=== PATIENT | female | born 1995 | race Caucasian/White ===

== ENCOUNTER 2018-08-27 10:43 | Outpatient (REF) | payer BC, SELFPAY ==
--- NOTE | 2018-08-27 09:00 | PAPFT_PTH ---
PATIENT: Liza Wilkinson LOC: [facility] U#:[id number] AGE/SX: 23/F ROOM: RE08/27/[address]: LANA Barlow : 1995 BED: DIS: 08/27/2018 SPEC #: [id number] RECD: 08/27/18 12:50 STATUS: LUANNE REQ #: [id number] ALISHA: 08/27/18 09:[address]: Liza uY DEPT: [facility] Cytology RECD BY: Mariel Michelle ENTERED: 08/27/18 12:51 SP TYPE: PAPFT MALINI DR: Lynn López APRN Tissues: 1 - CX/ENDOCX FOR PAP SMEARS Procedures: PAP THIN PREP/UVM Screening Comments: [id number]
== END 2018-08-27 11:03 ==
LOC: LBN 10:43
PROVIDERS: PCP Nurse Practitioner Family; Visit Provider Nurse Practitioner Family
DX: Z12.4 Encounter for screening for malignant neoplasm of cervix (principal)
CPT/HCPCS: 88142

== ENCOUNTER 2019-03-22 15:00 | Outpatient (CLI) | payer BC, SELFPAY ==
[2019-03-22 15:46] LABS: Abs Immature Grans 0.03 k/cumm (0.0-0.09); Absolute Basophil Count 0.03 k/cumm (0.0-0.2); Absolute Eosinophil Count 0.05 k/cumm (0.0-0.7); Absolute Lymphocyte Count 3.03 k/cumm (1.2-3.4); Absolute Monocyte Count 0.87 k/cumm (0.11-0.7); Absolute Neutrophil Count 5.76 k/cumm (1.2-6.7); Basophils % 0.3; Eosinophils % 0.5; HGB 14.1 g/dL (12.0-15.5); Immature Grans % 0.3; Mean Corp. HGB Concentration 34.4 g/dL (32.0-36.0); Mean Corpuscular Hemoglobin 29.9 pg (27.0-33.0); Mean Corpuscular Volume 86.9 fL (80-95); Mean Platelet Volume 10.7 fL (8.0-11.0); Monocytes % 8.9; Platelet Count 267 x1000/uL (130-400); RBC 4.72 m/cumm (4.00-5.20); White Blood Cell Count 9.77 k/cumm (4.4-10.8)
[2019-03-22 16:59] LABS: ALT 25 U/L (12-78); AST 16 U/L (15-37); Albumin 3.6 g/dL (3.4-5.0); Alkaline Phosphatase 66 U/L (46-116); Anion Gap 9.7 mmol/L (3-11); BUN 11 mg/dL (7-18); Bilirubin, Total 0.2 mg/dL (0.2-1.0); CO2 26.3 mmol/L (21.0-32.0); CREATININE 0.74 mg/dL (0.55-1.02); Calcium 8.8 mg/dL (8.5-10.1); Chloride 102 mmol/L (98-107); Glucose 90 mg/dL (70-100); Potassium 3.7 mmol/L (3.5-5.1); Sodium 138 mmol/L (136-145); Total Protein 6.7 g/dL (6.4-8.2)
[2019-03-22 20:51] LABS: Ionized Calcium 1.18 mmol/L (1.12-1.32)
== END 2019-03-22 15:20 ==
PROVIDERS: PCP Nurse Practitioner Family; Visit Provider Obstetrics & Gynecology
DX: O16.1 Unspecified maternal hypertension, first trimester (principal)
CPT/HCPCS: 36415; 80053; 82330; 84443; 85025

== ENCOUNTER 2019-04-12 16:49 | Outpatient (REF) | payer BC, SELFPAY ==
[2019-04-12 18:33] LABS: *AMPHETAMINES SCREEN URINE Negative (Negative); *BARBITURATES SCREEN URINE Negative (Negative); *BENZODIAZEPINES SCREEN URINE Negative (Negative); Cannabinoids THC Negative (Negative); Cocaine Screen,Urine Negative (Negative); METHADONE URINE SCREEN Negative (Negative); OPIATES URINE SCREEN Negative (Negative)
[2019-04-12 18:55] LABS: Tricyclic Antidepressants Negative (Negative)
[2019-04-17 11:44] LABS: Buprenorphine Negative; Norbuprenorphine Negative
== END 2019-04-12 17:09 ==
LOC: LBN 16:49
PROVIDERS: PCP Nurse Practitioner Family; Visit Provider Advanced Practice Midwife
DX: Z34.91 Encounter for supervision of normal pregnancy, unspecified, first trimester (principal)
CPT/HCPCS: 80307; 87086

== ENCOUNTER 2019-05-25 07:08 | Outpatient (CLI) | payer BC, SELFPAY ==
[2019-05-25 08:43] LABS: TSH (W/Ref FT4) 1.41 uIU/mL (0.36-3.74)
[2019-05-26 10:35] LABS: Hepatitis C Ab w Rflx HCV PCR Negative (NEGAT)
[2019-05-26 11:12] LABS: Hepatitis B Surface Ag Negative (NEGAT); Rubella IgG Ab (UVM) Positive
[2019-05-26 11:22] LABS: HIV-1/2 Ag & Ab Screen Negative (NEGAT)
[2019-05-26 11:36] LABS: Varicella IgG Antibody Positive
== END 2019-05-25 07:28 ==
PROVIDERS: Visit Provider Obstetrics & Gynecology Gynecology
DX: Z34.91 Encounter for supervision of normal pregnancy, unspecified, first trimester (principal); Z11.4 Encounter for screening for human immunodeficiency virus [HIV]; Z11.59 Encounter for screening for other viral diseases; Z01.84 Encounter for antibody response examination
CPT/HCPCS: 36415; 86787; 86803; 86850; 86900; 86901; 87340; 87389; 84443; 86762

== ENCOUNTER 2019-06-16 00:31 | Outpatient (CLI) | payer BC, SELFPAY ==
--- NOTE | 2019-06-16 07:00 | DI.US_ITS ---
SYMPTOMS/DIAGNOSIS: , SURVEY, Z34.90 OB ULTRASOUND: The fetus was in variable position during the exam. The placenta is posterior. The biometric measurements correspond to 18 weeks 2 days. The amount of amniotic fluid appears normal. No abnormalities are identified. IMPRESSION: survey is within normal limits. Predicted Gestational Age: Indication/History: 18+0 Wks Range: 17+0 to 19+0 Prior US done on: Determined by: First US LMP History EDC by prior US: 11/17/19 For multiple gestations: Baby PLACENTA: Grade: 0 Location: Anterior Posterior X PRESENTATION: RT LT LOW LYING PREVIA Cephalic Trans (Head RT LT ) Varied X Breech BIOMETRY: Anatomy Identified: BPD: 40 mm 18+2 wks 4 chamber Heart X Heart Rate 144 BPM HC: 155 mm 18+3 wks LVOT X Post Fossa X AC: 126 mm 18+1 wks RVOT X Ventricles X FL: 27 mm 18+1 wks Stomach X Nose X Bladder X Lips X Cisterna Magna: 4.1 mm CI: 79 Kidneys X Palate X Cerebellum: 1.82 mm 3 vessel cord X Spine X EFW: grms % Cord Insertion X NS= not seen Composite Age (US) 18+2 wks Many abnormalities cannot be diagnosed. A normal exam does not exclude congenital abnormality. EDC by US 11/15/2019 Amniotic Fluid Index: Normal COMMENTS: 0lbs, 8 oz RUQ: LUQ: RLQ: LLQ: Total: cm Biophysical Profile: Score 0/2 NEO (>2cm) Respirations (>30 sec) Body flexion/extension Extremity flexion/extension TOTAL SCORE
== END 2019-06-16 00:51 ==
PROVIDERS: Visit Provider Obstetrics & Gynecology
DX: Z34.92 Encounter for supervision of normal pregnancy, unspecified, second trimester (principal)
CPT/HCPCS: 76805

== ENCOUNTER 2019-07-27 20:56 | Outpatient (REF) | payer BC, SELFPAY ==
[2019-07-27 23:30] LABS: PROTEIN 8.1 mg/dL
[2019-07-27 23:31] LABS: COMMENT (LAB VIEW ONLY) 85.55 mg/dL; Prot/Crea Ur Ratio 0.09
== END 2019-07-27 21:16 ==
LOC: LBN 20:56
PROVIDERS: Visit Provider Obstetrics & Gynecology Gynecology
DX: R03.0 Elevated blood-pressure reading, without diagnosis of hypertension (principal); Z34.92 Encounter for supervision of normal pregnancy, unspecified, second trimester
CPT/HCPCS: 82565; 84156

== ENCOUNTER 2019-08-14 23:08 | Observation (INO) | payer BC, SELFPAY ==
[2019-08-14 22:41] LABS: HCT 39.2 % (36.0-46.0); HGB 13.7 g/dL (12.0-15.5); Mean Corp. HGB Concentration 34.9 g/dL (32.0-36.0); Mean Corpuscular Hemoglobin 30.4 pg (27.0-33.0); Mean Corpuscular Volume 86.9 fL (80-95); Mean Platelet Volume 10.7 fL (8.0-11.0); Platelet Count 245 x1000/uL (130-400); RBC 4.51 m/cumm (4.00-5.20); RBC Distribution Width 12.3 % (11.7-14.6); White Blood Cell Count 9.84 k/cumm (4.4-10.8)
[2019-08-14 22:54] LABS: ALT 23 U/L (14-59); AST 21 U/L (15-37); Albumin 3.1 g/dL (3.4-5.0); Alkaline Phosphatase 60 U/L (46-116); Anion Gap 6.9 mmol/L (3-11); BUN 5 mg/dL (7-18); Bilirubin, Total 0.2 mg/dL (0.2-1.0); CO2 27.1 mmol/L (21.0-32.0); CREATININE 0.65 mg/dL (0.55-1.02); Calcium 8.7 mg/dL (8.5-10.1); Chloride 105 mmol/L (98-107); Glucose 96 mg/dL (70-100); Potassium 3.8 mmol/L (3.5-5.1); Sodium 139 mmol/L (136-145)
--- NOTE | 2019-08-15 01:08 | PGE_ITS ---
Date of Service Date of service: 08/15/19 Time of Service: 01:08 Assessment and Plan Assessment and plan (1) Hypertension affecting in third trimester: Status: Acute Assessment and plan: Laboratory studies today are within normal limits including protein creatinine ratio. Blood pressure now 139/96 which is typical for her. Will discharge home. Follow up in the clinic early in the week for blood pressure check. Subjective Subjective Interval history since last seen: 24 year old at 26 weeks gestation presents this evening for evaluation of elevated blood pressures at home reports as 150s/100s. She reports a severe headache and simply not feeling well. Her is complicated by CHTN for which she takes labetalol 100mg once daily. She does not have a baseline 24 hour urine and has declined to turn one in. Objective Objective Clinical Data: Abnormal lab results 08/14/19 Range/Units 22:35 BUN 5 L (7-18) mg/dL Albumin 3.1 L (3.4-5.0) g/dL Laboratory Results WBC 9.84 k/cumm (4.4-10.8) 08/14/19 22:35 RBC 4.51 m/cumm (4.00-5.20) 08/14/19 22:35 Hgb 13.7 g/dL (12.0-15.5) 08/14/19 22:35 Hct 39.2 % (36.0-46.0) 08/14/19 22:35 MCV 86.9 fL (80-95) 08/14/19 22:35 MCH 30.4 pg (27.0-33.0) 08/14/19 22:35 MCHC 34.9 g/dL (32.0-36.0) 08/14/19 22:35 RDW 12.3 % (11.7-14.6) 08/14/19 22:35 Plt Count 245 x1000/uL (130-400) 08/14/19 22:35 MPV 10.7 fL (8.0-11.0) 08/14/19 22:35 Sodium 139 mmol/L (136-145) 08/14/19 22:35 Potassium 3.8 mmol/L (3.5-5.1) 08/14/19 22:35 Chloride 105 mmol/L (98-107) 08/14/19 22:35 Carbon Dioxide 27.1 mmol/L (21.0-32.0) 08/14/19 22:35 Anion Gap 6.9 mmol/L (3-11) 08/14/19 22:35 BUN 5 mg/dL (7-18) L 08/14/19 22:35 Creatinine 0.65 mg/dL (0.55-1.02) 08/14/19 22:35 Estimated GFR/1.73 m2 >= 60.00 (mL/min/1.73m2) 08/14/19 22:35 Glucose 96 mg/dL (70-100) 08/14/19 22:35 Calcium 8.7 mg/dL (8.5-10.1) 08/14/19 22:35 Total Bilirubin 0.2 mg/dL (0.2-1.0) 08/14/19 22:35 AST 21 U/L (15-37) 08/14/19 22:35 ALT 23 U/L (14-59) 08/14/19 22:35 Alkaline Phosphatase 60 U/L (46-116) 08/14/19 22:35 Total Protein 7.0 g/dL (6.4-8.2) 08/14/19 22:35 Albumin 3.1 g/dL (3.4-5.0) L 08/14/19 22:35 Ur Random Creatinine 8.61 mg/dL 08/14/19 22:27 U Random Total Protein < 6.0 mg/dL 08/14/19 22:27 U [place] Prot/Creat Ratio 08/14/19 22:27
[2019-08-15 01:15] LABS: PROTEIN < 6.0 mg/dL
[2019-08-16 16:09] LABS: COMMENT (LAB VIEW ONLY) < 13.00 mg/dL
== END 2019-08-15 01:59 | disposition home or self-care (01) ==
LOC: OBS 08-16 10:18
PROVIDERS: Admitting Provider Obstetrics & Gynecology; Visit Provider Obstetrics & Gynecology
DX: O10.912 Unspecified pre-existing hypertension complicating pregnancy, second trimester (principal); Z3A.26 26 weeks gestation of pregnancy
CPT/HCPCS: 80053; 85027; 99233; 59025; 82565; 84156; G0378

== ENCOUNTER 2019-08-24 00:39 | Outpatient (CLI) | payer BC, SELFPAY ==
--- NOTE | 2019-08-24 06:55 | DI.US_ITS ---
EXAM: US OB NEO WEIGHT CLINICAL HISTORY: serial u/s for growth,R03.0,Z34.90 TECHNIQUE: Ultrasound performed using standard protocol. COMPARISON: US OB 2-3 trimester from 06/16/2019 FINDINGS: There is a single living intrauterine gestation. Estimated sonographic age is 28 weeks. The fetus is in the cephalic presentation. heart rate is 152 beats per minute. anatomic evaluation was not performed at this time. Amniotic fluid index is 16.9 cm. Visually the amniotic fluid appears within normal limits. The placenta is posterior without evidence of previa. Estimated weight is 1138 grams. This is the 37th percentile. IMPRESSION: Single living intrauterine gestation. Estimated sonographic age is 28 weeks.
== END 2019-08-24 00:59 ==
PROVIDERS: Visit Provider Obstetrics & Gynecology Gynecology
DX: Z34.93 Encounter for supervision of normal pregnancy, unspecified, third trimester (principal)
CPT/HCPCS: 76816

== ENCOUNTER 2019-08-24 07:38 | Outpatient (CLI) | payer BC, SELFPAY ==
[2019-08-24 12:56] LABS: Glucose,1 Hr (Glucola) 140 mg/dL (80-140)
[2019-08-24 13:22] LABS: HCT 39.5 % (36.0-46.0); HGB 13.4 g/dL (12.0-15.5); Mean Corp. HGB Concentration 33.9 g/dL (32.0-36.0); Mean Corpuscular Hemoglobin 29.9 pg (27.0-33.0); Mean Corpuscular Volume 88.2 fL (80-95); Platelet Count 257 x1000/uL (130-400); RBC 4.48 m/cumm (4.00-5.20); RBC Distribution Width 12.4 % (11.7-14.6); White Blood Cell Count 10.42 k/cumm (4.4-10.8)
[2019-08-24 14:18] LABS: ALT 19 U/L (14-59); AST 16 U/L (15-37); Alkaline Phosphatase 60 U/L (46-116); BUN 5 mg/dL (7-18); Bilirubin, Total 0.2 mg/dL (0.2-1.0); CREATININE 0.59 mg/dL (0.55-1.02); Calcium 8.5 mg/dL (8.5-10.1); Chloride 105 mmol/L (98-107); Glucose 133 mg/dL (70-100); Potassium 3.8 mmol/L (3.5-5.1); Sodium 138 mmol/L (136-145); Total Protein 6.3 g/dL (6.4-8.2)
== END 2019-08-24 07:58 ==
PROVIDERS: Visit Provider Obstetrics & Gynecology Gynecology
DX: O10.913 Unspecified pre-existing hypertension complicating pregnancy, third trimester (principal); Z3A.28 28 weeks gestation of pregnancy
CPT/HCPCS: 36415; 80053; 82950; 85027

== ENCOUNTER 2019-09-20 00:09 | Outpatient (CLI) | payer BC, SELFPAY ==
--- NOTE | 2019-09-20 07:03 | DI.US_ITS ---
EXAM: US OB NEO WEIGHT CLINICAL HISTORY: F/u growth in pt with chronic hypertension,016.3 TECHNIQUE: Ultrasound performed using standard protocol. COMPARISON: US OB NEO WEIGHT from 08/24/2019 FINDINGS: The fetus is in cephalic position. Placenta is grade 1 and posterior. The biometric measurements co rrespond to 32 weeks, consistent with previous dating. Estimated weight is 1818 grams, near th e 38th percentile. The amniotic fluid index appears normal at 16.9. IMPRESSION: size and weight are within the normal range.
== END 2019-09-20 00:29 ==
PROVIDERS: Visit Provider Obstetrics & Gynecology Gynecology
DX: O16.3 Unspecified maternal hypertension, third trimester (principal); Z36.89 Encounter for other specified antenatal screening
CPT/HCPCS: 76816

== ENCOUNTER 2019-09-22 07:20 | Outpatient (CLI) | payer BC, SELFPAY ==
[2019-09-22 07:40] LABS: HCT 39.7 % (36.0-46.0); HGB 13.4 g/dL (12.0-15.5); Mean Corp. HGB Concentration 33.8 g/dL (32.0-36.0); Mean Corpuscular Hemoglobin 29.4 pg (27.0-33.0); Mean Corpuscular Volume 87.1 fL (80-95); Mean Platelet Volume 11.4 fL (8.0-11.0); Platelet Count 217 x1000/uL (130-400); RBC 4.56 m/cumm (4.00-5.20); RBC Distribution Width 12.2 % (11.7-14.6); White Blood Cell Count 8.63 k/cumm (4.4-10.8)
[2019-09-22 08:41] LABS: ALT 19 U/L (14-59); AST 20 U/L (15-37); Albumin 2.8 g/dL (3.4-5.0); Alkaline Phosphatase 63 U/L (46-116); BUN 3 mg/dL (7-18); Bilirubin, Total 0.3 mg/dL (0.2-1.0); CREATININE 0.69 mg/dL (0.55-1.02); Calcium 9.1 mg/dL (8.5-10.1); Chloride 106 mmol/L (98-107); Glucose 90 mg/dL (74-106); Potassium 4.1 mmol/L (3.5-5.1); Sodium 140 mmol/L (136-145); Uric Acid 4.1 mg/dL (2.6-6.0)
== END 2019-09-22 07:40 ==
PROVIDERS: Visit Provider Obstetrics & Gynecology Gynecology
DX: O14.93 Unspecified pre-eclampsia, third trimester (principal)
CPT/HCPCS: 36415; 80053; 85027; 84550

== ENCOUNTER 2019-09-28 15:27 | Outpatient (CLI) | payer BC, SELFPAY | END 2019-09-28 15:47 | PROVIDERS: Visit Provider Obstetrics & Gynecology Gynecology | DX: O10.013 Pre-existing essential hypertension complicating pregnancy, third trimester (principal); Z3A.32 32 weeks gestation of pregnancy | CPT/HCPCS: 59025 ==

== ENCOUNTER 2019-09-29 13:46 | Observation (INO) | payer BC, SELFPAY ==
[2019-09-29 14:15] LABS: HCT 45.6 % (36.0-46.0); HGB 15.5 g/dL (12.0-15.5); Mean Corpuscular Hemoglobin 29.2 pg (27.0-33.0); Mean Platelet Volume 11.6 fL (8.0-11.0); Platelet Count 240 x1000/uL (130-400); RBC Distribution Width 12.4 % (11.7-14.6); White Blood Cell Count 13.15 k/cumm (4.4-10.8)
[2019-09-29] MEDS: hydrALAZINE 20 MG/ML VIAL 10 MG IVP (14:22)
[2019-09-29] MEDS: MAGNESIUM SULFATE 20 GM/500 ML BAG IV (14:23)
[2019-09-29] MEDS: Lactated Ringers 1,000 ML 30 ML IV (14:23)
[2019-09-29 14:32] LABS: ALT 30 U/L (14-59); AST 26 U/L (15-37); Albumin 3.1 g/dL (3.4-5.0); Alkaline Phosphatase 86 U/L (46-116); Anion Gap 10.2 mmol/L (3-11); BUN 6 mg/dL (7-18); Bilirubin, Total 0.3 mg/dL (0.2-1.0); CO2 21.8 mmol/L (21.0-32.0); CREATININE 0.54 mg/dL (0.55-1.02); Calcium 9.3 mg/dL (8.5-10.1); Chloride 105 mmol/L (98-107); Glucose 110 mg/dL (74-106); Potassium 3.8 mmol/L (3.5-5.1); Sodium 137 mmol/L (136-145); Total Protein 7.7 g/dL (6.4-8.2); Uric Acid 3.9 mg/dL (2.6-6.0)
[2019-09-29 14:33] LABS: COMMENT (LAB VIEW ONLY) < 13.00 mg/dL; PROTEIN 18.7 mg/dL
[2019-09-29] MEDS: Betamet Acet/Betamet Na Ph Inj. 30 MG/5 ML 12 MG IM (14:49)
[2019-09-29] MEDS: Acetaminophen 325 MG TAB 650 MG PO (15:35)
--- NOTE | 2019-09-29 17:22 | HPE_ITS ---
Date of service: 09/29/19 Time of Service: 17:23 Assessment and Plan Assessment and plan (1) Severe preeclampsia: Status: Acute Assessment and plan: My recommendation is to proceed with transfer to [facility] service at [facility]. While her laboratory studies are normal and she has no proteinuria, she did have severe range blood pressures that required IV antihypertensive medication. She was started on a Magnesium sulfate infusion with a 4 gm bolus then 2gm/ hour thereafter. She was provided BMZ 12mg x 1 and blood pressure was treated with 10 mg of IV hydralazine with good results. Dr. Venegas at [facility] was contacted and accepted the patient in transfer. History of Present Illness History of Present Illness Chief Complaint: Elevated Blood pressures Narrative: 24 year old @ 33.0 weeks presented to the office today with flushing, headache and a racing heart rate. Her has been complicated by chronic hypertension and she had been on labetalol 100mg once daily for the majority of the . Her baseline blood pressures ran with a systolic typically in the 140s. Over the last week she has had increasing blood pressures but did have normal laboratory studies. Today her initial blood pressure on evaluation in the clinic her initial blood pressure was 178/122. The patient was admitted to labor and delivery and repeat blood pressure was noted to be 166 /103. She was started on a magnesium sulfate infusion and provided 10 mg of IV hydralazine with good result. She did complain of a severe headache that did not improve after tylenol. She denies any abdominal pain. movement has been good. Review of Systems All systems reviewed & are unremarkable except as noted in HPI and below PFSH Medical History (Updated 09/29/19 @ 17:42 by Jared Schwarz MD) Hypertension affecting in first trimester (Acute) 03/2019 Labetalol 100mg daily is max dose pt is taking. se. 03/31/19 - 24hr urine catecholamines ordered 06/29/19 24hr urine protein ordered. 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 Do you feel safe in your relationship?: Yes Female Reproductive History Menstrual Age of Menarche: 12 control method: none History History 1 Para 0 Hx # Term Pregnancies 0 Multiple births 0 Hx # Pregnancies 0 Ectopic pregnancies 0 AB induced 0 Hx Number of Living Children 0 AB spontaneous 0 Meds Home Medications and Allergies Home Medications Medication Instructions Recorded Confirmed Type prenat.vits,stacey,yzr-epwc-tybdn 1 tab PO DAILY 04/12/19 09/29/19 History nifedipine 30 mg tablet,extended 30 mg PO DAILY #10 tab 09/28/19 09/29/19 Rx release Allergies Allergy/AdvReac Type Severity Reaction Status Date / Time polymyxin B sulfate Allergy Unknown Verified 09/29/19 13:25 [From Polytrim] trimethoprim [From Polytrim] Allergy Unknown Verified 09/29/19 13:25 prednisone Allergy Skin Rash Verified 09/29/19 13:25 pseudoephedrine HCl AdvReac tachycardia Verified 09/29/19 13:25 [From Sudafed] Exam Resp Effort & Inspection: normal respiratory effort Auscultation: clear to auscultation bilaterally Cardio Rate: regular rate and tachycardic (Rate of 120 on initial exam. ) Rhythm: regular rhythm Extrem Other: 3+ DTRs. No clonus. Results Labs Result diagrams: 09/29/19 14:03 09/29/19 14:03 Labs: Laboratory Results - last 24 hr 09/29/19 09/29/19 09/29/19 13:50 14:03 14:03 WBC 13.15 H RBC 5.30 H Hgb 15.5 Hct 45.6 MCV 86.0 MCH 29.2 MCHC 34.0 RDW 12.4 Plt Count 240 MPV 11.6 H Sodium 137 Potassium 3.8 Chloride 105 Carbon Dioxide 21.8 Anion Gap 10.2 BUN 6 L Creatinine 0.54 L Estimated GFR/1.73 m2 >= 60.00 Glucose 110 H Uric Acid 3.9 Calcium 9.3 Total Bilirubin 0.3 AST 26 ALT 30 Alkaline Phosphatase 86 Total Protein 7.7 Albumin 3.1 L Ur Random Creatinine < 13.00 U Random Total Protein 18.7 U [place] Prot/Creat Ratio
== END 2019-09-29 17:30 | disposition short-term general hospital (02) | DRG 833 ==
PROVIDERS: Admitting Provider Obstetrics & Gynecology; Visit Provider Obstetrics & Gynecology
DX: O11.3 Pre-existing hypertension with pre-eclampsia, third trimester (principal); O10.913 Unspecified pre-existing hypertension complicating pregnancy, third trimester; Z3A.33 33 weeks gestation of pregnancy
CPT/HCPCS: 36415; 80053; 85027; 96360; 96361; 96365; 96366; 99223; 82565; 84156; 84550; G0378; J0360; J0702; J3475

== ENCOUNTER 2020-03-26 15:46 | Emergency (ER) | payer MEDICAID, SELFPAY ==
[2020-03-26 15:51] VITALS: BP 160/98; PULSE 78; RESP 20; TEMP 36.6; O2SAT 100
[2020-03-26 16:05] VITALS: RESP 16
--- NOTE | 2020-03-26 16:46 | W.ED.GENAD ---
Discharge Plan Disposition Patient Disposition: HOME Condition: Stable Discharge Details Chief Complaint: GenMedical Clinical Impression: HTN (hypertension), Anxiety, Post depression Primary Care Provider: Lynn López ED Provider: Darian Lowery Home Meds and New Rx's Prescriptions: Continued prenat.vits,stacey,alg-akaa-klrqw tablet 1 tab PO DAILY RF: 0 Discharge Instructions Instructions: Depression (ED), Hypertension (ED), Anxiety (ED) Additional Instructions: At this time your blood pressure is elevated but is nonemergent and you are otherwise asymptomatic. As we discussed, I have multiple recommendations. I recommend watching for new or worsening symptoms and return immediately to the ER. I recommend checking her blood pressure twice a day under the same circumstances and keeping a log. This will be very helpful to find if your blood pressure is consistently high or whether this is secondary to anxiety and being at the hospital, white coat syndrome. If your numbers are consistently high you will likely need to discuss hypertension medications with your primary care provider. I would call them on Friday to make an outpatient appointment. I would also talk with them regarding your anxiety and your depression. I have given you the card for [facility] human services, I recommend reaching out to them on Friday as well to discuss your anxiety and depression, discuss options such as counseling and/or medications. Discharge Data Discharge Date/Time-TO BE ENTERED AT DEPARTURE: 03/26/20 17:15 Medical Decision Making 25-year-old female who is 5-6 months , presents to the ER with multiple complaints. After a long and thorough evaluation I do believe that her presentation today is multifactorial. Her blood pressure is 160/98, although admittedly this is elevated, she is currently asymptomatic, and I do not believe this to be emergent. We discussed her blood pressure in length. She reports that she has in the past had her blood pressure be both too high or too low, treated the blood pressure, and then the opposite was true. I did explain to her that I did have concern in treating a nonemergent, asymptomatic, elevated blood pressure, any fear that she may then be hypotensive. Patient understood this completely. Regarding the tingling that she gets in her arms that seem to be positional, I do question if a nerve conduction study would be beneficial. Her neck is nontender, strength is 5 out of 5, she is neurologically intact. I do not believe that emergent advanced imaging of her C-spine is indicated. It sounds like today she was doing repetitive motion at eye level or above eye level, had the sensation in her upper extremities and became anxious. She then began to hyperventilate, felt a tightness or cramping in her upper extremities, tingling her lower extremities, question if she had a carpal pedal spasm. This resolved on its own. Again, she is neuro, vascular, tendon intact. No deficit during her evaluation. No clinical signs that she is dehydrated or malnourished. I do not believe that obtaining routine laboratory values will be beneficial in her case. We had a long discussion regarding her multifactorial treatment. I feel as though keeping a log of her blood pressure readings, bringing this to her primary care provider, and looking at the overall trend for potential therapy would be indicated. I discussed the importance of discussing her other symptoms with her primary care provider as well. Outpatient referral to orthopedics may be indicated for further evaluation. We discussed counseling versus medication therapies for her ongoing anxiety and depression. I have given her the resources of the [facility] human services so that she may reach out to them on Friday to discuss further therapy options. She was also given the number to the birthing center who was running a program in 2019, 1 of the programs involved depression which may be very beneficial for her. She was encouraged to return to the ER for new or worsening symptoms. Patient is no longer tearful or crying. She is calm, thankful, has no additional questions or concerns. She feels content with the work-up and care that she received here in the ER and is comfortable with discharge at this time. HPI General Mode of arrival: ambulatory. Date/Time Provider Initiated Documentation: 03/26/20 15:55. Limitations to Documentation: no limitations. Information obtained by: patient. HPI Narrative: This is a 25-year-old female who presents to the ER today with multiple complaints. She reports that she is 5-6 months from a and that almost killed me. She reports that this has made her much more aware of her body and has increased her overall anxiety when she notices something different going on. She reports that she has always been anxious but it is much worse since giving . She denies history of depression prior to giving but reports increasing depression since giving . Denies any suicidal or homicidal ideations. She reports that she does feel safe. She was supposed to see her primary care provider on Friday to address her blood pressure but did not make the appointment. She reports that she does not like going to the doctors and usually tries to avoid it. She reports that for approximately 1 week or so she has had tingling in both of her upper extremities that seems to be positional, especially when she sleeps or after holding her child in a certain position for right period of time. With change of position the symptoms do go away. She is right-hand dominant. She reports today she was outside working on the siding of her house, working at a high level or above eye level, felt both of her arms get tingly, warm, tight. She felt that both of her forearms seem to be tight or spasm, unsure if she has symptoms in her hands or not. She felt as though her blood vessels in her forearms looked more dilated than usual. This concerned her, she became increasingly anxious, decided to check her blood pressure and her blood pressure was 192/122. She reports that during this time she may have been mildly hyperventilating, also felt tingling in her legs. During this time she denies any headache, visual changes, neck pain, chest pain, shortness of breath, abdominal pain, nausea, vomiting, numbness, or weakness. She reports that her forearms still feel tight but are much improved when compared to the initial symptoms, no longer to her vessels look dilated. Apparently, roughly 5 weeks after giving they discontinued her blood pressure medication. She admits to increased stress and decreased sleeping secondary to her only child. Related Data Home Medications Medication Instructions Recorded Confirmed prenat.vits,stacey,mmf-ouoz-xtmlr 1 tab PO DAILY 04/12/19 03/26/20 Allergies Allergy/AdvReac Type Severity Reaction Status Date / Time polymyxin B sulfate Allergy Unknown Verified 03/26/20 16:01 [From Polytrim] trimethoprim [From Polytrim] Allergy Unknown Verified 03/26/20 16:01 nifedipine Allergy High Unverified 03/26/20 16:03 [place] [facility] [place] Allergy Skin Rash Verified 03/26/20 16:01 pseudoephedrine HCl AdvReac tachycardia Verified 03/26/20 16:01 [From Sudafed] General Stated Complaint: Orthopedic JORDAN: 3 Review of Systems Constitutional Constitutional: Denies fatigue, Denies fever(s), Denies headache(s) and Denies weakness Eyes Eyes: Denies change in vision ENT Ears, Nose, Mouth, and Throat: Denies headache(s) and Denies neck pain Cardiovascular Cardiovascular: Denies chest pain and Denies dyspnea Respiratory Respiratory: Denies cough and Denies dyspnea Gastrointestinal Gastrointestinal: Denies abdominal pain, Denies nausea and Denies vomiting Genitourinary Genitourinary: Denies dysuria Musculoskeletal Musculoskeletal: Denies back pain, Reports muscle cramps, Denies muscle weakness, Denies neck pain, Denies numbness, Denies stiffness and Reports tingling Integumentary/Breasts Skin/Breast: Denies rash Neurologic Neurologic: Denies headache(s), Denies numbness, Reports tingling and Denies weakness Psychiatric Psychiatric: Reports anxiety, Reports depression, Denies homicidal ideation and Denies suicidal ideation Endocrine Endocrine: Denies fatigue [facility] Medical History Hypertension affecting in first trimester (Acute) 03/2019 Labetalol 100mg daily is max dose pt is taking. se. 03/31/19 - 24hr urine catecholamines ordered 06/29/19 24hr urine protein ordered. Migraine Dx 2013 (Acute) Surgical History S/P section (Acute 10/29/19[place] [facility] [place]- Post partem hemorrhage of c sect wound, transfusion Tonsillectomy and adenoidectomy 10/2012 [facility] [place] tooth extraction Family History Mother , Leukemia at age 58. Essential hypertension Personal history of malignant neoplasm Leukemia (AML) Breast cancer 40s Father Essential hypertension Hyperlipidemia Sister No problems noted. Sister No problems noted. Sister No problems noted. Sister No problems noted. Sister No problems noted. Sister No problems noted. Sister No problems noted. Sister No problems noted. Brother No problems noted. 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: always Do you feel safe at home: Yes Do you feel safe in your relationship?: Yes Female Reproductive History Menstrual Age of Menarche: 12 control method: none History History 1 Para 0 Hx # Term Pregnancies 0 Multiple births 0 Hx # Pregnancies 0 Ectopic pregnancies 0 AB induced 0 Hx Number of Living Children 0 AB spontaneous 0 Exam Const General: cooperative, healthy appearing, comfortable, in distress (Tearful, crying) and anxious Orientation: alert, awake and oriented x3 HENMT Head: normal to inspection, normocephalic and atraumatic Mouth: moist mucous membranes Eyes General: appearance normal, both eyes and all related structures Alignment and Position: alignment normal Periorbital: periorbital findings normal Eyelids: eyelids normal Conjunctivae: conjunctivae normal Sclera: sclerae normal Cornea: corneas normal Pupils: PERRL EOM: EOM intact bilaterally Neck Neck: normal visual inspection, full ROM, no meningeal signs, trachea midline, supple and nontender Resp Effort & Inspection: normal respiratory effort and able to speak in complete sentences Auscultation: clear to auscultation bilaterally Cardio Rate: regular rate Rhythm: regular rhythm GI Palpation: soft and nontender Back/Spine/Pelvis Back: No back tenderness Skin General skin exam: no rashes or lesions noted Neuro General: patient alert, patient awake, patient oriented x3, moves all extremities and no focal motor deficits Cranial Nerves: CN's II-XI intact bilaterally Cognition: normal cognition Speech: speech normal Gait: normal gait Motor: muscle tone normal throughout and strength 5/5 throughout Sensory Exam: no sensory deficits noted Extrem General: normal to inspection, full ROM, capillary refill normal and no pedal edema Right upper extremity: normal to inspection, full ROM and normal capillary refill (Normal pulses) Left upper extremity: normal to inspection, full ROM and normal capillary refill (Normal pulses) Right lower extremity: normal to inspection, full ROM and normal capillary refill (Normal pulses) Left lower extremity: normal to inspection, full ROM and normal capillary refill (Normal pulses) Psych Appearance: grossly normal Mental Status: mental status grossly normal Course Vital Signs Vital signs: Vital Signs Temperature 36.6 C 03/26/20 15:51 Pulse 78 03/26/20 15:51 Respiratory Rate 20 03/26/20 15:51 Blood Pressure 160/98 H 03/26/20 15:51 Pulse Oximetry 100 03/26/20 15:51 Temperature 36.6 C 03/26/20 15:51 Temperature Source Temporal Artery Scan 03/26/20 15:51 Pulse 78 03/26/20 15:51 Respiratory Rate 16 03/26/20 16:05 Respiratory Effort Non-Labored 03/26/20 16:05 Respiratory Depth Normal 03/26/20 16:05 Respiratory Pattern Normal 03/26/20 16:05 Blood Pressure 160/98 H 03/26/20 15:51 Blood Pressure Position Supine 03/26/20 15:51 Pulse Oximetry 100 03/26/20 15:51 Oxygen Delivery Method Room Air 03/26/20 15:51 Oxygen Flow Rate 0 03/26/20 15:51 Pain Level 0 03/26/20 16:05
[2020-03-26 16:53] VITALS: BP 161/111; PULSE 80; O2SAT 98
[2020-03-26 17:04] VITALS: BP 161/111; PULSE 80; RESP 16; TEMP 37.1; O2SAT 98
== END 2020-03-26 17:15 | disposition home or self-care (01) ==
PROVIDERS: Emergency Provider Physician Assistant; PCP Nurse Practitioner Family
DX: F53.0 Postpartum depression (principal); I10 Essential (primary) hypertension; R20.2 Paresthesia of skin; F41.9 Anxiety disorder, unspecified
CPT/HCPCS: 99283

== ENCOUNTER 2020-08-01 11:49 | Outpatient (REF) | payer MEDICAID, SELFPAY ==
--- NOTE | 2020-08-01 11:00 | PAPFT_PTH ---
PATIENT: Liza Wilkinson LOC: [facility] U#:[id number] AGE/SX: 25/F ROOM: RE08/01/[address]: LANA Barlow : 1995 BED: DIS: 08/01/2020 SPEC #: [id number] RECD: 08/01/20 12:51 STATUS: LUANNE REQ #: [id number] ALISHA: 08/01/20 11:[address]: Liza Yu DEPT: [facility] Cytology RECD BY: Mariel Michelle ENTERED: 08/01/20 12:51 SP TYPE: PAPFT OTHR DR: Isabel Cao APRN Tissues: 1 - CX/ENDOCX FOR PAP SMEARS Procedures: PAP THIN PREP/[facility] Screening Comments: [id number]
== END 2020-08-01 12:09 ==
LOC: LBN 11:49
PROVIDERS: PCP Nurse Practitioner Adult Health; Visit Provider Nurse Practitioner Family
DX: Z01.419 Encounter for gynecological examination (general) (routine) without abnormal findings (principal); Z12.4 Encounter for screening for malignant neoplasm of cervix
CPT/HCPCS: 88142

== ENCOUNTER 2020-08-02 15:45 | Outpatient (CLI) | payer MEDICAID, SELFPAY ==
--- NOTE | 2020-08-02 15:45 | RT.EKG_ITS ---
APPROVED REPORT Exam: Resting ECG Patient Location: O HR:67 bpm ECG Measurements Heart Rate 67 AXIS MO 180 P 35 QRSd 83 QRS 31 QT 397 T 24 QTc 419 Conclusion Sinus rhythm...normal P axis, V-rate 60- 99
[2020-08-02 20:20] LABS: Anion Gap 6.3 mmol/L (3-11); BUN 10 mg/dL (7-18); CO2 27.7 mmol/L (21.0-32.0); CREATININE 0.83 mg/dL (0.55-1.02); Calcium 8.9 mg/dL (8.5-10.1); Chloride 105 mmol/L (98-107); Glucose 106 mg/dL (74-106); Potassium 4.3 mmol/L (3.5-5.1); Sodium 139 mmol/L (136-145); TSH (W/Ref FT4) 1.32 uIU/mL (0.36-3.74)
== END 2020-08-02 16:05 ==
PROVIDERS: PCP Nurse Practitioner Adult Health; Visit Provider Nurse Practitioner Adult Health
DX: I10 Essential (primary) hypertension (principal); R00.2 Palpitations; F41.9 Anxiety disorder, unspecified
CPT/HCPCS: 80048; 84443

== ENCOUNTER 2021-07-13 11:01 | Outpatient (REF) | payer MEDICAID, SELFPAY ==
[2021-07-13 14:10] LABS: Abs Immature Grans 0.01 10^3/uL (0.0-0.06); Absolute Basophil Count 0.03 10^3/uL (0.0-0.2); Absolute Eosinophil Count 0.05 10^3/uL (0.0-0.7); Absolute Lymphocyte Count 2.31 10^3/uL (1.2-3.4); Absolute Neutrophil Count 2.55 10^3/uL (1.2-6.7); Basophils % 0.6; Eosinophils % 0.9; HCT 43.6 % (36.0-46.0); HGB 14.6 g/dL (11.2-15.7); Immature Grans % 0.2; Lymphocytes % 43.2; MCH 29.3 pg (27.0-33.0); MCHC 33.5 % (32.0-36.0); MCV 87.4 fL (80-95); MPV 11.5 fL (8.0-11.0); Monocytes % 7.5; Neutrophils % 47.6; Nucleated RBC 0 %; Platelet Count 273 10^3/uL (130-400); RBC 4.99 10^6/uL (3.93-5.22); RDW 11.5 % (11.7-14.6); WBC 5.35 10^3/uL (4.4-10.8)
[2021-07-13 14:50] LABS: Anion Gap 5.2 mmol/L (3-11); BUN 12 mg/dL (7-18); CO2 31.8 mmol/L (21.0-32.0); CREATININE 0.8 mg/dL (0.55-1.02); Calcium 9.7 mg/dL (8.5-10.1); Chloride 105 mmol/L (98-107); Glucose 96 mg/dL (74-106); Potassium 4.2 mmol/L (3.5-5.1); Sodium 142 mmol/L (136-145); Vitamin B12 525 pg/mL (193-986)
== END 2021-07-13 11:02 | disposition home or self-care (01) ==
LOC: LBN 11:01
PROVIDERS: PCP Nurse Practitioner Adult Health; Visit Provider Nurse Practitioner Adult Health
DX: I10 Essential (primary) hypertension (principal); R20.2 Paresthesia of skin; Z80.6 Family history of leukemia
CPT/HCPCS: 80048; 82607; 85025

== ENCOUNTER 2022-01-25 09:02 | Outpatient (REF) | payer MEDICAID, SELFPAY ==
--- NOTE | 2022-01-25 08:30 | PAPFT_PTH ---
PATIENT: Liza Wilkinson LOC: [facility] U#:[id number] AGE/SX: 27/F ROOM: RE01/25/[address]: LANA Barlow : 1995 BED: DIS: 01/25/2022 SPEC #: [id number] RECD: 01/25/22 12:55 STATUS: LUANNE RESteven #: [id number] ALISHA: 01/25/22 08:[address]: Liza Yu DEPT: [facility] Cytology RECD BY: Mariel Michelle ENTERED: 01/25/22 12:56 SP TYPE: PAPFT MALINI DR: Isabel Cao APRN Tissues: 1 - CX/ENDOCX FOR PAP SMEARS Procedures: PAP THIN PREP/[facility] Screening Comments: [id number]
== END 2022-01-25 09:03 | disposition home or self-care (01) ==
LOC: LBN 09:02
PROVIDERS: PCP Nurse Practitioner Adult Health; Visit Provider Nurse Practitioner Family
DX: Z12.4 Encounter for screening for malignant neoplasm of cervix (principal)
CPT/HCPCS: 88142

== ENCOUNTER 2022-05-22 21:23 | Outpatient (REF) | payer MEDICAID, SELFPAY | END 2022-05-22 21:24 | disposition home or self-care (01) | LOC: LBN 21:23 | PROVIDERS: PCP Nurse Practitioner Adult Health; Visit Provider Physician Assistant Medical | DX: J02.9 Acute pharyngitis, unspecified (principal) | CPT/HCPCS: 87070 ==

== ENCOUNTER 2022-05-24 14:59 | Outpatient (REF) | payer MEDICAID, SELFPAY | END 2022-05-24 15:00 | disposition home or self-care (01) | LOC: LBN 14:59 | PROVIDERS: PCP Nurse Practitioner Adult Health; Visit Provider Physician Assistant | DX: J02.9 Acute pharyngitis, unspecified (principal) | CPT/HCPCS: 87070 ==

== ENCOUNTER 2022-05-28 00:18 | Emergency (ER) | payer MEDICAID, SELFPAY ==
[2022-05-28 00:29] VITALS: BP 162/97; PULSE 107; RESP 16; TEMP 36.8; O2SAT 97
--- NOTE | 2022-05-28 00:55 | ED.GENADUL_ITS ---
Discharge Plan Disposition Patient Disposition: HOME Condition: Stable Discharge Details Chief Complaint: RespSymp Clinical Impression: Acute viral syndrome Primary Care Provider: Isabel Cao ED Provider: Wenceslao Thomas Home Meds and New Rx's Prescriptions: No Action norethindrone (contraceptive) 0.35 mg tablet 0.35 mg PO DAILY Qty: 84 3RF benzonatate 100 mg capsule 100 mg PO TID PRN (Reason: cough) Qty: 14 0RF losartan 100 mg tablet 100 mg PO DAILY Qty: 90 3RF Rx Instructions: Blood pressure Discharge Instructions Instructions: Viral Syndrome (ED) Additional Instructions: Please follow-up with your primary care physician. Please use ibuprofen and/or acetaminophen for pain and fever. Please return to the emergency department for any worsening symptoms. Medical Decision Making 27-year-old female presents with 3 days of cough bringing up some phlegm, endorses nasal congestion and ear fullness. Of note daughter has similar symptoms. Both are tested negative for COVID 3 times at home. Afebrile nontoxic no acute distress lungs clear bilaterally. TMs clear bilaterally. Likely viral URI. Low suspicion for bacterial pneumonia. Will treat empirically with dexamethasone for anti-inflammatory effects. Home care instructions and strict return precautions given. HPI General Date/Time Provider Initiated Documentation: 05/28/22 00:41 . HPI Narrative: 27-year-old female presents with 3 days of nasal congestion cough pressure in her ears. Bringing up some sputum. No fevers or chills. Of note her daughter has similar symptoms Related Data Home Medications Medication Instructions Recorded Confirmed norethindrone (contraceptive) 0.35 0.35 mg PO DAILY #84 tabs 01/25/22 05/28/22 mg tablet benzonatate 100 mg capsule 100 mg PO TID PRN cough #14 caps 05/24/22 05/28/22 losartan 100 mg tablet 100 mg PO DAILY #90 tabs 05/27/22 05/28/22 Previous Rx's Medication Instructions Recorded norethindrone (contraceptive) 0.35 0.35 mg PO DAILY #84 tabs 01/25/22 mg tablet benzonatate 100 mg capsule 100 mg PO TID PRN cough #14 caps 05/24/22 losartan 100 mg tablet 100 mg PO DAILY #90 tabs 05/27/22 Allergies Allergy/AdvReac Type Severity Reaction Status Date / Time polymyxin B sulfate Allergy Unknown Verified 05/28/22 00:34 [From Polytrim] trimethoprim [From Polytrim] Allergy Unknown Verified 05/28/22 00:34 nifedipine Allergy High Verified 05/28/22 00:34 BP--RX at [facility] [place] prednisone Allergy Skin Rash Verified 05/28/22 00:34 bupropion [From Wellbutrin] AdvReac Mild Made Verified 05/28/22 00:34 anxiety worse citalopram AdvReac Mild Hyperhidrosis; Verified 05/28/22 00:34 paresthesias(?) pseudoephedrine HCl AdvReac tachycardia Verified 05/28/22 00:34 [From Sudafed] sertraline AdvReac hyperhidros Verified 05/28/22 00:34 is General Stated Complaint: RespSymp JORDAN: 3 Review of Systems Narrative: Review of Systems Constitutional: negative Eyes: negative ENT: Nasal congestion ear fullness Cardiovascular: negative Respiratory: Cough Gastrointestinal: negative : negative Musculoskeletal: negative Skin: negative Neurologic: negative Psych: negative PFSH All Active Problems (Updated 05/28/22 @ 00:58 by Wenceslao Thomas MD) Acute viral syndrome (Acute) Family history of breast cancer (Chronic 05/11/15) Mother Dx in 40's --CBE twice per year --mammograms at 35yo Family history of leukemia (Chronic) CBC Family history of pancreatic cancer (Chronic) Brother dx'ed 48yo Paresthesia of hand, bilateral (Chronic) wrist brace; OT Essential (primary) hypertension (Chronic) Losartan 2019; goal BP <130/80 Anxiety (Chronic) Intolerance Wellbutrin 2019; Sertraline hyperhidrosis 2019; Citalopram 10mg 07/2020; referral 10/2020 Pineal gland cyst (Acute) [facility] Neuro follows Episodic cluster headache, not intractable (Acute) [facility] Neurology Medical History Hypertension affecting in first trimester 03/2019 Labetalol 100mg daily is max dose pt is taking. se. 03/31/19 - 24hr urine catecholamines ordered 06/29/19 24hr urine protein ordered. Hypertension affecting in third trimester Migraine Dx 2014 Migraine (04/07/14) Severe preeclampsia Surgical History S/P section (10/29/19) [facility] admit 10/29/19- Post partem hemorrhage of c sect wound, transfusion Tonsillectomy and adenoidectomy 10/2012 [facility] [place] tooth extraction Family History Mother , Leukemia at age 58. Essential hypertension Personal history of malignant neoplasm Leukemia (AML) Breast cancer 40s Father Essential hypertension Hyperlipidemia Brother Personal history of malignant neoplasm Pancreatic cancer, dx'ed 48yo Social History Smoking/Tobacco Use Status: Never Smoking risk assessment performed?: Yes Alcohol Intake: current Alcohol Intake frequency: a few times a month Drug use: Never Substance use type: does not use Number of Children: 1 current occupation: [employer] Seatbelt use: always Do you feel safe at home: Yes Do you feel safe in your relationship?: Yes Female Reproductive History Menstrual Age of Menarche: 12 control method: pills History History 1 Para 1 Hx # Term Pregnancies 1 Multiple births 0 Hx # Pregnancies 0 Ectopic pregnancies 0 AB induced 0 Hx Number of Living Children 1 AB spontaneous 0 Past Pregnancies Del. Date GA/Weeks # Preg Succ Route Wgt Sex Labor Lgth Anesth esia Location [facility] 10/31/19 37 No 2803.768 g Female re gional local [facility] hemorrhag e transfusion Delivery Date: 10/31/19 Last Updated by: Julieta Hartley LPN Severe Maternal Hypertension, transferred to [facility] at 37.2 with delivery at [facility] at 37.4 Exam Narrative Exam Narrative: Physical Examination General: alert, awake, cooperative, resting comfortably, no acute distress HEENT: normocephalic, atraumatic; PERRL, EOM intact, conjunctiva normal; no nasal discharge; moist mucous membranes, oral and pharyngeal mucosa normal, tolerating secretions; TMs clear bilaterally Neck: supple, trachea midline; full ROM Chest: normal to inspection Respiratory: normal respiratory effort, speaking in full sentences, clear to auscultation, no wheezing, rales or rhonchi Cardiac: regular rate, regular rhythm, S1S2 intact, no murmurs rubs or gallops GI: abdomen soft, non-tender, non-distended; no palpable mass or hepatosplenomegaly Skin: no lesions, rashes or trauma appreciated Neuro: AAOx3, normal speech, moving all extremities Psych: Appropriate mood and affect Course Vital Signs Vital signs: Vital Signs Temperature 36.8 C 05/28/22 00:29 Pulse 107 H 05/28/22 00:29 Respiratory Rate 16 05/28/22 00:29 Blood Pressure 162/97 H 05/28/22 00:29 Pulse Oximetry 97 05/28/22 00:29 Temperature 36.8 C 05/28/22 00:29 Temperature Source Oral 05/28/22 00:29 Pulse 107 H 05/28/22 00:29 Respiratory Rate 16 05/28/22 00:29 Respiratory Effort 05/28/22 00:35 Respiratory Depth Normal 05/28/22 00:35 Blood Pressure 162/97 H 05/28/22 00:29 Blood Pressure Position Sitting 05/28/22 00:29 Pulse Oximetry 97 05/28/22 00:29 Oxygen Delivery Method Room Air 05/28/22 00:29 Oxygen Flow Rate 0 05/28/22 00:29 Pain Level 2 05/28/22 00:29
[2022-05-28] MEDS: Dexamethasone 10 MG/ML VIAL IVP (01:03)
== END 2022-05-28 01:09 | disposition home or self-care (01) ==
PROVIDERS: Emergency Provider Emergency Medicine; PCP Nurse Practitioner Adult Health
DX: B34.9 Viral infection, unspecified (principal)
CPT/HCPCS: 96374; 99284; 99283; J1100

== ENCOUNTER 2022-09-20 01:34 | Outpatient (CLI) | payer MEDICAID, SELFPAY ==
[2022-09-20 07:24] LABS: Abs Immature Grans 0.02 10^3/uL (0.0-0.06); Absolute Basophil Count 0.04 10^3/uL (0.0-0.2); Absolute Eosinophil Count 0.09 10^3/uL (0.0-0.7); Absolute Lymphocyte Count 2.26 10^3/uL (1.2-3.4); Absolute Neutrophil Count 3.61 10^3/uL (1.2-6.7); Basophils % 0.6; Eosinophils % 1.4; HGB 14.7 g/dL (11.2-15.7); Immature Grans % 0.3; Lymphocytes % 34.7; MCH 29.7 pg (27.0-33.0); MCHC 34.2 % (32.0-36.0); MCV 87 fL (80-95); Monocytes % 7.7; Neutrophils % 55.3; Platelet Count 270 10^3/uL (130-400); RBC 4.95 10^6/uL (3.93-5.22); RDW 11.6 % (11.7-14.6); RDW-SD 37.4 fL; WBC 6.52 10^3/uL (4.4-10.8)
[2022-09-20 08:05] LABS: Anion Gap 5.5 mmol/L (3-11); BUN 11 mg/dL (7-18); CO2 31.5 mmol/L (21.0-32.0); CREATININE 0.9 mg/dL (0.55-1.02); Calcium 8.9 mg/dL (8.5-10.1); Chloride 104 mmol/L (98-107); Estimated GFR 88.75 (mL/min/1.73m2); Glucose 110 mg/dL (74-106); Potassium 3.9 mmol/L (3.5-5.1); Sodium 141 mmol/L (136-145)
== END 2022-09-20 01:35 | disposition home or self-care (01) ==
LOC: LBO 01:34
PROVIDERS: PCP Nurse Practitioner Adult Health; Referring Provider Nurse Practitioner Adult Health; Visit Provider Nurse Practitioner Adult Health
DX: I10 Essential (primary) hypertension (principal); Z80.3 Family history of malignant neoplasm of breast
CPT/HCPCS: 36415; 80048; 85025

== ENCOUNTER → 2022-09-25 01:11 | Outpatient (CLI) | payer MEDICAID, SELFPAY ==
--- NOTE | 2022-09-25 06:15 | DI.MRI_ITS ---
Exam(s) MR BRAIN WO EXAM: MR BRAIN WO CLINICAL HISTORY: Measure cyst--stable? Last MRI 2014 [facility], 2013,pineal gland cyst,e34.8 TECHNIQUE: Multiplanar multisequence MRI of the brain was performed. COMPARISON: MR MRI - BRAIN W/WO CONTRAST from 04/25/2014 MR MRI - BRAIN WO CONTRAST from 09/12/2015 FINDINGS: VENTRICLES AND EXTRA AXIAL SPACES: Normal in size and morphology for the patient's age. There is agai n seen a cystic lesion in the region of the pineal gland. It measures 1.3 x 1.4 cm. Using similar m easuring techniques on the prior examination this shows no significant change. MIDLINE SHIFT: None. CEREBRAL PARENCHYMA: No focus of restricted diffusion to suggest acute infarct. No space-occupying le jagjit identified. There are few nonspecific foci of hyperintense signal on the FLAIR and T2 weighted i mages in the white matter. HEMORRHAGE: None. BRAINSTEM/CEREBELLUM: Normal. CALVARIUM: Normal. VISUALIZED PARANASAL SINUSES/MASTOIDS:Clear. WIYOT OF SANCHEZ: Normal flow void. PITUITARY GLAND: Unremarkable. OTHER FINDINGS: None. IMPRESSION: Stable pineal cyst. DATA REPOSITORY:
== END ==
PROVIDERS: PCP Nurse Practitioner Adult Health; Visit Provider Nurse Practitioner Adult Health
DX: E34.8 Other specified endocrine disorders (principal)
CPT/HCPCS: 70551

== ENCOUNTER 2023-04-24 23:17 | Emergency (ER) | payer MEDICAID, SELFPAY ==
[2023-04-24 23:47] VITALS: BP 149/92; PULSE 87; RESP 20; TEMP 37.1; O2SAT 99
--- NOTE | 2023-04-25 00:23 | W.ED.GENAD ---
Discharge Plan Discharge Details Chief Complaint: Abd Prob Primary Care Provider: Isabel Cao ED Provider: Estrellita Goetz Home Meds and New Rx's Prescriptions: No Action naproxen 500 mg tablet 500 mg PO BID PRN (Reason: headache) Qty: 40 0RF Rx Instructions: May take with hydroxyzine for headache management; take Naproxen with food hydroxyzine pamoate [Vistaril] 25 mg capsule 25 mg PO BID PRN (Reason: headache) Qty: 40 0RF Rx Instructions: May take with Naproxen for headache management losartan 100 mg tablet 100 mg PO DAILY Qty: 90 3RF Rx Instructions: Blood pressure norethindrone (contraceptive) 0.35 mg tablet 0.35 mg PO DAILY Qty: 84 3RF Discharge Data Discharge Date/Time-TO BE ENTERED AT DEPARTURE: 04/25/23 08:09 HPI General Date/Time Provider Initiated Documentation: 04/25/23 00:23. HPI Narrative: This patient was not seen by me and left prior to my evaluation. Related Data Home Medications Medication Instructions Recorded Confirmed losartan 100 mg tablet 100 mg PO DAILY #90 tabs 05/27/22 04/25/23 naproxen 500 mg tablet 500 mg PO BID PRN headache #40 tabs 08/30/22 04/25/23 hydroxyzine pamoate 25 mg capsule 25 mg PO BID PRN headache #40 caps 10/11/22 04/25/23 (Vistaril) norethindrone (contraceptive) 0.35 0.35 mg PO DAILY #84 tabs 02/26/23 04/25/23 mg tablet Previous Rx's Medication Instructions Recorded losartan 100 mg tablet 100 mg PO DAILY #90 tabs 05/27/22 naproxen 500 mg tablet 500 mg PO BID PRN headache #40 tabs 08/30/22 hydroxyzine pamoate 25 mg capsule 25 mg PO BID PRN headache #40 caps 10/11/22 (Vistaril) norethindrone (contraceptive) 0.35 0.35 mg PO DAILY #84 tabs 02/26/23 mg tablet Allergies Allergy/AdvReac Type Severity Reaction Status Date / Time polymyxin B sulfate Allergy Unknown Verified 04/09/23 17:01 [From Polytrim] trimethoprim [From Polytrim] Allergy Unknown Verified 04/09/23 17:01 nifedipine Allergy High Verified 04/09/23 17:01 BP--RX at [facility] prednisone Allergy Skin Rash Verified 04/09/23 17:01 bupropion [From Wellbutrin] AdvReac Mild Made Verified 04/09/23 17:01 anxiety worse citalopram AdvReac Mild Hyperhidrosis; Verified 04/09/23 17:01 paresthesias(?) pseudoephedrine HCl AdvReac tachycardia Verified 04/09/23 17:01 [From Sudafed] sertraline AdvReac hyperhidros Verified 04/09/23 17:01 is General Stated Complaint: Abd Prob JORDAN: 3 PFSH All Active Problems (Updated 04/09/23 @ 17:27 by Isabel Cao NP) Anxiety (Chronic ~2019) Intolerance Wellbutrin 2019; Sertraline hyperhidrosis 2019; Citalopram 10mg 07/2020; Venlafxine effective, discontinued 03/2023; referral 10/2020 Stress headaches (Acute ~08/2022) Family history of breast cancer (Chronic 05/11/15) Mother Dx in 40's --CBE twice per year --mammograms at 35yo Family history of leukemia (Chronic) CBC Family history of pancreatic cancer (Chronic) Brother dx'ed 48yo Paresthesia of hand, bilateral (Chronic) wrist brace; OT Essential (primary) hypertension (Chronic ~2019) Losartan 2019; goal BP <130/80 Pineal gland cyst (Chronic 2013) [facility] Neuro 2013 [facility] MRI, last 2021 (stable) Episodic cluster headache, not intractable (Acute) [facility] Neurology Medical History Hypertension affecting in first trimester 03/2019 Labetalol 100mg daily is max dose pt is taking. se. 03/31/19 - 24hr urine catecholamines ordered 06/29/19 24hr urine protein ordered. Hypertension affecting in third trimester Migraine Dx 2014 Migraine (04/07/14) Severe preeclampsia Surgical History S/P section (10/29/19) [facility] admit 10/29/19- Post partem hemorrhage of c sect wound, transfusion Tonsillectomy and adenoidectomy 10/2012 [facility] [place] tooth extraction Family History Mother , Leukemia at age 58. Essential hypertension Personal history of malignant neoplasm Leukemia (AML) Breast cancer 40s Father Essential hypertension Hyperlipidemia Brother Personal history of malignant neoplasm Pancreatic cancer, dx'ed 48yo Social History Smoking/Tobacco Use Status: Never Smoking risk assessment performed?: Yes Alcohol Intake: current Alcohol Intake frequency: a few times a month Drug use: Never Substance use type: does not use Number of Children: 1 current occupation: [employer] Seatbelt use: always Do you feel safe at home: Yes Do you feel safe in your relationship?: Yes Female Reproductive History Menstrual Age of Menarche: 12 control method: pills History History 1 Para 1 Hx # Term Pregnancies 1 Multiple births 0 Hx # Pregnancies 0 Ectopic pregnancies 0 AB induced 0 Hx Number of Living Children 1 AB spontaneous 0 Past Pregnancies Del. Date GA/Weeks # Preg Succ Route Wgt Sex Labor Lgth Anesthesia Location [facility] 10/31/19 37 No 2803.768 g Female regional local [facility] hemorrhage transfusion Delivery Date: 10/31/19 Last Updated by: Julieta Hartley LPN Severe Maternal Hypertension, transferred to [facility] at 37.2 with delivery at [facility] at 37.4 Course Vital Signs Vital signs: Vital Signs Temperature 37.1 C 04/24/23 23:47 Pulse 87 04/24/23 23:47 Respiratory Rate 20 04/24/23 23:47 Blood Pressure 149/92 H 04/24/23 23:47 Pulse Oximetry 99 04/24/23 23:47 Temperature 37.1 C 04/24/23 23:47 Temperature Source Tympanic 04/24/23 23:47 Pulse 87 04/24/23 23:47 Respiratory Rate 20 04/24/23 23:47 Blood Pressure 149/92 H 04/24/23 23:47 Blood Pressure Position Sitting 04/24/23 23:47 Pulse Oximetry 99 04/24/23 23:47 Oxygen Delivery Method Room Air 04/24/23 23:47 Oxygen Flow Rate 0 07/13/23 23:47 Pain Level 3 04/24/23 23:47
[2023-04-25 00:47] LABS: Abs Immature Grans 0.03 10^3/uL (0.0-0.06); Absolute Basophil Count 0.04 10^3/uL (0.0-0.2); Absolute Eosinophil Count 0.07 10^3/uL (0.0-0.7); Absolute Lymphocyte Count 3.15 10^3/uL (1.2-3.4); Absolute Monocyte Count 0.77 10^3/uL (0.1-0.8); Absolute Neutrophil Count 5.43 10^3/uL (1.2-6.7); Basophils % 0.4; Eosinophils % 0.7; HCT 38.8 % (36.0-46.0); HGB 13.5 g/dL (11.2-15.7); Immature Grans % 0.3; Lymphocytes % 33.2; MCH 30.5 pg (27.0-33.0); MCHC 34.8 % (32.0-36.0); MCV 88 fL (80-95); MPV 10.6 fL (8.0-11.0); Monocytes % 8.1; Neutrophils % 57.3; Platelet Count 272 10^3/uL (130-400); RBC 4.43 10^6/uL (3.93-5.22); RDW 11.7 % (11.7-14.6); RDW-SD 37.6 fL; WBC 9.49 10^3/uL (4.4-10.8)
[2023-04-25 01:01] LABS: ALT 27 U/L (14-59); AST 20 U/L (15-37); Alkaline Phosphatase 65 U/L (46-116); Bilirubin, Direct 0.1 mg/dL (0.0-0.2); Bilirubin, Total 0.3 mg/dL (0.2-1.0); Lipase 69 U/L (16-77); Total Protein 6.8 g/dL (6.4-8.2)
[2023-04-25 01:10] LABS: ALT 26 U/L (14-59); AST 18 U/L (15-37); Albumin 3.9 g/dL (3.4-5.0); Alkaline Phosphatase 61 U/L (46-116); Anion Gap 6.9 mmol/L (3-11); BUN 13 mg/dL (7-18); Bilirubin, Total 0.3 mg/dL (0.2-1.0); CO2 27.1 mmol/L (21.0-32.0); CREATININE 0.9 mg/dL (0.55-1.02); Calcium 9.3 mg/dL (8.5-10.1); Chloride 103 mmol/L (98-107); Glucose 110 mg/dL (74-106); Potassium 3.9 mmol/L (3.5-5.1); Sodium 137 mmol/L (136-145)
[2023-04-25 01:25] LABS: Magnesium 1.9 mg/dL (1.8-2.4)
== END 2023-04-25 08:09 | disposition left against medical advice (07) ==
PROVIDERS: Emergency Provider Emergency Medicine Emergency Medical Services; PCP Nurse Practitioner Adult Health
DX: R10.31 Right lower quadrant pain (principal)
CPT/HCPCS: 80053; 80076; 81025; 83690; 99283; 83735; 85025

== ENCOUNTER 2023-04-30 14:42 | Outpatient (REF) | payer MEDICAID, SELFPAY ==
[2023-05-02 14:11] LABS: Chlamydia Result Negative (Negative); GC Result Negative (Negative)
== END 2023-04-30 14:43 | disposition home or self-care (01) ==
LOC: LBN 14:42
PROVIDERS: PCP Nurse Practitioner Adult Health; Visit Provider Obstetrics & Gynecology
DX: A64 Unspecified sexually transmitted disease (principal)
CPT/HCPCS: 87491; 87591

== ENCOUNTER 2024-02-05 22:26 | Emergency (ER) | payer MEDICAID, SELFPAY ==
[2024-02-05 22:30] VITALS: BP 132/89; PULSE 75; RESP 18; TEMP 36.8; O2SAT 99
[2024-02-05 22:34] VITALS: O2SAT 99
--- NOTE | 2024-02-05 22:45 | DI.RAD_ITS ---
Exam(s) XR CHEST 2V PA LATERAL EXAM: XR CHEST 2V PA LATERAL CLINICAL HISTORY: cough TECHNIQUE: 2D digital imaging was performed of the chest. Two images were obtained. PA and lateral views were obtained. COMPARISON: CR CHEST 2 VIEWS PA,LAT from 09/24/2017 FINDINGS: MEDIASTINUM: Normal. HEART: Normal. PULMONARY VASCULATURE: Normal. LUNGS: Clear. PLEURAL SPACE: No pleural effusion or pneumothorax. BONE:Within normal limits for the patient's age. OTHER FINDINGS:Normal. IMPRESSION: No acute pulmonary findings. DATA REPOSITORY: RADIATION DOSE DELIVERED:
[2024-02-05 23:09] VITALS: RESP 6
[2024-02-05] MEDS: Albuterol/Ipratropium 3 ML UPD VIAL (23:09)
[2024-02-05] MEDS: guaiFENesin/CODEINE PHOSPHATE 10 ML CUP PO (23:43)
[2024-02-05] MEDS: levoFLOXacin 500 MG, levoFLOXacin 250 MG 750 MG PO (23:43)
--- NOTE | 2024-02-05 23:49 | ED.GENADUL_ITS ---
Discharge Plan Disposition Patient Disposition: Home Condition: Improving Discharge Details Clinical Impression: Sinusitis, Bronchitis Primary Care Provider: Isabel Cao ED Provider: Lexa Snow Home Meds and New Rx's Prescriptions: New levofloxacin 750 mg tablet 750 mg PO DAILY Qty: 9 0RF methylprednisolone [Medrol (Brenden)] 4 mg tablets,dose pack See Rx Instructions .ROUTE .COMPLEX Qty: 21 0RF Rx Instructions: for 6 days codeine-guaifenesin 10-100 mg/5 mL liquid 10 ml PO Q6H PRN (Reason: cough) Qty: 120 0RF No Action hydroxyzine pamoate [Vistaril] 25 mg capsule 25 mg PO BID PRN (Reason: headache) Qty: 40 1RF Rx Instructions: May take with Naproxen for tension/stress headache management; also effective for anxiety labetalol 100 mg tablet 100 mg PO HS Qty: 90 3RF Rx Instructions: Stop Losartan, Start Labetaolol benzonatate 200 mg capsule 200 mg PO TID Qty: 30 0RF naproxen 500 mg tablet 500 mg PO BID PRN (Reason: headache) Qty: 40 0RF Rx Instructions: May take with hydroxyzine for headache management; take Naproxen with food norethindrone (contraceptive) 0.35 mg tablet 0.35 mg PO DAILY Qty: 84 3RF Discharge Instructions Instructions: Sinusitis (ED), Acute Bronchitis (ED) Additional Instructions: Take 1 Levaquin tablet every day for the next 9 days, beginning tomorrow. This will complete a 10-day course of a second antibiotic for treatment of your sinusitis. Take the Medrol Dosepak as directed by the blister packaging. This will be decreasing number of tablets over the next 6 days. You can take 2 teaspoons (10 mL) of the guaifenesin with codeine syrup at night before bed to help improve sleeping. Follow-up with regular primary care doctor for recheck and further management, especially if symptoms or not improving with this care plan. You can always return to the ER for any new concerns or sudden changes in your health which you feel require emergency medical attention. Discharge Data Discharge Physician: Lexa Snow [facility] General Date/Time Provider Initiated Documentation: 02/05/24 22:39 . HPI Narrative: The patient is a 29-year-old female, with a past medical history of a recent URI, who presents to the emergency department this evening complaining of ongoing symptoms of coughing, nasal congestion, postnasal drip, and difficulty breathing at night. The patient was seen on the first of this month at urgent care and was started on 10 days of oral Augmentin which improved her symptoms transiently but then they returned after 5 to 7 days of being gone. The patient reports that she currently feels like she has occluded nasal sinuses and has been coughing frequently, but mostly at night. The patient tells me that she feels like she has a lot of postnasal drip at night which is causing the symptoms. She denies having any fevers or chills. The patient denies any GI symptoms such as nausea, vomiting, or diarrhea. Related Data Home Medications Medication Instructions Recorded Confirmed naproxen 500 mg tablet 500 mg PO BID PRN headache #40 tabs 08/30/22 02/05/24 norethindrone (contraceptive) 0.35 0.35 mg PO DAILY #84 tabs 06/12/23 02/05/24 mg tablet hydroxyzine pamoate 25 mg capsule 25 mg PO BID PRN headache #40 caps 08/06/23 02/05/24 (Vistaril) labetalol 100 mg tablet 100 mg PO HS #90 tabs 01/21/24 02/05/24 benzonatate 200 mg capsule 200 mg PO TID #30 caps 02/03/24 02/05/24 codeine 10 mg-guaifenesin 100 mg/5 10 ml PO Q6H PRN cough #120 mL 02/05/24 mL oral liquid levofloxacin 750 mg tablet 750 mg PO DAILY #9 tabs 02/05/24 methylprednisolone 4 mg tablets in See Rx Instructions PO .COMPLEX 02/05/24 a dose pack (Medrol (Brenden)) #21 dose pk Previous Rx's Medication Instructions Recorded naproxen 500 mg tablet 500 mg PO BID PRN headache #40 tabs 08/30/22 norethindrone (contraceptive) 0.35 0.35 mg PO DAILY #84 tabs 06/12/23 mg tablet hydroxyzine pamoate 25 mg capsule 25 mg PO BID PRN headache #40 caps 08/06/23 (Vistaril) labetalol 100 mg tablet 100 mg PO HS #90 tabs 01/21/24 benzonatate 200 mg capsule 200 mg PO TID #30 caps 02/03/24 codeine 10 mg-guaifenesin 100 mg/5 10 ml PO Q6H PRN cough #120 mL 02/05/24 mL oral liquid levofloxacin 750 mg tablet 750 mg PO DAILY #9 tabs 02/05/24 methylprednisolone 4 mg tablets in See Rx Instructions PO .COMPLEX 02/05/24 a dose pack (Medrol (Brenden)) #21 dose pk Allergies Allergy/AdvReac Type Severity Reaction Status Date / Time polymyxin B sulfate Allergy Unknown unable to Verified 02/05/24 22:38 [From Polytrim] eval trimethoprim [From Polytrim] Allergy Unknown unable to Verified 02/05/24 22:38 eval nifedipine Allergy High Verified 02/05/24 22:38 BP--RX at [facility] prednisone Allergy Skin Rash Verified 02/05/24 22:38 bupropion [From Wellbutrin] AdvReac Mild Made Verified 02/05/24 22:38 anxiety worse citalopram AdvReac Mild Hyperhidrosis; Verified 02/05/24 22:38 paresthesias(?) pseudoephedrine HCl AdvReac tachycardia Verified 02/05/24 22:38 [From Sudafed] sertraline AdvReac hyperhidros Verified 02/05/24 22:38 is General Stated Complaint: RespSymp JORDAN: 4 Exam Const General: cooperative, comfortable and no acute distress HENMT Ears: TM's normal bilaterally and EAC's normal General nose exam: mucous membranes and turbinates abnormal boggy and erythematous Face and sinus: sinus tenderness Throat: posterior oropharynx normal Resp Effort & Inspection: normal respiratory effort, able to speak in complete sentences and cough Quality of cough: dry Auscultation: wheezes scattered wheezes Cardio Rate: regular rate Rhythm: regular rhythm Heart Sounds: S1 normal and S2 normal Neuro General: patient alert, patient awake and patient oriented x3 Cranial Nerves: CN's II-XI intact bilaterally Motor: muscle tone normal throughout and strength 5/5 throughout Sensory Exam: no sensory deficits noted Course Vital Signs Vital signs: Vital Signs Temperature 36.8 C 02/05/24 22:30 Pulse 75 02/05/24 22:30 Respiratory Rate 18 02/05/24 22:30 Blood Pressure 132/89 02/05/24 22:30 Pulse Oximetry 99 02/05/24 22:30 Temperature 36.8 C 02/05/24 22:30 Temperature Source Temporal Artery Scan 02/05/24 22:30 Pulse 75 02/05/24 22:30 Respiratory Rate 18 02/05/24 22:30 Respiratory Effort Normal 02/05/24 22:34 Respiratory Depth Normal 02/05/24 22:34 Blood Pressure 132/89 02/05/24 22:30 Blood Pressure Position Sitting 02/05/24 22:30 Pulse Oximetry 99 02/05/24 22:34 Oxygen Delivery Method Room Air 02/05/24 22:34 Oxygen Flow Rate 0 02/05/24 22:30 Medical Decision Making The patient was seen and examined. Her chest x-ray does not reveal any focal infiltrative changes, but she does have a significant amount of parabronchial cuffing which is likely more indicative of reactive airway disease in the setting. The patient did have some scattered wheezing that resolved here with a DuoNeb treatment. Her bronchospastic coughing is also improved. The patient tells me that she has an allergy to prednisone, but was unable to articulate what that was other than that she developed skin rash on her hands when she was quite young and placed on that medication. She told me that she would be willing to try an alternative steroid, so I will prescribe a Medrol Dosepak for the patient. She will be started on additional oral Levaquin as there are signs and symptoms of a recurrent sinusitis in this patient. Will also provide some mild narcotic cough syrup for the patient to help with her coughing symptoms at night. She will be referred back to primary care for follow-up and ongoing management if symptoms not improving with this care plan. Quality:SDOH Health Related Social Needs: No Data to Display PFSH All Active Problems (Updated 02/05/24 @ 23:54 by Lexa Snow MD) Bronchitis (Acute) Sinusitis (Acute) Family history of pancreatic cancer (Acute) Brother dx'ed 48yo Family history of breast cancer (Acute 05/11/15) Mother Dx'ed 48yo; start mammography 38yo --CBE twice per year recommended [facility], but at least annually --mammograms at 33yo Family history of leukemia (Chronic) CBC Migraine (Chronic ~2013) Pineal gland cyst (Chronic 2013) [facility] Neuro 2013 [facility] MRI, last 2021 (stable) Anxiety (Chronic ~2019) Intolerance Wellbutrin 2019; Sertraline hyperhidrosis 2019; Citalopram 10mg 07/2020; Venlafxine effective, discontinued 03/2023, restarted 04/2023; referral 10/2020 Essential (primary) hypertension (Chronic ~2019) Losartan 2019; goal BP <130/80 Pelvic floor dysfunction in female (Acute) Medical History Paresthesia of hand, bilateral wrist brace; OT Episodic cluster headache, not intractable [facility] Neurology History of severe pre-eclampsia 2019 with CS delivery at [facility] Surgical History S/P section (10/29/19) [facility] admit 10/29/19-11/03/19 extension of incision with hemorrhage & transfusion [place] tooth extraction Tonsillectomy and adenoidectomy 10/2012 [facility] Family History Mother , Leukemia at age 58. 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 Date GA/Weeks # Preg Succ Route Wgt Sex Labor Lgth Anesth esia Location Prov [facility] 10/31/19 37 No 2803.768 g Female re [place] hemorrhag e transfusion Delivery Date: 10/31/19 Last Updated by: Darling Richards MD Severe HTN with transfer to [facility] at 33wks, then readmission @37.4 with severe BPs, induction of labor to fully dilated with CS s/p 3hrs of pushing, PPH with extension of hysterotomy: 4300ml with transfusions and bakri balloon.
[2024-02-05 23:50] LABS: COVID-19 PCR Negative (Negative); Influenza A PCR Negative (Negative); Influenza B PCR Negative (Negative); RSV PCR Negative (Negative)
[2024-02-05 23:51] LABS: Source Nasopharynx
--- NOTE | 2024-02-05 23:59 | DI.VRAD_ITS ---
PROCEDURE INFORMATION: Exam: XR Chest Exam date and time: 02/05/2024 11:21 PM Age: 29 years old Clinical indication: Cough TECHNIQUE: Imaging protocol: Radiologic exam of the chest. Views: 2 views. COMPARISON: CR CHEST 2 VIEWS PA,LAT 09/24/2017 9:13 AM FINDINGS: Lungs: Unremarkable. No consolidation. Pleural spaces: Unremarkable. No pleural effusion. No pneumothorax. Heart/Mediastinum: Unremarkable. No cardiomegaly. Bones/joints: Unremarkable. IMPRESSION: No acute findings. Dictated and Authenticated by: Felipe Vasquez MD. Ordering:LINDSAY Lindquist MD
[2024-02-06 00:06] VITALS: BP 128/74; PULSE 74; RESP 18; O2SAT 98
== END 2024-02-06 00:11 | disposition home or self-care (01) ==
PROVIDERS: Emergency Provider Emergency Medicine Emergency Medical Services; PCP Nurse Practitioner Adult Health
DX: J20.9 Acute bronchitis, unspecified; R51.9 Headache, unspecified; J32.9 Chronic sinusitis, unspecified
CPT/HCPCS: 87637; 94640; 99283; 71046; J7620

== ENCOUNTER 2024-06-09 17:54 | Outpatient (REF) | payer MEDICAID, SELFPAY ==
[2024-06-09 19:34] LABS: Abs Immature Grans 0.01 10^3/uL (0.0-0.06); Absolute Basophil Count 0.05 10^3/uL (0.0-0.2); Absolute Eosinophil Count 0.07 10^3/uL (0.0-0.7); Absolute Lymphocyte Count 3.02 10^3/uL (1.2-3.4); Absolute Monocyte Count 0.77 10^3/uL (0.1-0.8); Absolute Neutrophil Count 3.53 10^3/uL (1.2-6.7); Basophils % 0.7 %; Eosinophils % 0.9 %; HCT 43.4 % (36.0-46.0); HGB 14.8 g/dL (11.2-15.7); Immature Grans % 0.1 %; Lymphocytes % 40.5 %; MCH 29.4 pg (27.0-33.0); MCHC 34.1 % (32.0-36.0); MCV 86 fL (80-95); MPV 11.1 fL (8.0-11.0); Monocytes % 10.3 %; Neutrophils % 47.5 %; Platelet Count 267 10^3/uL (130-400); RBC 5.03 10^6/uL (3.93-5.22); RDW 11.6 % (11.7-14.6); RDW-SD 36.4 fL; WBC 7.45 10^3/uL (4.4-10.8)
[2024-06-09 19:45] LABS: HCG Qual (Serum) Negative
[2024-06-09 20:13] LABS: Anion Gap 3.3 mmol/L (3-11); BUN 14 mg/dL (7-18); CO2 28.7 mmol/L (21.0-32.0); CREATININE 1.1 mg/dL (0.55-1.02); Calcium 9.4 mg/dL (8.5-10.1); Calculated LDL 126 mg/dL (<100); Chloride 99 mmol/L (98-107); Cholesterol 192 mg/dL (<200); Estimated GFR 68.89 (mL/min/1.73m2); Glucose 77 mg/dL (74-106); HDL Cholesterol 47 mg/dL (40-60); Sodium 131 mmol/L (136-145); TSH (W/Ref FT4) 1.65 uIU/mL (0.36-3.74); Triglyceride 97 mg/dL (<150)
== END 2024-06-09 17:55 | disposition home or self-care (01) ==
LOC: LBN 17:54
PROVIDERS: PCP Nurse Practitioner Adult Health; Visit Provider Nurse Practitioner Adult Health
DX: I10 Essential (primary) hypertension (principal); F41.8 Other specified anxiety disorders; Z80.0 Family history of malignant neoplasm of digestive organs; Z80.3 Family history of malignant neoplasm of breast; Z80.6 Family history of leukemia; Z00.00 Encounter for general adult medical examination without abnormal findings
CPT/HCPCS: 80048; 80061; 84443; 84703; 85025

== ENCOUNTER 2024-07-29 05:16 | Emergency (ER) | payer MEDICAID, SELFPAY ==
--- NOTE | 2024-07-29 05:15 | DI.RAD_ITS ---
Exam(s) XR HAND LT COMPLETE EXAM: XR HAND LT COMPLETE CLINICAL HISTORY: trauma. TECHNIQUE: 2D digital imaging was performed of the left hand. Three views were obtained. AP, later al and oblique views were obtained. COMPARISON: No exams were available for comparison FINDINGS: BONES: No acute fracture is present. No bony destructive lesion is seen. JOINTS: No dislocation present. SOFT TISSUE: Normal. IMPRESSION: Unremarkable radiographs of the left hand. DATA REPOSITORY: RADIATION DOSE DELIVERED:
[2024-07-29 05:19] VITALS: BP 163/124; PULSE 72; RESP 18; TEMP 36.4; O2SAT 98
--- NOTE | 2024-07-29 05:21 | W.ED.GENAD ---
Discharge Plan Disposition Patient Disposition: Home Condition: Good Discharge Details Clinical Impression: Subungual hematoma of left thumb Primary Care Provider: Isabel Cao ED Provider: Jose Luis Caraballo Dighton Meds and New Rx's Prescriptions: Continued labetalol 100 mg tablet 100 mg PO ONCE Rx Instructions: Stop Losartan, Start Labetaolol Discontinued hydroxyzine pamoate [Vistaril] 25 mg capsule 25 mg PO BID PRN (Reason: headache) Qty: 40 1RF Rx Instructions: May take with Naproxen for tension/stress headache management; also effective for anxiety fluoxetine 10 mg capsule 10 mg PO DAILY Qty: 30 1RF naproxen 500 mg tablet 500 mg PO BID PRN (Reason: headache) Qty: 40 0RF Rx Instructions: May take with hydroxyzine for headache management; take Naproxen with food Discharge Instructions Instructions: Bruising Under the Nail Additional Instructions: You were seen for hand injury with resulting subungual hematoma which was drained here. X-rays show no fracture. Keep your hand elevated to help with swelling. You may use acetaminophen or ibuprofen as needed for pain. You may drain blood over the next couple of hours and should see improvement in your pain over the next day or two. Follow-up with primary care next week if needed. Return to ED for significantly worsening pain, other concerns. Referrals: Isabel Cao, WRISTER [Primary Care Provider] - HPI General Mode of arrival: ambulatory. Date/Time Provider Initiated Documentation: 07/29/24 05:20. Limitations to Documentation: no limitations. Information obtained by: patient. HPI Narrative: Patient is a [id number] female presents to ED with left hand injury that occurred last evening. While working on getting a plow attached to the vehicle her hand slipped and struck the framing. She has had persistent pain and throbbing in the left hand since then. Most of her pain is in the thumb although complains of pain in the index and long finger. Denies any wrist pain. Has discoloration under the left thumbnail. Related Data Home Medications ?Medication ?Instructions ?Recorded ?Confirmed labetalol 100 mg tablet 100 mg PO ONCE 07/29/24 07/29/24 Allergies Allergy/AdvReac Type Severity Reaction Status Date / Time polymyxin B sulfate (From Allergy Unknown unable to Verified 07/29/24 05:23 Polytrim) eval trimethoprim (From Polytrim) Allergy Unknown unable to Verified 07/29/24 05:23 eval nifedipine Allergy High Verified 07/29/24 05:23 BP--RX at [facility] prednisone Allergy Skin Rash Verified 07/29/24 05:23 bupropion (From Wellbutrin) AdvReac Mild Made Verified 07/29/24 05:23 anxiety worse citalopram AdvReac Mild Hyperhidrosis; Verified 07/29/24 05:23 paresthesias(?) pseudoephedrine HCl (From AdvReac tachycardia Verified 07/29/24 05:23 Sudafed) sertraline AdvReac hyperhidros Verified 07/29/24 05:23 is General JORDAN: 4 Review of Systems Narrative: Per HPI Exam Narrative Exam Narrative: Const: WDWN female in NAD. VS per triage. HEENT: NC/AT. Normal facial exam. Neck: Supple. Trachea midline. Lungs: Normal respiratory effort. Neuro: A+O x 3. Normal speech, mentation, gait. Cranial nerves II - XII grossly intact. No gross motor or sensory deficit. Ext: No C/C/E. Left hand with no obvious deformity or swelling. Thumb with subungual hematoma present approximately. Unable to get good exam due to anxiety and pain. Procedures Nail Trephination Time out: Yes Location (finger): left and thumb Sterile prep: betadine Method of drainage: nail cautery Procedure successful: Yes Patient tolerated procedure: well Medical Decision Making Patient presenting with left hand injury. She does have a subungual hematoma that would likely provide relief if drained. Will obtain x-rays first. X-ray of left hand per my read with no fracture. Left thumbnail prepped with Betadine. Heat cautery used to trephinate base of the nail with blood released. Patient given ibuprofen for pain. Will plan discharge home with continued use of ibuprofen and acetaminophen for pain. Follow-up with primary care next week if needed. Return precautions provided. [facility] All Active Problems (Updated 07/29/24 @ 06:01 by Jose Luis Caraballo MD) Subungual hematoma of left thumb (Acute) Family history of pancreatic cancer (Acute) Brother dx'ed 48yo Family history of breast cancer (Acute 05/11/15) Mother Dx'ed 48yo; start mammography 36yo --CBE twice per year [facility], but at least annually --mammograms at 33yo Family history of leukemia (Chronic) CBC Migraine (Chronic ~2013) Pineal gland cyst (Chronic 2013) [facility] Neuro 2013 [facility] MRI, last 2021 (stable) Pelvic floor dysfunction in female (Acute) Medical History Anxiety (~2019) Intolerance Wellbutrin 2019; Sertraline hyperhidrosis 2019; Citalopram 10mg 07/2020; Venlafxine effective, discontinued 03/2023, restarted 04/2023; referral 10/2020 Essential (primary) hypertension (~2019) Losartan 2019; goal BP <130/80 Paresthesia of hand, bilateral wrist brace; OT Episodic cluster headache, not intractable [facility] Neurology History of severe pre-eclampsia 2019 with CS delivery at [facility] Surgical History S/P section (10/29/19) [facility] admit 10/29/19-11/03/19 extension of incision with hemorrhage & transfusion [place] tooth extraction Tonsillectomy and adenoidectomy 10/2012 [facility] Family History Mother , Leukemia at age 58. 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 Date GA/Weeks # Preg Succ Route Wgt Sex Labor Lgth Anesthesia Location Prov Complic 10/31/19 37 No 2803.768 g Female regional local [facility] hemorrhage transfusion Delivery Date: 10/31/19 Last Updated by: Darling Richards MD Severe HTN with transfer to [facility] at 33wks, then readmission @37.4 with severe BPs, induction of labor to fully dilated with CS s/p 3hrs of pushing, PPH with extension of hysterotomy: 4300ml with transfusions and bakri balloon.
[2024-07-29] MEDS: Ibuprofen 600 MG TAB (06:02)
--- NOTE | 2024-07-29 07:56 | DI.VRAD_ITS ---
PROCEDURE INFORMATION: Exam: XR Left Hand Exam date and time: 07/29/2024 5:43 AM Age: 29 years old Clinical indication: Injury or trauma; Other: Trauma, lateral aspect of lt hand; Blunt trauma (contusions or hematomas); Left TECHNIQUE: Imaging protocol: Radiologic exam of the left hand. Views: 3 or more views. COMPARISON: No relevant prior studies available. FINDINGS: Bones/joints: Normal. Soft tissues: Normal. IMPRESSION: No acute findings. Dictated and Authenticated by: Rohan Jang MD. Ordering:KARLY Amaya MD
== END 2024-07-29 06:15 | disposition home or self-care (01) ==
LOC: ER 06:13
PROVIDERS: Emergency Provider Emergency Medicine; PCP Nurse Practitioner Adult Health
DX: S60.012A Contusion of left thumb without damage to nail, initial encounter (principal); W22.8XXA Striking against or struck by other objects, initial encounter
CPT/HCPCS: 99283; 73130

== ENCOUNTER 2024-08-23 11:45 | Emergency (ER) | payer MEDICAID, SELFPAY ==
[2024-08-23 11:52] VITALS: BP 170/107; PULSE 53; RESP 20; TEMP 36.8; O2SAT 98
--- NOTE | 2024-08-23 12:00 | DI.CT_ITS ---
Exam(s) CT HEAD WO EXAM: CT HEAD WO CLINICAL HISTORY: severe sudden headache; hx pineal cyst. TECHNIQUE: Imaging Protocol: Axial computed tomography images with coronal and sagittal reformatted images were created and reviewed COMPARISON: MR MR BRAIN WO from 09/25/2022 FINDINGS: Ventricles and Extra axial spaces: Normal in size and morphology for the patient's age. Pineal cyst appears unchanged from prior brain MRI. Hemorrhage: None. Cerebral parenchyma: No evidence of acute infarct or mass. Midline shift: None. Brainstem/Cerebellum: Normal. Calvarium: Normal. Visualized Paranasal sinuses:Clear. Mastoids: Clear. Soft Tissues: Unremarkable. ORBITS: Unremarkable. PITUITARY: Not enlarged. IMPRESSION: No acute intracranial process. RADIATION DOSE DELIVERED: 909.23mGy.cm Total DLP DATA REPOSITORY: All CT scans at this facility are submitted to the National Radiology Data Registry (NRDR) Dose Index Registry (DIR) with the [employer] (A[employer]). RADIATION OPTIMIZATION: All CT scans at this facility use at least one of these dose optimization te chniques: automated exposure control; mA and/or kV adjustment per patient size (includes targeted exa ms where dose is matched to clinical indication); or iterative reconstruction.
--- NOTE | 2024-08-23 12:05 | W.ED.GENAD ---
Discharge Plan Disposition Patient Disposition: Home Condition: Stable Discharge Details Clinical Impression: Migraine Primary Care Provider: Isabel Cao ED Provider: Yadiel Moreno Home Meds and New Rx's Prescriptions: No Action labetalol 100 mg tablet 100 mg PO ONCE Rx Instructions: Stop Losartan, Start Labetaolol Discharge Instructions Instructions: Headache, Adult ED Additional Instructions: You were seen in the emergency department for your migraine headache. The CT scan shows no intracranial bleeding and your pineal gland cyst remained stable. Your laboratory workup is benign without any abnormality. We provided you with Tylenol, Toradol, Benadryl, Reglan to help abort your migraine. When you get a migraine at home I recommend taking 1000 mg of Tylenol, 400 mg of ibuprofen, 25 mg of Benadryl, one of your Imitrex tablets and drinking 3 to 4 glasses of water. Please return to the emergency department for any severe headaches especially with neurologic changes or visual changes, neck stiffness or fever or any other emergent concerns Referrals: Isabel Cao, LEATHER ROLLER [Primary Care Provider] - Discharge Data Discharge Date/Time-TO BE ENTERED AT DEPARTURE: 08/23/24 13:49 HPI General Date/Time Provider Initiated Documentation: 08/23/24 12:04. HPI Narrative: 29 year-old female presents to ED today by POV/ambulating with a chief complaint of migraine headache, sudden onset, worse headache of her life- with history of chronic migraines and pineal cyst that has been stable on surveillance with onset about 1 hour prior to arrival. Quality described as generalized all over headache, no radiation to visual changes, numbness, tinnitus or hearing loss, chest pain, shortness of breath, fever, neck stiffness. Severity is described as 10/10. Palliating factors include Excedrin with little relief. Provoking factors include nothing specific. Events leading up to the incident/Associated Symptoms: Patient does have Imitrex at home but has not had to take it in a while, reports that her migraines have been becoming more frequent in the near short-term. Patient not anticoagulated. Related Data Home Medications ?Medication ?Instructions ?Recorded ?Confirmed labetalol 100 mg tablet 100 mg PO ONCE 07/29/24 08/23/24 Allergies Allergy/AdvReac Type Severity Reaction Status Date / Time polymyxin B sulfate (From Allergy Unknown unable to Verified 08/23/24 11:52 Polytrim) eval trimethoprim (From Polytrim) Allergy Unknown unable to Verified 08/23/24 11:52 eval nifedipine Allergy High Verified 08/23/24 11:52 BP--RX at [facility] prednisone Allergy Skin Rash Verified 08/23/24 11:52 bupropion (From Wellbutrin) AdvReac Mild Made Verified 08/23/24 11:52 anxiety worse citalopram AdvReac Mild Hyperhidrosis; Verified 08/23/24 11:52 paresthesias(?) pseudoephedrine HCl (From AdvReac tachycardia Verified 08/23/24 11:52 Sudafed) sertraline AdvReac hyperhidros Verified 08/23/24 11:52 is General Stated Complaint: Headache JORDAN: 3 Review of Systems All systems reviewed & are unremarkable except as noted in HPI and below Exam Narrative Exam Narrative: GENERAL APPEARANCE: Well-nourished, non-toxic, awake and alert, atraumatic, no acute distress. SKIN: Warm, pink, dry, intact, without rashes/lesions/ulcerations. HEAD: Normocephalic, atraumatic, normal hair distribution for gender/age. EYES: Normal conjunctiva, no exudates on lids/lashes. ENT: Nares patent, no circumoral cyanosis, no facial swelling NECK: Supple, trachea midline, painless cervical ROM, no nuchal rigidity. LUNGS/CHEST: Lungs CTA bilaterally, non-labored respirations, normal A/P diameter, symmetrical expansion, no chest wall deformity HEART (CV/PV): Regular rate and rhythm without murmur, no peripheral edema, no JVD. ABDOMEN: Soft, non-distended, no guarding. MSK: Normal ROM, no swelling/deformity to bilateral UEs or LEs, moving all extremities without weakness, no cyanosis, spine midline without tenderness, normal curvature. NEURO: Mental Status AAOx4 - alert to person, place, time, events No facial droop, no forehead involvement, no dysmetria with FNF Motor: No focal weakness - strength 5/5 in bilateral UEs and LEs, proximal and distal, symmetric. Sensory: sensation intact to light touch globally. Gait normal: patient ambulated without ataxia into ED room. PSYCH: euthymic, cooperative, pleasant, appropriate speech Course Vital Signs Vital signs: Vital Signs Temperature 36.8 C 08/23/24 11:52 Pulse 53 L 08/23/24 11:52 Respiratory Rate 20 08/23/24 11:52 Blood Pressure 170/107 H 08/23/24 11:52 Pulse Oximetry 98 08/23/24 11:52 Temperature 36.8 C 08/23/24 11:52 Pulse 53 L 08/23/24 11:52 Respiratory Rate 20 08/23/24 11:52 Respiratory Effort Normal 08/23/24 11:55 Blood Pressure 170/107 H 08/23/24 11:52 Pulse Oximetry 98 08/23/24 11:52 Pain Level 10 08/23/24 11:52 Medical Decision Making This dictation utilizes [id number] dictation software and may contain unedited grammatical errors. 29 year-old female presents to ED today by POV/ambulating with a chief complaint of migraine headache, sudden onset, worse headache of her life- with history of chronic migraines and pineal cyst that has been stable on surveillance with onset about 1 hour prior to arrival. Quality described as generalized all over headache, no radiation to visual changes, numbness, tinnitus or hearing loss, chest pain, shortness of breath, fever, neck stiffness. Severity is described as 10/10. Palliating factors include Excedrin with little relief. Provoking factors include nothing specific. Events leading up to the incident/Associated Symptoms: Patient does have Imitrex at home but has not had to take it in a while, reports that her migraines have been becoming more frequent in the near short-term. Patients' medical history: Hypertension, anxiety, episodic cluster headache, pineal gland cyst. Family and social history: Noncontributory. Pertinent exam findings / vital signs include neuro intact, benign cardiopulmonary status, no nuchal rigidity. Differential / pathologies of concern include intracranial bleeding, change to pineal cyst, migraine. Diagnostic studies of: -CBC, CMP, CT head without. -Benign laboratory studies, CT head shows stable pineal cyst without intracranial bleeding Interventions of: -IV Tylenol, Toradol, Reglan and Benadryl-near complete relief of headache. ED Course/Assessment/Plan: 29-year-old female with history of headache disorder presents with severe sudden onset migraine, CT head is benign, basic laboratory studies are benign, there is no nuchal rigidity or fever, patient achieved full relief with migraine medications, recommend going back on her Imitrex with strict return criteria for intractable migraine or changes to her headache syndrome. Findings not consistent with ICH, brain mass change, meningismus. Disposition of migraine. Patient verbalized understanding of the plan and return to ED criteria and engaged in shared decision making. Medical Records Medical records reviewed: Yes I reviewed the patient's medical records. Imaging Data Radiologic Study: Attestation: I personally reviewed and interpreted this imaging study as follows: Imaging: CT Scan Radiologist's impression: EXAM: CT HEAD WO CLINICAL HISTORY: severe sudden headache; hx pineal cyst. TECHNIQUE: Imaging Protocol: Axial computed tomography images with coronal and sagittal reformatted images were created and reviewed COMPARISON: MR MR BRAIN WO from 09/25/2022 FINDINGS: Ventricles and Extra axial spaces: Normal in size and morphology for the patient's age. Pineal cyst appears unchanged from prior brain MRI. Hemorrhage: None. Cerebral parenchyma: No evidence of acute infarct or mass. Midline shift: None. Brainstem/Cerebellum: Normal. Calvarium: Normal. Visualized Paranasal sinuses:Clear. Mastoids: Clear. Soft Tissues: Unremarkable. ORBITS: Unremarkable. PITUITARY: Not enlarged. IMPRESSION: No acute intracranial process. Lab Data Lab results reviewed: Yes I reviewed the patient's lab results. Labs: Laboratory Tests Range/Units 08/23/24 12:45 WBC (4.4-10.8) 10^3/uL 10.97 H RBC (3.93-5.22) 10^6/uL 4.99 Hgb (11.2-15.7) g/dL 14.7 Hct (36.0-46.0) % 42.7 MCV (80-95) fL 86 MCH (27.0-33.0) pg 29.5 MCHC (32.0-36.0) % 34.4 RDW (11.7-14.6) % 11.6 L Plt Count (130-400) 10^3/uL 278 MPV (8.0-11.0) fL 10.5 Immature Gran % % 0.4 Neutrophils % % 75.7 Lymphocytes % % 17.0 Monocytes % % 5.9 Eosinophils % % 0.7 Basophils % % 0.3 Nucleated RBC % (0.0-0.3) % 0.0 Absolute Neutrophils (1.2-6.7) 10^3/uL 8.30 H Absolute Lymphocytes (1.2-3.4) 10^3/uL 1.86 Absolute Monocytes (0.1-0.8) 10^3/uL 0.65 Absolute Eosinophils (0.0-0.7) 10^3/uL 0.08 Absolute Basophils (0.0-0.2) 10^3/uL 0.03 Sodium (136-145) mmol/L 142 Potassium (3.5-5.1) mmol/L 3.7 Chloride (98-107) mmol/L 105 Carbon Dioxide (21.0-32.0) mmol/L 28.7 Anion Gap (3-11) mmol/L 8.3 BUN (7-18) mg/dL 9 Creatinine (0.55-1.02) mg/dL 1.0 Est GFR (CKD-EPI 2020) (mL/min/1.73m2) 77.24 Glucose (74-106) mg/dL 101 Calcium (8.5-10.1) mg/dL 9.4 Total Bilirubin (0.2-1.0) mg/dL 0.52 AST (15-37) U/L 27 ALT (14-59) U/L 41 Alkaline Phosphatase (46-116) U/L 58 Total Protein (6.4-8.2) g/dL 7.8 Albumin (3.4-5.0) g/dL 4.1 Quality:SDOH Health Related Social Needs: No Data to Display PFSH All Active Problems (Updated 08/23/24 @ 13:36 by BRET Hall) Subungual hematoma of left thumb (Acute) Family history of pancreatic cancer (Acute) Brother dx'ed 48yo Family history of breast cancer (Acute 05/11/15) Mother Dx'ed 48yo; start mammography 38yo --CBE twice per year recommended [facility], but at least annually --mammograms at 33yo Family history of leukemia (Chronic) CBC Migraine (Chronic ~2013) Pineal gland cyst (Chronic 2013) [facility] Neuro 2013 [facility] MRI, last 2021 (stable) Pelvic floor dysfunction in female (Acute) Medical History Anxiety (~2019) Intolerance Wellbutrin 2019; Sertraline hyperhidrosis 2019; Citalopram 10mg 07/2020; Venlafxine effective, discontinued 03/2023, restarted 04/2023; referral 10/2020 Essential (primary) hypertension (~2019) Losartan 2019; goal BP <130/80 Paresthesia of hand, bilateral wrist brace; OT Episodic cluster headache, not intractable [facility] Neurology History of severe pre-eclampsia 2019 with CS delivery at [facility] Surgical History S/P section (10/29/19) [facility] admit 10/29/19-11/03/19 extension of incision with hemorrhage & transfusion [place] tooth extraction Tonsillectomy and adenoidectomy 10/2012 [facility] Family History Mother , Leukemia at age 58. Essential hypertension Personal history of malignant neoplasm Leukemia (AML) Breast cancer 40s Father Essential hypertension Hyperlipidemia Brother Personal history of malignant neoplasm Pancreatic cancer, dx'ed 48yo Social History Smoking/Tobacco Use Status: Never Smoking risk assessment performed?: Yes Alcohol Intake: current Alcohol Intake frequency: a few times a month Drug use: Never Substance use type: does not use Housing: house Number of Children: 1 current occupation: [employer] Seatbelt use: always Do you feel safe at home: Yes Do you feel safe in your relationship?: Yes Female Reproductive History Menstrual Age of Menarche: 12 control method: pills History History 1 Para 1 Hx # Term Pregnancies 1 Multiple births 0 Hx # Pregnancies 0 Ectopic pregnancies 0 AB induced 0 Hx Number of Living Children 1 AB spontaneous 0 Past Pregnancies Del. Date GA/Weeks # Preg Succ Route Wgt Sex Labor Lgth Anesthesia Location Prov Complic 10/31/19 37 No 2803.768 g Female regional local [facility] hemorrhage transfusion Delivery Date: 10/31/19 Last Updated by: Darling Richards MD Severe HTN with transfer to [facility] at 33wks, then readmission @37.4 with severe BPs, induction of labor to fully dilated with CS s/p 3hrs of pushing, PPH with extension of hysterotomy: 4300ml with transfusions and bakri balloon.
--- OUTSIDE RECORDS SUMMARY | 2024-08-23 12:31 | XMS_ITS | Encounter Summary ---
Author Organization [facility] [place] [address] Care Team Providers Care Telephoto Engineer Name Role Phone Lynn López Collin YOUSSEF Primary Care Provider [phone] Reason for Visit * Reason Onset Date Comments Hypotension 11/18/2019 Encounter Details Date Type Department Care Team (Late st Contact Info) Description 11/18/2019 Telephone Obstetrics [place] [id number] Mary Higgins RN Hypotension Social History Tobacco Use Types Packs/Day Years Used Date Smoking Tobacco: Never Smokeless Tobacco: Never Alcohol Use Standard Drinks/Week Comments Not Currently 0 (1 standard drink = 0.6 oz pur e alcohol) ON OCC Sex and Gender Information Value Date Recorded Sex Assigned at Not on file Gender Identity Not on file Sexual Orientation Not on file documented as of this encounter Miscellaneous Notes * Telephone Encounter - Mary Higgins RN - 11/18/2019 4:00 PM EST Liza has been taking her labetalol TID since delivery on 10/31/19. Today, she is feeling light headed and dizzy. She took it at midnight and again at 7 am today. She has a blood pressure cuff and checked it - 129/82 (reads about 5 mmHg diastolic higher than office blood pressure cuff). Assessment: blood pressure may be returning to a lower state as preeclampsia resolves. Plan: advised to push fluids, water is best. She should not take her medication again today. Asked to check b/p twice a day and if for now, decrease to labetalol 200 mg daily. Parameters for taking it BID, every 12 hours were discussed. She will call for any problems or concerns. documented in this encounter Plan of Treatment Not on file documented as of this encounter Visit Diagnoses Not on filedocumented in this encounter Care Teams Telephoto Engineer Relationship Specialty Start Date End Date Lynn López APRN PCP - General Family Medicine 03/17/17 documented as of this encounter
--- OUTSIDE RECORDS SUMMARY | 2024-08-23 12:31 | XMS_ITS | Encounter Summary ---
Author Organization [facility] Address [facility] Ana Mar[facility] [place] [address] Care Team Providers Care Resource Paraprofessional Name Role Phone Rene Lynn Polanco APRN Primary Care Provider [phone] Encounter Details Date Type Department Care Team (Latest Contact Info) Description 11/04/2019 10:32 PM EST - 11/04/2019 11:59 PM [facility] Hospital Encounter [facility] [address] [place] [address] [facility] [place] [address] Discharge Disposition: Home Social History Tobacco Use Types Packs/Day Years Used Date Smoking Tobacco: Never Smokeless Tobacco: Never Alcohol Use Standard Drinks/Week Comments Not Currently 0 (1 standard drink = 0.6 oz pur e alcohol) ON OCC Sex and Gender Information Value Date Recorded Sex Assigned at Not on file Gender Identity Not on file Sexual Orientation Not on file documented as of this encounter Medications at Time of Discharge Medication Sig Dispensed Refills Start Date End Date labetalol (Normodyne) 200 mg Tablet Take 1 tablet by mouth 3 times daily. 90 tablet 11/03/2019 ibuprofen (Advil;Motrin) 600 mg Tablet Take 1 tablet by mouth every 6 hours as needed for Pain. 60 tablet 12 11/03/2019 oxyCODONE (Roxicodone) 5 mg Tablet Take 1-2 tablets by mouth every 4 hours as needed for Pain (Severe pain (7-10), only if PCEA OFF.). 10 tablet 11/03/2019 norethindrone (MICRONOR) 0.35 mg Tablet Take 1 tablet by mouth daily. 84 tablet 3 11/03/2019 ferrous sulfate 325 mg (65 mg iron) Tablet Take 1 tablet by mouth 2 times daily (with meals). 60 tablet 12 11/03/2019 vit/iron fum/folic ac ( 1+1 ORAL) Take by mouth. famotidine (PEPCID) 20 mg Tablet Take 1 tablet by mouth 2 times daily. 60 tablet 3 10/07/2019 aspirin EC 81 mg Tablet, Delayed Release (E.C.) Take 81 mg by mouth daily. 11/08/2019 documented as of this encounter Plan of Treatment Not on file documented as of this encounter Visit Diagnoses Not on filedocumented in this encounter Care Teams Resource Paraprofessional Relationship Specialty Start Date End Date Lynn López APRN PCP - General Family Medicine 03/17/17 documented as of this encounter
--- OUTSIDE RECORDS SUMMARY | 2024-08-23 12:31 | XMS_ITS | Encounter Summary ---
Author Organization [facility] Address [facility] [place] [address] Care Team Providers Care Drug And Alcohol Counsellor Name Role Phone ReneKassie rodriguezdavid Polanco APRN Primary Care Provider [phone] Encounter Details Date Type Department Care Team (Late st Contact Info) Description 11/05/2019 Telephone Obstetrics [place] [phone] Heike Raygoza MD [facility] [address] OBSTETRICS & GYNECOLOGY [id number] Social History Tobacco Use Types Packs/Day Years [...] encounter Miscellaneous Notes * Telephone Encounter - Heike Raygoza - 11/05/2019 10:55 PM EST Telephone note At ~1600 on 11/05 Liza called the BP and I spoke with her. She is experiencing an exacerbation of anxiety . Asking to get scheduled to see a counselor. Denied suicidal thoughts and stated that she felt her and her are both safe, she just wants to start getting set up for treatment.Appt scheduled to meet with Doris Fields this upcoming week. Heike Raygoza MD documented in this encounter Plan of Treatment Not on file documented as of this encounter Visit Diagnoses Not on filedocumented in this encounter Care Teams Drug And Alcohol Counsellor Relationship Specialty Start Date End Date Lynn López, [employer] PCP - General Family Medicine 03/17/17 documented as of this encounter
--- OUTSIDE RECORDS SUMMARY | 2024-08-23 12:31 | XMS_ITS | Clinical Summary ---
Author Organization [facility] Address [facility] [place] [address] Care Team Providers Care Shader And Toner Name Role Phone Lynn López APRN Primary Care Provider Allergies Active Allergy Reactions Criticality Noted Date Comments Polymyxin B Sulf-Trimethoprim High 2018 Orbital edema Prednisone Rash 10/19/2013 Holes in finger nails. Rash on hands and feet. Pseudoephedrine Hcl 10/19/2013 Heart races Medications Medication Sig Dispensed Refills Start Date End Date Status vit/iron fum/folic ac ( 1+1 ORAL) Take by mouth. A ctive famotidine (PEPCID) 20 mg Tablet Take 1 tablet by mouth 2 times daily. 60 tablet 3 10/07/2019 Active Additional Information Patient not taking.Reported on 12/08/2019 labetalol (Normodyne) 200 mg Tablet Take 1 tablet by mouth 3 times daily. 90 tablet 11/03/2019 Active Additional Information Patient not taking.Reported on 12/08/2019 ibuprofen (Advil;Motrin) 600 mg Tablet Take 1 tablet by mouth every 6 hours as needed for Pain. 60 tablet 12 11/03/2019 Active Additional Information Patient not taking.Reported on 12/08/2019 oxyCODONE (Roxicodone) 5 mg Tablet Take 1-2 tablets by mouth every 4 hours as needed for Pain (Severe pain (7-10), only if PCEA OFF.). 10 tablet 11/03/2019 Active Additional Information Patient not taking.Reported on 11/08/2019 norethindrone (MICRONOR) 0.35 mg Tablet Take 1 tablet by mouth daily. 84 tablet 3 11/03/2019 Active ferrous sulfate 325 mg (65 mg iron) Tablet Take 1 tablet by mouth 2 times daily (with meals). 60 tablet 12 11/03/2019 Active Additional Information Patient not taking.Reported on 11/08/2019 levonorgestrel-ethi nyl estradiol (SEASONALE;JOLESSA) 0.15 mg-30 mcg (91) , 91 tablet dose pack, 3 months Take 1 tablet by mouth daily. 91 tablet 5 12/08/2019 Active Active Problems Patient Care Coordination No te Formatting of this note migh t be different from the original. NO SHOW for appointment in Headache with Bhupendra Nicole APRN on 04/30/17 Problem Noted Date Diagnosed Date hemorrhage of section wound 11/01/2019 Overview (11/01/2019): PPH of 4300 mL, s/p TXA x2, Pitocin, Hemabate, 1000 mcg of buccal miso. Massive transfusion protocol was initiated. Bakri balloon placed and patient recovered in PACU. Blood loss estimated at 4300ccs. History of section, low transverse 10/14 Overview (11/01/2019): Pprimary low transverse section secondary to arrest of descent and NRFHT remote from delivery, complicated by massive PPH (EBL 4300 mL). Pre-eclampsia 10/29/2019 Chronic hypertension affecting 019 Pineal gland cyst 11/10/2013 Headache(784.0) 08/18/2013 Migraine 08/18/2013 Social History Tobacco Use Types Packs/Day Years Used Date Smoking Tobacco: Never Smokeless Tobacco: Never Alcohol Use Standard Drinks/Week Comments Not Currently 0 (1 standard drink = 0.6 oz pur e alcohol) ON OCC Sex and Gender Information Value Date Recorded Sex Assigned at Not on file Gender Identity Not on file Sexual Orientation Not on file Last Filed Vital Signs Vital Sign Reading Time Taken Comments Blood Pressure 136/80 12/08/2019 11:54 AM EST Pulse 90 12/08/2019 11:54 AM EST Temperature 36.9 ??C (98.4 ??F) 12/08/2019 1 1:54 AM EST Respiratory Rate 16 12/08/2019 11:5 4 AM EST Oxygen Saturation 100% 12/08/2019 11: 54 AM EST Inhaled Oxygen Concentration - - Weight 75.7 kg (166 lb 12.8 oz) 020 11:54 AM EST Height 160 cm (5' 3) 09/29/2019 8:20 PM EST Body Mass Index 29.55 09/29/2019 8:20 PM EST Plan of Treatment Health Maintenance Due Date Last Done Comments Hepatitis B vaccine (0-59 yrs) (1) 01/13/2012 Tetanus/Diphtheria/Pertussis Vaccines (1 - Tdap) 01/12 HPV test 2023 PAP Smear 2023 Covid-19 Vaccine ( season) 2024 Influenza (Flu) vaccine (1 o f 1 - Influenza standard series) 06/13/2024 HIV screen Completed 05/25/2019 Hepatitis C Screening Completed 05/25/2019 Procedures Procedure Name Priority Date/Time Associated Diagnosis Comments RUBELLA ANTIBODY, IGG Routine 05/25/2019 from Last 3 Months or Most Recently Relevant to Health Maintenance Results * (ABNORMAL) Rubella Antibody, IgG (05/25/2019) Rubella Antibody IgG Positive(E xternal Lab) HIV 1/2 Ab Negative(E xternal Lab) Thyroid Stimulating Hormone 1.41(Exter nal Lab) Hepatitis C Antibody Negative(E xternal Lab) Hepatitis B Surface Antigen Negative(E xternal Lab) Varicella Zoster Antibody IgG Positive(E xternal Lab) Blood specimen (specimen) 05/25/2019 Historical Provider CHEMISTRY ORDERAB LES from Last 3 Months or Most Recently Relevant to Health Maintenance Advance Directives * Full Code (Latest Code Status on File) Date Activated Date Inactivated Comments 10/29/2019 12:23 PM 11/03/2019 12:51 PM Question Answer Comments Does patient have capacity to make decision: Yes * Full Code Date Activated Date Inactivated Comments 09/29/2019 7:21 PM 10/01/2019 2:16 PM Question Answer Comments Does patient have capacity to make decision: Yes Care Teams Shader And Toner Relationship Specialty Start Date End Date Lynn López, [employer] PCP - General Family Medicine 03/17/17
--- OUTSIDE RECORDS SUMMARY | 2024-08-23 12:31 | XMS_ITS | Continuity of Care Document ---
Author Organization [facility] Address [address] [place] [address] Care Team Providers Care Powder Core Tester Name Role Phone Robin Guerrero Primary Care Physician Encounter [facility] Date(s): 04/15/24 - 04/16/24 [facility] [address] [place] [address] Encounter Diagnosis Headache(Discharge Diagnosis) - 04/15/24 Discharge Disposition: Home or Self Care Attending Physician: Ángel Haynes MD Admitting Physician: Ángel Haynes MD Allergies, Adverse Reactions, Alerts Substance Reaction Severity Status predniSONE Mild Active Assessment and Plan Extracted from: Title:ED Provider Note Author:Ángel Haynes MD Date:04/16/24 Assessment/Plan 1.??Headache??R51.9 Orders: Discharge Patient, 04/16/24 0:55:00 EDT, Home Independently, Constant Indicator Patient Education Hypertension, Adult General Headache Without Cause Follow Up With When Contact Information Follow up with primary care provider Within 1 to 2 days Additional Instructions: You been seen in the emergency department and no emergent medical condition has been identified. ??It is recommended that you follow-up with your primary care provider within the next??48 hours. ??If your condition worsens or you are unable to??arrange for appropriate follow-up please??reach out to the emergency department by phone or return to the emergency department for repeat evaluation. Mental Status 04/15/24 Eye Opening Response Penelope Spontaneous ly Best Verbal Response [place] Oriented Best Motor Response [place] Obeys comman ds Penelope Coma Score 15 Results Laboratory List Name Date Test Urine Qual 04/15/24 Most recent to oldest [Reference Range]: 1 U hCG Ql Negative (04/15/24 11:25 PM) Vital Signs Most recent to oldest [Reference Range]: 1 2 3 Temperature Tympanic [36.6-38.1 Deg C] 36.3 Deg C *LOW* (04/15/24 10:58 PM) Peripheral Pulse Rate [60-100 bpm] 52 bpm *LOW* (04/16/24 1:05 AM) Heart Rate Monitored [60-100 bpm] 60 bpm (04/16/24 12:11 AM) 70 bpm (04/15/24 10:58 PM) Respiratory Rate [12-24 br/min] 16 br/min (04/16/24 1:05 AM) 20 br/min (04/16/24 12:11 AM) 20 br/min (04/15/24 10:58 PM) Blood Pressure [90-140/60-90 mmHg] 159/103mmHg *HI* (04/16/24 1:05 AM) 165/114mmHg *HI* (04/16/24 12:11 AM) 181/108mmHg *HI* (04/15/24 10:58 PM) Mean Arterial Pressure, Cuff [65-140 mmHg] 122 mmHg (04/16/24 1:05 AM) 132 mmHg (04/15/24 10:58 PM) Weight 81.65 kg (04/15/24 10:58 PM) Weight Dosing 81.650 kg (04/15/24 10:58 PM) Social History Social History Type Response Tobacco Never tobacco user T obacco Use:. Sex Hospital Discharge Instructions Patient Education 04/15/2024 23:55:53 Hypertension, Adult Hypertension, Adult High blood pressure (hypertension) is when the force of blood pumping through the arteries is too strong. The arteries are the blood vessels that carry blood from the heart throughout the body. Hypertension forces the heart to work harder to pump blood and may cause arteries to become narrow or stiff. Untreated or uncontrolled hypertension can lead to a heart attack, heart failure, a stroke, kidney disease, and other problems. A blood pressure reading consists of a higher number over a lower number. Ideally, your blood pressure should be below 120/80. The first (top) number is called the systolic pressure. It is a measure of the pressure in your arteries as your heart beats. The second (bottom) number is called the diastolic pressure. It is a measure of the pressure in your arteries as the heart relaxes. What are the causes? The exact cause of this condition is not known. There are some conditions that result in high bloodpressure. What increases the risk? Certain factors may make you more likely to develop high blood pressure. Some of these risk factorsare under your control, including: ??? Smoking. ??? Not getting enough exercise or physical activity. ??? Being overweight. ??? Having too much fat, sugar, calories, or salt (sodium) in your diet. ??? Drinking too much alcohol. Other risk factors include: ??? Having a personal history of heart disease, diabetes, high cholesterol, or kidney disease. ??? Stress. ??? Having a family history of high blood pressure and high cholesterol. ??? Having obstructive sleep apnea. ??? Age. The risk increases with age. What are the signs or symptoms? High blood pressure may not cause symptoms. Very high blood pressure (hypertensive crisis) may cause: ??? Headache. ??? Fast or irregular heartbeats (palpitations). ??? Shortness of breath. ??? Nosebleed. ??? Nausea and vomiting. ??? Vision changes. ??? Severe chest pain, dizziness, and seizures. How is this diagnosed? This condition is diagnosed by measuring your blood pressure while you are seated, with your arm resting on a flat surface, your legs uncrossed, and your feet flat on the floor. The cuff of the bloodpressure monitor will be placed directly against the skin of your upper arm at the level of your heart. Blood pressure should be measured at least twice using the same arm. Certain conditions can cause a difference in blood pressure between your right and left arms. If you have a high blood pressure reading during one visit or you have normal blood pressure with other risk factors, you may be asked to: ??? Return on a different day to have your blood pressure checked again. ??? Monitor your blood pressure at home for 1 week or longer. If you are diagnosed with hypertension, you may have other blood or imaging tests to help your health care provider understand your overall risk for other conditions. How is this treated? This condition is treated by making healthy lifestyle changes, such as eating healthy foods, exercising more, and reducing your alcohol intake. You may be referred for counseling on a healthy diet and physical activity. Your health care provider may prescribe medicine if lifestyle changes are not enough to get your blood pressure under control and if: ??? Your systolic blood pressure is above 130. ??? Your diastolic blood pressure is above 80. Your personal target blood pressure may vary depending on your medical conditions, your age, and other factors. Follow these instructions at home: Eating and drinking ??? Eat a diet that is high in fiber and potassium, and low in sodium, added sugar, and fat. An example of this eating plan is called the DASH diet. DASH stands for Dietary Approaches to Stop Hypertension. To eat this way: ??? Eat plenty of fresh fruits and vegetables. Try to fill one half of your plate at each meal withfruits and vegetables. ??? Eat whole grains, such as whole-wheat pasta, brown rice, or whole-grain bread. Fill about one fourth of your plate with whole grains. ??? Eat or drink low-fat dairy products, such as skim milk or low-fat yogurt. ??? Avoid fatty cuts of meat, processed or cured meats, and poultry with skin. Fill about one fourth of your plate with lean proteins, such as fish, chicken without skin, beans, eggs, or tofu. ??? Avoid pre-made and processed foods. These tend to be higher in sodium, added sugar, and fat. ??? Reduce your daily sodium intake. Many people with hypertension should eat less than 1,500 mg ofsodium a day. ??? Do not drink alcohol if: ??? Your health care provider tells you not to drink. ??? You are , may be , or are planning to become . ??? If you drink alcohol: ??? Limit how much you have to: ??? 0???1 drink a day for women. ??? 0???2 drinks a day for men. ??? Know how much alcohol is in your drink. In the [place] one drink equals one 12 oz bottle of beer (355 mL), one 5 oz glass of wine (148 mL), or one 1?? oz glass of hard liquor (44 mL). Lifestyle ??? Work with your health care provider to maintain a healthy body weight or to lose weight. Ask what an ideal weight is for you. ??? Get at least 30 minutes of exercise that causes your heart to beat faster (aerobic exercise) most days of the week. Activities may include walking, swimming, or biking. ??? Include exercise to strengthen your muscles (resistance exercise), such as Pilates or lifting weights, as part of your weekly exercise routine. Try to do these types of exercises for 30 minutes at least 3 days a week. ??? Do not use any products that contain nicotine or tobacco. These products include cigarettes, chewing tobacco, and vaping devices, such as e-cigarettes. If you need help quitting, ask your health care provider. ??? Monitor your blood pressure at home as told by your health care provider. ??? Keep all follow-up visits. This is important. Medicines ??? Take yiss-obc-ytogieo and prescription medicines only as told by your health care provider. Follow directions carefully. Blood pressure medicines must be taken as prescribed. ??? Do not skip doses of blood pressure medicine. Doing this puts you at risk for problems and can make the medicine less effective. ??? Ask your health care provider about side effects or reactions to medicines that you should watch for. Contact a health care provider if you: ??? Think you are having a reaction to a medicine you are taking. ??? Have headaches that keep coming back (recurring). ??? Feel dizzy. ??? Have swelling in your ankles. ??? Have trouble with your vision. Get help right away if you: ??? Develop a severe headache or confusion. ??? Have unusual weakness or numbness. ??? Feel faint. ??? Have severe pain in your chest or abdomen. ??? Vomit repeatedly. ??? Have trouble breathing. These symptoms may be an emergency. Get help right away. Call 911. ??? Do not wait to see if the symptoms will go away. ??? Do not drive yourself to the hospital. Summary ??? Hypertension is when the force of blood pumping through your arteries is too strong. If this condition is not controlled, it may put you at risk for serious complications. ??? Your personal target blood pressure may vary depending on your medical conditions, your age, and other factors. For most people, a normal blood pressure is less than 120/80. ??? Hypertension is treated with lifestyle changes, medicines, or a combination of both. Lifestyle changes include losing weight, eating a healthy, low-sodium diet, exercising more, and limiting alcohol. This information is not intended to replace advice given to you by your health care provider. Make sure you discuss any questions you have with your health care provider. Document Revised: 08/06/2022 Document Reviewed: 08/06/2022 [employer] Patient Education ?? 2022 [employer]. 04/15/2024 23:55:36 General Headache Without Cause General Headache Without Cause A headache is pain or discomfort felt around the head or neck area. There are many causes and typesof headaches. A few common types include: ??? Tension headaches. ??? Migraine headaches. ??? Cluster headaches. ??? Chronic daily headaches. Sometimes, the specific cause of a headache may not be found. Follow these instructions at home: Watch your condition for any changes. Let your health care provider know about them. Take these steps to help with your condition: Managing pain ??? Take vnku-gki-ryesfff and prescription medicines only as told by your health care provider. Treatment may include medicines for pain that are taken by mouth or applied to the skin. ??? Lie down in a dark, quiet room when you have a headache. ??? Keep lights dim if bright lights bother you or make your headaches worse. ??? If directed, put ice on your head and neck area: ??? Put ice in a plastic bag. ??? Place a towel between your skin and the bag. ??? Leave the ice on for 20 minutes, 2???3 times per day. ??? Remove the ice if your skin turns bright red. This is very important. If you cannot feel pain, heat, or cold, you have a greater risk of damage to the area. ??? If directed, apply heat to the affected area. Use the heat source that your health care provider recommends, such as a moist heat pack or a heating pad. ??? Place a towel between your skin and the heat source. ??? Leave the heat on for 20???30 minutes. ??? Remove the heat if your skin turns bright red. This is especially important if you are unable to feel pain, heat, or cold. You have a greater risk of getting burned. Eating and drinking ??? Eat meals on a regular schedule. ??? If you drink alcohol: ??? Limit how much you have to: ??? 0???1 drink a day for women who are not . ??? 0???2 drinks a day for men. ??? Know how much alcohol is in a drink. In the [place] one drink equals one 12 oz bottle of beer (355 mL), one 5 oz glass of wine (148 mL), or one 1?? oz glass of hard liquor (44 mL). ??? Stop drinking caffeine, or decrease the amount of caffeine you drink. ??? Drink enough fluid to keep your urine pale yellow. General instructions ??? Keep a headache journal to help find out what may trigger your headaches. For example, write down: ??? What you eat and drink. ??? How much sleep you get. ??? Any change to your diet or medicines. ??? Try massage or other relaxation techniques. ??? Limit stress. ??? Sit up straight, and do not tense your muscles. ??? Do not use any products that contain nicotine or tobacco. These products include cigarettes, chewing tobacco, and vaping devices, such as e-cigarettes. If you need help quitting, ask your health care provider. ??? Exercise regularly as told by your health care provider. ??? Sleep on a regular schedule. Get 7???9 hours of sleep each night, or the amount recommended by your health care provider. ??? Keep all follow-up visits. This is important. Contact a health care provider if: ??? Medicine does not help your symptoms. ??? You have a headache that is different from your usual headache. ??? You have nausea or you vomit. ??? You have a fever. Get help right away if: ??? Your headache: ??? Becomes severe quickly. ??? Gets worse after moderate to intense physical activity. ??? You have any of these symptoms: ??? Repeated vomiting. ??? Pain or stiffness in your neck. ??? Changes to your vision. ??? Pain in an eye or ear. ??? Problems with speech. ??? Muscular weakness or loss of muscle control. ??? Loss of balance or coordination. ??? You feel faint or pass out. ??? You have confusion. ??? You have a seizure. These symptoms may represent a serious problem that is an emergency. Do not wait to see if the symptoms will go away. Get medical help right away. Call your local emergency services (911 in the [place] Do not drive yourself to the hospital. Summary ??? A headache is pain or discomfort felt around the head or neck area. ??? There are many causes and types of headaches. In some cases, the cause may not be found. ??? Keep a headache journal to help find out what may trigger your headaches. Watch your condition for any changes. Let your health care provider know about them. ??? Contact a health care provider if you have a headache that is different from the usual headache, or if your symptoms are not helped by medicine. ??? Get help right away if your headache becomes severe, you vomit, you have a loss of vision, you lose your balance, or you have a seizure. This information is not intended to replace advice given to you by your health care provider. Make sure you discuss any questions you have with your health care provider. Document Revised: 02/27/2022 Document Reviewed: 02/27/2022 [employer] Patient Education ?? 2022 [employer]. Follow Up Care 04/15/2024 22:53:42 With:Follow up with primary care provider Address: When:1 to 2 days Comments:You been seen in the emergency department and no emergent medical condition has been identified. ??It is recommended that you follow-up with your primary care provider within the next??48 hours. ??Ifyour condition worsens or you are unable to??arrange for appropriate follow-up please??reach out tot emergency department by phone or return to the emergency department for repeat evaluation. Physician Emergency department Note * Ángel Haynes MD: PERFORM Event Display: ED Note Physician Authored Date: [id number] RENÉ RAUSCH :1995 Age:29 years Sex:Female Visit Date:04/15/2024 Primary Care Physician: Robin Guerrero MD Basic Information Time Seen: Ángel Haynes MD / 04/15/2024 23:09 Chief Complaint Headache starting today with SBP >180. pt reports ??she has been taking prescribed Losartan for HTN. Tylenol at 1400 History Of Present Illness: Patient presents with a severe right-sided headache.?? Feels that it could be??sinus congestion.?? No migraine headache history.?? Unsure of status.?? No fever no chills no cough.?? Took Tylenol at home with no relief.?? Denies any visual disturbance.?? Denies any neck stiffness. Review of Systems: Constitutional: [No fevers, chills, sweats] Eye: [No recent visual problems] ENT: [No ear pain, , sore throat] Respiratory: [No shortness of breath, cough] Cardiovascular: [No Chest pain, palpitations, syncope] Gastrointestinal: [No nausea, vomiting, diarrhea] Genitourinary: [No hematuria] Hakeem/Lymph: [Negative for bruising tendency, swollen lymph glands] Endocrine: [Negative for excessive thirst, excessive hunger] Musculoskeletal: [No back pain, neck pain, joint pain, muscle pain, decreased range of motion] Integumentary: [No rash, pruritus, abrasions] Neurologic: [Alert & oriented X 4] Psychiatric: Physical Exam Vitals & Measurements T:??36.3?C ??(Tympanic)?? HR:??52??(Peripheral)?? RR:??16?? BP:??159/103?? SpO2:??100%?? WT:??81.65??kg?? Pain Score:??6?? O2 Therapy:??Room air?? General: Alert and oriented, well nourished,?? No acute distress Eye: PERRL, EOMI,?? Normal?? conjunctiva HENT: Normocephalic,?? Normal?hearing, moist oral mucosa,?? No scleral icterus,?? No sinus tenderness Neck: Supple, non-tender,?? No JVD,? Lungs:?? Respiration: Non-Labored Heart:?? Normal?rate,?? Regular rhythm,?? No edema Abdomen:?? non-distended,? Musculoskeletal:?? Normal?range of motion and strength,?? No tenderness,?? No swelling Skin: Skin is warm, dry and pink,?? No rashes,?? No lesions Neurologic: Awake, alert and oriented X4, CN II-XII intact, no pronator drift, no nystagmus Psychiatric: Cooperative, appropriate mood and affect Medical Decision Making: This patient presents with a headache most consistent with benign headache from either tension typeheadache vs migraine. No headache red flags. Neurologic exam without evidence of meningismus, AMS, focal neurologic findings so doubt meningitis, encephalitis, stroke. Presentation not consistent with acute intracranial bleed to include SAH (lack of risk factors, headache history). No history of trauma so doubt ICH. Given history and physical temporal arteritis unlikely, as is acute angle closureglaucoma. Doubt carotid artery dissection given no focal neuro deficits, no neck trauma or recent neck strain. Patient with no signs of increased intracranial pressure or weight loss and history and physical suggest more benign headache so less likely mass effect in brain from tumor or abscess or idiopathic intracranial hypertension. Pain was controlled with headache cocktail and patient discharged home with PMD follow up. Procedure No Qualifying Data Assessment/Plan 1.??Headache??R51.9 Orders: Discharge Patient, 04/16/24 0:55:00 EDT, Home Independently, Constant Indicator Patient Education Hypertension, Adult General Headache Without Cause Follow Up With When Contact Information Follow up with primary care provider Within 1 to 2 days Additional Instructions: You been seen in the emergency department and no emergent medical condition has been identified. ??It is recommended that you follow-up with your primary care provider withinthe next??48 hours. ??If your condition worsens or you are unable to??arrange for appropriate follow-up please??reach out to the emergency department by phone or return to the emergency department for repeat evaluation. Problem List/Past Medical History Ongoing No qualifying data Historical No qualifying data Medication Administration Given propranolol, 40 mg, Oral Reglan, 10 mg, Oral Tylenol, 1000 mg, Oral Allergies predniSONE Social History Alcohol Current, 1-2 times per month Electronic Cigarette/Vaping Electronic Cigarette Use: Never. Substance Use Never Tobacco Never tobacco user Tobacco Use:. Lab Results Testing?? LATEST RESULTS?? U hCG Ql?? 04/15/24 23:25?? Negative? Electronically Signed on 04/16/2024 03:36 EDT Ángel Haynes MD Emergency department Discharge instructions * Ángel Haynes MD: PERFORM Event Display: ED Discharge Information Authored Date: [id number] RENÉ RAUSCH :1995 Age:29 years Sex:Female Visit Date:04/15/2024 Discharge Instructions We would like to thank you for allowing us to assist you with your healthcare needs. The following includes patient education materials and information regarding your injury/illness. Diagnosis from Today's Visit Headache Discharge Vitals Temperature??(Tympanic) 97.3 ??F (36.3 ??C) Heart Rate??(Monitored) 60 Respiratory Rate?? 20 Blood Pressure?? 165/114?? SpO2?? 100% Weight?? 180.04 lb (81.65 kg) Allergies predniSONE What to Do Next You Need to Schedule the Following Appointments Follow Up with??Follow up with primary care provider When:??Within 1 to 2 days Why: You been seen in the emergency department and no emergent medical condition has been identified. ??It is recommended that you follow-up with your primary care provider within the next??48 hours.??If your condition worsens or you are unable to??arrange for appropriate follow-up please??reach out to the emergency department by phone or return to the emergency department for repeat evaluation. You were treated today on an emergency basis; it may be gutierrez to contact your primary care provider to notify them of your visit today. You may have been referred to your regular doctor or a specialist, please follow up as instructed. If your condition worsens or you can't get in to see the doctor, contact the Emergency Department. Education Materials Hypertension, Adult High blood pressure (hypertension) is when the force of blood pumping through the arteries is too strong. The arteries are the blood vessels that carry blood from the heart throughout the body. Hypertension forces the heart to work harder to pump blood and may cause arteries to become narrow or stiff. Untreated or uncontrolled hypertension can lead to a heart attack, heart failure, a stroke, kidney disease, and other problems. A blood pressure reading consists of a higher number over a lower number. Ideally, your blood pressure should be below 120/80. The first (top) number is called the systolic pressure. It is a measure of the pressure in your arteries as your heart beats. The second (bottom) number is called the diastolic pressure. It is a measure of the pressure in your arteries as the heart relaxes. What are the causes? The exact cause of this condition is not known. There are some conditions that result in high bloodpressure. What increases the risk? Certain factors may make you more likely to develop high blood pressure. Some of these risk factorsare under your control, including: ? Smoking. ? Not getting enough exercise or physical activity. ? Being overweight. ? Having too much fat, sugar, calories, or salt (sodium) in your diet. ? Drinking too much alcohol. Other risk factors include: ? Having a personal history of heart disease, diabetes, high cholesterol, or kidney disease. ? Stress. ? Having a family history of high blood pressure and high cholesterol. ? Having obstructive sleep apnea. ? Age. The risk increases with age. What are the signs or symptoms? High blood pressure may not cause symptoms. Very high blood pressure (hypertensive crisis) may cause: ? Headache. ? Fast or irregular heartbeats (palpitations). ? Shortness of breath. ? Nosebleed. ? Nausea and vomiting. ? Vision changes. ? Severe chest pain, dizziness, and seizures. How is this diagnosed? This condition is diagnosed by measuring your blood pressure while you are seated, with your arm resting on a flat surface, your legs uncrossed, and your feet flat on the floor. The cuff of the bloodpressure monitor will be placed directly against the skin of your upper arm at the level of your heart. Blood pressure should be measured at least twice using the same arm. Certain conditions can cause a difference in blood pressure between your right and left arms. If you have a high blood pressure reading during one visit or you have normal blood pressure with other risk factors, you may be asked to: ? Return on a different day to have your blood pressure checked again. ? Monitor your blood pressure at home for 1 week or longer. If you are diagnosed with hypertension, you may have other blood or imaging tests to help your health care provider understand your overall risk for other conditions. How is this treated? This condition is treated by making healthy lifestyle changes, such as eating healthy foods, exercising more, and reducing your alcohol intake. You may be referred for counseling on a healthy diet and physical activity. Your health care provider may prescribe medicine if lifestyle changes are not enough to get your blood pressure under control and if: ? Your systolic blood pressure is above 130. ? Your diastolic blood pressure is above 80. Your personal target blood pressure may vary depending on your medical conditions, your age, and other factors. Follow these instructions at home: Eating and drinking ? Eat a diet that is high in fiber and potassium, and low in sodium, added sugar, and fat. An exampleof this eating plan is called the DASH diet. DASH stands for Dietary Approaches to Stop Hypertension. To eat this way: ? Eat plenty of fresh fruits and vegetables. Try to fill one half of your plate at each meal with fruits and vegetables. ? Eat whole grains, such as whole-wheat pasta, brown rice, or whole-grain bread. Fill about one fourth of your plate with whole grains. ? Eat or drink low-fat dairy products, such as skim milk or low-fat yogurt. ? Avoid fatty cuts of meat, processed or cured meats, and poultry with skin. Fill about one fourth ofyour plate with lean proteins, such as fish, chicken without skin, beans, eggs, or tofu. ? Avoid pre-made and processed foods. These tend to be higher in sodium, added sugar, and fat. ? Reduce your daily sodium intake. Many people with hypertension should eat less than 1,500 mg of sodium a day. ? Do not drink alcohol if: ? Your health care provider tells you not to drink. ? You are , may be , or are planning to become . ? If you drink alcohol: ? Limit how much you have to: ? 0???1 drink a day for women. ? 0???2 drinks a day for men. ? Know how much alcohol is in your drink. In the [place] one drink equals one 12 oz bottle of beer (355mL), one 5 oz glass of wine (148 mL), or one 1?? oz glass of hard liquor (44 mL). Lifestyle ? Work with your health care provider to maintain a healthy body weight or to lose weight. Ask what an ideal weight is for you. ? Get at least 30 minutes of exercise that causes your heart to beat faster (aerobic exercise) most days of the week. Activities may include walking, swimming, or biking. ? Include exercise to strengthen your muscles (resistance exercise), such as Pilates or lifting weights, as part of your weekly exercise routine. Try to do these types of exercises for 30 minutes at least 3 days a week. ? Do not use any products that contain nicotine or tobacco. These products include cigarettes, chewing tobacco, and vaping devices, such as e-cigarettes. If you need help quitting, ask your health careprovider. ? Monitor your blood pressure at home as told by your health care provider. ? Keep all follow-up visits. This is important. Medicines ? Take [id number]-[id number] and prescription medicines only as told by your health care provider. Follow directions carefully. Blood pressure medicines must be taken as prescribed. ? Do not skip doses of blood pressure medicine. Doing this puts you at risk for problems and can makethe medicine less effective. ? Ask your health care provider about side effects or reactions to medicines that you should watch for. Contact a health care provider if you: ? Think you are having a reaction to a medicine you are taking. ? Have headaches that keep coming back (recurring). ? Feel dizzy. ? Have swelling in your ankles. ? Have trouble with your vision. Get help right away if you: ? Develop a severe headache or confusion. ? Have unusual weakness or numbness. ? Feel faint. ? Have severe pain in your chest or abdomen. ? Vomit repeatedly. ? Have trouble breathing. These symptoms may be an emergency. Get help right away. Call 911. ? Do not wait to see if the symptoms will go away. ? Do not drive yourself to the hospital. Summary ? Hypertension is when the force of blood pumping through your arteries is too strong. If this condition is not controlled, it may put you at risk for serious complications. ? Your personal target blood pressure may vary depending on your medical conditions, your age, and other factors. For most people, a normal blood pressure is less than 120/80. ? Hypertension is treated with lifestyle changes, medicines, or a combination of both. Lifestyle changes include losing weight, eating a healthy, low-sodium diet, exercising more, and limiting alcohol. This information is not intended to replace advice given to you by your health care provider. Make sure you discuss any questions you have with your health care provider. Document Revised: 08/06/2022 Document Reviewed: 08/06/2022 [employer] Patient Education ?? 2022 [employer] General Headache Without Cause A headache is pain or discomfort felt around the head or neck area. There are many causes and typesof headaches. A few common types include: ? Tension headaches. ? Migraine headaches. ? Cluster headaches. ? Chronic daily headaches. Sometimes, the specific cause of a headache may not be found. Follow these instructions at home: Watch your condition for any changes. Let your health care provider know about them. Take these steps to help with your condition: Managing pain ? Take ogml-wme-iwpnvwq and prescription medicines only as told by your health care provider. Treatment may include medicines for pain that are taken by mouth or applied to the skin. ? Lie down in a dark, quiet room when you have a headache. ? Keep lights dim if bright lights bother you or make your headaches worse. ? If directed, put ice on your head and neck area: ? Put ice in a plastic bag. ? Place a towel between your skin and the bag. ? Leave the ice on for 20 minutes, 2???3 times per day. ? Remove the ice if your skin turns bright red. This is very important. If you cannot feel pain, heat, or cold, you have a greater risk of damage to the area. ? If directed, apply heat to the affected area. Use the heat source that your health care provider recommends, such as a moist heat pack or a heating pad. ? Place a towel between your skin and the heat source. ? Leave the heat on for 20???30 minutes. ? Remove the heat if your skin turns bright red. This is especially important if you are unable to feel pain, heat, or cold. You have a greater risk of getting burned. Eating and drinking ? Eat meals on a regular schedule. ? If you drink alcohol: ? Limit how much you have to: ? 0???1 drink a day for women who are not . ? 0???2 drinks a day for men. ? Know how much alcohol is in a drink. In the [place] one drink equals one 12 oz bottle of beer (355 mL), one 5 oz glass of wine (148 mL), or one 1?? oz glass of hard liquor (44 mL). ? Stop drinking caffeine, or decrease the amount of caffeine you drink. ? Drink enough fluid to keep your urine pale yellow. General instructions ? Keep a headache journal to help find out what may trigger your headaches. For example, write down: ? What you eat and drink. ? How much sleep you get. ? Any change to your diet or medicines. ? Try massage or other relaxation techniques. ? Limit stress. ? Sit up straight, and do not tense your muscles. ? Do not use any products that contain nicotine or tobacco. These products include cigarettes, chewing tobacco, and vaping devices, such as e-cigarettes. If you need help quitting, ask your health careprovider. ? Exercise regularly as told by your health care provider. ? Sleep on a regular schedule. Get 7???9 hours of sleep each night, or the amount recommended by yourhealth care provider. ? Keep all follow-up visits. This is important. Contact a health care provider if: ? Medicine does not help your symptoms. ? You have a headache that is different from your usual headache. ? You have nausea or you vomit. ? You have a fever. Get help right away if: ? Your headache: ? Becomes severe quickly. ? Gets worse after moderate to intense physical activity. ? You have any of these symptoms: ? Repeated vomiting. ? Pain or stiffness in your neck. ? Changes to your vision. ? Pain in an eye or ear. ? Problems with speech. ? Muscular weakness or loss of muscle control. ? Loss of balance or coordination. ? You feel faint or pass out. ? You have confusion. ? You have a seizure. These symptoms may represent a serious problem that is an emergency. Do not wait to see if the symptoms will go away. Get medical help right away. Call your local emergency services (911 in the [place] Do not drive yourself to the hospital. Summary ? A headache is pain or discomfort felt around the head or neck area. ? There are many causes and types of headaches. In some cases, the cause may not be found. ? Keep a headache journal to help find out what may trigger your headaches. Watch your condition for any changes. Let your health care provider know about them. ? Contact a health care provider if you have a headache that is different from the usual headache, orif your symptoms are not helped by medicine. ? Get help right away if your headache becomes severe, you vomit, you have a loss of vision, you loseyour balance, or you have a seizure. This information is not intended to replace advice given to you by your health care provider. Make sure you discuss any questions you have with your health care provider. Document Revised: 02/27/2022 Document Reviewed: 02/27/2022 [employer] Patient Education ?? 2022 [employer] Tests Performed Medications and Immunizations Administered Given propranolol, 40 mg, Oral Reglan, 10 mg, Oral Tylenol, 1000 mg, Oral Lab Test Name Test Result Date/Time U hCG Ql NEGATIVE 04/15/2024 23:25 EDT Patient/Brand Manager Signature Patient Name:RENÉ RAUSCH I have received this information and my questions have been answered. Patient/Brand Manager Name: Patient/Brand Manager Signature: Relationship to Patient: Witness Name/Signature: Date: Electronically Signed on: 04/16/2024 00:56 EDTSigned by:SUSAN Patient Care team information Care Team Personnel Name: Robin Guerrero MD Position: No Access Member Role: Informed Provider Address: Address: [address] [place] [address] [place] [address], [place] [address]
--- OUTSIDE RECORDS SUMMARY | 2024-08-23 12:31 | XMS_ITS | Encounter Summary ---
[place] [address] Care Team Providers Care Airplane Charter Clerk Name Role Phone Rene Lynn Polanco APRN Primary Care Provider [phone] Reason for Visit * Reason Comments Blood Pressure Check Encounter Details Date Type Department Care Team (Latest Contact Info) Description 11/08/2019 10:30 AM EST Clinical Support Obstetric[place] [phone] Mary Higgins RN Chronic hypertension affecting Social History Tobacco Use Types Packs/Day Years Used Date Smoking Tobacco: Never Smokeless Tobacco: Never Alcohol Use Standard Drinks/Week Comments Not Currently 0 (1 standard drink = 0.6 oz pur e alcohol) ON OCC Sex and Gender Information Value Date Recorded Sex Assigned at Not on file Gender Identity Not on file Sexual Orientation Not on file documented as of this encounter Last Filed Vital Signs Vital Sign Reading Time Taken Comments Blood Pressure 135/85 11/08/2019 10:39 AM EST Pulse 88 11/08/2019 10:39 AM EST Temperature 37.1 ??C (98.8 ??F) 11/08/2019 10:[address] Respiratory Rate 20 11/08/2019 10:39 AM EST Oxygen Saturation 100% 11/08/2019 10:39 AM EST Inhaled Oxygen Concentration - - Weight - - Height - - Body Mass Index - - documented in this encounter Progress Notes * Mary Higgins RN - 11/08/2019 10:30 AM EST Liza is day 7, s/p primary c/s on 10/31/19 noted for post hemorrhage, preeclampsia with severe features. She is taking Labetalol 200 mg TID. She is moving well, no c/o. Pain is 0 although she mentions mild discomfort on the right side abovethe incision when she moves. Post op pain has been managed with Tylenol/Ibuprofen alternating as directed with good results. She is able to sleep for 2-3 hours at a time while the baby is sleeping. Liza is pumping and giving breast milk to the baby by bottle supplementing with formula. Her breasts are soft, she denies nipple pain. PhQ is 0, no s/s of post depression. Her incision is dry and intact. Lochia is light. Vital signs as documented, blood pressure is 135/85 today. Her home manometer was checked and it isabove the hospital manometer by 5 - 10 mm/Hg. She will note that when checking home blood pressures. Liza is not currently taking iron supplements. I have discussed the reason these have been orderedand encouraged her to begin taking them today. She is aware she needs to continue taking her Labetalol as ordered. S/s of hypotension were discussed and should she experience any of them she has beendirected to call to discuss with a provider as medication may need to be adjusted at that time. I also reviewed when to start ocp's. All questions were answered. Assessment: blood pressure responsive to Labetalol Plan: will start iron supplements today. Next visit will be for 6 week ppt check. She agrees to call for any problems, questions or concerns. documented in this encounter Plan of Treatment Not on file documented as of this encounter Visit Diagnoses Diagnosis Chronic hypertension affecting documented in this encounter Care Teams Airplane Charter Clerk Relationship Specialty Start Date End Date Lynn López APRN PCP - General Family Medicine 03/17/17 documented as of this encounter
--- OUTSIDE RECORDS SUMMARY | 2024-08-23 12:31 | XMS_ITS | Encounter Summary ---
Author Organization [facility] Address [facility] [address] [place] [address] Care Team Providers Care Check Totaler Name Role Phone Lynn López APRN Primary Care Provider [phone] Reason for Visit * Reason Comments Care Encounter Details Date Type Department Care Team (Late st Contact Info) Description 12/08/2019 11:30 AM EST Visit Obstetrics [place] [address] Sarah Gonazlez MD [facility] DR OBSTETRICS [place] [address] Encounter for routine follow-up Social History Tobacco Use Types Packs/Day Years [...] 12.8 oz) 020 11:54 AM EST Height - - Body Mass Index 29.55 09/29/2019 8:20 PM EST documented in this encounter Progress Notes * Elsi Murphy LNA - 12/08/2019 11:30 AM EST Patient states she is wanting to talk about a RX for anxiety. Patient states last PAP Smear was about 6 months before she conceived. * Sarah Gonzalez MD - 12/08/2019 11:30 AM EST Liza Wilkinson was seen today for care. She underwent a delivery c/b uterine extension, hemorrhage 4300cc, transfusions and BaKri. Today she complains of nothing except anxiety She is not really sexually active. She has no bleeding. She denies pain. control options were discussed at length. The patient desires OCP's. Pap smear: 2018 Depression Screen score: 0 BP 136/80 Pulse 90 Temp 36.9 ??C (98.4 ??F) (Oral) Resp 16 Wt 75.7 kg (166 lb 12.8 oz) SpO2 100% No BMI 29.55 kg/m?? NAD Abdomen soft, NT Incision CDI, well healed Assessment/Plan: Normal Pap smear: < 3 years ago Control: On micronor will switch to COCP as weaned USP follow up: Needs PCP for HTN. Refer to Doris Brooks for anxiety and possible PTSD from traumatic experience. Would like help to get counseling close to home. Offered Atarax, she declined Can stop Labetalol. Monitor home BP's for next week. If not severe can start OCP's Discussed future and uterine scar. Not a good candidate for . No contraindication to . No follow-up Needed: I made no further follow up visits at this time but would be happy to see her again if needed. documented in this encounter Plan of Treatment Not on file documented as of this encounter Visit Diagnoses Diagnosis Encounter for routine follow-up Routine follow-up documented in this encounter Care Teams Check Totaler Relationship Specialty Start Date End Date Lynn López APRN PCP - General Family Medicine 03/17/17 documented as of this encounter
--- OUTSIDE RECORDS SUMMARY | 2024-08-23 12:31 | XMS_ITS | Encounter Summary ---
Author Organization [facility] [place] [address] Care Team Providers Care Transfer Agent Name Role Phone Lynn López APRN Primary Care Provider [phone] Reason for Visit * Reason Onset Date Comments Follow-up 11/05/2019 Encounter Details Date Type Department Care Team (Late st Contact Info) Description 11/05/2019 Telephone Obstetrics [place] [address] Mitra Higginbotham, RN Follow-up Social History Tobacco Use Types Packs/Day Years [...] encounter Miscellaneous Notes * Telephone Encounter - Mitra Higginbotham RN - 11/05/2019 3:01 PM EST ----- Message from Heike Raygoza MD sent at 11/05/2019 7:08 AM EST ----- Regarding: BP Hi Bertha, Can you call Liza today and see if she bought a BP cuff and has she taken her BP? She has a BP check scheduled Friday but went home with a high BP check on Message left on unidentified VM to call back re above message documented in this encounter Plan of Treatment Not on file documented as of this encounter Visit Diagnoses Not on filedocumented in this encounter Care Teams Transfer Agent Relationship Specialty Start Date End Date Lynn López, DOMONIQUE PCP - General Family Medicine 03/17/17 documented as of this encounter
--- OUTSIDE RECORDS SUMMARY | 2024-08-23 12:31 | XMS_ITS | Encounter Summary ---
Author Organization [facility] [place] [address] Care Team Providers Care Reconcilement Clerk Name Role Phone Lynn López APRN Primary Care Provider [phone] Encounter Details Date Type Department Care Team (Late st Contact Info) Description 11/10/2019 Notes Only Obstetrics [place] [address] Mary Higgins RN Social History Tobacco Use Types Packs/Day Years Used Date Smoking Tobacco: Never Smokeless Tobacco: Never Alcohol Use Standard Drinks/Week Comments Not Currently 0 (1 standard drink = 0.6 oz pur e alcohol) ON OCC Sex and Gender Information Value Date Recorded Sex Assigned at Not on file Gender Identity Not on file Sexual Orientation Not on file documented as of this encounter Progress Notes * Mary Higgins RN - 11/10/2019 2:20 PM EST Disability paperwork faxed today to [employer] @ [phone]. documented in this encounter Plan of Treatment Not on file documented as of this encounter Visit Diagnoses Not on filedocumented in this encounter Care Teams Reconcilement Clerk Relationship Specialty Start Date End Date Lynn López APRN PCP - General Family Medicine 03/17/17 documented as of this encounter
--- OUTSIDE RECORDS SUMMARY | 2024-08-23 12:32 | XMS_ITS | Encounter Summary ---
Author Organization [facility] [place] [address] Care Team Providers Care Motion Picture Equipment Supervisor Name Role Phone Lynn López APRN Primary Care Provider [phone] Encounter Details Date Type Department Care Team (Late st Contact Info) Description 10/22/2019 Telephone Obstetrics [place] [phone] Evette Dowell RN Social History Tobacco Use Types Packs/Day Years Used Date Smoking Tobacco: Never Smokeless Tobacco: Never Alcohol Use Standard Drinks/Week Comments Yes 0 (1 standard drink = 0.6 oz pur e alcohol) ON OCC Comments Yes Sex and Gender Information Value Date Recorded Sex Assigned at Not on file Gender Identity Not on file Sexual Orientation Not on file documented as of this encounter Miscellaneous Notes * Telephone Encounter - Evette Dowell RN - 10/22/2019 10:59 AM EST TELEPHONE NOTE Caller: Evette Dowell RN Reason for call: Returned patient call. Assessment: 24 yo at 36w2d calling for lab results from yesterday, and to ask about back pain,which she says she noted when getting up off the couch yesterday, feeling a sharp pain, that continues to feel like a pulled muscle today. Has taken Tylenol, but no other comfort measures. Plan/Instructions: Discussed use of warm packs, continued Tylenol if it is helping, warm shower, gentle stretching, massage to area. Reviewed labs that were final, appearing to be WNL. Protein/creat ratio not in yet. Encouraged signing up for [facility] to be able to see lab results when released. documented in this encounter Plan of Treatment Not on file documented as of this encounter Visit Diagnoses Not on filedocumented in this encounter Care Teams Motion Picture Equipment Supervisor Relationship Specialty Start Date End Date Lynn López APRN PCP - General Family Medicine 03/17/17 documented as of this encounter
--- OUTSIDE RECORDS SUMMARY | 2024-08-23 12:32 | XMS_ITS | Encounter Summary ---
Author Organization [facility] Address [facility] [address] [place] [address] Care Team Providers Care Auto Customize Painter Name Role Phone Rene Lynn Polanco APRN Primary Care Provider Reason for Visit * Reason Comments Initial Visit Encounter Details Date Type Department Care Team (Late st Contact Info) Description 10/07/2019 8:30 AM EST Initial Obstetrics [place] [address] Jose Luis Alexandre MD [facility] OBSTETRICS [place] [address] GA: [id number] Social History Tobacco Use Types Packs/Day Years [...] Sign Reading Time Taken Comments Blood Pressure 138/92 10/07/2019 8:10 AM EST Pulse - - Temperature - - Respiratory Rate - - Oxygen Saturation - - Inhaled Oxygen Concentration - - Weight 86 kg (189 lb 8 oz) 10/07/2019 8:10 AM ES T Height - - Body Mass Index 33.57 09/29/2019 8:20 PM EST documented in this encounter Progress Notes * Brochu, Mary S, RN - 10/07/2019 8:30 AM EST NST for CHT. Feeling well, occasional headaches which respond to Tylenol. Good FM. NST Fetus A 10/07/2019 HR (Beats/Min) 145 HR Variability moderate (amplitude range 6 to 25 bpm) HR Accelerations present;greater than/equal to 15 bpm;lasting at least 15 seconds HR Decelerations variable Contraction Frequency (Minutes) none Nonstress Test Interpretation Reactive, >32 weeks: two 15 bpm accelerations lasting 15 seconds Overall Impression Reassuring for gestational age Comments NST reviewed by Dr. Alexandre - bedside fluid check to be done I personlly reviewed this NST and agree with this interpretation. Reactive NST with mild variable decelerations. bedside US revealed NEO of about 11cm. MD Boy * Jose Luis Alexandre MD - 10/07/2019 8:30 AM EST Prelim note: 24 yo at 34w1d with chronic htn on Labetalol 100mg q day. Doing well. Good activity. No bleeding, no leaking fluid. Reactive NST 1) Hypertension: Diagnosed this at 7 weeks gestation. Had a few high range BPs in 1st trimester. Was started on Labetalol 200bid. BP's improved and pt developed dizziness and was decreased to Labetalol 100mg BID on 06/15/19. On 09/29, pt was switched to Nifedipine 30/day. Had severe range BP's, was admitted locally. She required IV antihypertensive treatment and was started on Magnesium Sulfate seizure prophylaxis. She was transferred to [facility]. At [facility], her Bps were easily treated. 24 hour urine revealed <300mg protein. BP were in the normal to mildly elevated range. Labs were reassuring. well- being was reassuring with normal growth (71%) and reassuring EFM. She was discharged home on Labetalol 100mg q day. Today (10/07/19), Pt feels well with no COFFMAN, no visual changes and no epigastric pain. BP today is 138/92 A/P: Mild chronic htn at 34+ weeks. Plan weekly visits with weekly NSTs. Plan delivery at about 39 weeks. MD Boy documented in this encounter Plan of Treatment Not on file documented as of this encounter Procedures Procedure Name Priority Date/Time Associated Diagnosis Comments POCT URINE DIPSTICK Routine 10/07/2019 Hypertension affecting in third trimester documented in this encounter Results * POCT urine dipstick (10/07/2019) POC Protein, UA Trace Negative - Negative mg/dL POC Glucose, UA 250 Normal - Normal mg/dL Jose Luis Alexandre MD POINT OF CARE TEST O RDERABLES documented in this encounter Visit Diagnoses Diagnosis Hypertension affecting in third trimester- Primary documented in this encounter Care Teams Auto Customize Painter Relationship Specialty Start Date End Date Lynn López, ROOFER APPLICATOR PCP - General Family Medicine 03/17/17 documented as of this encounter
--- OUTSIDE RECORDS SUMMARY | 2024-08-23 12:32 | XMS_ITS | Encounter Summary ---
[place] [address] Care Team Providers Care Body Shop Supervisor Name Role Phone Rene, Lynn Polanco APRN Primary Care Provider [phone] Reason for Visit * Reason Onset Date Comments Other 10/28/2019 Encounter Details Date Type Department Care Team (Late st Contact Info) Description 10/28/2019 Telephone Obstetrics [place] [phone] Mary Higgins RN Other Social History Tobacco Use Types Packs/Day Years [...] Telephone Encounter - Mary Higgins RN - 10/28/2019 10:33 AM EST A message has been left for Liza that Dr. Gonzalez has no clinic appointment openings tomorrow. Shecan be scheduled with Dr. Alexandre in the afternoon and limited openings are available with him. documented in this encounter Plan of Treatment Not on file documented as of this encounter Visit Diagnoses Not on filedocumented in this encounter Care Teams Body Shop Supervisor Relationship Specialty Start Date End Date Lynn López APRN PCP - General Family Medicine 03/17/17 documented as of this encounter
--- OUTSIDE RECORDS SUMMARY | 2024-08-23 12:32 | XMS_ITS | Encounter Summary ---
Author Organization [facility] Address [facility] [address] [place] [address] Care Team Providers Care Blown Film Extrusion Operator Name Role Phone ReneKassiedavid Polanco APRN Primary Care Provider [phone] Reason for Visit * Reason Comments Hypertension * Auth/Cert Specialty Diagnoses / Procedures Referred By Contac t Referred To Contact Diagnoses Pre-eclampsia Procedures URGENT IPI Referral ID Status Reason Start Date Expiration Date Visits Re quested Visits Authorized [id number] 1 1 Encounter Details Date Type Department Care Team (Latest Contact Info) Description 10/29/2019 11:11 AM EST - 11/03/2019 10:46 AM [facility] [place] [address] Teressa Hahn MD [facility] OBSTETRICS [place] [address] Dena Lion MD [facility] OBSTETRICS [place] [address] Discharge Disposition: Home Social History Tobacco Use [...] Sign Reading Time Taken Comments Blood Pressure 164/94 11/03/2019 8:49 AM EST given scheduled PO labetalol Pulse 86 11/03/2019 8:49 AM EST Temperature 36.5 ??C (97.7 ??F) 11/03/2019 3 :15 AM EST Respiratory Rate 18 11/03/2019 3:15 AM EST Oxygen Saturation 99% 11/02/2019 8:0 9 PM EST Inhaled Oxygen Concentration - - Weight - - Height - - Body Mass Index - - documented in this encounter Discharge Summaries * Heike Raygoza - 11/03/2019 10:46 AM EST Images from the original note were not included. Discharge Summary Patient Name: René Wilkinson Patient Age: 24 y.o. Language: Bolivian Race: White Ethnicity: Not nor Admit date: 10/29/2019 Discharge date and time: 11/03/2019 Attending Physician: No att. providers found Discharge Physician: Jose Luis Alexandre MD Care Provider: [facility] Referring Hospital: N/A Follow-up Recommendations for Providers: - PPD#7 BP check - 2 week depression screen -- Routine 6 week visit with care provider Inpatient Provider Contact Information: [facility] [employer] Department, Discharge Diagnoses (Hospital Problems) and Secondary Diagnoses (Chronic Problems) Active Hospital Problems Diagnosis ??? hemorrhage of section wound ??? History of section, low transverse ??? Pre-eclampsia Resolved Hospital Problems No resolved problems to display. Active Non-Hospital Problems Diagnosis ??? Pineal gland cyst ??? Headache(784.0) ??? Migraine ??? Chronic hypertension affecting Operations/Major Procedures: 10/31/2019: Primary low transverse section Indication for Admission: Pre-Eclampsia with severe features Admission History (per admit note cut and paste) René Wilkinson is a 24 y.o. at 37w2d gestation being admitted for pre- eclampsia with severe features superimposed on chronic HTN. ?? HPI: René has been feeling well. She denies any headaches, vision changes, CP, SOB, N/V, RUQ pain,LE pain, peripheral swelling. ?? Her has been complicated by: 1. Chronic HTN (on Labetalol 100 daily) 2. Migraines On arrival, patient was found to have severe-range blood pressures requiring treatment with 20, 40,and 80mg of IV labetalol and 10mg IV hydralazine. She had normal PIH labs other than UP:C of 0.4 and Category I FHT. Her cervical exam was long/closed/high. Hospital Course Including Delivery and Events René was [facility] to the [facility] and started on MgSO4 for seizure prophylaxis. She was induced with PO misoprostol. The patient progressed spontaneously to complete, after declining other forms of ripening, and had morphine/phenergan x1 followed by an epidural for analgesia. tracing showed intermittent deep variables to a jacob of 60 bpm, with rise back to baseline and moderate variability. Pushing was encouraged with multiple positions and good maternal effort. To improve her contraction frequency, Pitocin was initiated during the second stage, however, after 3 hours of pushi ng, no descent was appreciated. The decision was made to proceed with a primary low transverse section secondary to arrest of descent and NRFHT remote from delivery. ?? Patient underwent primary LTCS initially complicated by bilateral extensions of the hysterotomy which were repaired, initial EBL 1L. Procedure resulted in delivery of a viable female with APGARs of 6 and 10 and weight of 2805g. Unfortunately, prior to leaving the OR, the patient was found tohemorrhaging from vagina. General anesthesia was induced. Her total QBL was 4300 mL, hemostasis achieved with TXA x2, Pitocin, Hemabate, and buccal miso. Massive transfusion protocol was initiated and a Bakri balloon placed. In the OR she received 3U PRBCs, 3U FFP, and 1U platelets. She recovered in the PACU and [facility] on [facility]. The Bakri balloon was kept in situ for 24 hours following delivery with epidural analgesia infusing. She was given doses of 2g Ancef every 8 hours for infection prophylaxis. Her hemoglobin on POD#1 was 7.6, down from 13.8 preoperatively. The balloon was removed on POD#1 with slow deflation over a number of hours at a rate of 150 cc at a time. Following removal, she was observed for bleeding. Once she was demonstrated to be stable, her epidural was turned off. She reported adequate pain control and minimal to moderate bleeding. , blood pressures were controlled on Labetalol 200 TID. Hemoglobin was stable at 7.4 and the patient was asymptomatic. Her course was otherwise uneventful. Her pain was well controlled with oral pain medications. She was tolerating a regular diet, was ambulating and voiding without difficulty, and was passing flatus. Her fundal exam was as expected, andher lochia was within normal limits. She was pumping to feed her . Patient planned progesterone only pills for contraception. Patient was Rh +. She was discharged to home on POD#3 with plans for follow up as above. After the patient was discharged, it was noted that her last systolic BP was in the 160s. The patient was feeling well at the time. She was planning on purchasing a blood pressure cuff and we will have a nurse call her to assure her BP is under good control. She has a clinic BP check on 11/08/2019. She was discharged with 10 tablets of oxycodone. Due to her post-operative pain the patient was given a prescription for oxycodone to take only for breakthrough pain not responsive to acetaminophen and ibuprofen. She was counseled regarding the dangers of these medications including sedation which would impair her ability to drive safely. The potential for addiction with continued use of narcotic was discussed and the need to stop use as soon as possible. It was recommended that she promptly destroy unused medication or take them back to dropbox locations. The opioid risk assessment was done, opioid informed consent reviewed and signed by patient, PDMP query completed. Discharge instructions discussing the risk of opioids are included in her discharge instructions which are printed and given to the patient at discharge. Delivery Information Information for the patient's : Moapa, Baby Girl [[id number]] INFORMATION Baby Girl Moapa 10/31/2019 4:30 AM by Lower Segment Transverse Sex: female Gestational Age: 37w4d [place] Measurements: Weight: 6 lb 2.9 oz (2805 g) APGARS One Minute Five Minutes Ten Minutes Totals: 6 10 10 EBL: 4 Liters Vital signs at Discharge: BP: (!) 164/94(given scheduled PO labetalol), Heart Rate: 86, Temp: 36.5 ??C (97.7 ??F), Resp: 18, Functional and Cognitive status: At baseline Important Studies and Lab Data: Labs: Recent Labs 11/02/19 0640 11/01/19 1742 11/01/19 0615 WBC 10.5* 13.7* 16.0* HGB 7.4* 7.6* 7.6* HCT 22.7* 22.9* 22.2* PLATELET 149 149 139* Recent Labs 11/02/19 0640 11/01/19 0615 10/31/19 1715 10/30/19 1800 NA 137 136 131* < > -- K 4.1 3.8 4.5 < > -- CL 106 103 97* < > -- CO2 23 27 24 < > -- BUN 5* 7* 10 < > -- CREATININE 0.59* 0.71 0.92 < > 0.72 MAGNESIUM -- -- 2.62* -- 2.69* < > = values in this interval not displayed. Studies: No new studies Pending Studies and Lab Data: Placenta pathology Discharge Conditions/Prognosis: good Discharge to: Home Contraceptive Plans: oral progesterone-only contraceptive Allergies at Discharge: Allergies Allergen Reactions ??? Polymyxin B Sulf-Trimethoprim Orbital edema ??? Prednisone Rash Holes in finger nails. Rash on hands and feet. ??? Sudafed [Pseudoephedrine Hcl] Heart races Immunizations Given this Hospitalization: There is no immunization history on file for this patient. Discharge Medications: Your Medications New Medications Dose Details ferrous sulfate 325 mg (65 mg iron) Tab Take 1 tablet by mouth 2 times daily (with meals). 325 mg Quantity: 60 tablet Refills: 12 ibuprofen 600 mg Tab Commonly known as: Advil;Motrin Take 1 tablet by mouth every 6 hours as needed for Pain. 600 mg Quantity: 60 tablet Refills: 12 norethindrone 0.35 mg Tab Commonly known as: MICRONOR Take 1 tablet by mouth daily. 1 tablet Quantity: 84 tablet Refills: 3 oxyCODONE 5 mg Tab Commonly known as: Roxicodone Take 1-2 tablets by mouth every 4 hours as needed for Pain (Severe pain (7-10), only if PCEA OFF.). 5-10 mg Quantity: 10 tablet Refills: 0 Continued medications with new dosing Dose Details labetalol 200 mg Tab Commonly known as: Normodyne Take 1 tablet by mouth 3 times daily. What changed: ?? medication strength ?? how much to take ?? when to take this 200 mg Quantity: 90 tablet Refills: 0 Continued medications, unchanged Dose Details aspirin EC 81 mg Tbec Take 81 mg by mouth daily. 81 mg Refills: 0 famotidine 20 mg Tab Commonly known as: Pepcid Take 1 tablet by mouth 2 times daily. 20 mg Quantity: 60 tablet Refills: 3 1+1 ORAL Take by mouth. Refills: 0 Smoking Status at Discharge: Social History Tobacco Use Smoking Status Never Smoker Smokeless Tobacco Never Used Instructions Given to Patient at Discharge: There are no outpatient Patient Instructions on file for this admission. General Instructions Nursing Inpatient Progress C - Section Follow-up Follow-up: ? 2 week and 6 week visit will be scheduled with your primary OB provider Maternal Discharge Instructions Rest: Although it may seem impossible to get enough rest, simple planning will help. Plan to rest and/or sleep when your baby does. Limiting visitors also helps. Other family members can help by doing housework, caring for other children and/or helping limit visitors. Activity: After delivery, it is safe to climb stairs at home and gradually increase your activity level. Do not drive for two weeks or while taking narcotic pain medicine as your reaction time may be decreased. Do not lift more than 15 pounds for 6 weeks and no swimming until the vaginal bleeding stops. Nutrition: Your diet following the of your baby is as important as it was before the baby wasborn. Drinking a minimum of 6-8 glasses of water a day will help keep you hydrated. Continue takingyour vitamins until you are no longer . Continue taking stool softeners as recommended by the doctor. Do not attempt to lose weight during the first six weeks. Sweating. Hormonal changes following delivery frequently cause night sweats which are normal over the next 6 weeks. Sleeping on towels and using a fan may make you more comfortable. Incision: Wash the incision with soap and water and pat dry. It is normal to have clear or pinkish fluid seep from the incision. Gauze pads or sanitary napkins may help to keep the incision dry if itis located in a fold under your tummy. After 7-10 days remove any steri-strips which may still be over your incision. If the incision has more redness, yellow drainage, or becomes more painful, contact the obstetrics clinic. Lochia: (Flow) Your flow should be no heavier than a normal period. It will be bright red and then transition to pink, brown, yellow, and finally colorless. This may last a few weeks. If your vaginalbleeding becomes bright red again, decrease your activity. We recommend pelvic rest until your bleeding and spotting stops. This may take up to six weeks. Pelvic rest includes activities such as douching, use of tampons/menstrual cups or sexual intercourse. Bladder: For the next 2 weeks, empty your bladder every 2 hours while awake and at least every 4 hours at night. Perineum: For about a week continue to rinse yourself with warm water when you use the toilet. A sitz bath with Epsom salt taken 2 times a day and use of witch delon may help relieve soreness. Kegel exercise, done regularly throughout the day, will help tighten the perineal muscles and speed recovery. Breast Care for Formula feeding mothers: Wear a well-fitting bra to support your breasts. Ice packsto your breasts (10 minutes at a time) as well as alternating Tylenol and Ibuprofen may be used to relieve discomfort from engorgement. Avoid stimulating your breasts: Do not let warm water from the shower fall directly on your breast;do not express any colostrum; avoid holding your baby near your breasts until your milk begins to decrease and engorgement is relieved. Breast Care for mothers: Practice careful positioning and frequent feeding as demonstrated in the hospital. The printed information in your packet covers this in detail. For More Information: https://www.acog.org/Patients or refer to ACOG's Your and Childbirth: Month to Month book which you may have received from the OB Clinic. Vaccination: If you received the Measles, Mumps, and Rubella (MMR) vaccine, varicella vaccine, or Hepatitis A vaccine during your hospitalization make sure to discuss this with your OB provider or your PCP at your next visit. You may need a second dose of the vaccine to receive effective vaccine protection. Medications: o Please take your medication exactly as prescribed. Read all instructions that come with your medication. o Using narcotic pain medication (such as oxycodone, hydromorphone (Dilaudid), morphine, fentanyl, or tramadol) may cause addiction. While addiction is more common in people with a personal or familyhistory of addiction, it can occur in anyone. o Taking more than the prescribed amount of medication or using with alcohol or other drugs can cause you to stop breathing resulting in coma, brain damage, or . o Opioids (oxycodone, hydromorphone/Dilaudid, morphine, fentanyl, tramadol) can slow reaction time,cause drowsiness, or cloud judgement. It is unsafe for you to drive or operate heavy machinery while taking this medication. o Opioids (oxycodone, hydromorphone/Dilaudid, morphine, fentanyl, tramadol) are at risk of being diverted by anyone with access to your home. Opioids should be stored in a safe and secure place, suchas a locked cabinet or safe. o Unused opioids (oxycodone, hydromorphone/Dilaudid, morphine, fentanyl, tramadol) should be disposed of according to the label or patient information. If there are no specific instructions, medications may be returned to a take- back location or mixed with a small amount of water and an undesirablewaste substance such as coffee grounds or cat litter. o If you were taking opioids like heroin, methadone, Percocet and buprenorphine during and you stopped for any period of time, you are now more sensitive to this drug. That means that your old dose will be too strong, and you will be at risk for overdose if you take it. o As we all are aware, opioid use is a concern in [place] and [place]. We recommend that families with any member at risk for overdose have a prescription for naloxone to reverse an overdose. Your providers would be happy to give you one. Call your doctor or award machine operator for: ??? Seizure (call 911) ??? Headache which isn't relieved with Tylenol ??? Headache with visual changes ??? Pain in your chest ??? Shortness of breath ??? Pain in upper right abdomen ??? Fever more than 100.4 F ??? Breast with hot, hard, tender areas plus flu-like symptoms including muscle aches and feeling unwell all over ??? Increased abdominal pain, nausea, shaking chills ??? Increased redness or soreness over your incision/ incision isn't healing ??? Heavy bleeding that saturates a pad an hour ??? Clots larger than an egg ??? Red or swollen leg which is painful or warm to the touch ??? Feeling of bladder fullness or pain ??? Unable to urinate when feeling the urge ??? Pain or bleeding with urination ??? Urinary leakage without coughing or sneezing ??? Urinary urgency or increased frequency ??? depression occurs in a large percentage of women. It often occurs after two weeks and can last weeks or months. This is different than ??? blues?? which can occur during thefirst few days after you deliver. https://www.acog.org/Patients/FAQs/-Depression We encourage you to contact your provider or a member of the nursing staff if you are feeling so overwhelmed that you are unable to care for yourself or your baby. Keep your follow up appointment. You may call the [facility] at any time for guidance or for answers to questions that come up prior to you follow up appointment. Your [facility] Provider can be reached during office hours at ??? Midwives ??? Obstetricians ??? Services AFTER OFFICE HOURS for the medical services assistant or award machine operator insulation engineman Provider electronic signature confirms that discharge instructions were reviewed with the patient. A copy was printed and given to the patient. Future Appointments and Orders Future Appointments and Orders Future Appointments Provider Department Dept Phone 11/08/2019 10:30 AM Mary Higgins RN Obstetrics and Gynecology at [facility] Arrive at: Financial Advisor Trainee Area Discharge References/Attachments None documented in this encounter Discharge Instructions * Discharge Instructions* Brooklyn Gomez RN - 11/03/2019 10:28 AM EST Images from the original note were not included. Nursing Inpatient Progress C - Section Follow-up Follow-up: ? 2 week and 6 week visit will be scheduled with your primary OB provider Maternal Discharge Instructions Rest: Although it may seem impossible to get enough rest, simple planning will help. Plan to rest and/or sleep when your baby does. Limiting visitors also helps. Other family members can help by doing housework, caring for other children and/or helping limit visitors. Activity: After delivery, it is safe to climb stairs at home and gradually increase your activity level. Do not drive for two weeks or while taking narcotic pain medicine as your reaction time may be decreased. Do not lift more than 15 pounds for 6 weeks and no swimming until the vaginal bleeding stops. Nutrition: Your diet following the of your baby is as important as it was before the baby wasborn. Drinking a minimum of 6-8 glasses of water a day will help keep you hydrated. Continue takingyour vitamins until you are no longer . Continue taking stool softeners as recommended by the doctor. Do not attempt to lose weight during the first six weeks. Sweating. Hormonal changes following delivery frequently cause night sweats which are normal over the next 6 weeks. Sleeping on towels and using a fan may make you more comfortable. Incision: Wash the incision with soap and water and pat dry. It is normal to have clear or pinkish fluid seep from the incision. Gauze pads or sanitary napkins may help to keep the incision dry if itis located in a fold under your tummy. After 7-10 days remove any steri-strips which may still be over your incision. If the incision has more redness, yellow drainage, or becomes more painful, contact the obstetrics clinic. Lochia: (Flow) Your flow should be no heavier than a normal period. It will be bright red and then transition to pink, brown, yellow, and finally colorless. This may last a few weeks. If your vaginalbleeding becomes bright red again, decrease your activity. We recommend pelvic rest until your bleeding and spotting stops. This may take up to six weeks. Pelvic rest includes activities such as douching, use of tampons/menstrual cups or sexual intercourse. Bladder: For the next 2 weeks, empty your bladder every 2 hours while awake and at least every 4 hours at night. Perineum: For about a week continue to rinse yourself with warm water when you use the toilet. A sitz bath with Epsom salt taken 2 times a day and use of witch delon may help relieve soreness. Kegel exercise, done regularly throughout the day, will help tighten the perineal muscles and speed recovery. Breast Care for Formula feeding mothers: Wear a well-fitting bra to support your breasts. Ice packsto your breasts (10 minutes at a time) as well as alternating Tylenol and Ibuprofen may be used to relieve discomfort from engorgement. Avoid stimulating your breasts: Do not let warm water from the shower fall directly on your breast;do not express any colostrum; avoid holding your baby near your breasts until your milk begins to decrease and engorgement is relieved. Breast Care for mothers: Practice careful positioning and frequent feeding as demonstrated in the hospital. The printed information in your packet covers this in detail. For More Information: https://www.acog.org/Patients or refer to ACOG's Your and Childbirth: Month to Month book which you may have received from the OB Clinic. Vaccination: If you received the Measles, Mumps, and Rubella (MMR) vaccine, varicella vaccine, or Hepatitis A vaccine during your hospitalization make sure to discuss this with your OB provider or your PCP at your next visit. You may need a second dose of the vaccine to receive effective vaccine protection. Medications: o Please take your medication exactly as prescribed. Read all instructions that come with your medication. o Using narcotic pain medication (such as oxycodone, hydromorphone (Dilaudid), morphine, fentanyl, or tramadol) may cause addiction. While addiction is more common in people with a personal or familyhistory of addiction, it can occur in anyone. o Taking more than the prescribed amount of medication or using with alcohol or other drugs can cause you to stop breathing resulting in coma, brain damage, or . o Opioids (oxycodone, hydromorphone/Dilaudid, morphine, fentanyl, tramadol) can slow reaction time,cause drowsiness, or cloud judgement. It is unsafe for you to drive or operate heavy machinery while taking this medication. o Opioids (oxycodone, hydromorphone/Dilaudid, morphine, fentanyl, tramadol) are at risk of being diverted by anyone with access to your home. Opioids should be stored in a safe and secure place, suchas a locked cabinet or safe. o Unused opioids (oxycodone, hydromorphone/Dilaudid, morphine, fentanyl, tramadol) should be disposed of according to the label or patient information. If there are no specific instructions, medications may be returned to a take- back location or mixed with a small amount of water and an undesirablewaste substance such as coffee grounds or cat litter. o If you were taking opioids like heroin, methadone, Percocet and buprenorphine during and you stopped for any period of time, you are now more sensitive to this drug. That means that your old dose will be too strong, and you will be at risk for overdose if you take it. o As we all are aware, opioid use is a concern in [place] and [place]. We recommend that families with any member at risk for overdose have a prescription for naloxone to reverse an overdose. Your providers would be happy to give you one. Call your doctor or award machine operator for: ??? Seizure (call 911) ??? Headache which isn't relieved with Tylenol ??? Headache with visual changes ??? Pain in your chest ??? Shortness of breath ??? Pain in upper right abdomen ??? Fever more than 100.4 F ??? Breast with hot, hard, tender areas plus flu-like symptoms including muscle aches and feeling unwell all over ??? Increased abdominal pain, nausea, shaking chills ??? Increased redness or soreness over your incision/ incision isn't healing ??? Heavy bleeding that saturates a pad an hour ??? Clots larger than an egg ??? Red or swollen leg which is painful or warm to the touch ??? Feeling of bladder fullness or pain ??? Unable to urinate when feeling the urge ??? Pain or bleeding with urination ??? Urinary leakage without coughing or sneezing ??? Urinary urgency or increased frequency ??? depression occurs in a large percentage of women. It often occurs after two weeks and can last weeks or months. This is different than ??? blues?? which can occur during thefirst few days after you deliver. [email or web address]://[email or web address].[email or web address]/[email or web address] We encourage you to contact your provider or a member of the nursing staff if you are feeling so overwhelmed that you are unable to care for yourself or your baby. Keep your follow up appointment. You may call the [facility] at any time for guidance or for answers to questions that come up prior to you follow up appointment. Your [facility] Provider can be reached during office hours at ??? Midwives ??? Obstetricians ??? Services AFTER OFFICE HOURS for the medical services assistant or award machine operator insulation engineman Provider electronic signature confirms that discharge instructions were reviewed with the patient. A copy was printed and given to the patient. documented in this encounter Medications at Time of Discharge [...] daily. 11/08/2019 documented as of this encounter Progress Notes * Brooklyn Gomez RN - 11/03/2019 10:46 AM EST Patient meets discharge criteria and was discharged from unit to home in stable condition. IV discontinued, tip intact, dressing applied, pressure held. Discharge care instructions provided and explained. Patient verbalized understanding, all questions/concerns addressed. Spectra pump brought to bedside. She denies wanting any sort of consultation before she leaves. She will obtain a BP cuff from her pharmacy. Prescriptions were sent to preferred pharmacy and patient left unit with all belongings accompanied by spouse and . Follow-up appointment in clinic Friday forBP check. Phone numbers provided if needed. * Heike Raygoza Stephanie - 11/03/2019 6:33 AM EST Delivery Note Information for the patient's : Jaja, Baby Girl [[id number]] Delivery Date and Time:10/31/2019 4:30 AM Delivery Type: Lower Segment Transverse Patient ID: René Wilkinson is a 24 y.o. POD#3 s/p pLTCS for arrest of descent and NRFHT [id number] following IOL for preeclampsia with SF by BP superimposed on cHTN. Delivery c/b PPH (EBL 4.3L; s/p pitocin, hemabate, buccal miso, TXA x2, 3u pRBC, 3u FFP, 1u plt and BAKRI balloon placement). additionally c/b history of migraines. Interval events: -- Continued on PO labetalol 200mg TID, BPs improved overnight 140s/90s S: René is ambulating around the room. She complains of LE edema and edema around incision. Otherwise, she is doing well. She is eating well, voiding spontaneously. Pain is well controlled. Planning on POPs for contraception. ROS: Denies dizziness, CP, SOB, N/V, calf pain O: Last value Range last 24 hrs Temperature Temp: 36.5 ??C (97.7 ??F) Temp: [36.5 ??C (97.7 ??F)-37.2 ??C (99 ??F)] Heart Rate Heart Rate: 88 Heart Rate: [78-97] Blood Pressure BP: 139/90 BP: (139-160)/(90-102) Respiratory Rate Resp: 18 Resp: [16-18] SpO2 SpO2: 99 % SpO2: [99 %] Intake/Output Summary (Last 24 hours) at 11/03/2019 0633 Last data filed at 11/03/2019 0500 Gross per 24 hour Intake 3518 ml Output 3300 ml Net 218 ml Exam: Gen: NAD Cardiac: RRR Pulmonary: CTAB, nl respiratory effort Abdomen: softly distended, non-tender, no rebound or guarding Incision: C/d/i with Dermabond. No erythema : Gonzalez in place, draining clear yellow urine, minimal lochia rubra Extremities: nontender, no edema. Labs: Recent Labs 11/02/19 0640 11/01/19 1742 11/01/19 0615 WBC 10.5* 13.7* 16.0* HGB 7.4* 7.6* 7.6* HCT 22.7* 22.9* 22.2* PLATELET 149 149 139* Recent Labs 11/02/19 0640 11/01/19 0615 10/31/19 1715 10/30/19 1800 NA 137 136 131* < > -- K 4.1 3.8 4.5 < > -- CL 106 103 97* < > -- CO2 23 27 24 < > -- BUN 5* 7* 10 < > -- CREATININE 0.59* 0.71 0.92 < > 0.72 MAGNESIUM -- -- 2.62* -- 2.69* < > = values in this interval not displayed. Immunization status: Up to date Assessment: René Wilkinson is a 24 y.o. POD#3 s/p pLTCS for arrest of descent and NRFHT [id number] following IOL for preeclampsia with SF by BP superimposed on cHTN. Delivery c/b PPH (EBL 4.3L; s/p pitocin, hemabate, buccal miso, TXA x2, 3u pRBC, 3u FFP, 1u plt and BAKRI balloon placement). additionally c/b history of migraines. Patient desires discharge and is stable for discharge. Other Medical Issues/Concerns: -- Preeclampsia with SF by BP superimposed on cHTN: PO labetalol increased yesterday to 200mg TID with improvement in BP control. -- PPH: 13.8-->7.6. Stable at 7.4. Patient asymptomatic for acute blood loss anemia. Continue tomonitor clinically. Plan to begin ferrous sulfate 325mg BID upon discharge in addition to -- Migraines: stable, no issues at this time Plan: -- course: fully advanced -- nutrition: pumping, continue support -- Contraception: POPs -- VTE ppx: lovenox 40mg qHS -- Follow up: 2w depression screen, 6w routine PP visit -- Dispo: to home today with BP checks and depression screen Patient was discussed on multidisciplinary rounds. Heike Raygoza MD Obstetrics and Gynecology 11/03/2019 * Anju Noland RN - 11/02/2019 9:00 AM EST Spoke with pt about principles of milk production and importance of initiating frequent and regularpumping if she wishes to bring in a milk supply. Encouraged to pump when baby eats, at least 8 times per day. Assistance with pumping offered and declined. Pt stated that maybe she would try later today. Instructed to call for assistance as desired when she is ready to pump. Pt verbalized understanding of info. * Mame Bazan MD - 11/02/2019 7:36 AM EST Delivery Note Information for the patient's : Jaja, Baby Girl [[id number]] Delivery Date and Time:10/31/2019 4:30 AM Delivery Type: Lower Segment Transverse Patient ID: René Wilkinson is a 24 y.o. year old POD#2 s/p pLTCS for arrest of descent andNRFHT remote from delivery at 37w4d following IOL for preeclampsia with SF by BP superimposed on cHTN. Delivery c/b PPH (EBL 4.3L; s/p pitocin, hemabate, 1000mcg buccal miso, TXA x2, 3u pRBC, 3u FFP,1u plt and BAKRI balloon placement). additionally c/b history of migraines. Interval events: -- Bakri balloon removed yesterday ~1700, minimal to no bleeding overnight -- s/p IV labetalol 20mg, then 40mg for sustained severe-range BP yesterday -- pt had another sustained severe-range BP last night, started on PO labetalol 200mg BID (refused IV labetalol 20mg and PO nifedipine 30mg BID) S: René is sitting comfortably with and at bedside. She reports minimal spotting since Bakri removal yesterday evening. Epidural turned off after removal, she has ambulated to chair in room with assistance. Gonzalez in place draining clear yellow urine. When asked about refusal of blood pressure medication overnight, René states the labetalol makes her feel off, kind of lightheaded and nifedipine makes her feel flushed. She is hesitant to increase her labetalol dose. She is tolerating a regular diet with no n/v, passing flatus. We discussed contraceptive options in depth, she would like to use POPs. O: Last value Range last 24 hrs Temperature Temp: 37 ??C (98.6 ??F) Temp: [37 ??C (98.6 ??F)-37.9 ??C (100.2 ??F)] Heart Rate Heart Rate: 91 Heart Rate: [77-103] Blood Pressure BP: (!) 155/94 BP: (133-177)/(78-109) Respiratory Rate Resp: 18 Resp: [16-18] SpO2 SpO2: 98 % SpO2: [96 %-99 %] Intake/Output Summary (Last 24 hours) at 11/02/2019 0736 Last data filed at 11/02/2019 0651 Gross per 24 hour Intake 2377 ml Output 7220 ml Net -4843 ml UOP: 130cc/h over past 6h Exam: Gen: NAD Cardiac: RRR Pulmonary: CTAB, nl respiratory effort Abdomen: soft, +BS, NT/ND, no rebound or guarding, FF at level of umbilicus : Gonzalez in place, draining clear yellow urine, minimal lochia rubra Incision/Dressing: clean/dry/intact, well approximated with Dermabond over subcuticular closure, noerythema/exudate Extremities: nontender, no edema. Labs: Recent Labs 11/02/19 0640 11/01/19 1742 11/01/19 0615 WBC 10.5* 13.7* 16.0* HGB 7.4* 7.6* 7.6* HCT 22.7* 22.9* 22.2* PLATELET 149 149 139* Recent Labs 11/02/19 0640 11/01/19 0615 10/31/19 1715 10/30/19 1800 NA 137 136 131* < > -- K 4.1 3.8 4.5 < > -- CL 106 103 97* < > -- CO2 23 27 24 < > -- BUN 5* 7* 10 < > -- CREATININE 0.59* 0.71 0.92 < > 0.72 MAGNESIUM -- -- 2.62* -- 2.69* < > = values in this interval not displayed. Immunization status: Up to date Assessment: René Wilkinson is a 24 y.o. year old POD#2 s/p pLTCS for arrest of descent andNRFHT remote from delivery at 37w4d following IOL for preeclampsia with SF by BP superimposed on cHTN. Delivery c/b PPH; EBL 4.3L. Other Medical Issues/Concerns: -- Preeclampsia with SF by BP superimposed on cHTN: treated for sustained severe-range BP yesterdaywith IV labetalol 20mg, then 40mg. Refused further IV labetalol treatment for sustained severe-range pressure overnight. Started on PO labetalol 200mg BID. BPs remain elevated this AM 150-160s/90-100s. Will increase PO labetalol to 200mg TID this AM. Discussed reasoning for increasing antihypertensive dosing, advised patient to inform us of adverse side effects. -- PPH: 13.8-->7.6. Stable this AM at 7.4. Patient asymptomatic for acute blood loss anemia. Continue to monitor clinically. Plan to begin ferrous sulfate 325mg daily upon discharge. -- Migraines: stable, no issues at this time -- ? Undiagnosed psychiatric disease: SW following Plan: -- course: Pt doing well in the immediate postop period. Encouraged ambulation with likely gonzalez removal, follow up void. Continue routine postop care. -- nutrition: pump/breast, continue support -- Contraception: POPs -- VTE ppx: Begin lovenox 40mg qHS -- Follow up: 2w depression screen, 6w routine PP visit -- Dispo: Anticipate discharge on POD#4, 11/04/19. Patient was discussed on multidisciplinary rounds. Mame Bazan MD PGY1 Obstetrics and Gynecology 11/02/2019 Associated attestation - Jose Luis Alexandre MD - 11/02/2019 9:18 PM EST Patient seen, chart reviewed, discussed with team and agree with resident note. * Natalie Abarca RN - 11/02/2019 7:13 AM EST Beni RUBY notified of elevated BP's through shift, discussed PO labetalol dosing, pt requests to speak with MD's regarding administration. * Natalie Abarca RN - 11/01/2019 10:52 PM EST Second severe range BP, IV labetalol ordered, pt refused, MD's aware, PO dose ordered, see MAR. * Dajuan Griffin MD - 11/01/2019 8:41 PM EST RN reports pt had persistent severe range BP by ACOG criteria. Labetalol 20 mg IV ordered for acutetreatment. Nifedipine CR 30 mg BID ordered after review of BP over the last 24 hrs with multiple >150/105. Patient refused IV labetalol and Nifedipine CR. She accepts PO labetalol, 200 mg BID ordered. * Mame Bazan MD - 11/01/2019 6:44 AM EST Images from the original note were not included. Delivery Note Information for the patient's : Moapa, Baby Girl [[id number]] Delivery Date and Time:10/31/2019 4:30 AM Delivery Type: Lower Segment Transverse Patient ID: René Wilkinson is a 24 y.o. year old POD#1 s/p pLTCS for arrest of descent andNRFHT remote from delivery at 37w4d following IOL for preeclampsia with SF by BP superimposed on cHTN. Delivery c/b PPH (EBL 4.3L; s/p pitocin, hemabate, 1000mcg buccal miso, TXA x2, 3u pRBC, 3u FFP,1u plt and BAKRI balloon placement). additionally c/b history of migraines. S: Pt examined at bedside this morning, resting comfortably. Pain is well controlled with epidural anesthesia. She denies lightheadedness/dizziness. Was able to get some rest last night. She has not yet ambulated. Gonzalez catheter in place draining clear light yellow urine. Pt tolerating regular dietw/o n/v, passing flatus. She plans on pumping/ for infant nutrition. She is considering OCPs at 6w for contraception. O: Last value Range last 24 hrs Temperature Temp: 37.4 ??C (99.3 ??F) Temp: [36.7 ??C (98.1 ??F)-38.3 ??C (100.9 ??F)] Heart Rate Heart Rate: 88 Heart Rate: [84-101] Blood Pressure BP: 141/82 BP: (110-151)/(47-97) Respiratory Rate Resp: 16 Resp: [16-24] SpO2 SpO2: 93 % SpO2: [88 %-100 %] Intake/Output Summary (Last 24 hours) at 11/01/2019 0808 Last data filed at 11/01/2019 0650 Gross per 24 hour Intake 6315.18 ml Output 8810 ml Net -2494.82 ml UOP: 700cc/h over past 6h Exam: Gen: NAD Cardiac: RRR Pulmonary: CTAB, nl respiratory effort Abdomen: soft, +BS, NT/ND, no rebound or guarding, FF 1cm above level of umbilicus : Gonzalez in place, draining clear yellow urine, minimal lochia rubra Incision/Dressing: clean/dry/intact, well approximated with Dermabond over subcuticular closure, noerythema/exudate Extremities: nontender, no edema. Labs: Recent Labs 11/01/19 0615 10/31/19 1715 10/31/19 1200 WBC 16.0* 20.9* 17.9* HGB 7.6* 8.2* 8.6* HCT 22.2* 24.3* 25.2* PLATELET 139* 125* 131* Recent Labs 11/01/19 0615 10/31/19 1715 10/31/19 1200 10/30/19 1800 NA 136 131* 129* -- K 3.8 4.5 4.3 -- CL 103 97* 99 -- CO2 27 24 23 -- BUN 7* 10 9 -- CREATININE 0.71 0.92 0.95 0.72 MAGNESIUM -- 2.62* -- 2.69* Immunization status: Up to date Assessment: René Wilkinson is a 24 y.o. year old POD#1 s/p pLTCS for arrest of descent andNRFHT remote from delivery at 37w4d following IOL for preeclampsia with SF by BP superimposed on cHTN. Delivery c/b PPH (EBL 4.3L; s/p pitocin, hemabate, 1000mcg buccal miso, TXA x2, 3u pRBC, 3u FFP,1u plt and BAKRI balloon placement). Other Medical Issues/Concerns: -- Preeclampsia with SF by BP superimposed on cHTN: previously on labetalol 100mg daily, mag off this AM. BP: (129-149)/(77-86) over past 12h, stable and non-severe. PEC labs on admission WNL. -- PPH: 13.8-->7.6 this AM, patient asymptomatic for acute blood loss anemia. Plan to take [place] today (500cc total) ~150cc at a time and monitor for bleeding. Continue ancef 2g q8h until bakri out. Epidural out after bakri. Repeat PM CBC ordered. Consider pRBC transfusion if patient becomes symptomatic for anemia -- Migraines: stable, no issues at this time -- ? Undiagnosed psychiatric disease: SW to see today, consider BIT consult. Plan: -- course: Pt meeting some postop milestones. Continue routine postop care. -- Infant nutrition: pump/breast, continue support -- Contraception: considering OCPs at 6w PP -- Follow up: 2w depression screen, 6w routine PP visit -- Dispo: Anticipate discharge on PPD#4, 11/04/19. Patient was discussed on multidisciplinary rounds. Mame Bazan MD PGY1 Obstetrics and Gynecology 11/01/2019 Associated attestation - Jose Luis Alexandre MD - 11/01/2019 9:30 PM EST Patient seen, chart reviewed, discussed with team and agree with resident note. Doing well. Plan to deflate and then remove Bakri Balloon and vaginal packing. May need another unit of blood. MD Boy * Mague Escobedo RN - 10/31/2019 7:40 AM EST 0650 pt out to pacu iv fluids infusing. Epidural present. Magnesium present. All iv lines flushed and patent. barkiri present. Surgical incision clean dry and intact. Paged MD to update on Barkiri. Paged Anesthesia to update epidural. Vs stable. 0700 report given to ALEXX Vilchis and ALEXX Lui. * Farzana Velasquez MD - 10/30/2019 11:26 PM EST Multidisciplinary Second Stage Labor Progress Note Patient ID: René Wilkinson is a 24 y.o. at 37w3d gestation. A multidisciplinary meeting was held to discuss discuss maternal/ status. This included the charge nurse (Tay), Labor nurse (Roman), Attending Virtual Assistant For Advertisers (Eva), and Miguel OB resident (Geeta). The patient was found to be fully dilated at 2308 The vertex is in OA position, currently at +1 station. There is no caput present. Maternal status: Anxious, no rectal pressure. status: The baseline FHR at the time of full dilation was 115 The baseline FHR is currently 125 with mod variability, + accels,int variables to 70 with quick return to baseline The heart rate tracing is category II and is overall reassuring. The maternal heart rate is 80, distinct from FHR on spO2 monitoring. Contractions every 8 minutes. Assessment/Plan: Start pushing. The assessment of and maternal status and plan of care was discussed with the patient and herfamily. Hawa Connor MD, PGY-2 I attended this second stage huddle and I agree with the above documentation, assessment and plan. FARZANA VELASQUEZ MD * Geraldine Rowan MD - 10/30/2019 6:37 PM EST OB Attending Late entry Care assumed after signout from Dr Velasquez at 7AM. 24 yo at 37w3d undergoing IOL for severe pre-eclampsia superimposed on CHTN. Elevated Bps in clinic then required 20,40,80 IV labetolol and then 10 IV hydral to control BP yesterday. BP in target range (140s/80s-90s) most recently. Urine P:C 0.4and labs otherwise normal. Started magnesium and IOL. Cervical ripening for unfavorable long/closed cervix. Received PO miso overnight. On my eval this morning around 10:30 AM, pt reported painful ctx q 3-5 min. EFM showed cat 1 tracing. Cervix was 1/50/hi. I recommended placement of a cervical gonzalez balloon along with prostaglandins to hasten ripening. She declined this. [place] would be unable to tolerate. I recommended consideration of early epidural placement to allow these interventions. She declined. Did accept parenteral morphine/phenergan and plan to continue prostaglandins for IOL. Close clinical monitoring on mag Pre-E labs q 12 hours or more frequent for clinical worsening Continuous EFM Anticipate Geraldine Rowan MD * Farzana Velasquez MD - 10/29/2019 9:48 PM EST Labor Progress Note Subjective: Feeling uncomfortable but not necessarily feeling ctx Objective: Temp: 36.5 ??C (97.7 ??F) 24 hr Temp: [36.5 ??C (97.7 ??F)-36.6 ??C (97.9 ??F)] Heart Rate: 80 24 hr Heart Rate: [69-90] BP: (!) 153/95 24 hr BP: (140-177)/(86-118) Cervix Exam: Dilation: 0 (10/29/19 1410) Effacement: 0 Station: High -4 OB Examiner: Heike Raygoza Heart Rate Interpretation: Baseline 115, mod variability, + accels, no decels [place]: irreg ctx Lab Results Component Value Date GBSSCREEN Neg 09/30/2019 Assessment & Plan This is René E Moapa who is at 37w2d Admitted for IOL for pre-e with severe features by BP. ?? IOL plan: Continue cervical ripening with PO misoprostol. S/p 3 doses ?? GBS Management:: None Required Additional Issues ?? Pre-e w/ svr features: Has received 20, 40, 80 IV labetalol and 10 of IV hydralazine. Hydralazine was at 1828 without severe BPs since. Patient is aware if escalating doses of BP meds don't adequately control HTN, C/S may be indicated. Will repeat labs in morning or sooner if clinical change Heike Raygoza MD PGY4 10/29/2019 I have personally reviewed this patients progress in labor and agree with the documentation above. FARZANA VELASQUEZ MD * Geraldine Higgins RN - 10/29/2019 8:06 PM EST 1930: Rn at bedside for report. Pt c/o upset stomach from icecream, scratchy throat and stuffy nose, and being hot and then cold notified. Orders received. Linins changed, room temp adjusted, placed on wireless monitoring, given warm blankets, fan turned on, and comfort pad applied. 2005: Pt refusing BP cuff becuase of upset stomach from icecream, Educated. Will approach puttingcuff back on in a few minutes. Given tums. 2009: Pt ok with putting BP cuff back on. 2300: Inpatient hospital pharmacy out of P.O. Misoprostol for the night. updated. Plan to changeto cervidil. Pt updated, wants to refuse cervidil, and stated stated but I guess I don't have a choice in the matter. Pt educated. Given time to think about change in plan. 0200: Medicated for headache. Pharmacy located more misoprostol, medication given to patient. 0612: Medicated for headache. 0700: Pt updated with POC for the day. documented in this encounter H&P Notes * RaygozaHeike Stephanie - 10/29/2019 12:30 PM EST Obstetrical Term Admission Note René Wilkinson is a 24 y.o. at 37w2d gestation being admitted for pre- eclampsia with severe features superimposed on chronic HTN. HPI: René has been feeling well. She denies any headaches, vision changes, CP, SOB, N/V, RUQ pain,LE pain, peripheral swelling. Her has been complicated by: 1. Chronic HTN (on Labetalol 100 daily) 2. Migraines Review of Systems- Negative to complete review except as noted in the HPI. Obstetric Review of Systems Total Weight Gain this 18.6 kg (41 lb) Movement: normal Contractions: none Leaking: None Bleeding; none Preeclampsia signs and symptoms: None Active Hospital Problems Diagnosis ??? Pre-eclampsia Resolved Hospital Problems No resolved problems to display. Active Non-Hospital Problems Diagnosis ??? Pineal gland cyst ??? Headache(784.0) ??? Migraine ??? Chronic hypertension affecting No past medical history on file. Past Surgical History: Procedure Laterality Date ??? TONSILLECTOMY ??? WISDOM TOOTH EXTRACTION OB History 1 Para Term AB Living SAB TAB Ectopic Multiple Live Births # Outc Date GA Lbr [place]/2nd Wgt Sex Del Anes PTL Lv 1 Current Medications Prior to Admission Medication Sig Dispense Refill Last Dose ??? vit/iron fum/folic ac ( 1+1 ORAL) Take by mouth. 10/28/2019 at Unknown time ??? aspirin EC 81 mg Tablet, Delayed Release (E.C.) Take 81 mg by mouth daily. 10/29/2019 at Unknowntime ??? famotidine (PEPCID) 20 mg Tablet Take 1 tablet by mouth 2 times daily. 60 tablet 3 10/29/2019 atUnknown time ??? labetalol (NORMODYNE) 100 mg Tablet Take 1 tablet by mouth daily. 60 tablet 3 10/29/2019 at Unknown time Allergies Allergen Reactions ??? Polymyxin B Sulf-Trimethoprim Orbital edema ??? Prednisone Rash Holes in finger nails. Rash on hands and feet. ??? Sudafed [Pseudoephedrine Hcl] Heart races No family history on file. Social History Occupational History ??? Not on file Tobacco Use ??? Smoking status: Never Smoker ??? Smokeless tobacco: Never Used Substance and Sexual Activity ??? Alcohol use: Not Currently Comment: ON OCC ??? Drug use: No ??? Sexual activity: Yes Partners: Male Last Set of Vitals: BP (!) 158/107 Pulse 79 Temp 36.6 ??C (97.9 ??F) (Oral) Resp 16 SpO2 99% Physical Exam Gen: AAO, appears to have some fascial edema. Teary but otherwise well appearing Cardio: nl rhythm, S1, S2, no M/C/R/G Pulm: CTA BL, no W/C/R Abd: soft, NT, ND, gravid. No RUQ tenderness Ext: warm, well-perfused, no MATTHEW or calf tenderness Neuro: grossly intact. Patellar reflexes 1+, biceps tendon reflex 3+, no clonus Uterine Size: S=D Clinical EFW: 7 lbs Cervix Exam: 0/0/-4 Presentations: Cephalic presentation confirmed on bedside ultrasound Heart Rate Interpretation: Baseline: 130, Variability: moderate, Accels: yes, Decels: none, [place]: none Reactive NST Lab Results Component Value Date ABORH B Pos 09/29/2019 HCT 41.0 10/29/2019 HGB 13.2 10/29/2019 MCV 88.9 10/29/2019 HEPBSAG Negative (External Lab) 05/25/2019 RUBLIGG Positive (External Lab) 05/25/2019 HIV12 Negative (External Lab) 05/25/2019 [id number] 0.28 (H) 10/01/2019 AST 25 10/29/2019 Lab Results Component Value Date GBSSCREEN Neg 09/30/2019 Recent Labs 10/29/19 1151 WBC 9.0 HGB 13.2 HCT 41.0 PLATELET 194 Recent Labs 10/29/19 1151 CREATININE 0.68* Lab Results Component Value Date AST 25 10/29/2019 Results for FELLOWS, RENÉ Polanco ( ) as of 10/29/2019 13:16 Ref. Range 10/29/2019 10:40 Prot/Cre Ratio Latest Units: ratio 0.4 Most Recent Growth Ultrasound Date: 09/30/19 GA at US: 33+1 EFW: 2167 g Growth appropriate for gestational age (71%ile) Amniotic fluid volumenormal Placenta posterior Presentation cephalic Assessment & Plan René Polanco Moapa is a 24 y.o. at 37w2d being admitted for pre-e with severe features superimposed on chronic HTN. ?? Pre-eclampsia with severe features ?? Severe features by BP. Patient given IV 20 mg IV labetalol with good response. Will continue to monitor BPs per protocol and treat as needed. ?? HELLP labs normal ?? 4 g magnesium bolus followed by drip at 2 g/hr ?? Heart Rate Assessment: Reactive NST. Will continue EFM for pre-e with severe features ?? IOL plan: PO misoprostol ?? PPH risk: Medium (due to magnesium) ?? GBS Management: None Required Additional Issues ?? contraception plan: previously used OCPs, discussed this can exacerbate HTN, she willconsider other options ?? H/o depression and anxiety: not on medication. Patient having a hard time coping with diagnosis and recommendation for IOL. Became very anxious and teary prior to cervical exam. Patient denied history of sexual trauma or abuse. Requested primary section. Risks and benefits of this were reviewed with the patient and she was amendable to starting induction. ?? Risks of section including infection, bleeding, damage to surrounding organs (bladder, ureters, uterus, bowel) and post-operative complications. A consent was not signed at this time. This patient was seen and discussed with Dr. Lion, Attending CORPORATE QUALITY MANAGER. Heike Raygoza MD PGY4 10/29/2019 Associated attestation - Dena Lion MD - 10/29/2019 2:52 PM EST I have seen the patient and reviewed Dr. Raygoza' above history and I agree with the details as written. The assessment and plan were formulated in discussion with me and I agree with them as documented. Dena Lion MD documented in this encounter Nursing Notes * Mame Valerio RN - 10/31/2019 7:27 AM EST Report received from ALEXX Tirado. Call from lab re: critical result magnesium 2.69, team paged and notified. 0750 Pt asking to see family and baby. VSS. Report called to BP RN. documented in this encounter Miscellaneous Notes * Plan of Care - Teressa Mejia RN - 11/03/2019 5:28 AM EST Problem: Patient Care Overview Goal: Plan of Care Review Outcome: Ongoing (Interventions Implemented as Appropriate) 11/02/19200811/03/19520 Plan of Care Review Progress -- progress toward functional goals as expected Coping/Psychosocial Plan Of Care Reviewed With significant other -- OUTCOME EVALUATION NOTE: OUTCOME SUMMARY: René has been stable overnight. VSS. Up ad ole, voiding, pain well controlled, incision WNL. Bonding well with baby. Lochia brody, FF. \ PLAN MOVING FORWARD: VS per protocol. Pain management. Encourage independence with care. Possible discharge to home today. INDIVIDUALIZED FALL PREVENTION INTERVENTIONS: Patient-specific fall risk factors per assessment: [current deficits]: Independent Assistance [level of assistance required for transfers and ambulation]: Independent Supervision [direct monitoring required during toileting and ADLs]: Independent Surveillance [continuous indirect monitoring]: Independent CPG GOAL OUTCOME EVALUATION: Goal: Individualization & Mutuality Outcome: Ongoing (Interventions Implemented as Appropriate) 11/03/19 0521 Mutuality/Individual Preferences What Anxieties, Fears or Concerns Do You Have About Your Health or Care? none What Questions Do You Have About Your Health or Care? none What Information Would Help Us Give You More Personalized Care? none Goal: Fall Prevention-Safe Patient Handling Outcome: Outcome (s) achieved Date Met: 11/03/19 11/01/19220011/02/192008 Mari Fall Risk History of Falling -- 0 Secondary Diagnosis -- 15 Ambulatory Aids -- 0 Intravenous Therapy/Heparin/Saline Lock -- 20 Gait/Transferring -- 0 Mental Status -- 0 Score -- 35 OTHER Mari Fall Risk -- Med Restraint Interventions Safety Promotion/Fall Prevention -- nonskid shoes/slippers when out of bed;safety round/check completed Positioning Body Position -- independent Activity Activity Type other (see comments) (up with stand by assist ) -- Activity Assistance Provided -- independent Assistive Device Utilized -- none Goal: Infection Control Outcome: Ongoing (Interventions Implemented as Appropriate) 11/02/192008 Safety Interventions Isolation Precautions standard precautions maintained Infection Prevention visitors restricted/screened;single patient room provided;rest/sleep promoted Coping Strategies Supportive Measures active listening utilized;verbalization of feelings encouraged;self-responsibility promoted;self-reflection promoted;self-care encouraged;relaxation techniques promoted Goal: Discharge Needs Assessment Outcome: Ongoing (Interventions Implemented as Appropriate) 11/03/19520 Discharge Needs Assessment Concerns To Be Addressed no discharge needs identified Readmission Within The Last 30 Days no previous admission in last 30 days Provider Choice List(s) Given no Equipment Needed After Discharge none Current Health Anticipated Changes Related to Illness none Activity/Self Care Review of Systems Equipment Currently Used at Home none Living Environment Transportation Available car Problem: High-Risk/Critically Ill Patient (Obstetrics) Goal: Signs and Symptoms of Listed Potential Problems Will be Absent, Minimized or Managed (High-Risk/Critically Ill Patient) Signs and symptoms of listed potential problems will be absent, minimized or managed by discharge/transition of care (reference High-Risk/Critically Ill Patient (Obstetrics) CPG). Outcome: Ongoing (Interventions Implemented as Appropriate) 11/02/192008 High-Risk/Critically Ill OB Patient Problems Assessed (Critically Ill/High Risk ) all Problems Present (Critically Ill/High Risk ) none Problem: Skin Integrity Impairment, Risk/Actual (Adult) Goal: Skin Integrity/Wound Healing Patient will demonstrate the desired outcomes by discharge/transition of care. Outcome: Ongoing (Interventions Implemented as Appropriate) 11/03/19520 Skin Integrity Impairment, Risk/Actual (Adult) Skin Integrity/Wound Healing making progress toward outcome Problem: Delivery (Adult,Obstetrics,Pediatric) Goal: Signs and Symptoms of Listed Potential Problems Will be Absent, Minimized or Managed ( Delivery) Signs and symptoms of listed potential problems will be absent, minimized or managed by discharge/transition of care (reference Delivery (Adult,Obstetrics,Pediatric) CPG). Outcome: Ongoing (Interventions Implemented as Appropriate) 11/03/19 0521 Delivery Problems Assessed ( Delivery) all Problems Present ( Delivery) none * Note - Nely Jeronimo RN - 11/01/2019 1:00 PM EST This note was copied from a baby's chart. Attempted to meet with this mother about engorgement and to offer formula mixing hand out. Her bedside nurse informed me that she had started pumping independently and planned to pump and bottle. Started to discuss pumping frequency and breast massage and she did not want any further teaching. Will ensure that she is given a discharge folder. Nely Jeronimo RN, IBCLC [facility] Services * L&D Delivery Note - Farzana Velasquez MD - 10/31/2019 12:51 PM EST Images from the original note were not included. Section Delivery Note René Wilkinson is a 24 y.o. woman at 37w4d weeks gestational age whose was complicated by chronic migraines on labetalol and cHTN who was induced for pre-eclampsia with SF by BP superimposed on cHTN with PO misoprostol. She required IV medications for BP management initially, butduring her labor course remained non-severe. She was started on magnesium for seizure prophylaxis. The patient progressed spontaneously to complete, after declining other forms of ripening, and had morphine/phenergan x1 followed by an epidural for analgesia. tracing showed intermittent deep variables to a jacob of 60 bpm, with rise back to baseline and moderate variability. Pushing was encouraged with multiple positions and good maternal effort. To improve her contraction frequency, Pitocin was initiated during the second stage, however, after 3 hours of pushing, no descent was appreciated. The decision was made to proceed with a primary low transverse section secondary to arrest of descent and NRFHT remote from delivery. Patient underwent primary LTCS complicated by PPH of 4300 mL, s/p TXA x2, Pitocin, Hemabate, 1000 mcg of buccal miso. Massive transfusion protocol was initiated. Bakri balloon placed and patient recovered in PACU. Blood loss estimated at 4300ccs. Viable female infant. APGARS of 6 and 10. Cord gaseswere obtained. Please see op note for further details. Dr. Velasquez,Attending OBGYN, was present for the case without any conflicting clinical responsibilities. Hawa Connor MD PGY2 10/31/2019 I supervised the delivery described above and agree with this note. I was present and I participated in the entire delivery. Please see the operative note for further details. FARZANA VELASQUEZ MD Information for the patient's : [place], Baby Girl [[id number]] DELIVERY SUMMARY FOR Baby Girl [place] (please note there is a separate summary for each fetus) 10/31/2019 4:30 AM by Lower Segment Transverse Sex: female Gestational Age: 37w4d Labor Events labor?: No GBS colonized: negative Cervical ripening type: Misoprostol Rupture date/time: 10/30/2019 1840 Rupture type: artificial rupture of membranes Fluid color: clear Maternal Delivery Complications: chtn, preeclampsia with severe features, uterine atony, postpartumhemorrhage Labor Event Times Dilation complete date/time: 10/30/2019 2308 Start pushing date/time: 10/31/2019 0145 Mother Delivery Surgical or additional est. blood loss (mL): 4.5 Combined est. blood loss (mL): 4.5 Delivery () Delivery Date: 10/31/19 Delivery Date: 4:30:00 AM Sex: Female Presentation: Vertex Attempted ?: No Delivery Type: Delivery Type (Specific): Lower Segment Transverse Major Indications - : non-reassuring state Contributing Factors - : arrest of decent Shoulder Dystocia Shoulder dystocia present?: No Delivery Information Delivery Location: OR Delivering Clinician: Hawa Connor MD ICN Staff Present: Yes Other Personnel: Provider Role Kanwal Owens RN Delivery Nurse Farzana Velasquez MD Virtual Assistant For Advertisers Annie Esparza RN Delivery Assist Anesthesia Method: Combined Spinal/Epidural Analgesic: HISTORY: ANALGESIC FENTANYL (PF) 100 MCG/2 ML (50 MCG/ML) INTRAVENOUS SYRINGE MORPHINE 10 MG/ML INJECTION SYRINGE PHENERGAN 25 MG/ML INJECTION SOLUTION Cord Vessels: 3 Vessels Complications: None Gases Sent?: Yes Cord Insertion: velamentous Assessment & APGARS Living status: Living Apgars 1 Minute: 5 Minute: 10 Minute 15 Minute 20 Minute Skin Color: 1 2 2 Heart Rate: 2 2 2 Reflex Irritability: 1 2 2 Muscle Tone: 1 2 2 Respiratory Effort: 1 2 2 Total: 6 10 10 Apgars Assigned By: ROBBY SHEETS APRN Resuscitation Method: Suctioning Suctioning Method: bulb syringe Resuscitation Comment: hypotonia and poor inspiratory effort at , stimulation x 3 mins with consistent improvement Maternal Feeding and Skin to Skin Maternal Choice for [place](s) Feeding on Admission: Pumping with Donor Human Milk or Expressed Breastmilk Supplementation Reason skin to skin not initiated: Acuity [place] Medications Medications Given: erythromycin, vitamin K Measurements Weight: 2805 g Length: 0.51 m Head circumference: 0.32 m Placenta Date and Time: 10/31/2019 4:31:00 AM Removal: Expressed Appearance: Intact Placenta Comment: bilobate Labor Length 2nd stage: 5h 22m 3rd stage: 0h 01m * Op Note - Farzana Velasquez MD - 10/31/2019 6:46 AM EST Images from the original note were not included. Operative Note ?? Patient Name: René Wilkinson : [id number] MR#: [id number] ?? Case Date: 10/31/2019 ?? Surgeon: Surgeon(s) and Role: * Farzana Velasquez MD - Primary * Hawa Connor MD - Resident ?? Preoperative diagnosis: IUP at 37 weeks, Arrest of Descent, Pre-eclampsia with severe features, post hemorrhage ?? Postoperative diagnosis: same plus uterine atony ?? Procedure: Low transverse section, Bakri balloon ?? Anesthesia: Epidural/General ?? Findings: extension to hysterotomy on the right, post hemorrhage ?? Complications: post hemorrhage, Intake: Intraprocedure Crystalloid Total None Transfusion No data found in the last 1 encounters. Output: Estimated Blood Loss: 4300 ml Urine Output:: 200 ml Other Output: (no other output recorded) ?? Drains: gonzalez, Bakri ?? Specimens removed during surgery: placenta ?? Disposition: awakened from anesthesia, extubated and taken to the recovery room in a guarded condition. ?? Condition: doing well with some problems : post hemorrhage with 4300 ml ebl and Bakri balloon ?? HPI/ Indications for Procedure: René Wilkinson is a 24 y.o. who was admitted for IOL for pre-eclampsia with severe features by BP superimposed on cHTN. She progressed to complete with misoprostol, underwent AROM, had an epidural placed. She continued on magnesium for seizure prophylaxis. She began pushing however, made no descent despite adequate effort, time, and Pitocin . tracing was CAT II with intermittent deep variables with FSE in place. The decision was made to proceed with delivery secondary to NRFHT remote from delivery and arrest of descent. The risks, benefits and alternatives were discussed including bleeding, infection and damage to surrounding structures (bowel, bladder, uterus, tubes, ovaries, ureters, blood vessels or nerves). The procedure was reviewed in detail with the patient, who had the opportunity to ask questions, all of which were answered. Consent was obtained. Procedure Description: The patient was taken to the Operating Room where epidural anesthesia was dosed and found to be adequate. The patient was given Ancef 2g and azithromycin for antibiotic prophylaxis. The patient was placed in the dorsal supine position with a leftward tilt. A gonzalez catheter was placed. SCDs were placed for DVT prophylaxis. After the heart rate was determined to be adequate, FSE was removed and vaginal prep was performed. The patient was then prepped and draped in the usual sterile fashion.A time-out was performed with all members of the team in agreement. A Pfannenstiel skin incision was made with a scalpel and carried through to the underlying layer offascia with sharp dissection. The fascia was nicked in the midline and the incision was extended laterally with the curved López scissors. The rectus muscle was dissected off sharply, in themidline and the peritoneum was entered bluntly. The peritoneal incision was then extended superiorly and inferiorly to the bladder reflection. The bladder blade was then inserted and the vesicouterine peritoneum identified, grasped with pickups and entered sharply with Metzenbaum scissors. This incision was then extended laterally and the bladder flap created digitally. The bladder blade was replaced and the lower uterine segment incised in a transverse fashion with ascalpel. The hysterotomy was extended with upward and downward traction. The bladder blade was thenremoved and a hand inserted into the uterus. The head was deeply wedged in the maternal pelvis, requiring steady pressure to destation. After the head was brought to the hysterotomy, gentle fundal pressure was applied to facilitate delivery of the infant. The head and shoulders delivered easily. Live born female was delivered. The cord was doubly clamped and cut. The was handed off to the [facility] pediatricians, who assigned Apgars of 6 and 10. Cord blood was collected. Cord gases were collected. Oxytocin was initiated to facilitate uterine contractions. The placenta was expressed from the uterine cavity, intact. The uterus was then exteriorized and wrapped in a wet laparotomy sponge. The uterus was cleared of all clots and debris using a dry sponge. A deep right incisional extension was repaired with running0-monocryl. A small right extension was repaired during the closure of the uterine incision. The uterine incision was repaired with 0 monocryl in a continuous locked fashion. A second layer of the same suture was used to imbricate the first layer. Excellent hemostasis was appreciated. The uterus was returned to the abdomen. The hysterotomy, rectus muscles, and the bladder flap were checked again and found to be hemostatic. The fascia was reapproximated with 0-vicryl in a running fashion. The subcutaneous space was well irrigated and was loosely reapproximated with 2-0 plain gut suture. The skin was closed with 4-0 monocryl. Dermabond skin glue was applied over the incision. Instrument, lap and needle counts were correct times two at case close Fundal pressure expressed multiple clots with active vaginal bleeding. Heavy clots continued to pass as the following uterotonics were given (TXA x2, 1000 mcg of buccal miso, Pitocin, and 1 dose of hemabate IM) and multiple rounds of bimanual massage were performed. The patient was then placed under general anesthesia and was positioned in dorsal lithotomy for improved visualization of the cervix. No cervical lacerations were noted and lower uterine segment improved tone with massage and pressure. Ultrasound demonstrated a thin stripe. She however continued to bleed heavily, and so she was given 2 units pRBCs. Massive transfusion protocol was initiated. She was given a total of 3 units pRBCs, 3 units of FFP and 1 unit of platelets. H/H was 8.5/26.2, Plt 169, and coag panel was within normal limits. A Bakri Balloon was placed and inflated with 500 cc of normal fluid, position confirmed by ultrasound. At this time, her bleeding normalized, with a small amount of blood exiting the Bakri balloon. After completing her transfusion in the OR, she was transferred to PACU for postoperative care and management. The patient and tolerated the procedure and were in overall satisfactory condition at its conclusion. . Dr. Velasquez, Attending OBGYN, was present for entire procedure. Hawa Connor MD PGY-2 10/31/2019 Infant cord gases: I supervised the delivery described above and agree with this note. I was present and I participated in the entire delivery. Please see the operative note for further details. FARZANA VELASQUEZ MD * Brief Op Note - Farzana Velasquez MD - 10/31/2019 6:16 AM EST Brief Operative Note Patient Name: René Wilkinson : [id number] MR#: [id number] Case Date: 10/31/2019 Surgeon: Surgeon(s) and Role: * Farzana Velasquez MD - Primary * Hawa Connor MD - Resident Preoperative diagnosis: IUP at 37 weeks, Arrest of Descent, Pre-eclampsia with severe features, post hemorrhage Postoperative diagnosis: same plus uterine atony Procedure: Low transverse section, Bakri balloon Anesthesia: Epidural/General Findings: extension to hysterotomy on the right, post hemorrhage Complications: post hemorrhage, Intake: Intraprocedure Crystalloid Total None Transfusion No data found in the last 1 encounters. Output: Estimated Blood Loss: 4300 ml Urine Output:: 200 ml Other Output: (no other output recorded) Drains: gonzalez, Bakri Specimens removed during surgery: placenta Disposition: awakened from anesthesia, extubated and taken to the recovery room in a guarded condition. Condition: doing well with some problems : post hemorrhage with 4300 ml ebl and Bakri balloon Attestation: Case Date: 10/31/2019 I was present and I participated during the entire procedure (does not need to include opening and closing). FARZANA VELASQUEZ MD (Please see the Surgical Encounter Summary for any Implant and Specimen details pertinent to this patient.) * Med Student H&P - Neelam Moura - 10/29/2019 12:14 PM EST Obstetrical Term Admission Note René Wilkinson is a 24 y.o. at 37w2d gestation by LMP confirmed w/ 33w morphology US with chronic hypertension being admitted for pre-eclampsia with severe features by blood pressure. HPI: She was seen today in clinic and had readings of 150 and 149 systolic. Upon arrival to the BP she had 163/115 and a repeat of 159/112. She has a mild headache but reports this is likely from exhaustion. 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 She's had no visual changes, swelling of hands/face/feet, or RUQ pain. Good movement. No bleeding, leaking of fluid, or contractions. Reactive NST this AM in clinic. No nausea, vomiting, diarrhea. No dysuria, hematuria. No chest pain, shortness of breath. She has felt well recently. Blood pressure checks at the last two weekly [facility] clinic visits have been mildly elevated; home BP cuff is bro jane. ?? Of note, she was admitted to [facility] on September 29, 2019 for hypertension. The day before that admission, she was switched from 100 mg PO labetalol to nifedipine. She then felt unwell and had a mild headache. She had her pressure taken at [facility] and was instructed to go to [facility]. She was started on Mg and transferred to [facility]. At [facility], she had 24 hour urine < 300 mg protein and normal HELLP labs. status was reassuring throughout the admission. She was scheduled for IOL at 39 weeks. ?? was complicated by: 1. cHTN - diagnosed at 7 weeks gestation, started on labetalol 200 bid but developed dizziness, nowon labetalol 100 daily 2. Anxiety, Depression - not on medications currently 3. Migraines - without aura Review of Systems- Negative to complete review except as noted in the HPI. Obstetric Review of Systems Total Weight Gain this 18.6 kg (41 lb) Movement: normal Contractions: none Leaking: None Bleeding; none now Preeclampsia signs and symptoms: headache mild, swelling face and mild in feet Active Hospital Problems Diagnosis ??? Pre-eclampsia Resolved Hospital Problems No resolved problems to display. Active Non-Hospital Problems Diagnosis ??? Pineal gland cyst ??? Headache(784.0) ??? Migraine ??? Chronic hypertension affecting No past medical history on file. Past Surgical History: Procedure Laterality Date ??? TONSILLECTOMY ??? WISDOM TOOTH EXTRACTION OB History 1 Para Term AB Living SAB TAB Ectopic Multiple Live Births # Outc Date GA Lbr Osmany/2nd Wgt Sex Del Anes PTL Lv 1 Current Medications Prior to Admission Medication Sig Dispense Refill Last Dose ??? vit/iron fum/folic ac ( 1+1 ORAL) Take by mouth. 10/28/2019 at Unknown time ??? aspirin EC 81 mg Tablet, Delayed Release (E.C.) Take 81 mg by mouth daily. 10/29/2019 at Unknowntime ??? famotidine (PEPCID) 20 mg Tablet Take 1 tablet by mouth 2 times daily. 60 tablet 3 10/29/2019 atUnknown time ??? labetalol (NORMODYNE) 100 mg Tablet Take 1 tablet by mouth daily. 60 tablet 3 10/29/2019 at Unknown time Allergies Allergen Reactions ??? Polymyxin B Sulf-Trimethoprim Orbital edema ??? Prednisone Rash Holes in finger nails. Rash on hands and feet. ??? Sudafed [Pseudoephedrine Hcl] Heart races No family history on file. Social History Occupational History ??? Not on file Tobacco Use ??? Smoking status: Never Smoker ??? Smokeless tobacco: Never Used Substance and Sexual Activity ??? Alcohol use: Not Currently Comment: ON OCC ??? Drug use: No ??? Sexual activity: Yes Partners: Male Immunization History There is no immunization history on file for this patient. Last Set of Vitals: BP (!) 158/107 Pulse 79 Temp 36.6 ??C (97.9 ??F) (Oral) Resp 16 SpO2 99% Physical Exam Gen: AAO, Cardio: nl rhythm, S1, S2, no M/C/R/G Pulm: CTA BL, no W/C/R Abd: +BS, soft, NT, ND, gravid Ext: warm, well-perfused, no MATTHEW or calf tenderness Neuro: 2+ distal reflexes Uterine Size: S=D Clinical EFW: 2167 g Sterile Speculum: deferred Cervix Exam: Dilation: 0 (10/29/19 1410) Effacement: 0 Station: High -4 OB Examiner: Heike Raygoza Pelvis: average Presentations: Cephalic Heart Rate Interpretation: Baseline: 130, Variability: moderate, Accels: yes, Decels: none, [place]: none Category: I Lab Results Component Value Date ABORH B Pos 09/29/2019 HCT 41.0 10/29/2019 HGB 13.2 10/29/2019 MCV 88.9 10/29/2019 HEPBSAG Negative (External Lab) 05/25/2019 RUBLIGG Positive (External Lab) 05/25/2019 HIV12 Negative (External Lab) 05/25/2019 [id number] 0.28 (H) 10/01/2019 AST 25 10/29/2019 Lab Results Component Value Date GBSSCREEN Neg 09/30/2019 Most Recent Growth Ultrasound Date: 09/30/2019 GA at US: 32w6d EFW: 2167 g Growth appropriate for gestational age Amniotic fluid volumenormal Placenta posterior Presentation cephalic Assessment & Plan René Wilkinson is a 24 y.o. at 37w2d with a history of chronic hypertension being admitted for IOL due to pre-eclampsia with severe features. Urine protein:creatinine ratio of 0.4 confirms the diagnosis of pre-eclampsia and she meet criteria for severe features with blood pressure. She feels well and NST was reactive. ?? Labor State: Not in labor. ?? Heart Rate Assessment: Category 1 ?? Labor management: begin IOL with misoprostol PO for cervical ripening ?? GBS Management: None Required Additional Issues ?? Pre-eclampsia with severe features superimposed on chronic Hypertension ?? MgSO4 bolus + continuous per order set for seizure prophylaxis ?? IVF - LR at 100 ml/hr ?? 20 mg IV labetalol prn for systolic > 150, diastolic > 100 ?? Strict I&Os ?? Gestational BP diet ?? Vitals/BP checks q4h This patient was seen and discussed with Dr. Lion, Attending CORPORATE QUALITY MANAGER. Neelam S Martell 10/29/2019 documented in this encounter Plan of Treatment Not on file documented as of this encounter Procedures Procedure Name Priority Date/Time Associated Diagnosis Comments ORDS - PROVIDER CARE SCAN 11/04/2019 12:00 AM EST LAB SCAN 11/04/2019 12:00 AM EST HEMOGRAM Routine 11/02/2019 6:40 AM EST DIFFERENTIAL, AUTOMATED Routine 11/02/19 6:40 AM EST HC CBC,PLT & AUTO DIFF Routine 0 6:40 AM EST BASIC METABOLIC PANEL Routine 11/02/2019 6:40 AM EST HEMOGRAM Routine 11/01/2019 5:42 PM EST DIFFERENTIAL, AUTOMATED Routine 11/01/19 5:42 PM EST HC CBC,PLT & AUTO DIFF Routine 0 5:42 PM EST HEMOGRAM Routine 11/01/2019 6:15 AM EST DIFFERENTIAL, AUTOMATED Routine 11/01/19 6:15 AM EST HC CBC,PLT & AUTO DIFF Routine 0 6:15 AM EST BASIC METABOLIC PANEL Routine 11/01/2019 6:15 AM EST HEMOGRAM Timed 10/31/2019 5:15 PM EST DIFFERENTIAL, AUTOMATED Timed 10/31/19 5:15 PM EST HC SYPHILIS ANTIBODY STAT 10/31/2019 5:15 PM EST HC CBC,PLT & AUTO DIFF Timed 0 5:15 PM EST HC MAGNESIUM, SERUM Routine 10/31/2019 5 :15 PM EST BASIC METABOLIC PANEL Timed 10/31/2019 5:15 PM EST HC GC GENE AMP STAT 10/31/2019 3:07 PM EST HEMOGRAM Routine 10/31/2019 12:00 PM EST DIFFERENTIAL, AUTOMATED Routine 10/31/19 12:00 PM EST HC PARTIAL THROMBOPLASTIN TIME Routine 10/31/2019 12:00 PM EST HC PROTHROMBIN TIME Routine 10/31/2019 1 2:00 PM EST HC FIBRINOGEN TITER Routine 10/31/2019 1 2:00 PM EST HC CBC,PLT & AUTO DIFF Routine 0 12:00 PM EST COMPREHENSIVE METABOLIC PANEL Routine 10/31/2019 12:00 PM EST SPECIMEN TO PATHOLOGY Routine 10/31/2019 8:30 AM EST SURGICAL PATHOLOGY REPORT Routine 10/31/2019 6:40 AM EST PREPARE CRYOPRECIPITATE Routine 10/31/19 6:20 AM EST PREPARE PLATELETS, APHERESIS STAT 10/31/2019 6:00 AM EST ABORH RECHECK STATUS STAT 10/31/2019 5:58 AM EST HC HEMOGRAM STAT 10/31/2019 5:58 AM EST ABO/RH TYPING STAT 10/31/2019 5:58 AM EST HC PARTIAL THROMBOPLASTIN TIME STAT 10/31/2019 5:58 AM EST HC PROTHROMBIN TIME STAT 10/31/2019 5 :58 AM EST HC FIBRINOGEN TITER STAT 10/31/2019 5 :58 AM EST ANTIBODY SCREEN STAT 10/31/2019 5:58 AM EST HC ABO-MICROTITER STAT 10/31/2019 5:5 8 AM EST PREPARE THAWED PLASMA STAT 10/31/2019 5:50 AM EST PREPARE RBC STAT 10/31/2019 5:45 AM EST PREPARE RBC STAT 10/31/2019 5:40 AM EST Delivery Only ([id number]) 10/31/2019 3:45 AM EST HEMOGRAM Routine 10/30/2019 6:00 PM EST DIFFERENTIAL, AUTOMATED Routine 10/30/19 6:00 PM EST HC CREATININE Routine 10/30/2019 6:00 PM EST HC CBC,PLT & AUTO DIFF Routine 0 6:00 PM EST HC ASPARTATE AMINOTRANSFERASE (AST) Routine 10/30/2019 6:00 PM EST MAGNESIUM Routine 10/30/2019 6:00 PM EST HEMOGRAM Routine 10/30/2019 6:15 AM EST DIFFERENTIAL, AUTOMATED Routine 10/30/19 6:15 AM EST HC CREATININE Routine 10/30/2019 6:15 AM EST HC CBC,PLT & AUTO DIFF Routine 0 6:15 AM EST HC ASPARTATE AMINOTRANSFERASE (AST) Routine 10/30/2019 6:15 AM EST HEMOGRAM STAT 10/29/2019 11:51 AM EST DIFFERENTIAL, AUTOMATED STAT 10/29/19 11:51 AM EST HC CREATININE STAT 10/29/2019 11:51 AM EST HC CBC,PLT & AUTO DIFF STAT 0 11:51 AM EST HC ASPARTATE AMINOTRANSFERASE (AST) STAT 10/29/2019 11:51 AM EST documented in this encounter Results * SCAN DOC: ORDS - PROVIDER CARE (11/04/2019 12:00 AM EST) Narrative 11/04/2019 12:00 AM EST Ordered by an unspecified provider. Scanning Provider MEDIA MGR SCAN EXT O RDR/RSLT * SCAN DOC: LAB (11/04/2019 12:00 AM EST) Narrative 11/04/2019 12:00 AM EST Ordered by an unspecified provider. Scanning Provider MEDIA MGR SCAN EXT O RDR/RSLT * (ABNORMAL) Differential, Automated (11/02/2019 6:40 AM EST) Neutrophil % 80.1 % [facility] Neutrophil Absolute 8.39(H) 1.70 - 6.10 x10(3)/mc L [facility] Lymph % 11.6 % [facility] Lymphocytes Abs 1.2 0.9 - 3.2 x10(3)/mc L [facility] Monocyte % 6.5 % [facility] Monocyte Abs 0.7 0.3 - 0.9 x10(3)/mc L [facility] Eos % 1.0 % [facility] Eosinophils Abs 0.1 0.0 - 0.4 x10(3)/mc L [facility] Basophil % 0.1 % [facility] Baso Absolute 0.0 0.0 - 0.1 x10(3)/mc L [facility] Immature Gran % 0.70 % [facility] Comment: Immature granulocytes(IG's)percentage and absolute count will include metamyelocytes, myelocytes, and promyelocytes. Blood smears from CBCs yielding IG's will be scanned manually for concordance. If this scan disagrees with the automated IG or if promyelocytes are noted, a manual differential will be performed. Immature Gran Absolute 0.07(H) 0.00 - 0.04 x10(3)/ L [facility] Blood specimen (specimen) 11/02/2019 6:40 AM EST 11/02/2019 6:56 AM EST Narrative Resulting Agency Comment Spec In Lab Mireya Sanders DO HEMATOLOGY ORDERABL ES [facility] [place] [address] * (ABNORMAL) Hemogram (11/02/2019 6:40 AM EST) White Blood Cell 10.5(H) 4.0 - 9.5 x10(3)/[facility] Red Blood Cell 2.51(L) 4.00 - 5.21 x10(6)/[facility] Hemoglobin 7.4(L) 11.7 - 15.5 gm/dL [facility] Hematocrit 22.7(L) 35.7 - 45.8 % [facility] Mean Cell Volume 90.4 82.6 - 94.4 fL [facility] Mean Cell Hemoglobin 29.5 27.1 - 32.0 pg [facility] Mean Cell Hemoglobin Concentration 32.6 31.7 - 35.0 gm/dL [facility] Platelet 149 145 - 357 x10(3)/[facility] RDW Standard Deviation 44.9 37.0 - 46.0 fL [facility] RDW coefficient of variation 13.6 11.5 - 14.1 % [facility] Mean Platelet Volume 11.1 7.6 - 12.9 fL [facility] NRBC% auto 0.0 % [facility] NRBC Absolute 0.000 0.000 - 0.000 x10(3)/ L [facility] Blood specimen (specimen) 11/02/2019 6:40 AM EST 11/02/2019 6:56 AM EST Narrative Resulting Agency Comment Spec In Lab Mireya Sanders DO HEMATOLOGY ORDERABL ES [facility] [place] [address] * (ABNORMAL) Basic Metabolic Panel (non-fasting) (11/02/2019 6:40 AM EST) Glucose 120 65 - 199 mg/dL [facility] Comment:Diabetes: >=200 mg/d L plus symptoms Blood Urea Nitrogen 5(L) 8 - 18 mg/dL [facility] Creatinine 0.59(L) 0.70 - 1.20 mg/dL [facility] Sodium 137 135 - 145 mmol/L [facility] Potassium 4.1 3.5 - 5.0 mmol/L [facility] Comment: Please note: ??Patients with WBC >100,000 may have falsely elevated Potassium levels. ??For accurate Potassium quantification in these patients send serum separator tube (gold top) for subsequent determinations. ??Contact the Clinical Chemistry Laboratory if there are any questions. Chloride 106 98 - 107 mmol/L [facility] Carbon Dioxide 23 22 - 31 mmol/L [facility] Anion Gap 8 5 - 15 mmol/L [facility] Calcium 6.8(Criti stacey) 8.5 - 10.5 mg/dL [facility] Comment:Called by: ENRIQUETA, Read back by: Stefani Cartwirght_, Date/Time:11/02/19 07:36. Est Glomerular Filtration Rate 126 >=60 mL/min/1. 73 m?? [facility] Comment: The eGFR was calculated using the CKD-EPI equation. As with all creatinine based estimates of kidney function, eGFR values calculated with the CKD-EPI equation are not accurate in patients with acute kidney failure, extremes of body mass or the acutely ill. [email or web address] eGFR 147 >=60 mL/min/1. 73 m?? [facility] Comment: The eGFR was calculated using the CKD-EPI equation. As with all creatinine based estimates of kidney function, eGFR values calculated with the CKD-EPI equation are not accurate in patients with acute kidney failure, extremes of body mass or the acutely ill. [email or web address] Blood specimen (specimen) 11/02/2019 6:40 AM EST 11/02/2019 6:56 AM EST Narrative Resulting Agency Comment Spec In Lab Teressa Hahn MD CHEMISTRY ORDERABLES [facility] [place] [address] * (ABNORMAL) Differential, Automated (11/01/2019 5:42 PM EST) Neutrophil % 78.9 % [facility] Neutrophil Absolute 10.78(H) 1.70 - 6.10 x10(3)/mc L [facility] Lymph % 13.6 % [facility] Lymphocytes Abs 1.9 0.9 - 3.2 x10(3)/mc L [facility] Monocyte % 5.9 % [facility] Monocyte Abs 0.8 0.3 - 0.9 x10(3)/mc L [facility] Eos % 0.7 % [facility] Eosinophils Abs 0.1 0.0 - 0.4 x10(3)/mc L [facility] Basophil % 0.2 % [facility] Baso Absolute 0.0 0.0 - 0.1 x10(3)/mc L [facility] Immature Gran % 0.70 % [facility] Comment: Immature granulocytes(IG's)percentage and absolute count will include metamyelocytes, myelocytes, and promyelocytes. Blood smears from CBCs yielding IG's will be scanned manually for concordance. If this scan disagrees with the automated IG or if promyelocytes are noted, a manual differential will be performed. Immature Gran Absolute 0.09(H) 0.00 - 0.04 x10(3)/mc L [facility] Blood specimen (specimen) 11/01/2019 5:42 PM EST 11/01/2019 5:56 PM EST Narrative Resulting Agency Comment Spec In Lab Mame Bazan MD HEMATOLOGY ORDERABLE S [facility] [place] [address] * (ABNORMAL) Hemogram (11/01/2019 5:42 PM EST) White Blood Cell 13.7(H) 4.0 - 9.5 x10(3)/[facility] Red Blood Cell 2.56(L) 4.00 - 5.21 x10(6)/[facility] Hemoglobin 7.6(L) 11.7 - 15.5 gm/dL [facility] Hematocrit 22.9(L) 35.7 - 45.8 % [facility] Mean Cell Volume 89.5 82.6 - 94.4 fL [facility] Mean Cell Hemoglobin 29.7 27.1 - 32.0 pg [facility] Mean Cell Hemoglobin Concentration 33.2 31.7 - 35.0 gm/dL [facility] Platelet 149 145 - 357 x10(3)/[facility] RDW Standard Deviation 45.0 37.0 - 46.0 [facility] RDW coefficient of variation 13.9 11.5 - 14.1 % [facility] Mean Platelet Volume 12.0 7.6 - 12.9 fL [facility] NRBC% auto 0.0 % [facility] NRBC Absolute 0.000 0.000 - 0.000 x10(3)/ L [facility] Blood specimen (specimen) 11/01/2019 5:42 PM EST 11/01/2019 5:56 PM EST Narrative Resulting Agency Comment Spec In Lab Mame Bazan MD HEMATOLOGY ORDERABLE S Performing Organization Address City/[facility]/[place] [address] * (ABNORMAL) Differential, Automated (11/01/2019 6:15 AM EST) Neutrophil % 82.1 % [facility] Neutrophil Absolute 13.17(H) 1.70 - 6.10 x10(3)/mc L [facility] Lymph % 11.5 % [facility] Lymphocytes Abs 1.8 0.9 - 3.2 x10(3)/ L [facility] Monocyte % 5.3 % [facility] Monocyte Abs 0.8 0.3 - 0.9 x10(3)/ L [facility] Eos % 0.4 % [facility] Eosinophils Abs 0.1 0.0 - 0.4 x10(3)/ L [facility] Basophil % 0.1 % [facility] Baso Absolute 0.0 0.0 - 0.1 x10(3)/ L [facility] Immature Gran % 0.60 % [facility] Comment: Immature granulocytes(IG's)percentage and absolute count will include metamyelocytes, myelocytes, and promyelocytes. Blood smears from CBCs yielding IG's will be scanned manually for concordance. If this scan disagrees with the automated IG or if promyelocytes are noted, a manual differential will be performed. Immature Gran Absolute 0.09(H) 0.00 - 0.04 x10(3)/mc L [facility] Blood specimen (specimen) 11/01/2019 6:15 AM EST 11/01/2019 6:37 AM EST Narrative Resulting Agency Comment Spec In Lab Dajuan Griffin MD HEMATOLOGY ORDERAB LES Performing Organization Address City/[facility]/ZIP Co [place] [address] * (ABNORMAL) Hemogram (11/01/2019 6:15 AM EST) [facility] White Blood Cell 16.0(H) 4.0 - 9.5 x10(3)/ L [facility] Red Blood Cell 2.57(L) 4.00 - 5.21 x10(6)/[facility] Hemoglobin 7.6(L) 11.7 - 15.5 gm/dL [facility] Hematocrit 22.2(L) 35.7 - 45.8 % [facility] Mean Cell Volume 86.4 82.6 - 94.4 fL [facility] Mean Cell Hemoglobin 29.6 27.1 - 32.0 pg [facility] Mean Cell Hemoglobin Concentration 34.2 31.7 - 35.0 gm/dL [facility] Platelet 139(L) 145 - 357 x10(3)/[facility] RDW Standard Deviation 42.5 37.0 - 46.0 [facility] RDW coefficient of variation 13.7 11.5 - 14.1 % [facility] Mean Platelet Volume 12.1 7.6 - 12.9 fL [facility] NRBC% auto 0.0 % [facility] NRBC Absolute 0.000 0.000 - 0.000 x10(3)/[facility] Blood specimen (specimen) 11/01/2019 6:15 AM EST 11/01/2019 6:37 AM EST Narrative Resulting Agency Comment Spec In Lab Dajuan Griffin MD HEMATOLOGY ORDERAB LES [facility] [place] [address] * (ABNORMAL) Basic Metabolic Panel (non-fasting) (11/01/2019 6:15 AM EST) [facility] Glucose 130 65 - 199 mg/dL [facility] Comment:Diabetes: >=200 mg/d L plus symptoms Blood Urea Nitrogen 7(L) 8 - 18 mg/dL [facility] Creatinine 0.71 0.70 - 1.20 mg/dL [facility] Sodium 136 135 - 145 mmol/L [facility] Potassium 3.8 3.5 - 5.0 mmol/L [facility] Comment: Please note: ??Patients with WBC >100,000 may have falsely elevated Potassium levels. ??For accurate Potassium quantification in these patients send serum separator tube (gold top) for subsequent determinations. ??Contact the Clinical Chemistry Laboratory if there are any questions. Chloride 103 98 - 107 mmol/L [facility] Carbon Dioxide 27 22 - 31 mmol/L [facility] Anion Gap 6 5 - 15 mmol/L [facility] Calcium 6.3(Criti stacey) 8.5 - 10.5 mg/dL [facility] Comment: Results rechecked-colin Called by: colin, Read back by: kathia rodriguez_, Date/Time:11/01/19 07:31. Est Glomerular Filtration Rate 118 >=60 mL/min/1. 73 m?? [facility] Comment: The eGFR was calculated using the CKD-EPI equation. As with all creatinine based estimates of kidney function, eGFR values calculated with the CKD-EPI equation are not accurate in patients with acute kidney failure, extremes of body mass or the acutely ill. [email or web address] eGFR 136 >=60 mL/min/1. 73 m?? [facility] Comment: The eGFR was calculated using the CKD-EPI equation. As with all creatinine based estimates of kidney function, eGFR values calculated with the CKD-EPI equation are not accurate in patients with acute kidney failure, extremes of body mass or the acutely ill. [email or web address] Blood specimen (specimen) 11/01/2019 6:15 AM EST 11/01/2019 6:37 AM EST Narrative Resulting Agency Comment Spec In Lab Teressa Hahn MD CHEMISTRY ORDERABLES Performing Organization Address City/[facility]/[place] [address] * (ABNORMAL) Differential, Automated (10/31/2019 5:15 PM EST) Neutrophil % 84.3 % [facility] Neutrophil Absolute 17.66(H) 1.70 - 6.10 x10(3)/ L [facility] Lymph % 9.3 % [facility] Lymphocytes Abs 1.9 0.9 - 3.2 x10(3)/[facility] Monocyte % 5.5 % [facility] Monocyte Abs 1.2(H) 0.3 - 0.9 x10(3)/ L [facility] Eos % 0.0 % [facility] Eosinophils Abs 0.0 0.0 - 0.4 x10(3)/[facility] Basophil % 0.2 % [facility] Baso Absolute 0.0 0.0 - 0.1 x10(3)/[facility] Immature Gran % 0.70 % [facility] Comment: Immature granulocytes(IG's)percentage and absolute count will include metamyelocytes, myelocytes, and promyelocytes. Blood smears from CBCs yielding IG's will be scanned manually for concordance. If this scan disagrees with the automated IG or if promyelocytes are noted, a manual differential will be performed. Immature Gran Absolute 0.14(H) 0.00 - 0.04 x10(3)/ L [facility] Blood specimen (specimen) 10/31/2019 5:15 PM EST 10/31/2019 5:30 PM EST Narrative Resulting Agency Comment Spec In Lab Heike Raygoza MD HEMATOLOGY ORDERABLE S Performing Organization Address City/[facility]/[place] [address] * (ABNORMAL) Hemogram (10/31/2019 5:15 PM EST) White Blood Cell 20.9(H) 4.0 - 9.5 x10(3)/ L [facility] Red Blood Cell 2.79(L) 4.00 - 5.21 x10(6)/mc L [facility] Hemoglobin 8.2(L) 11.7 - 15.5 gm/dL [facility] Hematocrit 24.3(L) 35.7 - 45.8 % [facility] Mean Cell Volume 87.1 82.6 - 94.4 fL [facility] Mean Cell Hemoglobin 29.4 27.1 - 32.0 pg [facility] Mean Cell Hemoglobin Concentration 33.7 31.7 - 35.0 gm/dL [facility] Platelet 125(L) 145 - 357 x10(3)/[facility] RDW Standard Deviation 41.5 37.0 - 46.0 [facility] RDW coefficient of variation 13.2 11.5 - 14.1 % [facility] Mean Platelet Volume 11.9 7.6 - 12.9 fL [facility] NRBC% auto 0.0 % [facility] NRBC Absolute 0.000 0.000 - 0.000 x10(3)/[facility] Blood specimen (specimen) 10/31/2019 5:15 PM EST 10/31/2019 5:30 PM EST Narrative Resulting Agency Comment Spec In Lab Heike Raygoza MD HEMATOLOGY ORDERABLE S [facility] [place] [address] * Syphilis Screening Antibody with reflex RPR (10/31/2019 5:15 PM EST) Syphilis IgG/IgM Negative Negative [facility] Blood specimen (specimen) 10/31/2019 5:15 PM EST 10/31/2019 5:30 PM EST Narrative Resulting Agency Comment Spec In Lab Teressa Hahn MD CHEMISTRY ORDERABLES Performing Organization Address [facility] de Phone Number [facility] [place] [address] * (ABNORMAL) Magnesium (10/31/2019 5:15 PM EST) Magnesium 2.62(Criti stacey) 0.69 - 1.07 mmol/L [facility] Comment:Called by: , Read back by: Teressa Mejia, Date/Time:10/31/19 18:09. Blood specimen (specimen) 10/31/2019 5:15 PM EST 10/31/2019 5:30 PM EST Narrative Resulting Agency Comment Spec In Lab Sarah Gonzalez MD CHEMISTRY ORDERABL ES Performing Organization Address [facility] Co de Phone Number [facility] [place] [address] * (ABNORMAL) Basic Metabolic Panel (non-fasting) (10/31/2019 5:15 PM EST) [facility] Glucose 111 65 - 199 mg/dL [facility] Comment:Diabetes: >=200 mg/d L plus symptoms Blood Urea Nitrogen 10 8 - 18 mg/dL [facility] Creatinine 0.92 0.70 - 1.20 mg/dL [facility] Sodium 131(L) 135 - 145 mmol/L [facility] Potassium 4.5 3.5 - 5.0 mmol/L [facility] Comment: Please note: ??Patients with WBC >100,000 may have falsely elevated Potassium levels. ??For accurate Potassium quantification in these patients send serum separator tube (gold top) for subsequent determinations. ??Contact the Clinical Chemistry Laboratory if there are any questions. Chloride 97(L) 98 - 107 mmol/L [facility] Carbon Dioxide 24 22 - 31 mmol/L [facility] Anion Gap 10 5 - 15 mmol/L [facility] Calcium 6.1(Criti stacey) 8.5 - 10.5 mg/dL [facility] Comment:Called by: sherrill, Read back by: Teressa Mejia, Date/Time:10/31/19 18:09. Est Glomerular Filtration Rate 86 >=60 mL/min/1. 73 m?? [facility] Comment: The eGFR was calculated using the CKD-EPI equation. As with all creatinine based estimates of kidney function, eGFR values calculated with the CKD-EPI equation are not accurate in patients with acute kidney failure, extremes of body mass or the acutely ill. [email or web address] eGFR 100 >=60 mL/min/1. 73 m?? [facility] Comment: The eGFR was calculated using the CKD-EPI equation. As with all creatinine based estimates of kidney function, eGFR values calculated with the CKD-EPI equation are not accurate in patients with acute kidney failure, extremes of body mass or the acutely ill. [email or web address] Blood specimen (specimen) 10/31/2019 5:15 PM EST 10/31/2019 5:30 PM EST Narrative Resulting Agency Comment Spec In Lab Sarah Gonzalez MD CHEMISTRY ORDERABL ES [facility] [place] [address] * GC/Chlamydia ([facility]/CGP/APD) Urine (10/31/2019 3:07 PM EST) GC Gene Amp Negative Negative [facility] Comment: The only FDA approved specimen types for this assay are cervical, vaginal, urethral and urine. Non-FDA approved sources are eye, throat and rectal and have been internally validated. GC Source Urine [facility] Chlamydia Gene Amp Negative Negative [facility] Comment: The only FDA approved specimen types for this assay are cervical, vaginal, urethral and urine. Non-FDA approved sources are eye, throat and rectal and have been internally validated. Chlm Source Urine [facility] Urine specimen (specimen) 10/31/2019 3:07 PM EST 10/31/2019 4:10 PM EST Narrative Resulting Agency Comment Spec In Lab Teressa Hahn MD MICROBIOLOGY - GENER AL ORDERABLES [facility] [place] [place] [address] * (ABNORMAL) Differential, Automated (10/31/2019 12:00 PM EST) Neutrophil % 85.2 % [facility] Neutrophil Absolute 15.27(H) 1.70 - 6.10 x10(3)/ L [facility] Lymph % 8.2 % [facility] Lymphocytes Abs 1.5 0.9 - 3.2 x10(3)/ L [facility] Monocyte % 6.0 % [facility] Monocyte Abs 1.1(H) 0.3 - 0.9 x10(3)/mc L [facility] Eos % 0.0 % [facility] Eosinophils Abs 0.0 0.0 - 0.4 x10(3)/[facility] Basophil % 0.1 % [facility] Baso Absolute 0.0 0.0 - 0.1 x10(3)/ L [facility] Immature Gran % 0.50 % [facility] Comment: Immature granulocytes(IG's)percentage and absolute count will include metamyelocytes, myelocytes, and promyelocytes. Blood smears from CBCs yielding IG's will be scanned manually for concordance. If this scan disagrees with the automated IG or if promyelocytes are noted, a manual differential will be performed. Immature Gran Absolute 0.09(H) 0.00 - 0.04 x10(3)/mc L [facility] Blood specimen (specimen) 10/31/2019 12:00 PM EST 10/31/2019 12:30 PM EST Narrative Resulting Agency Comment Spec In Lab Heike Raygoza MD HEMATOLOGY ORDERABLE S [facility] [place] [address] * (ABNORMAL) Hemogram (10/31/2019 12:00 PM EST) White Blood Cell 17.9(H) 4.0 - 9.5 x10(3)/mc L [facility] Red Blood Cell 2.84(L) 4.00 - 5.21 x10(6)/mc L [facility] Hemoglobin 8.6(L) 11.7 - 15.5 gm/dL [facility] Hematocrit 25.2(L) 35.7 - 45.8 % [facility] Mean Cell Volume 88.7 82.6 - 94.4 fL [facility] Mean Cell Hemoglobin 30.3 27.1 - 32.0 pg [facility] Mean Cell Hemoglobin Concentration 34.1 31.7 - 35.0 gm/dL [facility] Platelet 131(L) 145 - 357 x10(3)/mc L [facility] RDW Standard Deviation 43.0 37.0 - 46.0 fL [facility] RDW coefficient of variation 13.2 11.5 - 14.1 % [facility] Mean Platelet Volume 11.7 7.6 - 12.9 fL [facility] NRBC% auto 0.0 % [facility] NRBC Absolute 0.000 0.000 - 0.000 x10(3)/mc L [facility] Blood specimen (specimen) 10/31/2019 12:00 PM EST 10/31/2019 12:30 PM EST Narrative Resulting Agency Comment Spec In Lab Heike Raygoza MD HEMATOLOGY ORDERABLE S [facility] [place] [place] [address] * Fibrinogen (10/31/2019 12:00 PM EST) Fibrinogen 319 200 - 393 mg/dL [facility] Comment: A fibrinogen level >100 mg/dL is adequate for hemostasis in most patients without underlying bleeding disorders. Blood specimen (specimen) 10/31/2019 12:00 PM EST 10/31/2019 12:31 PM EST Narrative Resulting Agency Comment Spec In Lab Sarah Gonzalez MD HEMATOLOGY ORDERAB LES Performing Organization Address [facility] Co de Phone Number [facility] [place] [address] * APTT (10/31/2019 12:00 PM EST) Partial Thromboplastin Time 25 25 - 37 sec [facility] Comment: The PTT is NOT appropriate for heparin monitoring. Use the Anti-Xa level for heparin monitoring (HEP UFH) or LMWH monitoring (HEP LMW). A PTT less than 37 seconds generally indicates adequate hemostasis. Blood specimen (specimen) 10/31/2019 12:00 PM EST 10/31/2019 12:31 PM EST Narrative Resulting Agency Comment Spec In Lab Sarah Gonzalez MD HEMATOLOGY ORDERAB LES Performing Organization Address [facility] Co de Phone Number [facility] [place] [address] * Prothrombin Time (10/31/2019 12:00 PM EST) Prothrombin Time 10.9 9.4 - 12.5 sec [facility] International Normalization Ratio 0.9 [facility] Comment: An INR <2.0 indicates adequate procoagulant activity for hemostasis in most patients without underlying bleeding disorders, though the INR may not adequately reflect hemostatic capacity in patients with liver disease and synthetic impairment. The recommended target INR range for therapeutic anticoagulation is 2.0 ? 3.0 for most applications, though lower and higher ranges may be appropriate depending on clinical circumstances. Blood specimen (specimen) 10/31/2019 12:00 PM EST 10/31/2019 12:31 PM EST Narrative Resulting Agency Comment Spec In Lab Sarah Gonzalez MD HEMATOLOGY ORDERAB LES [facility] [place] [address] * (ABNORMAL) Comprehensive metabolic panel (non-fasting) (10/31/2019 12:00 PM EST) Glucose 115 65 - 199 mg/dL [facility] Comment:Diabetes: >=200 mg/d L plus symptoms Blood Urea Nitrogen 9 8 - 18 mg/dL [facility] Creatinine 0.95 0.70 - 1.20 mg/dL [facility] Sodium 129(L) 135 - 145 mmol/L [facility] Potassium 4.3 3.5 - 5.0 mmol/L [facility] Comment: Please note: ??Patients with WBC >100,000 may have falsely elevated Potassium levels. ??For accurate Potassium quantification in these patients send serum separator tube (gold top) for subsequent determinations. ??Contact the Clinical Chemistry Laboratory if there are any questions. Chloride 99 98 - 107 mmol/L [facility] Carbon Dioxide 23 22 - 31 mmol/L [facility] Anion Gap 7 5 - 15 mmol/L [facility] Calcium 6.1(Criti stacey) 8.5 - 10.5 mg/dL [facility] Comment:Called by: ART, Read back by: Celena Crow, Date/Time:10/31/19 13:10. Protein, Total 4.8(L) 6.1 - 8.0 gm/dL [facility] Albumin 2.7(L) 3.2 - 5.2 gm/dL [facility] Aspartate Aminotransferase 28 0 - 30 unit/L [facility] Alanine Aminotransferase 17 0 - 30 unit/L [facility] Alkaline Phosphatase 54 35 - 105 unit/L [facility] Bilirubin, Total 0.8 0.2 - 1.3 mg/dL [facility] Est Glomerular Filtration Rate 83 >=60 mL/min/1. 73 m?? [facility] Comment: The eGFR was calculated using the CKD-EPI equation. As with all creatinine based estimates of kidney function, eGFR values calculated with the CKD-EPI equation are not accurate in patients with acute kidney failure, extremes of body mass or the acutely ill. [email or web address] eGFR 96 >=60 mL/min/1. 73 m?? [facility] Comment: The eGFR was calculated using the CKD-EPI equation. As with all creatinine based estimates of kidney function, eGFR values calculated with the CKD-EPI equation are not accurate in patients with acute kidney failure, extremes of body mass or the acutely ill. [email or web address] Blood specimen (specimen) 10/31/2019 12:00 PM EST 10/31/2019 12:31 PM EST Narrative Resulting Agency Comment Spec In Lab Sarah Gonzalez MD CHEMISTRY ORDERABL ES Performing Organization Address City/[facility]/ZIP Co de Phone Number [facility] [place] [address] * Specimen to Pathology (10/31/2019 8:30 AM EST) AP Specimen 10/31/2019 8:30 AM EST 10/31/2019 8:30 AM EST Narrative [facility] - 10/31/2019 8:30 AM EST Specimen requisition ordered. ??Separate Pathology report to follow Farzana Velasquez MD PATHOLOGY/CYTOLOGY O RDERABLES [facility] [place] [place] [address] * Surgical Pathology Report (10/31/2019 6:40 AM EST) Final Diagnosis [id number] ? Location: BP; BP14; A The signing pathologist has (i) examined the relevant preparation(s) for the specimen(s) and (ii) rendered or confirmed the diagnosis(es). . ?Surgical Pathology DIAGNOSIS A - Pre-term placenta, 356 grams. ?No chorioamnioniti s. ?Mild chronic deciduitis. ?Three vessel umbilical cord with eccentric insertion and no funisitis. ?Weight within 10th and 25th percentiles for gestation. Electronically signed by: ??Selma RUBY, Aayush Pittman Verified: ??11/04/2019 ?Pathologist Performed at: ??-[facility] Dept. of Pathology, [place], [place] CLINICAL INFORMATION Specimen Submitted: A - Placenta Clinical History and Diagnosis: Pre-E with SF on mag, abnormal placenta SPECIMEN PROCESSING A - Labeled/Fixativ e: Placenta, fresh. Quantity/Size/W eight: Two, 18.5 x 15.0 x 2.8 cm, 356 g. Integrity: Intact. Shape: Irregular. Membranes: ? - Insertion: 100% marginal, ? - Color and Clarity: [place] and clear. Cord: ? - Size: 60.0 x 1.3 cm. ? - Number of Vessels: Three. ? - Insertion site: Eccentric. Surface: ? - Color and Clarity: [place]-blue and clear. Maternal Surface: Purple-pink, with loosely adherent clots. Parenchyma: Purple-red, spongy. Sections/Proces sing: [employer] sections in 5 cassettes as follows: ?A1: ??Membrane roll ?A2: ??Proximal and distal cord ?A3-A5: ??Full thickness parenchyma ??crj 11/04/2019 10:55 AM EST [facility] TISSUE SPECIMEN FROM PLACENTA / Unknown 10/31/2019 6:40 AM EST 10/31/2019 6:40 AM EST Hawa Connor MD PATHOLOGY/CYTOLOG Y ORDERABLES Performing Organization Address City/[facility]/ZIP Co de Phone Number [facility] [place] [address] * Prepare cryoprecipitate (10/31/2019 6:20 AM EST) Dispensed? Yes [facility] Blood specimen (specimen) No Charge / Unknown 10/31/2019 6:20 AM EST 10/31/2019 6:20 AM EST Narrative Resulting Agency Comment Spec In Lab Reanna Melgar MD BLOOD BANK PRODUCT O RDERABLES Performing Organization Address [facility]/ZIP Co de Phone Number [facility] [place] [address] * Prepare Platelets, Apheresis (10/31/2019 6:00 AM EST) Dispensed? Yes [facility] Blood specimen (specimen) 10/31/2019 6:00 AM EST 10/31/2019 5:58 AM EST Farzana Velasquez MD BLOOD BANK PRODUCT O RDERABLES Performing Organization Address [facility] Co de Phone Number [facility] [place] [address] * ABORH Recheck Status (10/31/2019 5:58 AM EST) ABORH Type Recheck Completed [facility] Blood specimen (specimen) 10/31/2019 5:58 AM EST 10/31/2019 6:13 AM EST Narrative Resulting Agency Comment Spec In Lab Tomy Jones CNM BLOOD BANK LAB ORDERABLES Performing Organization Address [facility]/ZIP Co de Phone Number [facility] [place] [address] * Antibody screen (10/31/2019 5:58 AM EST) Ab Screen Interp Negative [facility] Expires at [id number] on: 11/03/2019 [facility] Blood specimen (specimen) 10/31/2019 5:58 AM EST 10/31/2019 6:13 AM EST Narrative Resulting Agency Comment Spec In Lab Tomy Jones [facility] BLOOD BANK LAB ORDERABLES Performing Organization Address City/[facility]/ZIP Co de Phone Number [facility] [place] [address] * ABO/Rh Typing (10/31/2019 5:58 AM EST) ABORH Type B Pos [facility] Blood specimen (specimen) 10/31/2019 5:58 AM EST 10/31/2019 6:13 AM EST Narrative Resulting Agency Comment Spec In Lab Tomy Jones [facility] BLOOD BANK LAB ORDERABLES Performing Organization Address City/[facility] Co de Phone Number [facility] [place] [address] * (ABNORMAL) Hemogram (10/31/2019 5:58 AM EST) White Blood Cell 16.0(H) 4.0 - 9.5 x10(3)/mc L [facility] Red Blood Cell 2.85(L) 4.00 - 5.21 x10(6)/mc L [facility] Hemoglobin 8.5(L) 11.7 - 15.5 gm/dL [facility] Comment: This result has been called to KRISTINA ADAMS by YASMANY RANDHAWA on 10 31 2019 at 0624, and has been read back. Hematocrit 26.2(L) 35.7 - 45.8 % [facility] Mean Cell Volume 91.9 82.6 - 94.4 fL [facility] Mean Cell Hemoglobin 29.8 27.1 - 32.0 pg [facility] Mean Cell Hemoglobin Concentration 32.4 31.7 - 35.0 gm/dL [facility] Platelet 169 145 - 357 x10(3)/mc L [facility] RDW Standard Deviation 42.8 37.0 - 46.0 fL [facility] RDW coefficient of variation 13.0 11.5 - 14.1 % [facility] Mean Platelet Volume 12.6 7.6 - 12.9 fL [facility] NRBC% auto 0.0 % [facility] NRBC Absolute 0.000 0.000 - 0.000 x10(3)/mc L [facility] Blood specimen (specimen) 10/31/2019 5:58 AM EST 10/31/2019 6:11 AM EST Narrative Resulting Agency Comment Spec In Lab Teressa Hahn MD HEMATOLOGY ORDERABLE S Performing Organization Address [facility] de Phone Number [facility] [place] [address] * Fibrinogen (10/31/2019 5:58 AM EST) Fibrinogen 238 200 - 393 mg/dL [facility] Comment: A fibrinogen level >100 mg/dL is adequate for hemostasis in most patients without underlying bleeding disorders. Blood specimen (specimen) 10/31/2019 5:58 AM EST 10/31/2019 6:11 AM EST Narrative Resulting Agency Comment Spec In Lab Teressa Hahn MD HEMATOLOGY ORDERABLE S Performing Organization Address [facility] Co de Phone Number [facility] [place] [address] * APTT (10/31/2019 5:58 AM EST) Partial Thromboplastin Time 25 25 - 37 sec [facility] Comment: The PTT is NOT appropriate for heparin monitoring. Use the Anti-Xa level for heparin monitoring (HEP UFH) or LMWH monitoring (HEP LMW). A PTT less than 37 seconds generally indicates adequate hemostasis. Blood specimen (specimen) 10/31/2019 5:58 AM EST 10/31/2019 6:11 AM EST Narrative Resulting Agency Comment Spec In Lab Teressa Hahn MD HEMATOLOGY ORDERABLE S Performing Organization Address [facility] Co de Phone Number [facility] [place] [address] * Prothrombin Time (10/31/2019 5:58 AM EST) Prothrombin Time 11.4 9.4 - 12.5 sec [facility] International Normalization Ratio 1.0 [facility] Comment: An INR <2.0 indicates adequate procoagulant activity for hemostasis in most patients without underlying bleeding disorders, though the INR may not adequately reflect hemostatic capacity in patients with liver disease and synthetic impairment. The recommended target INR range for therapeutic anticoagulation is 2.0 ? 3.0 for most applications, though lower and higher ranges may be appropriate depending on clinical circumstances. Blood specimen (specimen) 10/31/2019 5:58 AM EST 10/31/2019 6:11 AM EST Narrative Resulting Agency Comment Spec In Lab Teressa Hahn MD HEMATOLOGY ORDERABLE S Performing Organization Address [facility] Co de Phone Number [facility] [place] [address] * Prepare thawed plasma (10/31/2019 5:50 AM EST) Dispensed? Yes [facility] Blood specimen (specimen) 10/31/2019 5:50 AM EST 10/31/2019 5:49 AM EST Farzana Velasquez MD BLOOD BANK PRODUCT O RDERABLES Performing Organization Address [facility] Co de Phone Number [facility] [place] [address] * Prepare RBC (10/31/2019 5:45 AM EST) Dispensed? Yes [facility] Blood specimen (specimen) 10/31/2019 5:45 AM EST 10/31/2019 5:42 AM EST Farzana Velasquez MD BLOOD BANK PRODUCT O RDERABLES Performing Organization Address [facility] Co de Phone Number [facility] [place] [address] * Prepare RBC (10/31/2019 5:40 AM EST) [facility] Dispensed? Yes [facility] Blood specimen (specimen) 10/31/2019 5:40 AM EST 10/31/2019 5:38 AM EST Farzana Velasquez MD BLOOD BANK PRODUCT O RDERABLES Performing Organization Address [facility] Co de Phone Number [facility] [place] [address] * (ABNORMAL) Magnesium (10/30/2019 6:00 PM EST) [facility] Magnesium 2.69(Criti stacey) 0.69 - 1.07 mmol/L [facility] Comment: Result rechecked. Called by: denae, Read back by: Mame Valerio, Date/Time:10/31/19 07:10. Blood specimen (specimen) Venous Draw / Unknown 10/30/2019 6:00 PM EST 10/30/2019 6:22 PM EST Narrative Resulting Agency Comment Spec In Lab Farzana Velasquez MD CHEMISTRY ORDERABLES Performing Organization Address [facility] Co de Phone Number [facility] [place] [address] * (ABNORMAL) Differential, Automated (10/30/2019 6:00 PM EST) [facility] Neutrophil % 88.2 % [facility] Neutrophil Absolute 13.95(H) 1.70 - 6.10 x10(3)/mc L [facility] Lymph % 6.9 % [facility] Lymphocytes Abs 1.1 0.9 - 3.2 x10(3)/mc L [facility] Monocyte % 4.2 % [facility] Monocyte Abs 0.7 0.3 - 0.9 x10(3)/[facility] Eos % 0.0 % [facility] Eosinophils Abs 0.0 0.0 - 0.4 x10(3)/[facility] Basophil % 0.2 % [facility] Baso Absolute 0.0 0.0 - 0.1 x10(3)/[facility]ORATORY Immature Gran % 0.50 % [facility] Comment: Immature granulocytes(IG's)percentage and absolute count will include metamyelocytes, myelocytes, and promyelocytes. Blood smears from CBCs yielding IG's will be scanned manually for concordance. If this scan disagrees with the automated IG or if promyelocytes are noted, a manual differential will be performed. Immature Gran Absolute 0.08(H) 0.00 - 0.04 x10(3)/[facility]ORY Blood specimen (specimen) 10/30/2019 6:00 PM EST 10/30/2019 6:15 PM EST Narrative Resulting Agency Comment Spec In Lab Mary Ashton MD HEMATOLOGY ORDERAB LES [facility] [place] [address] * (ABNORMAL) Hemogram (10/30/2019 6:00 PM EST) White Blood Cell 15.8(H) 4.0 - 9.5 x10(3)/[facility]ORATORY Red Blood Cell 4.71 4.00 - 5.21 x10(6)/[facility] Hemoglobin 13.8 11.7 - 15.5 gm/dL [facility] Hematocrit 41.2 35.7 - 45.8 % [facility] Mean Cell Volume 87.5 82.6 - 94.4 fL [facility] Mean Cell Hemoglobin 29.3 27.1 - 32.0 pg [facility] Mean Cell Hemoglobin Concentration 33.5 31.7 - 35.0 gm/dL [facility] Platelet 185 145 - 357 x10(3)/mc L [facility] RDW Standard Deviation 40.1 37.0 - 46.0 fL [facility] RDW coefficient of variation 12.5 11.5 - 14.1 % [facility] Mean Platelet Volume 12.6 7.6 - 12.9 fL [facility] NRBC% auto 0.0 % [facility] NRBC Absolute 0.000 0.000 - 0.000 x10(3)/mc L [facility] Blood specimen (specimen) 10/30/2019 6:00 PM EST 10/30/2019 6:15 PM EST Narrative Resulting Agency Comment Spec In Lab Mary Ashton MD HEMATOLOGY ORDERAB LES Performing Organization Address City/State/[facility] Co de Phone Number [facility] [address] * Creatinine (10/30/2019 6:00 PM EST) Creatinine 0.72 0.70 - 1.20 mg/dL [facility] Est Glomerular Filtration Rate 116 >=60 mL/min/1.7 3 m?? [facility] Comment: The eGFR was calculated using the CKD-EPI equation. As with all creatinine based estimates of kidney function, eGFR values calculated with the CKD-EPI equation are not accurate in patients with acute kidney failure, extremes of body mass or the acutely ill. [email or web address] eGFR 134 >=60 mL/min/1.7 3 m?? [facility] Comment: The eGFR was calculated using the CKD-EPI equation. As with all creatinine based estimates of kidney function, eGFR values calculated with the CKD-EPI equation are not accurate in patients with acute kidney failure, extremes of body mass or the acutely ill. [email or web address] Blood specimen (specimen) 10/30/2019 6:00 PM EST 10/30/2019 6:15 PM EST Narrative Resulting Agency Comment Spec In Lab Teressa Hahn MD CHEMISTRY ORDERABLES Performing Organization Address City/[facility] Co de Phone Number [facility] [address] * Aspartate Aminotransferase (10/30/2019 6:00 PM EST) Aspartate Aminotransferase 28 0 - 30 unit/L [facility] Blood specimen (specimen) 10/30/2019 6:00 PM EST 10/30/2019 6:15 PM EST Narrative Resulting Agency Comment Spec In Lab Teressa Hahn MD CHEMISTRY ORDERABLES Performing Organization Address [facility] de Phone Number [facility] [address] * (ABNORMAL) Differential, Automated (10/30/2019 6:15 AM EST) Pathologist [facility] Neutrophil % 72.8 % [facility] Neutrophil Absolute 7.00(H) 1.70 - 6.10 x10(3)/mc L [facility] Lymph % 19.8 % [facility] Lymphocytes Abs 1.9 0.9 - 3.2 x10(3)/mc L [facility] Monocyte % 6.5 % [facility] Monocyte Abs 0.6 0.3 - 0.9 x10(3)/mc L [facility] Eos % 0.1 % [facility] Eosinophils Abs 0.0 0.0 - 0.4 x10(3)/mc L [facility] Basophil % 0.3 % [facility] Baso Absolute 0.0 0.0 - 0.1 x10(3)/mc L [facility] Immature Gran % 0.50 % [facility] Comment: Immature granulocytes(IG's)percentage and absolute count will include metamyelocytes, myelocytes, and promyelocytes. Blood smears from CBCs yielding IG's will be scanned manually for concordance. If this scan disagrees with the automated IG or if promyelocytes are noted, a manual differential will be performed. Immature Gran Absolute 0.05(H) 0.00 - 0.04 x10(3)/mc L [facility] Blood specimen (specimen) 10/30/2019 6:15 AM EST 10/30/2019 6:43 AM EST Narrative Resulting Agency Comment Spec In Lab Heike Raygoza MD HEMATOLOGY ORDERABLE S [facility] [place] [address] * (ABNORMAL) Hemogram (10/30/2019 6:15 AM EST) White Blood Cell 9.6(H) 4.0 - 9.5 x10(3)/mc L [facility] Red Blood Cell 4.76 4.00 - 5.21 x10(6)/mc L [facility] Hemoglobin 14.1 11.7 - 15.5 gm/dL [facility] Hematocrit 42.1 35.7 - 45.8 % [facility] Mean Cell Volume 88.4 82.6 - 94.4 fL [facility] Mean Cell Hemoglobin 29.6 27.1 - 32.0 pg [facility] Mean Cell Hemoglobin Concentration 33.5 31.7 - 35.0 gm/dL [facility] Platelet 196 145 - 357 x10(3)/mc L [facility] RDW Standard Deviation 40.4 37.0 - 46.0 fL [facility] RDW coefficient of variation 12.5 11.5 - 14.1 % [facility] Mean Platelet Volume 12.4 7.6 - 12.9 fL [facility] NRBC% auto 0.0 % [facility] NRBC Absolute 0.000 0.000 - 0.000 x10(3)/mc L [facility] Blood specimen (specimen) 10/30/2019 6:15 AM EST 10/30/2019 6:43 AM EST Narrative Resulting Agency Comment Spec In Lab Heike Raygoza MD HEMATOLOGY ORDERABLE S Performing Organization Address [facility] Co de Phone Number [facility] [place] [address] * Aspartate Aminotransferase (10/30/2019 6:15 AM EST) Aspartate Aminotransferase 27 0 - 30 unit/L [facility] Blood specimen (specimen) 10/30/2019 6:15 AM EST 10/30/2019 6:43 AM EST Narrative Resulting Agency Comment Spec In Lab Farzana Velasquez MD CHEMISTRY ORDERABLES Performing Organization Address [facility] Co de Phone Number [facility] [place] [address] * Creatinine (10/30/2019 6:15 AM EST) Creatinine 0.70 0.70 - 1.20 mg/dL [facility] Est Glomerular Filtration Rate 120 >=60 mL/min/1.7 3 m?? [facility] Comment: The eGFR was calculated using the CKD-EPI equation. As with all creatinine based estimates of kidney function, eGFR values calculated with the CKD-EPI equation are not accurate in patients with acute kidney failure, extremes of body mass or the acutely ill. [email or web address] eGFR 139 >=60 mL/min/1.7 3 m?? [facility] Comment: The eGFR was calculated using the CKD-EPI equation. As with all creatinine based estimates of kidney function, eGFR values calculated with the CKD-EPI equation are not accurate in patients with acute kidney failure, extremes of body mass or the acutely ill. [email or web address] Blood specimen (specimen) 10/30/2019 6:15 AM EST 10/30/2019 6:43 AM EST Narrative Resulting Agency Comment Spec In Lab Farzana Velasquez MD CHEMISTRY ORDERABLES Performing Organization Address City/[facility]/[place] [address] * Differential, Automated (10/29/2019 11:51 AM EST) Neutrophil % 64.2 % [facility] Neutrophil Absolute 5.78 1.70 - 6.10 x10(3)/[facility] Lymph % 26.2 % [facility] [facility] Lymphocytes Abs 2.4 0.9 - 3.2 x10(3)/[facility] LABORATORY Monocyte % 8.9 % [facility] [place] Monocyte Abs 0.8 0.3 - 0.9 x10(3)/[facility] LABORATORY Eos % 0.2 % [facility] Eosinophils Abs 0.0 0.0 - 0.4 x10(3)/[facility] LABORATORY Basophil % 0.2 % [facility] Baso Absolute 0.0 0.0 - 0.1 x10(3)/[facility] LABORATORY Immature Gran % 0.30 % [facility] Comment: Immature granulocytes(IG's)percentage and absolute count will include metamyelocytes, myelocytes, and promyelocytes. Blood smears from CBCs yielding IG's will be scanned manually for concordance. If this scan disagrees with the automated IG or if promyelocytes are noted, a manual differential will be performed. Immature Gran Absolute 0.03 0.00 - 0.04 x10(3)/[facility] LABORATORY Blood specimen (specimen) 10/29/2019 11:51 AM EST 10/29/2019 12:08 PM EST Narrative Resulting Agency Comment Spec In Lab Heike Raygoza MD HEMATOLOGY ORDERABLE S Performing Organization Address City/[facility]/ZIP Co de Phone Number [facility] [place] [address] * Hemogram (10/29/2019 11:51 AM EST) White Blood Cell 9.0 4.0 - 9.5 x10(3)/[facility] LABORATORY Red Blood Cell 4.61 4.00 - 5.21 x10(6)/[facility] LABORATORY Hemoglobin 13.2 11.7 - 15.5 gm/dL [facility] Hematocrit 41.0 35.7 - 45.8 % [facility] Mean Cell Volume 88.9 82.6 - 94.4 fL [facility] Mean Cell Hemoglobin 28.6 27.1 - 32.0 pg [facility] Mean Cell Hemoglobin Concentration 32.2 31.7 - 35.0 gm/dL [facility] Platelet 194 145 - 357 x10(3)/[facility] LABORATORY RDW Standard Deviation 40.4 37.0 - 46.0 [facility] LABORATORY RDW coefficient of variation 12.5 11.5 - 14.1 % [facility] Mean Platelet Volume 12.8 7.6 - 12.9 fL [facility] NRBC% auto 0.0 % [facility] NRBC Absolute 0.000 0.000 - 0.000 x10(3)/[facility] LABOR[facility]ORY Blood specimen (specimen) 10/29/2019 11:51 AM EST 10/29/2019 12:08 PM EST Narrative Resulting Agency Comment Spec In Lab Heike Raygoza MD HEMATOLOGY ORDERABLE S [facility] [place] [place] [address] * Aspartate Aminotransferase (10/29/2019 11:51 AM EST) Aspartate Aminotransferase 25 0 - 30 unit/L [facility] Blood specimen (specimen) 10/29/2019 11:51 AM EST 10/29/2019 12:08 PM EST Narrative Resulting Agency Comment Spec In Lab Sarah Gonzalez MD CHEMISTRY ORDERABL ES Performing Organization Address [facility] de Phone Number [facility] [place] [address] * (ABNORMAL) Creatinine (10/29/2019 11:51 AM EST) Creatinine 0.68(L) 0.70 - 1.20 mg/dL [facility] Est Glomerular Filtration Rate 121 >=60 mL/min/1.7 3 m?? [facility] Comment: The eGFR was calculated using the CKD-EPI equation. As with all creatinine based estimates of kidney function, eGFR values calculated with the CKD-EPI equation are not accurate in patients with acute kidney failure, extremes of body mass or the acutely ill. [email or web address] eGFR 140 >=60 mL/min/1.7 3 m?? [facility] Comment: The eGFR was calculated using the CKD-EPI equation. As with all creatinine based estimates of kidney function, eGFR values calculated with the CKD-EPI equation are not accurate in patients with acute kidney failure, extremes of body mass or the acutely ill. [email or web address] Blood specimen (specimen) 10/29/2019 11:51 AM EST 10/29/2019 12:08 PM EST Narrative Resulting Agency Comment Spec In Lab Sarah Gonzalez MD CHEMISTRY ORDERABL ES Performing Organization Address [facility] Co de Phone Number [facility] [place] [address] documented in this encounter Visit Diagnoses Diagnosis Pre-eclampsia Mild or unspecified pre-eclampsia, unspecified as to episode of care hemorrhage of section wound History of section, low transverse Other postprocedural status documented in this encounter Admitting Diagnoses Diagnosis Pre-eclampsia Mild or unspecified pre-eclampsia, unspecified as to episode of care documented in this encounter Administered Medications Inactive Administered Medications - up to 3 most recent administrations Medication Order MAR Action Action Date Dose Rate Site acetaminophen (Tylenol) tablet 1,000 mg 1,000 mg, Oral, ONCE, 1 dose, On Fri10/29/19 at 1430, Routine Given 10/29/2019 2:28 PM EST 1,000 mg acetaminophen (Tylenol) tablet 650 mg 650 mg, Oral, EVERY 6 HOURS PRN, Starting on Fri10/29/19 at 1948, Until 10/31/19 at 0829, Pain, Routine Given 10/30/2019 2:06 AM EST 650 mg Given 10/29/2019 8:54 PM EST 650 mg acetaminophen (Tylenol) tablet 650 mg 650 mg, Oral, EVERY 6 HOURS SCHEDULED, First dose (after last modification) on 10/31/19 at 1000, Until Discontinued, - If ordered with other PRN pain medications give Ibuprofen first, then acetaminophen, then additional agents according to the pain scale. - Not to exceed 4g in 24 hours, Routine Given 11/03/2019 5:14 AM EST 650 mg Given 11/02/2019 11:30 PM EST 650 mg Given 11/02/2019 6:04 PM EST 650 mg [id number]-txsarxxz (Fioricet, Esgic) per tablet 1 tablet 1 tablet, Oral, EVERY 4 HOURS PRN, Starting on 10/30/19 at 0543, Until 10/31/19 at 0832, Headaches, Maximum dose of acetaminophen is 4000 mg from all sources in 24 hours., Routine Given 10/30/2019 6:12 AM EST 1 tablet calcium carbonate (Tums) chewable tablet 1,000 mg 1,000 mg, Oral, 2 TIMES DAILY PRN, Starting on Fri10/29/19 at 1947, Until 10/31/19 at 0829, Heartburn, Routine Given 10/29/2019 8:03 PM EST 1,000 mg calcium carbonate (Tums) chewable tablet 1,000 mg 1,000 mg, Oral, EVERY 6 HOURS PRN, Starting on 10/31/19 at 1814, Until Fri11/03/19 at 1246, Heartburn, Routine Given 10/31/2019 6:36 PM EST 1,000 mg ceFAZolin (ANCEF) 2g in dextrose 5% 100 mL 2 g, Intravenous, EVERY 8 HOURS, First dose on 10/31/19 at 2000, Until Discontinued, Administer over 30 Minutes, Indication for (Active or Suspected): Prophylaxis New Bag 11/01/2019 12:56 PM EST 2 g 200 mL /hr New Bag 11/01/2019 4:04 AM EST 2 g 200 mL/hr New Bag 10/31/2019 8:29 PM EST 2 g 200 mL/hr famotidine (PEPCID) injection 20 mg 20 mg, Intravenous, EVERY 12 HOURS SCHEDULED (2 times per day), First dose on Fri10/29/19 at 2115, Until Discontinued Given 10/31/2019 1:51 AM EST 20 mg Given 10/30/2019 11:43 AM EST 20 mg Given 10/29/2019 10:18 PM EST 20 mg fentaNYL (PF) 50mcg/mL injection 50 mcg, Intravenous, EVERY 15 MIN PRN, Starting on 10/30/19 at 1555, Until 10/31/19 at 0829, Pain, May repeat if not relief at 15 minutes, STAT Given 10/30/2019 4:35 PM EST 25 mcg Given 10/30/2019 4:07 PM EST 50 mcg fentaNYL 2 mcg/mL with BUpivacaine 0.0625% in NS(PF) 2 mcg/mL- 0.0625 % neuraxial DALIA AMANDA: cabinet override fentaNYL 2 mcg/mL, BUpivacaine (MARCAINE) 0.0625% (0.625 mg/mL)(1/16%) in sodium chloride 0.9% 250 mL epidural Epidural, PCEA Dose: 5 mL, PCEA Frequency: Every 20 minutes, Maximum rate for continuous infusion 14 mL per hour Maximum total epidural rate (continuous and PCEA bolus) is 25 mL per hour New 10/30/2019 7:08 PM EST 10 mL/h r 10 mL/hr fentaNYL 2 mcg/mL, BUpivacaine (MARCAINE) 0.0625% (0.625 mg/mL)(1/16%) in sodium chloride 0.9% 250 mL epidural Epidural, PCEA Dose: 4 mL, PCEA Frequency: Every 20 minutes, Maximum rate for continuous infusion 14 mL per hour Maximum total epidural rate (continuous and PCEA bolus) is 25 mL per hour New Bag 11/01/2019 12:23 PM EST 8 mL/h r 8 mL/hr hydrALAZINE (APRESOLINE) injection 10 mg 10 mg, Intravenous, ONCE, 1 dose, On Fri10/29/19 at 1845 Given 10/29/2019 6:28 PM EST 10 mg ibuprofen (Advil;Motrin) tablet 600 mg 600 mg, Oral, EVERY 6 HOURS PRN, Starting on Fri11/03/19 at 0840, Until Fri11/03/19 at 1246, Pain, Administer orally with milk or food to minimize GI irritation. Maximum dose of 3200 mg from all sources in 24 hours, Routine Given 11/03/2019 8:49 AM EST 600 mg ketorolac (TORADOL) injection 15 mg 15 mg, Intravenous, EVERY 6 HOURS, 5 doses, First dose on Fri10/31/19 at 0930, Last dose on Fri11/01/19 at 1300, Routine Given 10/31/2019 1:06 PM EST 15 mg labetalol (Normodyne) tablet 100 mg 100 mg, Oral, DAILY, First dose on Fri10/30/19 at 0900, Until Discontinued, Routine Given 10/30/2019 8:16 AM EST 100 mg labetalol (Normodyne) tablet 200 mg 200 mg, Oral, 2 TIMES DAILY, First dose on Fri11/01/19 at 2100, Until Discontinued, Routine Given 11/01/2019 8:56 PM EST 200 mg labetalol (Normodyne) tablet 200 mg 200 mg, Oral, 3 TIMES DAILY, First dose (after last modification) on Fri11/02/19 at 0800, Until Discontinued, Routine Given 11/03/2019 8:49 AM EST 200 mg Given 11/02/2019 8:14 PM EST 200 mg Given 11/02/2019 3:01 PM EST 200 mg labetalol (NORMODYNE,TRANDATE) 5 mg/mL injection 1 dose, Starting on Fri10/29/19 at 1649, Until Fri10/29/19 at 1701, TOBI AZIDI: cabinet override labetalol (NORMODYNE,TRANDATE) injection 20 mg 20 mg, Intravenous, ONCE, 1 dose, On Fri10/29/19 at 1245, STAT Given 10/29/2019 12:49 PM EST 20 mg labetalol (NORMODYNE,TRANDATE) injection 20 mg 20 mg, Intravenous, ONCE, 1 dose, On Fri10/30/19 at 1800, STAT Given 10/30/2019 5:51 PM EST 20 mg labetalol (NORMODYNE,TRANDATE) injection 20 mg 20 mg, Intravenous, ONCE, 1 dose, On Fri11/01/19 at 1715, Routine Given 11/01/2019 5:02 PM EST 20 mg labetalol (NORMODYNE,TRANDATE) injection 40 mg 40 mg, Intravenous, ONCE, 1 dose, On Fri10/29/19 at 1500, Routine Given 10/29/2019 4:08 PM EST 40 mg labetalol (NORMODYNE,TRANDATE) injection 40 mg 40 mg, Intravenous, ONCE, 1 dose, On Fri11/01/19 at 1745, Routine Given 11/01/2019 5:34 PM EST 40 mg labetalol (NORMODYNE,TRANDATE) injection 80 mg 80 mg, Intravenous, ONCE, 1 dose, On Fri10/29/19 at 1715, Routine Given 10/29/2019 5:01 PM EST 80 mg lactated ringers infusion 100 mL/hr, Intravenous, CONTINUOUS, Starting on Fri10/29/19 at 1245, Until Fri11/03/19 at 1246, Maximum 125 mL in one hour. New Bag 10/31/2019 7:23 AM EST 100 mL/hr 100 mL/hr New Bag 10/31/2019 5:59 AM EST New Bag 10/31/2019 5:17 AM EST lactated ringers infusion 75 mL/hr, Intravenous, CONTINUOUS, Starting on Fri10/29/19 at 1245, Until Fri11/01/19 at 2030 Rate/Dose Change 10/30/2019 4:06 PM EST 75 mL/hr 75 mL/hr Rate/Dose Change 10/30/2019 3:25 PM EST 999 mL/hr 999 mL/ hr New Bag 10/30/2019 3:24 PM EST 75 mL/hr 75 mL/hr lactated ringers infusion 100 mL/hr, Intravenous, CONTINUOUS, Starting on Fri10/31/19 at 0845, Until Fri11/03/19 at 1246, Administer until tolerating clear liquids then saline lock. New Bag 11/01/2019 3:41 AM EST 100 mL/hr 100 mL/hr New Bag 10/31/2019 5:09 PM EST 100 mL/hr 100 mL/hr lactated ringers infusion 1,000 mL, at 100 mL/hr, Intravenous, CONTINUOUS, Starting on Fri10/31/19 at 0745, Until Fri10/31/19 at 0806, PACU Recovery Continued Bag 10/31/2019 7:23 AM EST 1,000 mLs 100 mL/hr magnesium sulfate 40 gram/1,000 mL (4 %) infusion 2 g/hr (50 mL/hr), Intravenous, CONTINUOUS, Starting on Fri10/29/19 at 1245, Until Fri11/01/19 at 2030, Max 125 mL in one hour, Routine New Bag 10/31/2019 11:21 PM EST 2 g/hr 50 mL/hr New Bag 10/30/2019 8:22 AM EST 2 g/hr 50 mL/hr Continued Bag 10/29/2019 3:20 PM EST 2 g/hr 50 mL/hr magnesium sulfate Bolus from bag 4 g 4 g, Intravenous, Administer over 20 Minutes, ONCE, 1 dose, On Fri10/29/19 at 1245, Administer over 20 minutes, Routine Bolus from Bag 10/29/2019 2:58 PM EST 4 g miSOPROStol (Cytotec) tablet 25 mcg 25 mcg, Oral, EVERY 2 HOURS PRN, 12 doses, Starting on Fri10/29/19 at 1442, Until Fri10/31/19 at 0829, until active labor, Administer until active labor. Maximum doses = 12, Routine Given 10/30/2019 1:33 PM EST 25 mcg Given 10/30/2019 11:13 AM EST 25 mcg Given 10/30/2019 8:16 AM EST 25 mcg morphine 10 mg/mL injection 10 mg 10 mg, Intramuscular, ONCE, 1 dose, On 10/30/19 at 1145, Routine Given 10/30/2019 11:41 AM EST 10 mg morphine 10 mg/mL injection 5 mg 5 mg, Intravenous, ONCE, 1 dose, On 10/30/19 at 1145, Routine Given 10/30/2019 11:38 AM EST 5 mg oxyCODONE (Roxicodone) tablet 5-10 mg 5-10 mg, Oral, EVERY 4 HOURS PRN, Starting on Fri10/31/19 at 0829, Until Fri11/03/19 at 1246, Pain, Severe pain (7-10), only if PCEA OFF., - Initial dose 5 mg. - If pain control not adequate in 60 minutes, give additional 5 mg., Routine Given 11/03/2019 3:12 AM EST 5 mg Given 11/02/2019 9:57 PM EST 5 mg Given 11/02/2019 6:19 PM EST 5 mg oxytocin (PITOCIN) 30 units in sodium chloride 0.9% 500 mL infusion 1-30 nancy-units/min (1-30 mL/hr), Intravenous, CONTINUOUS, Starting on 10/31/19 at 0045, Until Fri10/31/19 at 0829, Piggyback into Lactated Ringers; Start at 2 milliunits/minute and increase by 2 milliunits/minutes every 30 minutes to achieve contractions that are every 2-3 minutes, lasting 60-90 seconds with 1 minute resting tone between contractions palpating strong. Notify OB Provider when oxytocin dose needs to exceed 20 milliunits/minute. Oxytocin may not be initiated until: - 1 hour after Cervidil is removed - 4 hours after last minute misoprostol dose is given, Routine Rate/Dose Change 10/31/2019 1:30 AM EST 6 nancy-units/min 6 mL/hr Rate/Dose Change 10/31/2019 1:00 AM EST 4 nanyc-units/min 4 mL/hr New Bag 10/31/2019 12:31 AM EST 2 nancy-units/min 2 mL/ hr promethazine (PHENERGAN) injection 25 mg 25 mg, Intramuscular, ONCE, On 10/30/19 at 1145, 1 dose, VESICANT - Dilute with a minimum of 10 mL saline. LARGE VEIN only. Inject over 10 minutes into the farthest port of a running IV infusion. Remain with the patient and STOP infusion immediately if patient reports burning. Avoid extravasation. Given 10/30/2019 11:42 AM EST 25 mg senna-docusate (Pericolace) 8.6-50 mg per tablet 2 tablet 2 tablet, Oral, 2 TIMES DAILY, First dose on 10/31/19 at 0900, Until Discontinued, Administer to achieve 1 soft bowel movement daily without straining, Routine Given 11/03/2019 8:49 AM EST 2 tablets Given 11/02/2019 8:14 PM EST 2 tablets Given 11/02/2019 9:59 AM EST 2 tablets simethicone (Mylicon) chewable tablet 80 mg 80 mg, Oral, 4 TIMES DAILY PRN, Starting on 10/31/19 at 0829, Until Fri11/03/19 at 1246, Cramping, gas pain, Routine Given 11/02/2019 6:21 PM EST 80 mg Given 11/01/2019 9:45 AM EST 80 mg sodium chloride 0.9 % (flush) flush 5 mL 5 mL, Intravenous, 2 TIMES DAILY, First dose on Fri10/29/19 at 1245, Until Discontinued, Routine Given 10/29/2019 4:16 PM EST 5 mLs documented in this encounter Active and Recently Administered Medications Times are shown in EST. Scheduled Medication Order 11/01/2019 11/02/2019 11/03/2019 acetaminophen (Tylenol) tablet 650 mg 650 mg, Oral, EVERY 6 HOURS SCHEDULED, First dose (after last modification) on Fri10/31/19 at 1000, Until Discontinued, - If ordered with other PRN pain medications give Ibuprofen first, then acetaminophen, then additional agents according to the pain scale. - Not to exceed 4g in 24 hours, Routine 0000 (Not Given - Provider: Ady Solis RN - Reason: Patient/family refused)0353 (Given - Provider: Ady Solis RN)0920 (Given - Provider: Margret Fallon RN)1624 (Given - Provider: Margret Fallon RN)2334 (Given - Provider: Natalie Abarca RN) 0553 (Given - Provider: Shania Garcia RN)1200 (Given - Provider: Anju Noland, ALEXX)1804 (Given - Provider: Anju Noland RN)2330 (Given - Provider: Teressa Mejia, ALEXX) 0514 (Given - Provider: Teressa Mejia RN) ceFAZolin (ANCEF) 2g in dextrose 5% 100 mL (CANCELED) 2 g, Intravenous, EVERY 8 HOURS, First dose on Fri10/31/19 at 2000, Until Discontinued, Administer over 30 Minutes, Indication for (Active or Suspected): Prophylaxis 0404 (New Bag - Provider: Ady Solis RN)0434 (Stopped - Provider: Ady Solis RN)1256 (New Bag - Provider: Margret Fallon RN)1326 (Stopped - Provider: Margret Fallon, ALEXX) labetalol (Normodyne) tablet 200 mg (CANCELED) 200 mg, Oral, 2 TIMES DAILY, First dose on Fri11/01/19 at 2100, Until Discontinued, Routine 205 (Given - Provider: Natalie Abarca, ALEXX) labetalol (Normodyne) tablet 200 mg 200 mg, Oral, 3 TIMES DAILY, First dose (after last modification) on Fri11/02/19 at 0800, Until Discontinued, Routine 0748 (Given - Provider: Anju Noland, ALEXX)1501 (Given - Provider: Anju Noland RN)2013 (Given - Provider: Teressa Mejia, ALEXX) 0849 (Given - Provider: Brooklyn Gomez, ALEXX) labetalol (NORMODYNE,TRANDATE) injection 20 mg (COMPLETED) 20 mg, Intravenous, ONCE, 1 dose, On Fri11/01/19 at 1715, Routine 1702 (Given - Provider: Margret Fallon, ALEXX) labetalol (NORMODYNE,TRANDATE) injection 40 mg (COMPLETED) 40 mg, Intravenous, ONCE, 1 dose, On Fri11/01/19 at 1745, Routine 1734 (Given - Provider: Margret Fallon, ALEXX) senna-docusate (Pericolace) 8.6-50 mg per tablet 2 tablet 2 tablet, Oral, 2 TIMES DAILY, First dose on Fri10/31/19 at 0900, Until Discontinued, Administer to achieve 1 soft bowel movement daily without straining, Routine 0920 (Given - Provider: Margret Fallon, ALEXX)2100 (Hold - Provider: Natalie Abarca RN - Reason: Patient/family refused) 0959 (Given - Provider: Anju Noland RN)2013 (Given - Provider: Teressa Mejia, ALEXX) 0849 (Given - Provider: Brooklyn Gomez, ALEXX) Continuous Medication Order 11/01/2019 11/02/2019 11/03/2019 fentaNYL 2 mcg/mL, BUpivacaine (MARCAINE) 0.0625% (0.625 mg/mL)(1/16%) in sodium chloride 0.9% 250 mL epidural (CANCELED)(Linked Group 1) Epidural, PCEA Dose: 4 mL, PCEA Frequency: Every 20 minutes, Maximum rate for continuous infusion 14 mL per hour Maximum total epidural rate (continuous and PCEA bolus) is 25 mL per hour 1223 (New Bag - Provider: Sylvia Olguin, ALEXX)2012 (Stopped - Provider: Natalie Abarca RN) lactated ringers infusion 100 mL/hr, Intravenous, CONTINUOUS, Starting on Fri10/29/19 at 1245, Until Fri11/03/19 at 1246, Maximum 125 mL in one hour. lactated ringers infusion 100 mL/hr, Intravenous, CONTINUOUS, Starting on Fri10/31/19 at 0845, Until Fri11/03/19 at 1246, Administer until tolerating clear liquids then saline lock. 0341 (New Bag - Provider: Ady Solis, ALEXX) PRN Medication Order 11/01/2019 11/02/2019 11/03/2019 calcium carbonate (Tums) chewable tablet 1,000 mg 1,000 mg, Oral, EVERY 6 HOURS PRN, Starting on Fri10/31/19 at 1814, Until Fri11/03/19 at 1246, Heartburn, Routine ibuprofen (Advil;Motrin) tablet 600 mg 600 mg, Oral, EVERY 6 HOURS PRN, Starting on Fri11/03/19 at 0840, Until Fri11/03/19 at 1246, Pain, Administer orally with milk or food to minimize GI irritation. Maximum dose of 3200 mg from all sources in 24 hours, Routine 0849 (Given - Provider: Brooklyn Gomez RN) oxyCODONE (Roxicodone) tablet 5-10 mg 5-10 mg, Oral, EVERY 4 HOURS PRN, Starting on Fri10/31/19 at 0829, Until Fri11/03/19 at 1246, Pain, Severe pain (7-10), only if PCEA OFF., - Initial dose 5 mg. - If pain control not adequate in 60 minutes, give additional 5 mg., Routine 2035 (Given - Provider: Natalie Abarca, ALEXX) 0056 (Given - Provider: Natalie Abarca RN)0553 (Given - Provider: Shania Garcia RN)1304 (Given - Provider: Anju Noland, ALEXX)181 (Given - Provider: Anju Noland, ALEXX - Comment: pain increases to 5 with movement)2156 (Given - Provider: Teressa N Acton, RN) 0312 (Given - Provider: Teressa Mejia, ALEXX) simethicone (Mylicon) chewable tablet 80 mg 80 mg, Oral, 4 TIMES DAILY PRN, Starting on Fri10/31/19 at 0829, Until Fri11/03/19 at 1246, Cramping, gas pain, Routine 0945 (Given - Provider: Margret Fallon, ALEXX) 1821 (Given - Provider: Anju Noland RN) Linked Groups Order Group 1: fentaNYL 2 mcg/mL, BUpivacaine (MARCAINE) 0.0625% (0.625 mg/mL)(1/16%) in sodium chloride 0.9% 250 mL epidural (CANCELED)Jump to med Epidural, PCEA Dose: 4 mL, PCEA Frequency: Every 20 minutes, Maximum rate for continuous infusion 14 mL per hour Maximum total epidural rate (continuous and PCEA bolus) is 25 mL per hour And Epidural shift total and Settings verification (CANCELED) Epidural, 2 Times Daily- Neuraxial Shift Total, First dose (after last modification) on Fri11/01/19 at 1800, Until Discontinued documented in this encounter Care Teams Blown Film Extrusion Operator Relationship Specialty Start Date End Date Lynn López APRN PCP - General Family Medicine 03/17/17 documented as of this encounter
--- OUTSIDE RECORDS SUMMARY | 2024-08-23 12:32 | XMS_ITS | Encounter Summary ---
Author Organization [facility] Address [facility] Mar[facility] [place] [address] Care Team Providers Care Graphic Designer Name Role Phone ReneLynn rodriguez Nazario YOUSSEF Primary Care Provider [phone] Reason for Visit * Auth/Cert Specialty Diagnoses / Procedures Referred By Cate ruelas Referred To Contact Diagnoses Pre-eclampsia Procedures URGENT IPI Referral ID Status Reason Start Date Expiration Date Visits Re quested Visits Authorized [id number] 1 1 Encounter Details Date Type Department Care Team (Late st Contact Info) Description 10/31/2019 4:01 AM EST Anesthesia [place] [address] Naya Woodall MD [facility] [address] [place] [address] Leobardo Keller MD [facility] [place] [address] Anesthesia Record Procedure Summary Procedure Name Responsible Anesthesiologist Anesthesia Start Time Anesthesia Stop Time @ DELIVERY (WRVU 16.13) (Bilateral: Abdomen) Naya Woodall MD 10/31/19 0401 10/31/19 0640 Events Date Time Event Comment 10/30/2019 1644 AN Verify 1652 Labor Neuraxial 1712 Face Time Patient comfort improving. BP stable (remains high). Per nurse, HR trace remains unchanged with some variable decels 2108 Face Time Patient initial ly comfortable but now with increasing discomfort Evaluated at bedside and bolused with 1/16th% and fentanyl 10/31/2019 0401 Start 0401 An Start Data 0407 L Uterine Displacement 0412 Anesthesia Ready 0422 Skin Incision 0428 Uterine Incision 0430 Baby Delivered 0530 Quick Note Vaginal bleedin g after incision closure; additional oxytocin, TXA and carboprost were given. Bleeding improved. 0640 an stop data 0640 Recovery or ICU Handoff Thuy ent care was transferred to the destination unit staff after review of the patient's medical history, current anesthetic/surgical status and plan, according to the Provider Handoff Checklist. 0640 Stop 11/02/20191952 Meds Name Total Lidocaine 1.5% with Epi 1:200K 3 mL fentaNYL 100 mcg BUpivacaine 0.0625% 20 mL Midazolam 2 mg Ketorolac 15 mg Ondansetron 8 mg PHENYLephrine INF 10,320 mcg Lidocaine 2% 30 mg Oxytocin 6 Units Oxytocin INF 1,612.5 mL ceFAZolin 2 g azithromycin (ZITHROMAX) 500 mg in sodiu m chloride 0.9% 255 mL 500 mg Morphine(Neuraxial) 3 mg Promethazine 7.5 mg Tranexamic Acid 1,000 mg Lidocaine 1% 10 mL lactated ringers infusion 3,000 mL Sodium Chloride 0.9% 500 mL * Agents Name O2 Air N2O O2 Auxiliary Flowmeter 1 * Blood No blood administrations on file. Lines, Drains, and Airways Type Details Placement Removal (RETIRED By SPR20) Incision 10/31/19; 0430 10/31/19 0430 by Zehra Mccracken RN (RETIRED) Peripheral IV Line - Single Lumen metacarpal vein (top of hand), left; ygww-rta-ooozkz catheter system; 16 gauge; (not in place at shift change); 11/01/19; 1414 10/31/19 0632 by 11/01/19 1414 by Margret Fallon RN (RETIRED) Peripheral IV Line - Single Lumen metacarpal vein (top of hand), left; mygx-izn-ubwmlv catheter system; 18 gauge; lumen/catheter not patent, catheter/device intact; 11/02/19; 0910/31/19 0632 by 11/02/19 0923 by Anju Noland RN (RETIRED) Peripheral IV Line - Single Lumen 10/29/19; 1400; cephalic vein (lateral side of arm), right; cxok-rqq-hnlfcv catheter system; 20 gauge; Day; distraction; lumen/catheter not patent, catheter/device intact, site care per policy/procedure; 11/02/19; 2210 10/29/19 1400 by Mimi Bernstein RN 11/02/19 2210 by Teressa Mejia RN Epidural 10/30/19; 1708 (created via procedure documentation); 11/01/19; 2100 10/30/19 1708 by Jackelyn Calvin MD 11/01/19 2100 by Natalie Abarca RN Urethral Catheter 10/31/19; 0404; Surgery longer than 2 hours; Acute urinary retention; indwelling single lumen catheter; 100% silicone; 14; inserted at this facility; 1; 10; 10; leg bag to dependent drainage; 11/02/19; 0425 10/31/19 0404 by Annie Esparza RN 11/02/19 0425 by Natalie Abarca RN Uterine Balloon 10/31/19; 0603; 500; drainage bag to dependent drainage; farzana velasquez; 11/01/19; 1725; MD Sanders 10/31/19 0603 by Annie Esparza RN 11/01/19 1725 by Margret Fallon RN documented in this encounter Social History Tobacco Use Types Packs/Day Years Used Date Smoking Tobacco: Never Smokeless Tobacco: Never Alcohol Use Standard Drinks/Week Comments Not Currently 0 (1 standard drink = 0.6 oz pur e alcohol) ON OCC Sex and Gender Information Value Date Recorded Sex Assigned at Not on file Gender Identity Not on file Sexual Orientation Not on file documented as of this encounter OR Notes * Anesthesia Postprocedure Evaluation - Virgilio Hines MD - 11/02/2019 12:02 PM EST Department of Anesthesiology Post-procedure Note Patient: Liza Wilkinson Procedure Summary Date: 10/31/19 Room / Location: [facility] OR [address] [place] [address] Anesthesia Start: 400 Anesthesia Stop: 639 Procedure: @ DELIVERY (WRVU 16.13) (Bilateral Abdomen) Diagnosis: Surgeon: Farzana Velasquez MD Responsible Provider: Naya Woodall MD Anesthesia Type: Not recorded ASA Status: 3 All Anesthesia Providers: Anesthesiologist: Naya Woodall MD Heel Builder: Robin Hicks MD Vitals Value Taken Time BP 124/74 10/31/2019 7:47 AM Temp 36.6 ??C (97.9 ??F) 10/31/2019 7:47 AM Pulse 94 10/31/2019 7:48 AM Resp 24 10/31/2019 7:48 AM SpO2 98 % 10/31/2019 7:47 AM Pain Level 0 10/31/2019 7:15 AM Vitals shown include unvalidated device data. Patient Location: Floor Level of Consciousness: Awake and Alert Pain Management: Satisfactory Analgesia PONV: None Cardiovascular Status: At Baseline Respiratory Status: At Baseline Postoperative Fluid Status: Intravascular EUvolemia Possible Anesthetic Complications: NONE apparent at time of evaluation Final Primary Anesthesia Type: Epidural (The anesthetic type performed was the same as planned.) Comments: Patient seen and examined. No evidence of hematoma, infection, not tender to palpation. No headache. Denies numbness/parethesias. Ambulating and voiding without issue. * Anesthesia Procedure Notes - Jackelyn Calvin MD - 10/30/2019 5:07 PM EST Associated Order(s): Neuraxial for Labor Only Procedure: Labor Analgesia Neuraxial Block Labor Analgesia Type: Epidural The patient was greeted. The sedation plan, its benefits, risks and alternatives were discussed with the patient. The patient has consented to the procedure. The medical history and chart were reviewed. The timeout was performed. Start time: 10/30/2019 4:45 PM End time: 10/30/2019 5:07 PM Patient Location: [facility] Patient Prep Prep: Chlorhexidine, Patient Draped, Hand Hygiene, Hat, Mask and Sterile Gloves Injection technique: continuous Procedure Technique Level of needle insertion: L3-4 Needle approach: midline Needle Type: Tuohy Gauge: 18 Needle length: 3.5 in Needle insertion depth when JORGE achieved: 5 cm Technique for Loss of Resistance: JORGE saline A 21 guage epidural catheter introduced into the epidural space. Catheter at skin depth: 10 cm Dressing/Secured with: Chlorhexidine Tegaderm and Tegaderm Number of attempts: 1 Test dose Lidocaine 1.5% w/Epinephrine 1:2000,000 3mL Events/Notes Events: None Additional Notes: Patient in communication throughout. Negative aspiration and test dose. Patient encouraged to contact anesthesia with any issues Resident/AUTOMATIC OVEN OPERATOR: Jackelyn Calvin MD Second Resident/AUTOMATIC OVEN OPERATOR: Fellow: Attending Physician: Alex Maya MD ~~~~~~~~~~~~~~~~~~~~~~~~~~~~~~~~~~~~~~~~~~~~~~~~~~~~~~~~~~~~ * Anesthesia Preprocedure Evaluation - Jackelyn Calvin MD - 10/30/2019 5:01 PM EST Pre-Anesthesia Evaluation for: Liza Nazario Wilkinson a 24 y.o. female. * No procedures listed * Patient Active Problem List Diagnosis ??? Pineal gland cyst ??? Headache(784.0) ??? Migraine ??? Pre-eclampsia ??? Chronic hypertension affecting No past medical history on file. Past Surgical History: Procedure Laterality Date ??? TONSILLECTOMY ??? WISDOM TOOTH EXTRACTION Social History Tobacco Use ??? Smoking status: Never Smoker ??? Smokeless tobacco: Never Used Substance Use Topics ??? Alcohol use: Not Currently Comment: ON OCC Social History Substance and Sexual Activity Drug Use No Allergies Allergen Reactions ??? Polymyxin B Sulf-Trimethoprim Orbital edema ??? Prednisone Rash Holes in finger nails. Rash on hands and feet. ??? Sudafed [Pseudoephedrine Hcl] Heart races Medications: MAR and/or home medications have been reviewed. Physical Exam: Most Recent Vitals: 10/30/19 1452 BP: Pulse: Resp: Temp: SpO2: 98% There is no height or weight on file to calculate BMI. Airway Assessment: Mallampati: II Cardiovascular Assessment: Pulmonary Assessment: Dental Assessment: [facility] Assessment: Anesthesia Plan: ASA 3 24 y.o. female at 37w3d here for IOL due to pre-eclampsia with severe features superimposed onchronic HTN Medical, surgical, family and social history reviewed; additionally significant for migraines Denies history of asthma, coagulopathy, easy bruising, or frequent epistaxis. Platelets stable thisam @ 196. Denies prior back surgery, radiculopathy, or scoliosis. No contraindication to a neuraxial technique. No prior anesthesia documentation. Denies prior personal or familial anesthetic complications. -- Polymyxin B Sulf-Trimethoprim -- Orbital edema -- Prednisone -- Rash -- Holes in finger nails. Rash on hands and feet. -- Sudafed (Pseudoephedrine Hcl) -- Heart races Lab Results Component Value Date HGB 14.1 10/30/2019 Lab Results Component Value Date PLATELET 196 10/30/2019 Lab Results Component Value Date ABORH B Pos 09/29/2019 Discussed options for labor analgesia and potential need for anesthesia for section including epidural, spinal, combined spinal/epidural, and general anesthesia. Risks/benefits discussed; questions answered. Consent obtained. Informed Consent: PAT Clinic Note documented in this encounter Miscellaneous Notes * Addendum Note - Alex Maya MD - 11/21/2019 4:34 PM EST Addendum created 11/21/19 1634 by Alex Maya MD Cosign clinical note documented in this encounter Plan of Treatment Not on file documented as of this encounter Procedures Procedure Name Priority Date/Time Associated Diagnosis Comments ANES PLACEHOLDER FOR LABOR EPIDURAL Routine 10/30/2019 5:07 PM EST documented in this encounter Results * [id number] (10/30/2019 5:07 PM EST) Narrative Alex Maya MD - 10/30/2019 5:07 PM EST Jackelyn Calvin MD ? 10/30/2019 ??5:08 PM Procedure: ?? Labor Analgesia Neuraxial Block Labor Analgesia Type: Epidural The patient was greeted. The sedation plan, its benefits, risks and alternatives were discussed with the patient. ??The patient has consented to the procedure. ??The medical history and chart were reviewed. ??The timeout was performed. Start time: 10/30/2019 4:45 PM End time: 10/30/2019 5:07 PM Patient Location: [facility] [place] Patient Prep Prep: Chlorhexidine, Patient Draped, Hand Hygiene, Hat, Mask and Sterile Gloves Injection technique: continuous Procedure Technique Level of needle insertion: L3-4 Needle approach: midline Needle Type: Tuohy Gauge: 18 Needle length: 3.5 in Needle insertion depth when JORGE achieved: 5 cm Technique for Loss of Resistance: JORGE saline A 21 guage epidural catheter introduced into the epidural space. Catheter at skin depth: 10 cm Dressing/Secured with: Chlorhexidine Tegaderm and Tegaderm Number of attempts: 1 Test dose Lidocaine 1.5% w/Epinephrine 1:2000,000 3mL Events/Notes Events: ??None Additional Notes: ??Patient in communication throughout. Negative aspiration and test dose. Patient encouraged to contact anesthesia with any issues Resident/AUTOMATIC OVEN OPERATOR: ?Jackelyn Calvin MD Second Resident/AUTOMATIC OVEN OPERATOR: Fellow: ? Attending Physician: ? Alex Maya MD ~~~~~~~~~~~~~~~~~~~~~~~~~~~~~~~~~~~~~~~~~~~~~~~~~~~~~~~~~~~~ Alex Maya MD DIRECTOR [facility] documented in this encounter Visit Diagnoses Not on filedocumented in this encounter Administered Medications Inactive Administered Medications - up to 3 most recent administrations Medication Order MAR Action Action Date Dose Rate Site azithromycin (ZITHROMAX) 500 mg in sodium chloride 0.9% 255 mL 500 mg, Intravenous, CUSTOMER SERVICE ASSISTANT TO O.R., 1 dose, On 10/31/19 at 0415, Administer over 60 Minutes, Indication for (Active or Suspected): Prophylaxis Given 10/31/2019 4:15 AM EST 500 mg BUpivacaine (MARCAINE) 0.0625% bolus injection (Anesthesia) PRN, Starting on 10/30/19 at 2109, Until 11/01/19 at 1727, Anesthesia Intra-op, Routine Given 10/30/2019 9:09 PM EST 20 mLs ceFAZolin (ANCEF) 1g in dextrose 5% 50mL PRN, Starting on 10/31/19 at 0415, Until Fri11/01/19 at 1727, Administer over 30 Minutes, Anesthesia Intra-op Given 10/31/2019 4:15 AM EST 2 g fentaNYL 50 mcg/mL multi-dose injection PRN, Starting on 10/30/19 at 2109, Until 11/01/19 at 1727, Anesthesia Intra-op, Routine Given 10/30/2019 9:09 PM EST 100 mcg ketorolac (TORADOL) injection PRN, Starting on 10/31/19 at 0507, Until 11/01/19 at 1727, Anesthesia Intra-op, Routine Given 10/31/2019 5:07 AM EST 15 mg lactated ringers infusion 100 mL/hr, Intravenous, CONTINUOUS, Starting on Fri10/29/19 at 1245, Until Fri11/03/19 at 1246, Maximum 125 mL in one hour. New Bag 10/31/2019 7:23 AM EST 100 mL/hr 100 mL/hr New Bag 10/31/2019 5:59 AM EST New Bag 10/31/2019 5:17 AM EST lidocaine (PF) (XYLOCAINE) 20 mg/mL (2 %) injection PRN, Starting on 10/31/19 at 0401, Until Fri11/01/19 at 1727, Anesthesia Intra-op, Routine Given 10/31/2019 4:45 AM EST 5 mg Given 10/31/2019 4:11 AM EST 5 mg Given 10/31/2019 4:09 AM EST 5 mg lidocaine (XYLOCAINE) 10 mg/mL (1 %) injection PRN, Starting on 10/31/19 at 0627, Until 11/01/19 at 1727, Anesthesia Intra-op, Routine Given 10/31/2019 6:27 AM EST 10 mLs lidocaine-EPINEPHrine 1.5 %-1:200,000 injection Epidural, PRN, Starting on 10/30/19 at 1658, Until Fri11/01/19 at 1727, Anesthesia Intra-op, Routine Given 10/30/2019 4:58 PM EST 3 mLs midazolam (PF) (VERSED) multi-dose injection PRN, Starting on 10/31/19 at 0648, Until Fri11/01/19 at 1727, Anesthesia Intra-op, Routine Given 10/31/2019 6:48 AM EST 2 mg morphine (PF) (DURAMORPH) injection PRN, Starting on 10/31/19 at 0458, Until Fri11/01/19 at 1727, Anesthesia Intra-op, Routine Given 10/31/2019 4:58 AM EST 3 mg ondansetron (ZOFRAN) injection PRN, Starting on 10/31/19 at 0403, Until Fri11/01/19 at 1727, Anesthesia Intra-op, Routine Given 10/31/2019 4:03 AM EST 8 mg oxytocin (PITOCIN) 30 units in sodium chloride 0.9% 500 mL infusion CONTINUOUS PRN, Starting on 10/31/19 at 0431, Until Fri11/01/19 at 1727, Anesthesia Intra-op, Routine New Bag 10/31/2019 4:31 AM EST 750 mL/hr 750 mL/hr oxytocin (PITOCIN) injection PRN, Starting on 10/31/19 at 0431, Until Fri11/01/19 at 1727, Anesthesia Intra-op, Routine Given 10/31/2019 5:29 AM EST 3 Units Given 10/31/2019 4:31 AM EST 3 Units PHENYLephrine (JULIO C-SYNEPHRINE) 20 mg in sodium chloride 250 mL (standard ADULT & Pedi greater than 20kg) infusion CONTINUOUS PRN, Starting on 10/31/19 at 0423, Until Fri11/01/19 at 1727, Anesthesia Intra-op, Routine Rate/Dose Change 10/31/2019 6:02 AM EST 60 mcg/min 45 mL/hr Rate/Dose Change 10/31/2019 5:19 AM EST 100 mcg/min 75 mL/ hr Rate/Dose Change 10/31/2019 5:04 AM EST 80 mcg/min 60 mL/h r promethazine (PHENERGAN) injection PRN, Starting on 10/31/19 at 0505, Until Fri11/01/19 at 1727, Anesthesia Intra-op Given 10/31/2019 5:05 AM EST 7.5 mg sodium chloride 0.9% infusion CONTINUOUS PRN, Starting on 10/31/19 at 0559, Until 11/01/19 at 1727, Anesthesia Intra-op New Bag 10/31/2019 5:59 AM EST tranexamic acid (CYKLOKAPRON) 100 mg/mL bolus injection (Anesthesia) PRN, Starting on 10/31/19 at 0528, Until 11/01/19 at 1727, Anesthesia Intra-op, Routine Given 10/31/2019 5:28 AM EST 1,000 mg documented in this encounter Care Teams Graphic Designer Relationship Specialty Start Date End Date Lynn López, BITUMINOUS PAVING MACHINE OPERATOR PCP - General Family Medicine 03/17/17 documented as of this encounter
--- OUTSIDE RECORDS SUMMARY | 2024-08-23 12:32 | XMS_ITS | Encounter Summary ---
Author Organization [facility] [place] [address] Care Team Providers Care Director Of Event Management Name Role Phone Lynn López APRN Primary Care Provider [phone] Reason for Visit * Auth/Cert Specialty Diagnoses / Procedures Referred By Cate ruelas Referred To Contact Diagnoses Pre-eclampsia Procedures URGENT IPI Referral ID Status Reason Start Date Expiration Date Visits Re quested Visits Authorized [id number] 1 1 Encounter Details Date Type Department Care Team (Late st Contact Info) Description 10/29/2019 10:30 AM EST Routine Obstetrics [place] [address] Collin Venegas MD [facility] [address] OBSTETRICS [place] [address] GA: 37w2d Social History Tobacco Use Types Packs/Day Years [...] Sign Reading Time Taken Comments Blood Pressure 150/110 10/29/2019 10:57 AM EST Pulse - - Temperature - - Respiratory Rate - - Oxygen Saturation - - Inhaled Oxygen Concentration - - Weight 88 kg (194 lb) 10/29/2019 10:08 AM EST Height - - Body Mass Index 34.37 09/29/2019 8:20 PM EST documented in this encounter Progress Notes * Darling Ballard RN - 10/29/2019 10:30 AM EST Liza Polanco [place] here for nst due to chronic HTN on labetalol. Denied leaking of fluid, visual changes, RUQ pain, or regular contractions. Reports good movement. Has had some headaches but she feels like they are stress related. When she drinks more water they go away. NST Fetus A 10/29/2019 HR (Beats/Min) 130 HR Variability moderate (amplitude range 6 to 25 bpm) HR Accelerations present;greater than/equal to 15 bpm;lasting at least 15 seconds HR Decelerations none Contraction Frequency (Minutes) none Nonstress Test Interpretation Reactive, >32 weeks: two 15 bpm accelerations lasting 15 seconds Overall Impression Reassuring for gestational age Comments Reviewed with [facility] * Collin Venegas MD - 10/29/2019 10:30 AM EST 37w2d BP (!) 149/101 Wt 88 kg (194 lb) BMI 34.37 kg/m?? Repeat 150/110 Has intermittant headaches which she attributes to stress at work. She denies vision changes and RUQ pain. Good movement. No leaking, luis, bleeding. To BP triage for evaluation for superimposed preeclampsia. documented in this encounter Plan of Treatment Not on file documented as of this encounter Procedures Procedure Name Priority Date/Time Associated Diagnosis Comments POCT URINE DIPSTICK Routine 10/29/2019 1 0:23 AM EST documented in this encounter Results * (ABNORMAL) Protein/Creatinine Ratio, urine (10/29/2019 10:40 AM EST) Creatinine, Urine 58 mg/dL [facility] Protein, Urine 23(H) 0 - 12 mg/dL [facility] Protein / Creatinine Ratio, Urine 0.[address] [facility] Urine specimen (specimen) 10/29/2019 10:40 AM EST 10/29/2019 10:55 AM EST Narrative Resulting Agency Comment Spec In Lab E Dena Venegas MD URINE ORDERABLES [facility] [place] [address] * POCT urine dipstick (10/29/2019 10:23 AM EST) POC Protein, UA 30+ Negative - Negative mg/dL POC Glucose, UA Neg Normal - Normal mg/dL 10/29/2019 10:2 3 AM EST E Dena Venegas MD POINT OF CARE DONTA T ORDERABLES documented in this encounter Visit Diagnoses Diagnosis Hypertension affecting in third trimester documented in this encounter Care Teams Director Of Event Management Relationship Specialty Start Date End Date Lynn López, REFINERY PIPELINE OPERATOR PCP - General Family Medicine 03/17/17 documented as of this encounter
--- OUTSIDE RECORDS SUMMARY | 2024-08-23 12:32 | XMS_ITS | Encounter Summary ---
Author Organization [facility] [address] Care Team Providers Care Sailing Instructor Name Role Phone Rene Lynn Polanco APRN Primary Care Provider [phone] Reason for Visit * Reason Comments Hypertension * Auth/Cert Specialty Diagnoses / Procedures Referred By Contac t Referred To Contact Diagnoses Pre-eclampsia Procedures URGENT IPI Referral ID Status Reason Start Date Expiration Date Visits Re quested Visits Authorized [id number] 1 1 Encounter Details Date Type Department Care Team (Late st Contact Info) Description 10/31/2019 4:00 AM EST - 10/31/2019 5:52 AM [place] [address] Farzana Velasquez MD [facility] OBSTETRICS [place] [address] @ DELIVERY (WRVU 16.13) Social History Tobacco Use Types Packs/Day Years [...] Sign Reading Time Taken Comments Blood Pressure 153/88 10/31/2019 3:42 AM EST Pulse 84 10/31/2019 3:42 AM EST Temperature 36.8 ??C (98.2 ??F) 10/31/2019 3:42 AM ES T Respiratory Rate 18 10/31/2019 1:25 AM EST Oxygen Saturation 100% 10/31/2019 1:47 AM EST Inhaled Oxygen Concentration - - Weight - - Height - - Body Mass Index - - documented in this encounter Discharge Summaries * Heike Raygoza - 11/03/2019 10:46 AM EST Images from the original note were not included. Discharge Summary Patient Name: René Rausch Patient Age: 24 y.o. Language: American Race: White Ethnicity: Not nor Admit date: 10/29/2019 Discharge date and time: 11/03/2019 Attending Physician: Argelia att. providers found Discharge Physician: Jose Luis Alexandre MD Care Provider: [facility] Referring Hospital: N/A Follow-up Recommendations for Providers: - PPD#7 BP check - 2 week depression screen -- Routine 6 week visit with care provider Inpatient Provider Contact Information: [facility] CONTRACT MANAGER Department, Discharge Diagnoses (Hospital Problems) and [...] (per admit note cut and paste) René Rausch is a 24 y.o. at 37w2d gestation [...] and Events René was admitted to the [facility] and started on MgSO4 for seizure prophylaxis. [...] resulted in delivery of a viable female infant with APGARs of 6 and 10 and [...] in the PACU [facility]. The Bakri balloon was kept [...] Delivery Information Information for the patient's : [place], Baby Girl [[id number]] INFORMATION Baby Girl [place] 10/31/2019 4:30 AM by Lower Segment Transverse Sex: female Gestational Age: 37w4d [place] Measurements: Weight: 6 lb 2.9 oz (2805 [...] give you one. Call your doctor or sound technician for: ??? Seizure (call 911) ??? Headache [...] prior to you follow up appointment. Your [facility] Provider can be reached during office hours at ??? Midwives ??? Obstetricians ??? Services AFTER OFFICE HOURS for the manufacturing technology analyst or sound technician phone triage specialist Provider electronic signature confirms that discharge instructions were reviewed with the patient. A copy was printed and given to the patient. Future Appointments and Orders Future Appointments and Orders Future Appointments Provider Department Dept Phone 11/08/2019 10:30 AM Mary Higgins RN Obstetrics and Gynecology at [facility] Arrive at: Rehab Office Coordinator Area 5L [phone] Discharge References/Attachments None documented in this encounter [...] use is a concern in [place] and [place]. We recommend that families with any member at risk for overdose have a prescription for naloxone to reverse an overdose. Your providers would be happy to give you one. Call your doctor or sound technician for: ??? Seizure (call 911) ??? Headache [...] prior to you follow up appointment. Your [facility] Provider can be reached during office hours at ??? Midwives ??? Obstetricians ??? Services AFTER OFFICE HOURS for the manufacturing technology analyst or sound technician phone triage specialist Provider electronic signature confirms that discharge instructions [...] numbers provided if needed. * Heike Raygoza - 11/03/2019 6:33 AM EST Delivery Note Information for the patient's : Jaja, Baby Girl [[id number]] Delivery Date and Time:10/31/2019 4:30 AM Delivery Type: Lower Segment Transverse Patient ID: René Rausch is a 24 y.o. POD#3 s/p pLTCS for arrest of descent and NRFHT [id number] following IOL for preeclampsia with SF by [...] Immunization status: Up to date Assessment: René Rausch is a 24 y.o. POD#3 s/p pLTCS for arrest of descent and NRFHT [id number] following IOL for preeclampsia with SF by [...] time Plan: -- course: fully advanced -- Infant nutrition: pumping, continue support -- Contraception: POPs [...] for the patient's : Jaja, Baby Girl [[id number]] Delivery Date and Time:10/31/2019 4:30 AM Delivery Type: Lower Segment Transverse Patient ID: René Rausch is a 24 y.o. year old POD#2 [...] Immunization status: Up to date Assessment: René Rausch is a 24 y.o. year old POD#2 [...] Delivery Note Information for the patient's : Jaja Baby Girl [[id number]] Delivery Date and Time:10/31/2019 4:30 AM Delivery Type: Lower Segment Transverse Patient ID: René Rausch is a 24 y.o. year old POD#1 [...] Immunization status: Up to date Assessment: René Rausch is a 24 y.o. year old POD#1 [...] Stage Labor Progress Note Patient ID: René Rausch is a 24 y.o. at 37w3d gestation. A multidisciplinary meeting was held to discuss discuss maternal/ status. This included the charge nurse (Tay), Labor nurse (Roman), Attending Surgical Assistant Certified (Eva), and Miguel OB resident (Geeta). The [...] prostaglandins to hasten ripening. She declined this. [place] would be unable to tolerate. I recommended [...] 115, mod variability, + accels, no decels [place]: irreg ctx Lab Results Component Value Date GBSSCREEN Neg 09/30/2019 Assessment & Plan This is René Polanco [place] who is at 37w2d Admitted for IOL [...] nose, and being hot and then cold MD notified. Orders received. Linins changed, room temp [...] documented in this encounter H&P Notes * Heike Raygoza - 10/29/2019 12:30 PM EST Obstetrical Term Admission Note René Rausch is a 24 y.o. at 37w2d gestation [...] 130, Variability: moderate, Accels: yes, Decels: none, [place]: none Reactive NST Lab Results Component Value Date ABORH B Pos 09/29/2019 HCT 41.0 10/29/2019 HGB 13.2 10/29/2019 MCV 88.9 10/29/2019 HEPBSAG Negative (External Lab) 05/25/2019 RUBLIGG Positive (External Lab) 05/25/2019 HIV12 Negative (External Lab) 05/25/2019 [id number] 0.28 (H) 10/01/2019 AST 25 10/29/2019 Lab Results Component Value Date GBSSCREEN Neg 09/30/2019 Recent Labs 10/29/19 1151 WBC 9.0 HGB 13.2 HCT 41.0 PLATELET 194 Recent Labs 10/29/19 1151 CREATININE 0.68* Lab Results Component Value Date AST 25 10/29/2019 Results for RENÉ RAUSCH ( ) as of 10/29/2019 13:16 Ref. Range 10/29/2019 10:40 Prot/Cre Ratio Latest Units: ratio 0.4 Most Recent Growth Ultrasound Date: 09/30/19 GA at US: 33+1 EFW: 2167 g Growth appropriate for gestational age (71%ile) Amniotic fluid volumenormal Placenta posterior Presentation cephalic Assessment & Plan René Polanco [place] is a 24 y.o. at 37w2d being [...] seen and discussed with Dr. Lion, Attending CONTRACT MANAGER. Heike Raygoza MD PGY4 10/29/2019 Associated [...] incision WNL. Bonding well with baby. Lochia light, FF. \ PLAN MOVING FORWARD: VS per [...] Outcome: Ongoing (Interventions Implemented as Appropriate) 11/03/19 05 Mutuality/Individual Preferences What Anxieties, Fears or Concerns [...] CPG). Outcome: Ongoing (Interventions Implemented as Appropriate) 11/03/19520 Delivery Problems Assessed ( Delivery) all Problems [...] a discharge folder. Nely Jeronimo RN, IBCLC [facility] Services * L&D Delivery Note - Farzana Velasquez MD - 10/31/2019 12:51 PM EST Images from the original note were not included. Section Delivery Note René Rausch is a 24 y.o. woman at 37w4d [...] VELASQUEZ MD Information for the patient's : [place], Baby Girl [[id number]] DELIVERY SUMMARY FOR Baby Girl [place] (please note there is a separate summary for each fetus) 10/31/2019 4:30 AM by Lower Segment Transverse Sex: female Gestational Age: 37w4d Labor Events labor?: No GBS colonized: negative Cervical ripening type: Misoprostol Rupture date/time: 10/30/2019 184 Rupture type: artificial rupture of membranes Fluid color: clear Maternal Delivery Complications: chtn, preeclampsia with severe features, uterine atony, postpartumhemorrhage Labor Event Times Dilation complete date/time: 10/30/20192307 Start pushing date/time: 10/31/2019 0145 Mother Delivery Surgical or additional est. blood loss (mL): 4.5 Combined est. blood loss (mL): 4.5 Delivery ([place]) Delivery Date: 10/31/19 Delivery Date: 4:30:00 AM Sex: Female Presentation: Vertex Attempted ?: No Delivery Type: Delivery Type (Specific): Lower Segment Transverse Major Indications - : non-reassuring state Contributing Factors - : arrest of decent Shoulder Dystocia Shoulder dystocia present?: No Delivery Information Delivery Location: OR Delivering Clinician: Hawa Connor MD ICN Staff Present: Yes Other Personnel: Provider Role Kanwal Owens, beam dyer operator Nurse Farzana Velasquez MD Surgical Assistant Certified Annie Esparza RN Delivery Assist Anesthesia Method: [...] x 3 mins with consistent improvement Maternal [place] Feeding and Skin to Skin Maternal Choice for (s) Feeding on Admission: Pumping with Donor Human Milk or Expressed Breastmilk Supplementation Reason skin to skin not initiated: [place] Acuity Medications Medications Given: erythromycin, vitamin K Measurements [...] included. Operative Note ?? Patient Name: René Rausch : [id number] MR#: [id number] ?? Case Date: 10/31/2019 ?? Surgeon: Surgeon(s) [...] balloon ?? HPI/ Indications for Procedure: René Rausch is a 24 y.o. who was admitted [...] was applied to facilitate delivery of the . The head and shoulders delivered easily. Live born female was delivered. The cord was doubly clamped and cut. The infant was handed off to the [facility], who assigned Apgars of 6 and [...] postoperative care and management. The patient and infant tolerated the procedure and were in overall satisfactory condition at its conclusion. . Dr. Velasquez, Attending OBGYN, was present for entire procedure. Hawa Connor MD PGY-2 10/31/2019 cord gases: I supervised the delivery described above and agree with this note. I was present and I participated in the entire delivery. Please see the operative note for further details. FARZANA VELASQUEZ MD * Brief Op Note - Farzana Velasquez MD - 10/31/2019 6:16 AM EST Brief Operative Note Patient Name: René Rausch : [id number] MR#: [id number] Case Date: 10/31/2019 Surgeon: Surgeon(s) and Role: [...] Other Output: (no other output recorded) Drains: goznalez, Bakri Specimens removed during surgery: placenta Disposition: [...] PM EST Obstetrical Term Admission Note René Rausch is a 24 y.o. 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 She's had no visual changes, swelling of hands/face/feet, or RUQ pain. Good movement. No bleeding, leaking of fluid, or contractions. Reactive NST this AM in clinic. No nausea, vomiting, diarrhea. No dysuria, hematuria. No chest pain, shortness of breath. She has felt well recently. Blood pressure checks at the last two weekly [facility] clinic visits have been mildly elevated; home BP cuff is bro jane. ?? Of note, she was admitted to [facility] on September 29, 2019 for hypertension. The day before that admission, she was switched from 100 mg PO labetalol to nifedipine. She then felt unwell and had a mild headache. She had her pressure taken at [facility] and was instructed to go to [facility]. She was started on Mg and transferred to [facility]. At [facility], she had 24 hour urine < 300 [...] 130, Variability: moderate, Accels: yes, Decels: none, [place]: none Category: I Lab Results Component Value Date ABORH B Pos 09/29/2019 HCT 41.0 10/29/2019 HGB 13.2 10/29/2019 MCV 88.9 10/29/2019 HEPBSAG Negative (External Lab) 05/25/2019 RUBLIGG Positive (External Lab) 05/25/2019 HIV12 Negative (External Lab) 05/25/2019 [id number] 0.28 (H) 10/01/2019 AST 25 10/29/2019 Lab Results Component Value Date GBSSCREEN Neg 09/30/2019 Most Recent Growth Ultrasound Date: 09/30/2019 GA at US: 32w6d EFW: 2167 g Growth appropriate for gestational age Amniotic fluid volumenormal Placenta posterior Presentation cephalic Assessment & Plan René Rausch is a 24 y.o. at 37w2d with [...] seen and discussed with Dr. Lion, Attending CONTRACT MANAGER. Neelam Moura 10/29/2019 documented in this encounter Plan of [...] STAT 10/31/2019 5:40 AM EST Delivery Only ([id number]) 10/31/2019 3:45 AM EST HEMOGRAM Routine 10/30/2019 [...] 6:40 AM EST) Neutrophil % 80.1 % [facility] Neutrophil Absolute 8.39(H) 1.70 - 6.10 x10(3)/mc L [facility] Lymph % 11.6 % [facility] Lymphocytes Abs 1.2 0.9 - 3.2 x10(3)/mc L [facility] Monocyte % 6.5 % [facility] Monocyte Abs 0.7 0.3 - 0.9 x10(3)/mc L [facility] Eos % 1.0 % [facility] Eosinophils Abs 0.1 0.0 - 0.4 x10(3)/mc L [facility] Basophil % 0.1 % [facility] Baso Absolute 0.0 0.0 - 0.1 x10(3)/mc L [facility] Immature Gran % 0.70 % [facility] Comment: Immature granulocytes(IG's)percentage and absolute count will include metamyelocytes, myelocytes, and promyelocytes. Blood smears from CBCs yielding IG's will be scanned manually for concordance. If this scan disagrees with the automated IG or if promyelocytes are noted, a manual differential will be performed. Immature Gran Absolute 0.07(H) 0.00 - 0.04 x10(3)/mc L [facility] Blood specimen (specimen) 11/02/2019 6:40 AM EST 11/02/2019 6:56 AM EST Narrative Resulting Agency Comment Spec In Lab Mireya Sanders DO HEMATOLOGY ORDERABL ES [facility] [place] [address] * (ABNORMAL) Hemogram (11/02/2019 6:40 AM EST) White Blood Cell 10.5(H) 4.0 - 9.5 x10(3)/mc L [facility] Red Blood Cell 2.51(L) 4.00 - 5.21 x10(6)/mc L [facility] Hemoglobin 7.4(L) 11.7 - 15.5 gm/dL [facility] Hematocrit 22.7(L) 35.7 - 45.8 % [facility] Mean Cell Volume 90.4 82.6 - 94.4 fL [facility] Mean Cell Hemoglobin 29.5 27.1 - 32.0 pg [facility] Mean Cell Hemoglobin Concentration 32.6 31.7 - 35.0 gm/dL [facility] Platelet 149 145 - 357 x10(3)/mc L [facility] RDW Standard Deviation 44.9 37.0 - 46.0 fL [facility] RDW coefficient of variation 13.6 11.5 - 14.1 % [facility] Mean Platelet Volume 11.1 7.6 - 12.9 fL [facility] NRBC% auto 0.0 % [facility] NRBC Absolute 0.000 0.000 - 0.000 x10(3)/mc L [facility] Blood specimen (specimen) 11/02/2019 6:40 AM EST 11/02/2019 6:56 AM EST Narrative Resulting Agency Comment Spec In Lab Mireya Sanders DO HEMATOLOGY ORDERABL ES [facility] [place] [address] * (ABNORMAL) Basic Metabolic Panel (non-fasting) (11/02/2019 6:40 AM EST) Glucose 120 65 - 199 mg/dL [facility] Comment:Diabetes: >=200 mg/d L plus symptoms Blood Urea Nitrogen 5(L) 8 - 18 mg/dL [facility] Creatinine 0.59(L) 0.70 - 1.20 mg/dL [facility] Sodium 137 135 - 145 mmol/L [facility] Potassium 4.1 3.5 - 5.0 mmol/L [facility] Comment: Please note: ??Patients with WBC >100,000 may have falsely elevated Potassium levels. ??For accurate Potassium quantification in these patients send serum separator tube (gold top) for subsequent determinations. ??Contact the Clinical Chemistry Laboratory if there are any questions. Chloride 106 98 - 107 mmol/L [facility] Carbon Dioxide 23 22 - 31 mmol/L [facility] Anion Gap 8 5 - 15 mmol/L [facility] Calcium 6.8(Criti stacey) 8.5 - 10.5 mg/dL [facility] Comment:Called by: ENRIQUETA, Read back by: Stefani Cartwright_, Date/Time:11/02/19 07:36. Est Glomerular Filtration Rate 126 >=60 mL/min/1. 73 m?? [facility] Comment: The eGFR was calculated using the CKD-EPI equation. As with all creatinine based estimates of kidney function, eGFR values calculated with the CKD-EPI equation are not accurate in patients with acute kidney failure, extremes of body mass or the acutely ill. http://[email or web address]/DHMCnkf eGFR 147 >=60 mL/min/1. 73 m?? [facility] Comment: The eGFR was calculated using the CKD-EPI equation. As with all creatinine based estimates of kidney function, eGFR values calculated with the CKD-EPI equation are not accurate in patients with acute kidney failure, extremes of body mass or the acutely ill. [email or web address] Blood specimen (specimen) 11/02/2019 6:40 AM EST 11/02/2019 6:56 AM EST Narrative Resulting Agency Comment Spec In Lab Teressa Hahn MD CHEMISTRY ORDERABLES [facility] [place] [address] * (ABNORMAL) Differential, Automated (11/01/2019 5:42 PM EST) Neutrophil % 78.9 % [facility] Neutrophil Absolute 10.78(H) 1.70 - 6.10 x10(3)/mc L [facility] Lymph % 13.6 % [facility] Lymphocytes Abs 1.9 0.9 - 3.2 x10(3)/mc L [facility] Monocyte % 5.9 % [facility] Monocyte Abs 0.8 0.3 - 0.9 x10(3)/mc L [facility] Eos % 0.7 % [facility] Eosinophils Abs 0.1 0.0 - 0.4 x10(3)/mc L [facility] Basophil % 0.2 % [facility] Baso Absolute 0.0 0.0 - 0.1 x10(3)/mc L [facility] Immature Gran % 0.70 % [facility] Comment: Immature granulocytes(IG's)percentage and absolute count will include metamyelocytes, myelocytes, and promyelocytes. Blood smears from CBCs yielding IG's will be scanned manually for concordance. If this scan disagrees with the automated IG or if promyelocytes are noted, a manual differential will be performed. Immature Gran Absolute 0.09(H) 0.00 - 0.04 x10(3)/mc L [facility] Blood specimen (specimen) 11/01/2019 5:42 PM EST 11/01/2019 5:56 PM EST Narrative Resulting Agency Comment Spec In Lab Mame Bazan MD HEMATOLOGY ORDERABLE S [facility] [place] [address] * (ABNORMAL) Hemogram (11/01/2019 5:42 PM EST) White Blood Cell 13.7(H) 4.0 - 9.5 x10(3)/mc L [facility] Red Blood Cell 2.56(L) 4.00 - 5.21 x10(6)/mc L [facility] Hemoglobin 7.6(L) 11.7 - 15.5 gm/dL [facility] Hematocrit 22.9(L) 35.7 - 45.8 % [facility] Mean Cell Volume 89.5 82.6 - 94.4 [facility] Mean Cell Hemoglobin 29.7 27.1 - 32.0 pg [facility] Mean Cell Hemoglobin Concentration 33.2 31.7 - 35.0 gm/dL [facility] Platelet 149 145 - 357 x10(3)/mc L [facility] RDW Standard Deviation 45.0 37.0 - 46.0 [facility] RDW coefficient of variation 13.9 11.5 - 14.1 % [facility] Mean Platelet Volume 12.0 7.6 - 12.9 [facility] NRBC% auto 0.0 % [facility] NRBC Absolute 0.000 0.000 - 0.000 x10(3)/[facility] Blood specimen (specimen) 11/01/2019 5:42 PM EST 11/01/2019 5:56 PM EST Narrative Resulting Agency Comment Spec In Lab Mame Bazan MD [place] [address] * (ABNORMAL) Differential, Automated (11/01/2019 6:15 AM EST) Pathologist [facility] Neutrophil % 82.1 % [facility] Neutrophil Absolute 13.17(H) 1.70 - 6.10 x10(3)/ L [facility] Lymph % 11.5 % [facility] Lymphocytes Abs 1.8 0.9 - 3.2 x10(3)/ L [facility] Monocyte % 5.3 % [facility] Monocyte Abs 0.8 0.3 - 0.9 x10(3)/[facility] Eos % 0.4 % [facility] Eosinophils Abs 0.1 0.0 - 0.4 x10(3)/[facility] Basophil % 0.1 % [facility] Baso Absolute 0.0 0.0 - 0.1 x10(3)/[facility] Immature Gran % 0.60 % [facility] Comment: Immature granulocytes(IG's)percentage and absolute count will include metamyelocytes, myelocytes, and promyelocytes. Blood smears from CBCs yielding IG's will be scanned manually for concordance. If this scan disagrees with the automated IG or if promyelocytes are noted, a manual differential will be performed. Immature Gran Absolute 0.09(H) 0.00 - 0.04 x10(3)/ L [facility] Blood specimen (specimen) 11/01/2019 6:15 AM EST 11/01/2019 6:37 AM EST Narrative Resulting Agency Comment Spec In Lab Dajuan Griffin MD [place] [address] * (ABNORMAL) Hemogram (11/01/2019 6:15 AM EST) [facility] White Blood Cell 16.0(H) 4.0 - 9.5 x10(3)/ L [facility] Red Blood Cell 2.57(L) 4.00 - 5.21 x10(6)/mc L [facility] Hemoglobin 7.6(L) 11.7 - 15.5 gm/dL [facility] Hematocrit 22.2(L) 35.7 - 45.8 % [facility] Mean Cell Volume 86.4 82.6 - 94.4 fL [facility] Mean Cell Hemoglobin 29.6 27.1 - 32.0 pg [facility] Mean Cell Hemoglobin Concentration 34.2 31.7 - 35.0 gm/dL [facility] Platelet 139(L) 145 - 357 x10(3)/ L [facility] RDW Standard Deviation 42.5 37.0 - 46.0 [facility] RDW coefficient of variation 13.7 11.5 - 14.1 % [facility] Mean Platelet Volume 12.1 7.6 - 12.9 fL [facility] NRBC% auto 0.0 % [facility] NRBC Absolute 0.000 0.000 - 0.000 x10(3)/[facility] Blood specimen (specimen) 11/01/2019 6:15 AM EST 11/01/2019 6:37 AM EST Narrative Resulting Agency Comment Spec In Lab Dajuan Griffin MD HEMATOLOGY ORDERAB LES [facility] [place] [address] * (ABNORMAL) Basic Metabolic Panel (non-fasting) (11/01/2019 6:15 AM EST) Pathologist [facility] Glucose 130 65 - 199 mg/dL [facility] Comment:Diabetes: >=200 mg/d L plus symptoms Blood Urea Nitrogen 7(L) 8 - 18 mg/dL [facility] Creatinine 0.71 0.70 - 1.20 mg/dL [facility] Sodium 136 135 - 145 mmol/L [facility] Potassium 3.8 3.5 - 5.0 mmol/L [facility] Comment: Please note: ??Patients with WBC >100,000 may have falsely elevated Potassium levels. ??For accurate Potassium quantification in these patients send serum separator tube (gold top) for subsequent determinations. ??Contact the Clinical Chemistry Laboratory if there are any questions. Chloride 103 98 - 107 mmol/L [facility] Carbon Dioxide 27 22 - 31 mmol/L [facility] Anion Gap 6 5 - 15 mmol/L [facility] Calcium 6.3(Criti stacey) 8.5 - 10.5 mg/dL [facility] Comment: Results rechecked-[facility] Called by: colin, Read back by: kathia rodriguez_, Date/Time:11/01/19 07:31. Est Glomerular Filtration Rate 118 >=60 mL/min/1. 73 m?? [facility] Comment: The eGFR was calculated using the CKD-EPI equation. As with all creatinine based estimates of kidney function, eGFR values calculated with the CKD-EPI equation are not accurate in patients with acute kidney failure, extremes of body mass or the acutely ill. [email or web address] eGFR 136 >=60 mL/min/1. 73 m?? [facility] Comment: The eGFR was calculated using the CKD-EPI equation. As with all creatinine based estimates of kidney function, eGFR values calculated with the CKD-EPI equation are not accurate in patients with acute kidney failure, extremes of body mass or the acutely ill. [email or web address] Blood specimen (specimen) 11/01/2019 6:15 AM EST 11/01/2019 6:37 AM EST Narrative Resulting Agency Comment Spec In Lab Teressa Hahn MD CHEMISTRY ORDERABLES [facility] [place] [address] * (ABNORMAL) Differential, Automated (10/31/2019 5:15 PM EST) Pathologist [facility] Neutrophil % 84.3 % [facility] Neutrophil Absolute 17.66(H) 1.70 - 6.10 x10(3)/ L [facility] Lymph % 9.3 % [facility] Lymphocytes Abs 1.9 0.9 - 3.2 x10(3)/[facility] Monocyte % 5.5 % [facility] Monocyte Abs 1.2(H) 0.3 - 0.9 x10(3)/[facility] Eos % 0.0 % [facility] Eosinophils Abs 0.0 0.0 - 0.4 x10(3)/[facility] Basophil % 0.2 % [facility] Baso Absolute 0.0 0.0 - 0.1 x10(3)/[facility] Immature Gran % 0.70 % [facility] Comment: Immature granulocytes(IG's)percentage and absolute count will include metamyelocytes, myelocytes, and promyelocytes. Blood smears from CBCs yielding IG's will be scanned manually for concordance. If this scan disagrees with the automated IG or if promyelocytes are noted, a manual differential will be performed. Immature Gran Absolute 0.14(H) 0.00 - 0.04 x10(3)/[facility] Blood specimen (specimen) 10/31/2019 5:15 PM EST 10/31/2019 5:30 PM EST Narrative Resulting Agency Comment Spec In Lab Heike Raygoza MD HEMATOLOGY ORDERABLE S [facility] [place] [address] * (ABNORMAL) Hemogram (10/31/2019 5:15 PM EST) [facility] White Blood Cell 20.9(H) 4.0 - 9.5 x10(3)/mc L [facility] Red Blood Cell 2.79(L) 4.00 - 5.21 x10(6)/mc L [facility] Hemoglobin 8.2(L) 11.7 - 15.5 gm/dL [facility] Hematocrit 24.3(L) 35.7 - 45.8 % [facility] Mean Cell Volume 87.1 82.6 - 94.4 fL [facility] Mean Cell Hemoglobin 29.4 27.1 - 32.0 pg [facility] Mean Cell Hemoglobin Concentration 33.7 31.7 - 35.0 gm/dL [facility] Platelet 125(L) 145 - 357 x10(3)/ L [facility] RDW Standard Deviation 41.5 37.0 - 46.0 fL [facility] RDW coefficient of variation 13.2 11.5 - 14.1 % [facility] Mean Platelet Volume 11.9 7.6 - 12.9 fL [facility] NRBC% auto 0.0 % [facility] NRBC Absolute 0.000 0.000 - 0.000 x10(3)/ L [facility] Blood specimen (specimen) 10/31/2019 5:15 PM EST 10/31/2019 5:30 PM EST Narrative Resulting Agency Comment Spec In Lab Heike Raygoza MD HEMATOLOGY ORDERABLE S [facility] [place] [address] * Syphilis Screening Antibody with reflex RPR (10/31/2019 5:15 PM EST) Syphilis IgG/IgM Negative Negative [facility] Blood specimen (specimen) 10/31/2019 5:15 PM EST 10/31/2019 5:30 PM EST Narrative Resulting Agency Comment Spec In Lab Teressa Hahn MD CHEMISTRY ORDERABLES Performing Organization Address [facility]/ZIP Co de Phone Number [facility] [place] [address] * (ABNORMAL) Magnesium (10/31/2019 5:15 PM EST) Magnesium 2.62(Criti stacey) 0.69 - 1.07 mmol/L [facility] Comment:Called by: , Read back by: Teressa Mejia, Date/Time:10/31/19 18:09. Blood specimen (specimen) 10/31/2019 5:15 PM EST 10/31/2019 5:30 PM EST Narrative Resulting Agency Comment Spec In Lab Sarah Gonzalez MD CHEMISTRY ORDERABL ES Performing Organization Address [facility] Co de Phone Number [facility] [place] [address] * (ABNORMAL) Basic Metabolic Panel (non-fasting) (10/31/2019 5:15 PM EST) Glucose 111 65 - 199 mg/dL [facility] Comment:Diabetes: >=200 mg/d L plus symptoms Blood Urea Nitrogen 10 8 - 18 mg/dL [facility] Creatinine 0.92 0.70 - 1.20 mg/dL [facility] Sodium 131(L) 135 - 145 mmol/L [facility] Potassium 4.5 3.5 - 5.0 mmol/L [facility] Comment: Please note: ??Patients with WBC >100,000 may have falsely elevated Potassium levels. ??For accurate Potassium quantification in these patients send serum separator tube (gold top) for subsequent determinations. ??Contact the Clinical Chemistry Laboratory if there are any questions. Chloride 97(L) 98 - 107 mmol/L [facility] Carbon Dioxide 24 22 - 31 mmol/L [facility] Anion Gap 10 5 - 15 mmol/L [facility] Calcium 6.1(Criti stacey) 8.5 - 10.5 mg/dL [facility] Comment:Called by: sherrill, Read back by: Teressa Mejia, Date/Time:10/31/19 18:09. Est Glomerular Filtration Rate 86 >=60 mL/min/1. 73 m?? [facility] Comment: The eGFR was calculated using the CKD-EPI equation. As with all creatinine based estimates of kidney function, eGFR values calculated with the CKD-EPI equation are not accurate in patients with acute kidney failure, extremes of body mass or the acutely ill. [email or web address] eGFR 100 >=60 mL/min/1. 73 m?? [facility] Comment: The eGFR was calculated using the CKD-EPI equation. As with all creatinine based estimates of kidney function, eGFR values calculated with the CKD-EPI equation are not accurate in patients with acute kidney failure, extremes of body mass or the acutely ill. [email or web address] Blood specimen (specimen) 10/31/2019 5:15 PM EST 10/31/2019 5:30 PM EST Narrative Resulting Agency Comment Spec In Lab Sarah Gonzalez MD CHEMISTRY ORDERABL ES [facility] [place] [address] * GC/Chlamydia ([facility]/CGP/APD) Urine (10/31/2019 3:07 PM EST) GC Gene Amp Negative Negative [facility] Comment: The only FDA approved specimen types for this assay are cervical, vaginal, urethral and urine. Non-FDA approved sources are eye, throat and rectal and have been internally validated. GC Source Urine [facility] Chlamydia Gene Amp Negative Negative [facility] Comment: The only FDA approved specimen types for this assay are cervical, vaginal, urethral and urine. Non-FDA approved sources are eye, throat and rectal and have been internally validated. Chlm Source Urine [facility] Urine specimen (specimen) 10/31/2019 3:07 PM EST 10/31/2019 4:10 PM EST Narrative Resulting Agency Comment Spec In Lab Teressa Hahn MD MICROBIOLOGY - GENER AL ORDERABLES Performing Organization Address City/[facility]/ZIP Co de Phone Number [facility] [place] [address] * (ABNORMAL) Differential, Automated (10/31/2019 12:00 PM EST) Neutrophil % 85.2 % [facility] Neutrophil Absolute 15.27(H) 1.70 - 6.10 x10(3)/mc L [facility] Lymph % 8.2 % [facility] Lymphocytes Abs 1.5 0.9 - 3.2 x10(3)/[facility] Monocyte % 6.0 % [facility] Monocyte Abs 1.1(H) 0.3 - 0.9 x10(3)/[facility] Eos % 0.0 % [facility] Eosinophils Abs 0.0 0.0 - 0.4 x10(3)/[facility] Basophil % 0.1 % [facility] Baso Absolute 0.0 0.0 - 0.1 x10(3)/[facility] Immature Gran % 0.50 % [facility] Comment: Immature granulocytes(IG's)percentage and absolute count will include metamyelocytes, myelocytes, and promyelocytes. Blood smears from CBCs yielding IG's will be scanned manually for concordance. If this scan disagrees with the automated IG or if promyelocytes are noted, a manual differential will be performed. Immature Gran Absolute 0.09(H) 0.00 - 0.04 x10(3)/ L [facility] Blood specimen (specimen) 10/31/2019 12:00 PM EST 10/31/2019 12:30 PM EST Narrative Resulting Agency Comment Spec In Lab Heike Raygoza MD HEMATOLOGY ORDERABLE S [facility] [place] [address] * (ABNORMAL) Hemogram (10/31/2019 12:00 PM EST) [facility] White Blood Cell 17.9(H) 4.0 - 9.5 x10(3)/mc L [facility] Red Blood Cell 2.84(L) 4.00 - 5.21 x10(6)/mc L [facility] Hemoglobin 8.6(L) 11.7 - 15.5 gm/dL [facility] Hematocrit 25.2(L) 35.7 - 45.8 % [facility] Mean Cell Volume 88.7 82.6 - 94.4 fL [facility] Mean Cell Hemoglobin 30.3 27.1 - 32.0 pg [facility] Mean Cell Hemoglobin Concentration 34.1 31.7 - 35.0 gm/dL [facility] Platelet 131(L) 145 - 357 x10(3)/mc L [facility] RDW Standard Deviation 43.0 37.0 - 46.0 [facility] RDW coefficient of variation 13.2 11.5 - 14.1 % [facility] Mean Platelet Volume 11.7 7.6 - 12.9 fL [facility] NRBC% auto 0.0 % [facility] NRBC Absolute 0.000 0.000 - 0.000 x10(3)/ L [facility] Blood specimen (specimen) 10/31/2019 12:00 PM EST 10/31/2019 12:30 PM EST Narrative Resulting Agency Comment Spec In Lab Heike Raygoza MD HEMATOLOGY ORDERABLE S [facility] [place] [address] * Fibrinogen (10/31/2019 12:00 PM EST) [facility] Fibrinogen 319 200 - 393 mg/dL [facility] Comment: A fibrinogen level >100 mg/dL is adequate for hemostasis in most patients without underlying bleeding disorders. Blood specimen (specimen) 10/31/2019 12:00 PM EST 10/31/2019 12:31 PM EST Narrative Resulting Agency Comment Spec In Lab Sarah Gonzalez MD HEMATOLOGY ORDERAB LES Performing Organization Address City/[facility] Co de Phone Number [facility] [place] [address] * APTT (10/31/2019 12:00 PM EST) Partial Thromboplastin Time 25 25 - 37 sec [facility] Comment: The PTT is NOT appropriate for heparin monitoring. Use the Anti-Xa level for heparin monitoring (HEP UFH) or LMWH monitoring (HEP LMW). A PTT less than 37 seconds generally indicates adequate hemostasis. Blood specimen (specimen) 10/31/2019 12:00 PM EST 10/31/2019 12:31 PM EST Narrative Resulting Agency Comment Spec In Lab Sarah Gonzalez MD HEMATOLOGY ORDERAB LES Performing Organization Address City/[facility] Co de Phone Number [facility] [place] [address] * Prothrombin Time (10/31/2019 12:00 PM EST) Prothrombin Time 10.9 9.4 - 12.5 sec [facility] International Normalization Ratio 0.9 [facility] Comment: An INR <2.0 indicates adequate [...] Lab Sarah Gonzalez MD HEMATOLOGY ORDERAB LES [facility] [place] [address] * (ABNORMAL) Comprehensive metabolic panel (non-fasting) (10/31/2019 12:00 PM EST) Glucose 115 65 - 199 mg/dL [facility] Comment:Diabetes: >=200 mg/d L plus symptoms Blood Urea Nitrogen 9 8 - 18 mg/dL [facility] Creatinine 0.95 0.70 - 1.20 mg/dL [facility] Sodium 129(L) 135 - 145 mmol/L [facility] Potassium 4.3 3.5 - 5.0 mmol/L [facility] Comment: Please note: ??Patients with WBC >100,000 may have falsely elevated Potassium levels. ??For accurate Potassium quantification in these patients send serum separator tube (gold top) for subsequent determinations. ??Contact the Clinical Chemistry Laboratory if there are any questions. Chloride 99 98 - 107 mmol/L [facility] Carbon Dioxide 23 22 - 31 mmol/L [facility] Anion Gap 7 5 - 15 mmol/L [facility] Calcium 6.1(Criti stacey) 8.5 - 10.5 mg/dL [facility] Comment:Called by: GREGORY, Read back by: Celena Crow, Date/Time:10/31/19 13:10. Protein, Total 4.8(L) 6.1 - 8.0 gm/dL [facility] Albumin 2.7(L) 3.2 - 5.2 gm/dL [facility] Aspartate Aminotransferase 28 0 - 30 unit/L [facility] Alanine Aminotransferase 17 0 - 30 unit/L [facility] Alkaline Phosphatase 54 35 - 105 unit/L [facility] Bilirubin, Total 0.8 0.2 - 1.3 mg/dL [facility] Est Glomerular Filtration Rate 83 >=60 mL/min/1. 73 m?? [facility] Comment: The eGFR was calculated using the CKD-EPI equation. As with all creatinine based estimates of kidney function, eGFR values calculated with the CKD-EPI equation are not accurate in patients with acute kidney failure, extremes of body mass or the acutely ill. [email or web address] eGFR 96 >=60 mL/min/1. 73 m?? [facility] Comment: The eGFR was calculated using the CKD-EPI equation. As with all creatinine based estimates of kidney function, eGFR values calculated with the CKD-EPI equation are not accurate in patients with acute kidney failure, extremes of body mass or the acutely ill. [email or web address] Blood specimen (specimen) 10/31/2019 12:00 PM EST 10/31/2019 12:31 PM EST Narrative Resulting Agency Comment Spec In Lab Sarah Gonzalez MD CHEMISTRY ORDERABL ES Performing Organization Address [facility] de Phone Number [facility] [place] [phone] * Specimen to Pathology (10/31/2019 8:30 AM EST) AP Specimen 10/31/2019 8:30 AM EST 10/31/2019 8:30 AM EST Narrative [facility] - 10/31/2019 8:30 AM EST Specimen requisition ordered. ??Separate Pathology report to follow Farzana Velasquez MD PATHOLOGY/CYTOLOGY O RDERABLES Performing Organization Address [facility] de Phone Number [facility] [place] [phone] * Surgical Pathology Report (10/31/2019 6:40 AM EST) Final Diagnosis [id number] ? Location: BP; BP14; A The signing [...] Aayush Pittman Verified: ??11/04/2019 ?Pathologist Performed at: ??-[facility] Dept. of Pathology, [place], [place] CLINICAL INFORMATION Specimen Submitted: A - Placenta Clinical History and Diagnosis: Pre-E with SF on mag, abnormal placenta SPECIMEN PROCESSING A - Labeled/Fixativ e: Placenta, fresh. Quantity/Size/W eight: Two, 18.5 x 15.0 x 2.8 cm, 356 g. Integrity: Intact. Shape: Irregular. Membranes: ? - Insertion: 100% marginal, ? - Color and Clarity: [place] and clear. Cord: ? - Size: 60.0 x 1.3 cm. ? - Number of Vessels: Three. ? - Insertion site: Eccentric. Surface: ? - Color and Clarity: Temple-blue and clear. Maternal Surface: Purple-pink, with loosely adherent clots. Parenchyma: Purple-red, spongy. Sections/Proces sing: Financial Service Professional sections in 5 cassettes as follows: ?A1: ??Membrane roll ?A2: ??Proximal and distal cord ?A3-A5: ??Full thickness parenchyma ??crj 11/04/2019 10:55 AM EST [facility] TISSUE SPECIMEN FROM PLACENTA / Unknown 10/31/2019 6:40 AM EST 10/31/2019 6:40 AM EST Hawa Connor MD PATHOLOGY/CYTOLOG Y ORDERABLES [facility] [place] [address] * Prepare cryoprecipitate (10/31/2019 6:20 AM EST) Dispensed? Yes [facility] Blood specimen (specimen) No Charge / Unknown 10/31/2019 6:20 AM EST 10/31/2019 6:20 AM EST Narrative Resulting Agency Comment Spec In Lab Reanna Melgar MD BLOOD BANK PRODUCT O RDERABLES Performing Organization Address [facility] Co de Phone Number [facility] [place] [address] * Prepare Platelets, Apheresis (10/31/2019 6:00 AM EST) Dispensed? Yes [facility] Blood specimen (specimen) 10/31/2019 6:00 AM EST 10/31/2019 5:58 AM EST Farzana Velasquez MD BLOOD BANK PRODUCT O RDERABLES Performing Organization Address [facility] Co de Phone Number [facility] [place] [address] * ABORH Recheck Status (10/31/2019 5:58 AM EST) Pathologist [facility] ABORH Type Recheck Completed [facility] Blood specimen (specimen) 10/31/2019 5:58 AM EST 10/31/2019 6:13 AM EST Narrative Resulting Agency Comment Spec In Lab Tomy Jones CNM BLOOD BANK LAB ORDERABLES Performing Organization Address [facility] Co de Phone Number [facility] [place] [address] * Antibody screen (10/31/2019 5:58 AM EST) Ab Screen Interp Negative [facility] Expires at [id number] on: 11/03/2019 [facility] Blood specimen (specimen) 10/31/2019 5:58 AM EST 10/31/2019 6:13 AM EST Narrative Resulting Agency Comment Spec In Lab Tomy Jones [facility] BLOOD BANK LAB ORDERABLES Performing Organization Address City/[facility]/ZIP Co de Phone Number [facility] [place] [address] * ABO/Rh Typing (10/31/2019 5:58 AM EST) Pathologist [facility] ABORH Type B Pos [facility] Blood specimen (specimen) 10/31/2019 5:58 AM EST 10/31/2019 6:13 AM EST Narrative Resulting Agency Comment Spec In Lab Tomy Jones [facility] BLOOD BANK LAB ORDERABLES Performing Organization Address [facility] de Phone Number [facility] [place] [address] * (ABNORMAL) Hemogram (10/31/2019 5:58 AM EST) [facility] White Blood Cell 16.0(H) 4.0 - 9.5 x10(3)/mc L [facility] Red Blood Cell 2.85(L) 4.00 - 5.21 x10(6)/mc L [facility] Hemoglobin 8.5(L) 11.7 - 15.5 gm/dL [facility] Comment: This result has been called to KRISTINA ADAMS by YASMANY RANDHAWA on 10 31 2019 at 0624, and has been read back. Hematocrit 26.2(L) 35.7 - 45.8 % [facility] Mean Cell Volume 91.9 82.6 - 94.4 fL [facility] Mean Cell Hemoglobin 29.8 27.1 - 32.0 pg [facility] Mean Cell Hemoglobin Concentration 32.4 31.7 - 35.0 gm/dL [facility] Platelet 169 145 - 357 x10(3)/mc L [facility] RDW Standard Deviation 42.8 37.0 - 46.0 fL [facility] RDW coefficient of variation 13.0 11.5 - 14.1 % [facility] Mean Platelet Volume 12.6 7.6 - 12.9 fL [facility] NRBC% auto 0.0 % [facility] NRBC Absolute 0.000 0.000 - 0.000 x10(3)/mc L [facility] Blood specimen (specimen) 10/31/2019 5:58 AM EST 10/31/2019 6:11 AM EST Narrative Resulting Agency Comment Spec In Lab Teressa Hahn MD HEMATOLOGY ORDERABLE S Performing Organization Address [facility] Phone Number [facility] [place] [address] * Fibrinogen (10/31/2019 5:58 AM EST) Fibrinogen 238 200 - 393 mg/dL [facility] Comment: A fibrinogen level >100 mg/dL is adequate for hemostasis in most patients without underlying bleeding disorders. Blood specimen (specimen) 10/31/2019 5:58 AM EST 10/31/2019 6:11 AM EST Narrative Resulting Agency Comment Spec In Lab Teressa Hahn MD HEMATOLOGY ORDERABLE S Performing Organization Address [facility] Phone Number [facility] [place] [address] * APTT (10/31/2019 5:58 AM EST) Partial Thromboplastin Time 25 25 - 37 sec [facility] Comment: The PTT is NOT appropriate for heparin monitoring. Use the Anti-Xa level for heparin monitoring (HEP UFH) or LMWH monitoring (HEP LMW). A PTT less than 37 seconds generally indicates adequate hemostasis. Blood specimen (specimen) 10/31/2019 5:58 AM EST 10/31/2019 6:11 AM EST Narrative Resulting Agency Comment Spec In Lab Teressa Hahn MD HEMATOLOGY ORDERABLE S Performing Organization Address [facility] de Phone Number [facility] [place] [place] [address] * Prothrombin Time (10/31/2019 5:58 AM EST) Prothrombin Time 11.4 9.4 - 12.5 sec [facility] International Normalization Ratio 1.0 [facility] Comment: An INR <2.0 indicates adequate [...] MD HEMATOLOGY ORDERABLE S Performing Organization Address [facility] de Phone Number [facility] [place] [address] * Prepare thawed plasma (10/31/2019 5:50 AM EST) Dispensed? Yes [facility] Blood specimen (specimen) 10/31/2019 5:50 AM EST 10/31/2019 5:49 AM EST Farzana Velasquez MD BLOOD BANK PRODUCT O RDERABLES Performing Organization Address [facility] Co de Phone Number [facility] [place] [address] * Prepare RBC (10/31/2019 5:45 AM EST) Dispensed? Yes [facility] Blood specimen (specimen) 10/31/2019 5:45 AM EST 10/31/2019 5:42 AM EST Farzana Velasquez MD BLOOD BANK PRODUCT O RDERASHARON Performing Organization Address [facility] Co de Phone Number [facility] [place] [address] * Prepare RBC (10/31/2019 5:40 AM EST) [facility] Dispensed? Yes [facility] Blood specimen (specimen) 10/31/2019 5:40 AM EST 10/31/2019 5:38 AM EST Farzana Velasquez MD BLOOD BANK PRODUCT O RDERABLES Performing Organization Address [facility] Co de Phone Number [facility] [place] [address] * (ABNORMAL) Magnesium (10/30/2019 6:00 PM EST) [facility] Magnesium 2.69(Criti stacey) 0.69 - 1.07 mmol/L [facility] Comment: Result rechecked. Called by: denae, Read back by: Mame Valerio, Date/Time:10/31/19 07:10. Blood specimen (specimen) Venous Draw / Unknown 10/30/2019 6:00 PM EST 10/30/2019 6:22 PM EST Narrative Resulting Agency Comment Spec In Lab Farzana Velasquez MD CHEMISTRY ORDERABLES Performing Organization Address [facility] Co de Phone Number [facility] [place] [address] * (ABNORMAL) Differential, Automated (10/30/2019 6:00 PM EST) [facility] Neutrophil % 88.2 % [facility] Neutrophil Absolute 13.95(H) 1.70 - 6.10 x10(3)/mc L [facility] Lymph % 6.9 % [facility] Lymphocytes Abs 1.1 0.9 - 3.2 x10(3)/mc L [facility] Monocyte % 4.2 % [facility] Monocyte Abs 0.7 0.3 - 0.9 x10(3)/mc L [facility] Eos % 0.0 % [facility] Eosinophils Abs 0.0 0.0 - 0.4 x10(3)/[facility] Basophil % 0.2 % [facility] Baso Absolute 0.0 0.0 - 0.1 x10(3)/[facility] Immature Gran % 0.50 % [facility] Comment: Immature granulocytes(IG's)percentage and absolute count will include metamyelocytes, myelocytes, and promyelocytes. Blood smears from CBCs yielding IG's will be scanned manually for concordance. If this scan disagrees with the automated IG or if promyelocytes are noted, a manual differential will be performed. Immature Gran Absolute 0.08(H) 0.00 - 0.04 x10(3)/[facility] Blood specimen (specimen) 10/30/2019 6:00 PM EST 10/30/2019 6:15 PM EST Narrative Resulting Agency Comment Spec In Lab Mary Ashton MD HEMATOLOGY ORDERAB LES Performing Organization Address City/State/[facility] Co de Phone Number [facility] [place] [address] * (ABNORMAL) Hemogram (10/30/2019 6:00 PM EST) White Blood Cell 15.8(H) 4.0 - 9.5 x10(3)/ L [facility] Red Blood Cell 4.71 4.00 - 5.21 x10(6)/ L [facility] Hemoglobin 13.8 11.7 - 15.5 gm/dL [facility] Hematocrit 41.2 35.7 - 45.8 % [facility] Mean Cell Volume 87.5 82.6 - 94.4 fL [facility] Mean Cell Hemoglobin 29.3 27.1 - 32.0 pg [facility] Mean Cell Hemoglobin Concentration 33.5 31.7 - 35.0 gm/dL [facility] Platelet 185 145 - 357 x10(3)/mc L [facility] RDW Standard Deviation 40.1 37.0 - 46.0 fL [facility] RDW coefficient of variation 12.5 11.5 - 14.1 % [facility] Mean Platelet Volume 12.6 7.6 - 12.9 fL [facility] NRBC% auto 0.0 % [facility] NRBC Absolute 0.000 0.000 - 0.000 x10(3)/mc L [facility] Blood specimen (specimen) 10/30/2019 6:00 PM EST 10/30/2019 6:15 PM EST Narrative Resulting Agency Comment Spec In Lab Mary Ashton MD HEMATOLOGY ORDERAB LES [facility] [place] [address] * Creatinine (10/30/2019 6:00 PM EST) Creatinine 0.72 0.70 - 1.20 mg/dL [facility] Est Glomerular Filtration Rate 116 >=60 mL/min/1.7 3 m?? [facility] Comment: The eGFR was calculated using the CKD-EPI equation. As with all creatinine based estimates of kidney function, eGFR values calculated with the CKD-EPI equation are not accurate in patients with acute kidney failure, extremes of body mass or the acutely ill. [email or web address] eGFR 134 >=60 mL/min/1.7 3 m?? [facility] Comment: The eGFR was calculated using the CKD-EPI equation. As with all creatinine based estimates of kidney function, eGFR values calculated with the CKD-EPI equation are not accurate in patients with acute kidney failure, extremes of body mass or the acutely ill. [email or web address] Blood specimen (specimen) 10/30/2019 6:00 PM EST 10/30/2019 6:15 PM EST Narrative Resulting Agency Comment Spec In Lab Teressa R Hahn MD CHEMISTRY ORDERABLES [facility] [place] [address] * Aspartate Aminotransferase (10/30/2019 6:00 PM EST) Aspartate Aminotransferase 28 0 - 30 unit/L [facility] Blood specimen (specimen) 10/30/2019 6:00 PM EST 10/30/2019 6:15 PM EST Narrative Resulting Agency Comment Spec In Lab Teressa Hahn MD CHEMISTRY ORDERABLES Performing Organization Address [facility] Co de Phone Number [facility] [place] [address] * (ABNORMAL) Differential, Automated (10/30/2019 6:15 AM EST) [facility] Neutrophil % 72.8 % [facility] Neutrophil Absolute 7.00(H) 1.70 - 6.10 x10(3)/mc L [facility] Lymph % 19.8 % [facility] Lymphocytes Abs 1.9 0.9 - 3.2 x10(3)/mc L [facility] Monocyte % 6.5 % [facility] Monocyte Abs 0.6 0.3 - 0.9 x10(3)/mc L [facility] Eos % 0.1 % [facility] Eosinophils Abs 0.0 0.0 - 0.4 x10(3)/mc L [facility] Basophil % 0.3 % [facility] Baso Absolute 0.0 0.0 - 0.1 x10(3)/mc L [facility] Immature Gran % 0.50 % [facility] Comment: Immature granulocytes(IG's)percentage and absolute count will include metamyelocytes, myelocytes, and promyelocytes. Blood smears from CBCs yielding IG's will be scanned manually for concordance. If this scan disagrees with the automated IG or if promyelocytes are noted, a manual differential will be performed. Immature Gran Absolute 0.05(H) 0.00 - 0.04 x10(3)/mc L [facility] Blood specimen (specimen) 10/30/2019 6:15 AM EST 10/30/2019 6:43 AM EST Narrative Resulting Agency Comment Spec In Lab Heike Raygoza MD HEMATOLOGY ORDERABLE S Performing Organization Address City/State/[facility] Co de Phone Number [facility] [place] [address] * (ABNORMAL) Hemogram (10/30/2019 6:15 AM EST) White Blood Cell 9.6(H) 4.0 - 9.5 x10(3)/ L [facility] Red Blood Cell 4.76 4.00 - 5.21 x10(6)/[facility] Hemoglobin 14.1 11.7 - 15.5 gm/dL [facility] Hematocrit 42.1 35.7 - 45.8 % [facility] Mean Cell Volume 88.4 82.6 - 94.4 [facility] Mean Cell Hemoglobin 29.6 27.1 - 32.0 pg [facility] Mean Cell Hemoglobin Concentration 33.5 31.7 - 35.0 gm/dL [facility] Platelet 196 145 - 357 x10(3)/[facility] RDW Standard Deviation 40.4 37.0 - 46.0 [facility] RDW coefficient of variation 12.5 11.5 - 14.1 % [facility] Mean Platelet Volume 12.4 7.6 - 12.9 [facility] NRBC% auto 0.0 % [facility] NRBC Absolute 0.000 0.000 - 0.000 x10(3)/ L [facility] Blood specimen (specimen) 10/30/2019 6:15 AM EST 10/30/2019 6:43 AM EST Narrative Resulting Agency Comment Spec In Lab Heike Raygoza MD HEMATOLOGY ORDERABLE S Performing Organization Address [facility] Co de Phone Number [facility] [place] [address] * Aspartate Aminotransferase (10/30/2019 6:15 AM EST) Aspartate Aminotransferase 27 0 - 30 unit/L [facility] Blood specimen (specimen) 10/30/2019 6:15 AM EST 10/30/2019 6:43 AM EST Narrative Resulting Agency Comment Spec In Lab Farzana Velasquez MD CHEMISTRY ORDERABLES Performing Organization Address [facility] de Phone Number [facility] [place] [address] * Creatinine (10/30/2019 6:15 AM EST) Creatinine 0.70 0.70 - 1.20 mg/dL [facility] Est Glomerular Filtration Rate 120 >=60 mL/min/1.7 3 m?? [facility] Comment: The eGFR was calculated using the CKD-EPI equation. As with all creatinine based estimates of kidney function, eGFR values calculated with the CKD-EPI equation are not accurate in patients with acute kidney failure, extremes of body mass or the acutely ill. [email or web address] eGFR 139 >=60 mL/min/1.7 3 m?? [facility] Comment: The eGFR was calculated using the CKD-EPI equation. As with all creatinine based estimates of kidney function, eGFR values calculated with the CKD-EPI equation are not accurate in patients with acute kidney failure, extremes of body mass or the acutely ill. [email or web address] Blood specimen (specimen) 10/30/2019 6:15 AM EST 10/30/2019 6:43 AM EST Narrative Resulting Agency Comment Spec In Lab Farazna Velasquez MD CHEMISTRY ORDERABLES [facility] [place] [address] * Differential, Automated (10/29/2019 11:51 AM EST) Pathologist [facility] [place] Neutrophil % 64.2 % [facility] Neutrophil Absolute 5.78 1.70 - 6.10 x10(3)/[facility] Lymph % 26.2 % [facility] Lymphocytes Abs 2.4 0.9 - 3.2 x10(3)/[facility] Monocyte % 8.9 % [facility] Monocyte Abs 0.8 0.3 - 0.9 x10(3)/[facility] Eos % 0.2 % [facility] Eosinophils Abs 0.0 0.0 - 0.4 x10(3)/[facility] Basophil % 0.2 % [facility] Baso Absolute 0.0 0.0 - 0.1 x10(3)/[facility] Immature Gran % 0.30 % [facility] Comment: Immature granulocytes(IG's)percentage and absolute count will include metamyelocytes, myelocytes, and promyelocytes. Blood smears from CBCs yielding IG's will be scanned manually for concordance. If this scan disagrees with the automated IG or if promyelocytes are noted, a manual differential will be performed. Immature Gran Absolute 0.03 0.00 - 0.04 x10(3)/[facility] Blood specimen (specimen) 10/29/2019 11:51 AM EST 10/29/2019 12:08 PM EST Narrative Resulting Agency Comment Spec In Lab Heike Raygoza MD HEMATOLOGY ORDERABLE S [facility] [place] [address] * Hemogram (10/29/2019 11:51 AM EST) Pathologist [facility] White Blood Cell 9.0 4.0 - 9.5 x10(3)/[facility] Red Blood Cell 4.61 4.00 - 5.21 x10(6)/[facility] Hemoglobin 13.2 11.7 - 15.5 gm/dL [facility] Hematocrit 41.0 35.7 - 45.8 % [facility] Mean Cell Volume 88.9 82.6 - 94.4 fL [facility] Mean Cell Hemoglobin 28.6 27.1 - 32.0 pg [facility] Mean Cell Hemoglobin Concentration 32.2 31.7 - 35.0 gm/dL [facility] Platelet 194 145 - 357 x10(3)/[facility] RDW Standard Deviation 40.4 37.0 - 46.0 [facility] RDW coefficient of variation 12.5 11.5 - 14.1 % [facility] Mean Platelet Volume 12.8 7.6 - 12.9 [facility] NRBC% auto 0.0 % [facility] NRBC Absolute 0.000 0.000 - 0.000 x10(3)/[facility] Blood specimen (specimen) 10/29/2019 11:51 AM EST 10/29/2019 12:08 PM EST Narrative Resulting Agency Comment Spec In Lab Heike Raygoza MD HEMATOLOGY ORDERABLE S [facility] [place] [address] * Aspartate Aminotransferase (10/29/2019 11:51 AM EST) Aspartate Aminotransferase 25 0 - 30 unit/L [facility] Blood specimen (specimen) 10/29/2019 11:51 AM EST 10/29/2019 12:08 PM EST Narrative Resulting Agency Comment Spec In Lab Sarah Gonzalez MD CHEMISTRY ORDERABL ES Performing Organization Address City/[facility]/ZIP Co de Phone Number [facility] [place] [address] * (ABNORMAL) Creatinine (10/29/2019 11:51 AM EST) Creatinine 0.68(L) 0.70 - 1.20 mg/dL [facility] Est Glomerular Filtration Rate 121 >=60 mL/min/1.7 3 m?? [facility] Comment: The eGFR was calculated using the CKD-EPI equation. As with all creatinine based estimates of kidney function, eGFR values calculated with the CKD-EPI equation are not accurate in patients with acute kidney failure, extremes of body mass or the acutely ill. [email or web address] eGFR 140 >=60 mL/min/1.7 3 m?? [facility] Comment: The eGFR was calculated using the CKD-EPI equation. As with all creatinine based estimates of kidney function, eGFR values calculated with the CKD-EPI equation are not accurate in patients with acute kidney failure, extremes of body mass or the acutely ill. [email or web address] Blood specimen (specimen) 10/29/2019 11:51 AM EST 10/29/2019 12:08 PM EST Narrative Resulting Agency Comment Spec In Lab Sarah Gonzalez MD CHEMISTRY ORDERABL ES Performing Organization Address [facility] Co de Phone Number [facility] [place] [address] documented in this encounter Visit Diagnoses Not on filedocumented in this encounter Admitting Diagnoses Diagnosis Pre-eclampsia Mild or unspecified pre-eclampsia, unspecified as to episode of care documented in this encounter Administered Medications Inactive Administered Medications - up to 3 most recent administrations Medication Order MAR Action Action Date Dose Rate Site acetaminophen (Tylenol) tablet 650 mg 650 mg, [...] Given 11/02/2019 6:04 PM EST 650 mg calcium carbonate (Tums) chewable tablet 1,000 mg 1,000 mg, Oral, EVERY 6 HOURS PRN, Starting on Fri10/31/19 at 1814, Until Fri11/03/19 at 1246, Heartburn, Routine Given 10/31/2019 6:36 PM EST 1,000 mg carboprost (HEMABATE) injection ONCE PRN, Starting on Fri10/31/19 at 0528, Until Fri11/03/19 at 1246, Intra-Operative (Intra-Procedure), Routine Given 10/31/2019 5:28 AM EST 250 mcg Right Quadriceps ibuprofen (Advil;Motrin) tablet 600 mg 600 mg, Oral, EVERY 6 HOURS PRN, Starting on Fri11/03/19 at 0840, Until Fri11/03/19 at 1246, Pain, Administer orally with milk or food to minimize GI irritation. Maximum dose of 3200 mg from all sources in 24 hours, Routine Given 11/03/2019 8:49 AM EST 600 mg labetalol (Normodyne) tablet 200 mg 200 mg, Oral, 3 TIMES DAILY, First dose (after last modification) on Fri11/02/19 at 0800, Until Discontinued, Routine Given 11/03/2019 8:49 AM EST 200 mg Given 11/02/2019 8:14 PM EST 200 mg Given 11/02/2019 3:01 PM EST 200 mg lactated ringers infusion 100 mL/hr, Intravenous, CONTINUOUS, Starting on Fri10/29/19 at 1245, Until Fri11/03/19 at 1246, Maximum 125 mL in one hour. New Bag 10/31/2019 7:23 AM EST 100 mL/hr 100 mL/hr New Bag 10/31/2019 5:59 AM EST New Bag 10/31/2019 5:17 AM EST lactated ringers infusion 100 mL/hr, Intravenous, CONTINUOUS, Starting on Fri10/31/19 at 0845, Until Fri11/03/19 at 1246, Administer until tolerating clear liquids then saline lock. New Bag 11/01/2019 3:41 AM EST 100 mL/hr 100 mL/hr New Bag 10/31/2019 5:09 PM EST 100 mL/hr 100 mL/hr miSOPROStol (Cytotec) tablet ONCE PRN, Starting on 10/31/19 at 0527, Until Fri11/03/19 at 1246, Intra-Operative (Intra-Procedure), Routine Given 10/31/2019 5:27 AM EST 1,000 mcg oxyCODONE (Roxicodone) tablet 5-10 mg 5-10 mg, [...] Given 11/02/2019 6:19 PM EST 5 mg senna-docusate (Pericolace) 8.6-50 mg per tablet [...] Given 11/01/2019 9:45 AM EST 80 mg documented in this encounter Active and Recently [...] Ady Solis RN)0920 (Given - Provider: Margret Fallon, ALEXX)1624 (Given - Provider: Margret Fallon, ALEXX)2334 (Given - Provider: Natalie Abarca, ALEXX) 0553 (Given - Provider: Shania Garcia RN)1200 (Given - Provider: Anju Noland, ALEXX)1804 (Given - Provider: Anju Noland, ALEXX)2330 (Given - Provider: Teressa Mejia, ALEXX) 0514 (Given - Provider: Teressa Mejia, RN) ceFAZolin (ANCEF) 2g in dextrose 5% 100 mL (CANCELED) 2 g, Intravenous, EVERY 8 HOURS, First dose on Fri10/31/19 at 2000, Until Discontinued, Administer over 30 Minutes, Indication for (Active or Suspected): Prophylaxis 0404 (New Bag - Provider: Ady Solis RN)0434 (Stopped - Provider: Ady Solis RN)1256 (New Bag - Provider: Margret Fallon RN)1326 (Stopped - Provider: Margret Fallon RN) labetalol (Normodyne) tablet 200 mg (CANCELED) 200 mg, Oral, 2 TIMES DAILY, First dose on Fri11/01/19 at 2100, Until Discontinued, Routine 205 (Given - Provider: Natalie Abarca, ALEXX) labetalol (Normodyne) tablet 200 mg 200 mg, Oral, 3 TIMES DAILY, First dose (after last modification) on Fri11/02/19 at 0800, Until Discontinued, Routine 0748 (Given - Provider: Anju Noland RN)1501 (Given - Provider: Anju Noland, ALXEX)2014 (Given - Provider: Teressa Mejia, ALEXX) 0849 (Given - Provider: Brooklyn Gomez RN) labetalol (NORMODYNE,TRANDATE) injection 20 mg (COMPLETED) 20 mg, Intravenous, ONCE, 1 dose, On Fri11/01/19 at 1715, Routine 1702 (Given - Provider: Margret Fallon, ALEXX) labetalol (NORMODYNE,TRANDATE) injection 40 mg (COMPLETED) 40 mg, Intravenous, ONCE, 1 dose, On 11/01/19 at 1745, Routine 1734 (Given - Provider: Margret Fallon, ALEXX) senna-docusate (Pericolace) 8.6-50 mg per tablet 2 tablet 2 tablet, Oral, 2 TIMES DAILY, First dose on 10/31/19 at 0900, Until Discontinued, Administer to achieve 1 soft bowel movement daily without straining, Routine 0920 (Given - Provider: Margret Fallon, ALEXX)2099 (Hold - Provider: Natalie Abarca, ALEXX - Reason: Patient/family refused) 0959 (Given - Provider: Anju Noland, ALEXX)2013 (Given - Provider: Teressa Mejia, ALEXX) 0849 (Given - Provider: Brooklyn Gomez RN) Continuous Medication Order 11/01/2019 11/02/2019 11/03/2019 fentaNYL 2 mcg/mL, BUpivacaine (MARCAINE) 0.0625% (0.625 mg/mL)(1/16%) in sodium chloride 0.9% 250 mL epidural (CANCELED)(Linked Group 1) Epidural, PCEA Dose: 4 mL, PCEA Frequency: Every 20 minutes, Maximum rate for continuous infusion 14 mL per hour Maximum total epidural rate (continuous and PCEA bolus) is 25 mL per hour 1223 (New Bag - Provider: Sylvai Olguin, ALEXX)2012 (Stopped - Provider: Natalie Abarca, ALEXX) lactated ringers infusion 100 mL/hr, Intravenous, CONTINUOUS, Starting on Fri10/29/19 at 1245, Until Fri11/03/19 at 1246, Maximum 125 mL in one hour. lactated ringers infusion 100 mL/hr, Intravenous, CONTINUOUS, Starting on 10/31/19 at 0845, Until Fri11/03/19 at 1246, Administer [...] Oral, EVERY 4 HOURS PRN, Starting on 10/31/19 at 0829, Until Fri11/03/19 at 1246, Pain, Severe pain (7-10), only if PCEA OFF., - Initial dose 5 mg. - If pain control not adequate in 60 minutes, give additional 5 mg., Routine 2035 (Given - Provider: Natalie Abarca RN) 0056 (Given - Provider: Natalie Abarca RN)0553 (Given - Provider: Shania Garcia RN)1304 (Given - Provider: Anju Noland RN)1819 (Given - Provider: Anju Noland RN - Comment: pain increases to 5 with movement)2157 (Given - Provider: Teressa Mejia, ALEXX) 0312 (Given - Provider: Teressa Mejia RN) simethicone (Mylicon) chewable tablet 80 mg 80 mg, Oral, 4 TIMES DAILY PRN, Starting on 10/31/19 at 0829, Until Fri11/03/19 at 1246, Cramping, gas pain, Routine 0945 (Given - Provider: Margret Fallon RN) 1821 (Given - Provider: Anju Noland RN) [...] Discontinued documented in this encounter Care Teams Sailing Instructor Relationship Specialty Start Date End Date Lynn López, STREET LIGHT SERVICER SUPERVISOR PCP - General Family Medicine 03/17/17 documented as of this encounter
--- OUTSIDE RECORDS SUMMARY | 2024-08-23 12:32 | XMS_ITS | Encounter Summary ---
Author Organization [facility] Address [facility] Ana María [place] [address] Care Team Providers Care Thread Twister Name Role Phone Rene Lynn Polanco APRN Primary Care Provider Encounter Details Date Type Department Care Team (Late st Contact Info) Description 10/14/2019 8:00 AM EST Routine Obstetrics [place] [address] Jose Luis Alexandre MD [facility] DR OBSTETRICS [place] [address] GA: 35w1d Social History Tobacco Use Types Packs/Day Years [...] Sign Reading Time Taken Comments Blood Pressure 140/89 10/14/2019 8:13 AM EST Pulse - - Temperature - - Respiratory Rate - - Oxygen Saturation - - Inhaled Oxygen Concentration - - Weight 85.2 kg (187 lb 14.4 oz) 10/14/2019 7:44 AM EST Height - - Body Mass Index 33.28 09/29/2019 8:20 PM EST documented in this encounter Progress Notes * Mary Higgins RN - 10/14/2019 8:00 AM EST NST for hypertension during . Denies headaches, vision changes or epigastric pain. No LOF,bleeding or painful contractions. NST Fetus A 10/14/2019 HR (Beats/Min) 145 HR Variability moderate (amplitude range 6 to 25 bpm) HR Accelerations present;greater than/equal to 15 bpm;lasting at least 15 seconds HR Decelerations none Contraction Frequency (Minutes) none Nonstress Test Interpretation Reactive, >32 weeks: two 15 bpm accelerations lasting 15 seconds Overall Impression Reassuring for gestational age Comments reviewed by Dr. Alexandre during the visit I personally reviewed this NST and agree with this assessment. MD Boy * Jose Luis Alexandre MD - 10/14/2019 8:00 AM EST Prelim note: 24 yo at 35w1d with chronic htn on Labetalol 100mg q day. Doing well. No COFFMAN, no visual changes, no abdominal pain. Good activity. BP's mildly elevated today. Reactive NST. Continue current Labetalol. RTO 1 week with NST. IOL after 39 weeks. MD Boy documented in this encounter Plan of Treatment Not on file documented as of this encounter Visit Diagnoses Diagnosis Hypertension affecting in third trimester- Primary documented in this encounter Care Teams Thread Twister Relationship Specialty Start Date End Date Lynn López, DOMONIQUE PCP - General Family Medicine 03/17/17 documented as of this encounter
--- OUTSIDE RECORDS SUMMARY | 2024-08-23 12:32 | XMS_ITS | Encounter Summary ---
[place] [address] Care Team Providers Care Photogeologist Name Role Phone Lynn López APRN Primary Care Provider [phone] Encounter Details Date Type Department Care Team (Late st Contact Info) Description 10/14/2019 External Results Obstetrics [place] [address] Mary Higgins RN Social History Tobacco Use [...] on file documented as of this encounter Plan of Treatment Not on file documented as of this encounter Procedures Procedure Name Priority Date/Time Associated Diagnosis Comments INITIAL EXTERNAL RESULTS PANEL Routine 09/29/2019 RUBELLA ANTIBODY, IGG Routine 05/25/2019 documented in this encounter Results * (ABNORMAL) - Initial External Results (09/29/2019) Hemoglobin 15.5(Exte rnal Lab) Hematocrit 45.6(Exte rnal Lab) Mean Cell Volume 86.0(Exte rnal Lab) Platelet 240(Exter nal Lab) Sodium 137(Exter nal Lab) Potassium 3.8(Exter nal Lab) Chloride 105(Exter nal Lab) Anion Gap 10(Key Entry Operator al Lab) Blood Urea Nitrogen 6(ExtL) Creatinine 0.54(ExtL ) Est Glomerular Filtration Rate >60.0(Ext ernal Lab) Glucose 110(ExtH) Calcium 9.3(Exter nal Lab) Bilirubin, Total 0.3(Exter nal Lab) Aspartate Aminotransferase 26(Key Entry Operator al Lab) Alanine Aminotransferase 30(Key Entry Operator al Lab) Alkaline Phosphatase 86(Key Entry Operator al Lab) Protein, Total 7.7(Exter nal Lab) Albumin 3.1(ExtL) 09/29/2019 Historical Provider POINT OF CARE DONTA T ORDERABLES * (ABNORMAL) Rubella Antibody, IgG (05/25/2019) Rubella Antibody IgG Positive(E xternal Lab) HIV 1/2 Ab Negative(E xternal Lab) Thyroid Stimulating Hormone 1.41(Exter nal Lab) Hepatitis C Antibody Negative(E xternal Lab) Hepatitis B Surface Antigen Negative(E xternal Lab) Varicella Zoster Antibody IgG Positive(E xternal Lab) Blood specimen (specimen) 05/25/2019 Historical Provider CHEMISTRY ORDERAB LES documented in this encounter Visit Diagnoses Not on filedocumented in this encounter Care Teams Photogeologist Relationship Specialty Start Date End Date Lynn López APRN PCP - General Family Medicine 03/17/17 documented as of this encounter
--- OUTSIDE RECORDS SUMMARY | 2024-08-23 12:32 | XMS_ITS | Encounter Summary ---
Author Organization [facility] Address [facility] Ana Mar[facility] [place] [address] Care Team Providers Care Maori Physiotherapist Name Role Phone Rene Lynn Polanco APRN Primary Care Provider [phone] Encounter Details Date Type Department Care Team (Late st Contact Info) Description 10/21/2019 2:30 PM EST Routine Obstetrics [place] [address] Sarah Gonzalez MD [facility] DR OBSTETRICS [place] [address] GA: 36w1d Social History Tobacco Use Types Packs/Day Years [...] Sign Reading Time Taken Comments Blood Pressure 143/91 10/21/2019 2:21 PM EST Pulse - - Temperature - - Respiratory Rate - - Oxygen Saturation - - Inhaled Oxygen Concentration - - Weight 86.1 kg (189 lb 14.4 oz) 10/21/2019 2:21 PM EST Height - - Body Mass Index 33.64 09/29/2019 8:20 PM EST documented in this encounter Progress Notes * Mary Higgins RN - 10/21/2019 2:30 PM EST NST for hypertension. Mild headache today, no epigastric pain or vision changes. Denies LOF, bleeding or painful contractions. Good movements reported. NST Fetus A 10/21/2019 HR (Beats/Min) 135 HR Variability moderate (amplitude range 6 to 25 bpm) HR Accelerations present;prolonged;greater than/equal to 15 bpm HR Decelerations none Contraction Frequency (Minutes) none Nonstress Test Interpretation Reactive, >32 weeks: two 15 bpm accelerations lasting 15 seconds Overall Impression Reassuring for gestational age Comments reviewed by Dr. Gonzalez during the visit. * Sarah Gonzalez MD - 10/21/2019 2:30 PM EST FM felt, no LOF, no bleeding or luis. Has had COFFMAN's, not sleeping well cant get comfortable, and epigastric soreness. No edema or vision changes. Work related stressor. Has home cuff that she thinks is broken measured BP 177/ but she did not feel bad so she did not seek evaluation. Taking Labetalol as prescribed. NST today 120's reactive, no decels. Urine protein dip negative Recommend labs for preeclampsia F/u 1 week NST Discussed recommendation to repeat GBBS at 37 weeks as negative on 09/30 but will be unreliable after 5 weeks. She declined GBBS. documented in this encounter Plan of Treatment Not on file documented as of this encounter Procedures Procedure Name Priority Date/Time Associated Diagnosis Comments HEMOGRAM Routine 10/21/2019 3:31 PM EST Hypertension affecting in third trimester DIFFERENTIAL, AUTOMATED Routine 10/21/19 20 3:31 PM EST Hypertension affecting in third trimester HC VENIPUNCTURE Routine 10/21/2019 3:31 PM EST Hypertension affecting in third trimester HC CBC,PLT & AUTO DIFF Routine 01/09/202 0 3:31 PM EST Hypertension affecting in third trimester HC ASPARTATE AMINOTRANSFERASE (AST) Routine 10/21/2019 3:31 PM EST Hypertension affecting in third trimester POCT URINE DIPSTICK Routine 10/21/2019 3 :19 PM EST Hypertension affecting in third trimester documented in this encounter Results * (ABNORMAL) Differential, Automated (10/21/2019 3:31 PM EST) Neutrophil % 64.2 % [facility] Neutrophil Absolute 6.31(H) 1.70 - 6.10 x10(3)/ L [facility] Lymph % 26.9 % [facility] Lymphocytes Abs 2.6 0.9 - 3.2 x10(3)/ L [facility] Monocyte % 8.2 % [facility] Monocyte Abs 0.8 0.3 - 0.9 x10(3)/ L [facility] Eos % 0.3 % [facility] Eosinophils Abs 0.0 0.0 - 0.4 x10(3)/[facility] Basophil % 0.1 % [facility] Baso Absolute 0.0 0.0 - 0.1 x10(3)/mc L [facility] Immature Gran % 0.30 % [facility] Comment: Immature granulocytes(IG's)percentage and absolute count will include metamyelocytes, myelocytes, and promyelocytes. Blood smears from CBCs yielding IG's will be scanned manually for concordance. If this scan disagrees with the automated IG or if promyelocytes are noted, a manual differential will be performed. Immature Gran Absolute 0.03 0.00 - 0.04 x10(3)/ L [facility] Blood specimen (specimen) 10/21/2019 3:31 PM EST 10/21/2019 3:46 PM EST Narrative Resulting Agency Comment Spec In Lab Sarah Gonzalez MD HEMATOLOGY ORDERAB LES [facility] [place] [address] * (ABNORMAL) Hemogram (10/21/2019 3:31 PM EST) Pathologist [facility] White Blood Cell 9.8(H) 4.0 - 9.5 x10(3)/[facility] Red Blood Cell 4.56 4.00 - 5.21 x10(6)/[facility] Hemoglobin 13.5 11.7 - 15.5 gm/dL [facility] Hematocrit 40.8 35.7 - 45.8 % [facility] Mean Cell Volume 89.5 82.6 - 94.4 fL [facility] Mean Cell Hemoglobin 29.6 27.1 - 32.0 pg [facility] Mean Cell Hemoglobin Concentration 33.1 31.7 - 35.0 gm/dL [facility] Platelet 201 145 - 357 x10(3)/[facility] RDW Standard Deviation 40.6 37.0 - 46.0 fL [facility] RDW coefficient of variation 12.5 11.5 - 14.1 % [facility] Mean Platelet Volume 12.5 7.6 - 12.9 fL [facility] NRBC% auto 0.0 % [facility] NRBC Absolute 0.000 0.000 - 0.000 x10(3)/[facility] Blood specimen (specimen) 10/21/2019 3:31 PM EST 10/21/2019 3:46 PM EST Narrative Resulting Agency Comment Spec In Lab Sarah Gonzalez MD HEMATOLOGY ORDERAB LES [facility] [place] [address] * Creatinine (10/21/2019 3:31 PM EST) Pathologist [facility] Creatinine 0.71 0.70 - 1.20 mg/dL [facility] Est Glomerular Filtration Rate 118 >=60 mL/min/1.7 3 m?? [facility] Comment: The eGFR was calculated using the CKD-EPI equation. As with all creatinine based estimates of kidney function, eGFR values calculated with the CKD-EPI equation are not accurate in patients with acute kidney failure, extremes of body mass or the acutely ill. [email or web address]/[email or web address] eGFR 136 >=60 mL/min/1.7 3 m?? [facility] Comment: The eGFR was calculated using the CKD-EPI equation. As with all creatinine based estimates of kidney function, eGFR values calculated with the CKD-EPI equation are not accurate in patients with acute kidney failure, extremes of body mass or the acutely ill. http://[employer]/[facility] Blood specimen (specimen) 10/21/2019 3:31 PM EST 10/21/2019 3:46 PM EST Narrative Resulting Agency Comment Spec In Lab Sarah Gonzalez MD CHEMISTRY ORDERABL ES Performing Organization Address [facility] Co de Phone Number [facility] [place] [address] * Aspartate Aminotransferase (10/21/2019 3:31 PM EST) Pathologist [facility] Aspartate Aminotransferase 20 0 - 30 unit/L [facility] Blood specimen (specimen) 10/21/2019 3:31 PM EST 10/21/2019 3:46 PM EST Narrative Resulting Agency Comment Spec In Lab Sarah Gonzalez MD CHEMISTRY ORDERABL ES Performing Organization Address [facility] Co de Phone Number [facility] [place] [address] * (ABNORMAL) POCT urine dipstick (10/21/2019 3:19 PM EST) POC Sp [place] 1.005(A) 1.002 - 1.030 POC pH, UA 6.0 5.0 - 8.5 POC Leuk, UA Trace Negative - Negative POC Nitrite, UA Negative Negative - Negative POC Protein, UA Negative Negative - Negative mg/dL POC Glucose, UA Normal Normal - Normal mg/dL POC Ketone, UA Negative Negative - Negative POC Urobil, UA Normal 0.2 - 1.0 mg/dL POC Bili, UA Negative Negative - Negative POC Blood, UA Negative Negative - Negative stas/uL 10/21/2019 3:19 PM EST Sarah Gonzalez MD POINT OF CARE TEST ORDERABLES documented in this encounter Visit Diagnoses Diagnosis Hypertension affecting in third trimester documented in this encounter Care Teams Maori Physiotherapist Relationship Specialty Start Date End Date Lynn López, BALANCER SCALE PCP - General Family Medicine 03/17/17 documented as of this encounter
--- OUTSIDE RECORDS SUMMARY | 2024-08-23 12:33 | XMS_ITS | Encounter Summary ---
Author Organization [facility] [place] [address] Care Team Providers Care Finished Goods Inspector Name Role Phone Surinder Woodard MD Primary Care Provider [phone] Encounter Details Date Type Department Care Team (Late st Contact Info) Description 09/22/2015 Telephone [place] [address] Will Keith MD [facility] [place] [address] Social History Tobacco Use Types Packs/Day Years Used Date Smoking Tobacco: Never Smokeless Tobacco: Never Alcohol Use Standard Drinks/Week Comments No 0 (1 standard drink = 0.6 oz pur e alcohol) Sex and Gender Information Value Date Recorded Sex Assigned at Not on file Gender Identity Not on file Sexual Orientation Not on file documented as of this encounter Miscellaneous Notes * Telephone Encounter - Thor Hansen RN - 09/22/2015 10:[address] Keith's request called Liza informed her that her MRI was normal and that the cyst was unchanged. Thor documented in this encounter Plan of Treatment Not on file documented as of this encounter Visit Diagnoses Not on filedocumented in this encounter Care Teams Finished Goods Inspector Relationship Specialty Start Date End Date Surinder Woodard MD [address] [place] [address] PCP - General 10/19/13 03/16/17 documented as of this encounter
--- OUTSIDE RECORDS SUMMARY | 2024-08-23 12:33 | XMS_ITS | Encounter Summary ---
Author Organization [facility] Address [facility] [address] [place] [address] Care Team Providers Care Porter Baggage Name Role Phone Robin Chavez MD Primary Care Provider [phone] Encounter Details Date Type Department Care Team (Late st Contact Info) Description 08/18/2013 12:45 PM EST [place] [address] Bishnu Wetzel MD [facility] [place] [address] Headache (Primary Dx) Discharge Disposition: Home Social History Tobacco Use [...] Sign Reading Time Taken Comments Blood Pressure 118/70 08/18/2013 12:10 PM EST Pulse 73 08/18/2013 12:10 PM EST Temperature - - Respiratory Rate - - Oxygen Saturation - - Inhaled Oxygen Concentration - - Weight 59 kg (130 lb) 08/18/2013 12:10 PM EST Re ported Height 160 cm (5' 3) 08/18/2013 12:10 PM EST Re ported Body Mass Index 23.03 08/18/2013 12:10 PM EST documented in this encounter Progress Notes * Bishnu Wetzel MD - 08/18/2013 1:55 PM EST On examination, her blood pressure today is normal, as recorded in the record. Temporomandibular joint examination is negative. Percussion of the sinuses is negative. The biceps insertions are minimally tender. She has good range of motion of the neck. The occipital nerves are both tender. PERRLA; the fundi are benign. Cranial nerves I-XII are intact. Motor examination shows symmetric power, normal tone, and no tremor or drift. Sensory examination is intact to light touch, double simultaneous light touch, temperature, vibration, proprioception, and graphesthesia. Romberg is negative. Cerebellar shows good RRAM, woxmvb-us-plxy, and tandem walking. Station and gait are normal. Deep tendon reflexes are 2+ throughout. Her toes go down. This is a 18-year-old right-handed white female that Dr. Robin Chavez asked me to consult on regarding her migraines. She has only had them for about two years. She is unaware of any triggers. There is no prodrome or aura. They had been intermittent at first and then they escalated in frequency possibly in the setting of using a lot of egdo-xgy-avtedcb tkt-qpg-tkihu medication, which only gave her a partial response at best. She perhaps a month or so ago was put on some topiramate and is now at 100 mg a day and her headache frequency has improved to perhaps eight days a month. When the headaches occur, they are bifrontal temporal, severe, with pounding. There is nausea but no vomiting. It is bad enough to lie down with in a dark, quiet room. She is no longer taking mpwh-zbt-oovfaji medications. She has ended up in the Emergency Room in the past. The exacerbations can last up to two days. She has a history of motion sickness but not of fainting. She has a tendency for cold extremities without color change on exposure to cold. No history of head or neck injury. Her neck really does not bother her. In the past 25 or 50 mg of sumatriptan orally was ineffective. She has no history of renal stones. No other medical conditions. She has had a tonsillectomy and wisdom teeth out. Currently, she is on Vestura for her oral contraceptive and 50 mg b.i.d of topiramate. She has no allergies to medications. Sleep is nonrestorative but she says it is okay. Energy is a bit low. Her mood is okay. She has no clear diagnosis of depression or anxiety. Family history is positive for migraine in her sister. She does not smoke. She does not drink alcohol. 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 She has had some absenteeism but her job is not in jeopardy. She has some presenteeism. She had an EEG last year read by Dr. Wdae as normal. She had a recent thyroid study apparently. I do not have the results of those but she was told that was normal. Assessment and Plan: Problem: Episodic migraine without aura. That is what she currently has. I suspect that the chronic migraine pattern she was manifesting before may well have been medication overuse headache and she certainly has benefited by being on the topiramate. I have elected therefore not to get an MRI of her brain although should her pattern worsen or she develop new findings, I would certainly have a low threshold for getting that test in the future. I have told her to take no medications with any serious side effects and to take no medications if she becomes . For mild to moderate headache, we will let her use Anaprox DS with Vistaril 25 mg p.o. b.i.d. p.r.n. For severe headache up to two days a week, she may use sumatriptan 100 mg b.i.d. p.r.n. and for a particularly severe headache, I have told her the combination of sumatriptan and the naproxen sodium may be particularly effective. We will not change her topiramate at the present time. Followup will be in approximately eight weeks. I have asked her to keep a headache calendar in the meantime so we can track how she has done. Thank you for allowing me to consult on your patient. The majority of today's 65-minute office consultation was dominated by 35 minutes of direct goyt-bn-wjcx counseling and therapeutic planning. documented in this encounter Plan of Treatment Not on file documented as of this encounter Visit Diagnoses Diagnosis Headache(784.0)- Primary Headache documented in this encounter Care Teams Porter Baggage Relationship Specialty Start Date End Date Robin Chavez MD [address] [place] [address] PCP - General 08/18/13 10/18/13 documented as of this encounter
--- OUTSIDE RECORDS SUMMARY | 2024-08-23 12:33 | XMS_ITS | Encounter Summary ---
[place] [address] Care Team Providers Care Maintenance Construction Helper Name Role Phone Lynn López APRN Primary Care Provider [phone] Reason for Visit * Reason Onset Date Comments Follow-up 06/02/2017 Encounter Details Date Type Department Care Team (Late st Contact Info) Description 06/02/2017 [place] [phone] Mimi Irving Follow-up Social History Tobacco Use Types Packs/Day [...] encounter Miscellaneous Notes * Telephone Encounter - Mimi Irving - 06/13/2017 12:20 PM EDT Called pt to provide [facility] radiology ph #= Pt expressed frustration with Neurosurgery in combinationof the loss of their insurance and then disconnected the call. * Telephone Encounter - Mimi Irving - 06/13/2017 12:17 PM EDT Radiology scheduling called to sched pt for CT and there were no sched instructions in chart. Requested they contact pt and we were informed that we could have the pt contact them or we could schedule the appt. Took [facility] radiology # [phone] to provide to pt. * Telephone Encounter - Namrata Rodríguez - 06/10/2017 9:33 AM EDT I contacted [facility] this morning to start the prior authorization request. [facility] needs a peer to peer completed before finalizing their decision. Patient's insurance runs out on 06/12/17. [facility] number: [phone]. Please use pt insurance information to complete the peer to peer. Thank You. * Telephone Encounter - Mimi Irving - 06/02/2017 3:26 PM EDT Pt called and said no one ever called her to schedule her CT scan. She would like to have it done at [facility] documented in this encounter Plan of Treatment Not on file documented as of this encounter Visit Diagnoses Not on filedocumented in this encounter Care Teams Maintenance Construction Helper Relationship Specialty Start Date End Date Lynn López APRN PCP - General Family Medicine 03/17/17 documented as of this encounter
--- OUTSIDE RECORDS SUMMARY | 2024-08-23 12:33 | XMS_ITS | Encounter Summary ---
Author Organization [facility] [place] [place] [address] Care Team Providers Care Strategic Advisor Name Role Phone Surinder Woodard MD Primary Care Provider [phone] Encounter Details Date Type Department Care Team (Late st Contact Info) Description 10/20/2013 [place] [address] Josh Daniels APRN [facility] [place] [address] Migraine (Primary Dx) Social History Tobacco Use Types Packs/Day Years [...] on file documented as of this encounter Results * MRI brain with/WO contrast (10/26/2013 4:59 PM EST) Anatomical Region Laterality Modality Head Magnetic Resonan ce 10/26/2013 4:59 PM EST Narrative 10/26/2013 6:31 PM EST Examination MR BRAIN W/WO CONTRAST Clinical History increase in headaches (daily) ?? change in headache pattern Comparison None Technique MRI of the brain with and without contrast. ??13 mL of Magnevist administered. ?? Routine protocol. Findings There are no intracranial masses. ??There is prominence of the retrocerebellar cistern, a normal anatomic variant. The ventricles and sulci are proportional size. ??No white matter lesions are identified. ??The paranasal sinuses are clear. ??No Chiari malformation. 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 No abnormal enhancement is identified. ??No diffusion weighted abnormalities. Impression No significant abnormalities. Procedure Note Robin Maier MD - 10/26/2013 Examination MR BRAIN W/WO CONTRAST Clinical History increase in headaches (daily) change in headache pattern Comparison None Technique MRI of the brain with and without contrast. 13 mL of Magnevistadministered. Routine protocol. Findings There are no intracranial masses. There is prominence of theretrocerebellar cistern, a normal anatomic variant. The ventricles and sulci areproportional size. No white matter lesions are identified. The paranasal sinuses are clear. No Chiari malformation. There is a pineal cyst measuring 9 mmwith mild compression of the tectum. No abnormal enhancement is identified. No diffusion weighted abnormalities. Impression No significant abnormalities. Bishnu Wetzel MD IMG MRI ORDERABLES documented in this encounter Visit Diagnoses Diagnosis Migraine- Primary Migraine, unspecified, without mention of intractable migraine without mention of status migrainosus Migraine Migraine, unspecified, without mention of intractable migraine without mention of status migrainosus documented in this encounter Care Teams Strategic Advisor Relationship Specialty Start Date End Date Surinder Woodard MD [address] [place] [address] PCP - General 10/19/13 03/16/17 documented as of this encounter
--- OUTSIDE RECORDS SUMMARY | 2024-08-23 12:33 | XMS_ITS | Encounter Summary ---
Author Organization [facility] Ana [place]ía [place] [address] Care Team Providers Care Barrel Cooper Name Role Phone Surinder Woodard MD Primary Care Provider Encounter Details Date Type Department Care Team (Late st Contact Info) Description 10/19/2013 9:45 AM EST [place] [address] Josh Daniels APRN [facility] [place] [address] Migraine without aura (Primary Dx); Hypothyroidism Discharge Disposition: Home Social History Tobacco Use [...] Sign Reading Time Taken Comments Blood Pressure 141/82 10/19/2013 9:40 AM EST Pulse 96 10/19/2013 9:40 AM EST Temperature - - Respiratory Rate - - Oxygen Saturation - - Inhaled Oxygen Concentration - - Weight 59 kg (130 lb) 10/19/2013 9:40 AM EST Height 160 cm (5' 3) 10/19/2013 9:40 AM EST Body Mass Index 23.03 10/19/2013 9:40 AM EST documented in this encounter Progress Notes * Josh Daniels, ART GILDER - 10/19/2013 9:44 AM EST CC:This is a 18 y.o. woman, who was initially seen by Dr. Wetzel and is clinic today for follow-up for chronic headaches. HPI Liza has only had migraines for about two years. She is unaware of any triggers. There is no prodrome or aura. They had been intermittent at first and then they escalated in frequency possibly in the setting of using a lot of ckuu-wnq-bnkrqkh ghg-pgo-aazep medication, which only gave her a partial response at best. She perhaps a month or soago was put on some topiramate and is now at 100 mg a day and her headache frequency has improved to perhaps eight days a month. When the headaches occur, they are bifrontal temporal, severe, with pounding. There is nausea but no vomiting. It is bad enough to lie down with in a dark, quiet room. She is no longer taking dpbq-cgj-slwgyqn medications. She has ended up in the Emergency Room in the past. The exacerbations can last up to two days. She has a history of motion sickness but not of fainting. She has a tendency for cold extremities without color change on exposure to cold. No history ofhead or neck injury. Her neck really does not bother her. In the past 25 or 50 mg of sumatriptan orally was ineffective. She has no history of renal stones.She had an EEG last year read by Dr. Wade as normal. Medications Tried: OTC, sumitriptan nasal spray (increased nausea and didn't like the feeling) Diagnostic work-up: none PMH She has had a tonsillectomy and wisdom teeth out. 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 Missing work due to headaches: try to work through it with headache, so has not missed any days Sleeping: okay Snoring: none Nightmares: none Mood: okay Energy: low Contraception: none currently, was onVestura Subjective: Liza is here today for follow-up of headaches accompanied with her mother. She is currently taking Topamax 50mg bid. She feels that her headaches have increased in frequency and severityto almost daily over the last couple of weeks. She also feels her migraine pattern has changed. Sheis actually very tearful in the office in fear of a possible tumor and doesn't want to take medication for the rest of her life. Her headaches can range from initiating in her neck and radiating to bi-frontal to holocrancial her lesser headache is a pressure sensation but can turn into throbbing/pounding with her severe migraines. Accompanied with nausea, no vomiting. Triggers: light sensitivity.No aura or no prodrome. She is waking up with an headache almost every morning, but does not treat.She has only taking the imitrex po once, but didn't like the SE's of dizziness. She feels the combination of hydroxyzine and naproxen helps her lesser headache. Denies any new medical issues. Review of systems:chronic head pain as above, anxiety, neck pain. Denies cognitive changes, eye pain or depression. All other systems were negative. Objective: Filed Vitals: 10/19/13 0940 BP: 141/82 Pulse: 96 Physical Exam Constitutional: Well-developed, well-nourished, and in no distress. Tearful at times, especially when taking about her headaches or being on medications for the rest of life. HENT: Head: Normocephalic and atraumatic. Eyes: EOM are normal. Pupils are equal, round, and reactive to light. No papilledema, +BENCH PRECISION ASSEMBLER Neck: Normal range of motion. Occipital nerves NIKHIL L>R.tenderness, neck musculature tightness Cardiovascular: Normal rate and regular rhythm. Pulmonary/Chest: Effort normal and breath sounds normal. Neurologic Exam Mental Status Level of consciousness: alert Cranial Nerves Cranial nerves II through XII intact. CN III, IV, Pupils are equal, round, and reactive to light. Fundi benign Extraocular motions are normal. Motor Exam Muscle bulk: normal Overall muscle tone: normal Strength Strength 5/5 throughout. Sensory Exam Light touch normal. Vibration normal. Proprioception normal. Stereognosis: normal Gait, Coordination, and Reflexes Gait Gait: normal Coordination Romberg: negative, Finger to nose coordination: normal Tandem walking coordination: normal Reflexes Reflexes 2+ throughout Right plantar: normal Left plantar: normal Assessment: Episodic migraine without aura. ?chronic migraine Anixety Plan: 1. Increased Topamax to 75mg BID. She will start with 75 mg nightly and 50 mg in the morning for 2-3 weeks, then increase to 75mg BID. I did give her the option of taking the full dosage at night if needed. Discussed risks associated with Topamax. Specifically, risk for kidney stones, oligohidrosis, acute glaucoma and increased depression or suicide risk. Patient knows to seek medical assistance immediately if above symptoms present. Patient was advised to avoid while taking this medication due to the know teratogenic effects: including cleft lip and palate. Patient is advised that this medication may reduce the efficacy of hormonal control. A barrier method of control, in conjunction with hormonal control, is recommended to avoid . 2. Continue Naproxen with hydroxyzine for mild to moderate headaches. Can also pair with Imitrex for severe headaches. 3. Encouraged to try Imitrex po again. Advised to take 1/2 to 1 tablet of hydroxyzine 15 minutes prior to help with SE's. 4. LAB work ordered for topamax therapy: CBC/CMP and lyme antibody/tsh ordered 5. MRI of brain ordered with increase in frequency and severity of headaches and change in pattern to rule out secondary pathology. Patient admits to being claustrophobic, so ordered Valium 5-15 mg prior to diagnotic testing and she must have a dray truck driver. Requested to have MRI [facility] at [facility]. 6. Encouraged a headache calendar for next appt 7. Consider: Patient may benefit from non-pharmacological therapy with Dr. Pathak 8. Consider: ONB's for headache therapy or intractable headache since NIKHIL occipital nerves were tender. 9. Encouraged to keep diary to track triggers 10. Educated on treatment of migraines: treating early, repeating a second dose if needed and monitoring triggers Follow up plan: The patient will follow up in Headache Clinic in 4 weeks and call as needed. At least 35 minutes of this 45 minute face to face visit was spent counseling and therapeutic planning discussing potential adverse effects of all medications were discussed in detail (Topamax), future treatment options (ONB's), reasoning for labs/mri, and reasoning for COFFMAN calendars and diary. We also discussed non- pharmacological approaches chronic headaches (relaxation) as well as coping strategies, exclusive of the time spent performing the ONB's. I answered all of the patient's questions and she was comfortable with the plan. documented in this encounter Plan of Treatment Not on file documented as of this encounter Procedures Procedure Name Priority Date/Time Associated Diagnosis Comments LYME IGG & IGM ANTIBODY Routine 10/19/2013 11:20 AM EST Migraine without aura DIFFERENTIAL, AUTOMATED Routine 10/19/2013 11:20 AM EST CBC (WITH DIFF) Routine 10/19/2013 11:20 AM EST Migraine without aura TSH Routine 10/19/2013 11:20 AM EST COMPREHENSIVE METABOLIC PANEL Routine 10/19/2013 11:20 AM EST Migraine without aura documented in this encounter Results * Differential, Automated (10/19/2013 11:20 AM EST) Neutrophil % 59.0 34.0 - 71.0 % CERNER MILLENNIUM Neutrophil Absolute 4.36 1.50 - 6.30 x10(3)/mcL CERNER MILLENNIUM Lymph % 31.4 19.0 - 53.0 % CERNER MILLENNIUM Lymphocytes Abs 2.3 1.0 - 3.6 x10(3)/mcL CERNER MILLENNIUM Monocyte % 8.3 4.0 - 13.0 % CERNER MILLENNIUM Monocyte Abs 0.6 0.2 - 1.0 x10(3)/mcL CERNER MILLENNIUM Eos % 1.1 0.0 - 7.0 % CERNER MILLENNIUM Eosinophils Abs 0.1 0.0 - 0.5 x10(3)/mcL CERNER MILLENNIUM Basophil % 0.1 0.0 - 2.0 % CERNER MILLENNIUM Baso Absolute 0.0 0.0 - 0.2 x10(3)/mcL CERNER MILLENNIUM Immature Gran % 0.10 0.00 - 0.66 % CERNER MILLENNIUM Comment: Immature granulocytes(IG's)percentage and absolute count will include metamyelocytes, myelocytes, and promyelocytes. Blood smears from CBCs yielding IG's will be scanned manually for concordance. If this scan disagrees with the automated IG or if promyelocytes are noted, a manual differential will be performed. Immature Gran Absolute 0.01 0.00 - 0.05 x10(3)/mcL [facility] Blood specimen (specimen) 10/19/2013 11:20 AM EST 10/19/2013 11:31 AM EST Bishnu Wetzel MD HEMATOLOGY ORDERABLE S Performing Organization Address [facility] Phone Number [facility] * TSH (10/19/2013 11:20 AM EST) Pathologist [facility] Thyroid Stimulating Hormone 1.04 0.27 - 4.20 mcIU/mL [facility] Blood specimen (specimen) 10/19/2013 11:20 AM EST 10/19/2013 11:31 AM EST Narrative Resulting Agency Comment Spec In Lab Bishnu Wetzel MD CHEMISTRY ORDERABLES Performing Organization Address [facility] Phone Number [facility] * Lyme IgG & IgM Antibody (10/19/2013 11:20 AM EST) Pathologist [facility] Lyme Antibody Neg Neg [facility] Blood specimen (specimen) 10/19/2013 11:20 AM EST 10/20/2013 7:39 AM EST Narrative Resulting Agency Comment Spec In Lab Bishnu Wetzel MD IMMUNOLOGY ORDERABLE S Performing Organization Address [facility] de Phone Number [facility] * Comprehensive metabolic panel (non-fasting) (10/19/2013 11:20 AM EST) Pathologist [facility] Glucose 96 60 - 199 mg/dL [facility] Comment:Diabetes: >=200 mg/d L plus symptoms Blood Urea Nitrogen 9 8 - 18 mg/dL [facility] Creatinine 0.87 0.70 - 1.20 mg/dL [facility] Comment: Please note that the pediatric reference intervals supplied above were not validated at [facility]. Results from pediatric patients should be interpreted in conjunction to the patient's age, height and muscle mass. Sodium 140 135 - 145 mmol/L CERNER MILLENNIUM Potassium 3.8 3.5 - 5.0 mmol/L CERNER MILLENNIUM Comment: Please note: ??Patients with WBC >100,000 may have falsely elevated Potassium levels. ??For accurate Potassium quantification in these patients send serum separator tube (gold top) for subsequent determinations. ??Contact the Clinical Chemistry Laboratory if there are any questions. Chloride 107 98 - 107 mmol/L CERNER MILLENNIUM Carbon Dioxide 23 22 - 31 mmol/L CERNER MILLENNIUM Anion Gap 10 5 - 15 mmol/L CERNER MILLENNIUM Calcium 10.1 8.5 - 10.5 mg/dL CERNER MILLENNIUM Protein, Total 7.1 6.4 - 8.3 gm/dL CERNER MILLENNIUM Albumin 4.4 3.2 - 5.2 gm/dL CERNER MILLENNIUM Aspartate Aminotransferase 21 0 - 30 unit/L CERNER MILLENNIUM Alanine Aminotransferase 24 0 - 30 unit/L CERNER MILLENNIUM Alkaline Phosphatase 51 40 - 104 unit/L CERNER MILLENNIUM Bilirubin, Total 0.4 0.2 - 1.3 mg/dL CERNER MILLENNIUM Bilirubin, Direct 0.1 0.0 - 0.3 mg/dL CERNER MILLENNIUM Est Glomerular Filtration Rate >60 >=60 CERNER MILLENNIUM Comment: This estimated GFR (eGFR) value was calculated using the MDRD equation which has been validated on patients between the ages of 18 and 70. The MDRD should not be used to assess kidney function in patients < 18 years of age or in patients with extremes of body mass, or in patients with acute kidney failure. This value should be multiplied by 1.2 for patients. For further information please copy and paste the following links into your internet browser. http://www.nkdep.nih.gov/lab-evaluation.shtml http://www.kidney.org/professionals/ Blood specimen (specimen) 10/19/2013 11:20 AM EST 10/19/2013 11:31 AM EST Narrative Resulting Agency Comment Spec In Lab Bishnu Wetzel MD CHEMISTRY ORDERABLES SHANNAN DIAZ * CBC (with Diff) (10/19/2013 11:20 AM EST) White Blood Cell 7.4 4.0 - 10.0 x10(3)/mcL CERNER MILLENNIUM Red Blood Cell 4.78 3.93 - 5.22 x10(6)/mcL CERNER MILLENNIUM Hemoglobin 13.5 11.2 - 15.7 gm/dL CERNER MILLENNIUM Hematocrit 40.0 34.0 - 45.0 % CERNER MILLENNIUM Mean Cell Volume 83.7 79.0 - 94.0 fL CERNER MILLENNIUM Mean Cell Hemoglobin 28.2 26.6 - 32.2 pg CERNER MILLENNIUM Mean Cell Hemoglobin Concentration 33.8 32.0 - 36.5 gm/dL CERNER MILLENNIUM Platelet 250 145 - 370 x10(3)/mcL CERNER MILLENNIUM RDW Standard Deviation 36.4 35.0 - 46.0 fL CERNER MILLENNIUM RDW coefficient of variation 12.0 10.9 - 14.4 % CERNER MILLENNIUM Mean Platelet Volume 11.1 9.0 - 12.0 fL CERNER MILLENNIUM Blood specimen (specimen) 10/19/2013 11:20 AM EST 10/19/2013 11:31 AM EST Narrative Resulting Agency Comment Spec In Lab Bishnu Wetzel MD HEMATOLOGY ORDERABLE S SHANNAN DIAZ documented in this encounter Visit Diagnoses Diagnosis Migraine without aura- Primary Migraine without aura, without mention of intractable migraine without mention of status migrainosus Hypothyroidism Unspecified hypothyroidism documented in this encounter Care Teams Barrel Cooper Relationship Specialty Start Date End Date Surinder Woodard MD [address] [place] [id number] PCP - General 10/19/13 03/16/17 documented as of this encounter
--- OUTSIDE RECORDS SUMMARY | 2024-08-23 12:33 | XMS_ITS | Encounter Summary ---
Author Organization [facility] Address [facility] [place] [address] Care Team Providers Care Painter Helper Sign Name Role Phone Surinder Woodard MD Primary Care Provider Encounter Details Date Type Department Care Team (Late st Contact Info) Description 02/02/2015 [place] [address] Asa Araiza Jr., MD [facility] [place] [address] Social History Tobacco Use Types Packs/Day Years [...] Procedure Name Priority Date/Time Associated Diagnosis Comments FILM LIBRARY STORAGE ONLY DX ABDOMEN Routine 02/02/2015 9:15 AM EDT documented in this encounter Results * Film Library- Storage only DX Abdomen (02/02/2015 9:15 AM EDT) Anatomical Region Laterality Modality Other 02/02/2015 9:15 AM EDT Narrative 02/14/2015 4:42 PM EDT This is a Non-reportable exam Procedure Note LAM, UNSIGNED REPORT - 02/14/2015 This is a Non-reportable exam Asa Araiza Jr., MD [facility] FILM LIBRARY O RDERABLES documented in this encounter Visit Diagnoses Not on filedocumented in this encounter Care Teams Painter Helper Sign Relationship Specialty Start Date End Date Surinder Woodard MD [address] [place] [address] PCP - General 10/19/13 03/16/17 documented as of this encounter
--- OUTSIDE RECORDS SUMMARY | 2024-08-23 12:33 | XMS_ITS | Encounter Summary ---
Author Organization [facility] Address [facility] [place] [address] Care Team Providers Care Desk Clerks Supervisor Name Role Phone Surinder Woodard MD Primary Care Provider [phone] Encounter Details Date Type Department Care Team (Late st Contact Info) Description 02/06/2015 [place] [address] Asa Araiza Jr., MD [facility] [place] [address] Social History Tobacco Use Types Packs/Day Years [...] Associated Diagnosis Comments FILM LIBRARY STORAGE ONLY ULTRASOUND STUDY Routine 02/06/2015 9:15 AM EDT documented in this encounter Results * Film Library- Storage only Ultrasound Study (02/06/2015 9:15 AM EDT) Anatomical Region Laterality Modality Other 02/06/2015 9:15 AM EDT Narrative 02/14/2015 4:39 PM EDT This is a Non-reportable exam Procedure Note LAM, UNSIGNED REPORT - 02/14/2015 This is a Non-reportable exam Asa Araiza Jr., MD [facility] FILM LIBRARY O RDERABLES documented in this encounter Visit Diagnoses Not on filedocumented in this encounter Care Teams Desk Clerks Supervisor Relationship Specialty Start Date End Date Surinder Woodard MD [address] [place] [address] PCP - General 10/19/13 03/16/17 documented as of this encounter
--- OUTSIDE RECORDS SUMMARY | 2024-08-23 12:33 | XMS_ITS | Encounter Summary ---
Author Organization [facility] [place] [address] Care Team Providers Care Early Childhood Associate Teacher Name Role Phone Surinder Woodard MD Primary Care Provider [phone] Encounter Details Date Type Department Care Team (Late st Contact Info) Description 12/12/2014 [place] [address] Priti Solano APRN [facility] [place] [address] Headache(784.0) Social History Tobacco Use Types Packs/Day Years Used Date Smoking Tobacco: Never Smokeless Tobacco: Never Alcohol Use Standard Drinks/Week Comments No 0 (1 standard drink = 0.6 oz pur e alcohol) Sex and Gender Information Value Date Recorded Sex Assigned at Not on file Gender Identity Not on file Sexual Orientation Not on file documented as of this encounter Miscellaneous Notes * Addendum Note - Priti Solano APRN - 12/12/2014 1:56 PM ESTAddended by: PRITI SOLANO on: 12/12/2014 01:56 PM Modules accepted: Orders, Medications documented in this encounter Plan of Treatment Not on file documented as of this encounter Visit Diagnoses Diagnosis Headache(784.0) Headache documented in this encounter Care Teams Early Childhood Associate Teacher Relationship Specialty Start Date End Date Surinder Woodard MD [address] [place] [address] PCP - General 10/19/13 03/16/17 documented as of this encounter
--- OUTSIDE RECORDS SUMMARY | 2024-08-23 12:33 | XMS_ITS | Encounter Summary ---
Author Organization [facility] Ana María [facility] [place] [address] Care Team Providers Care Airborne Mission Systems Superintendent Name Role Phone Surinder Woodard MD Primary Care Provider [phone] Encounter Details Date Type Department Care Team (Late st Contact Info) Description 10/28/2013 [place] [address] Josh Daniels APRN [facility] [place] [address] Social History Tobacco Use Types Packs/Day Years [...] encounter Miscellaneous Notes * Telephone Encounter - Josh Daniels APRN - 11/18/2013 4:47 PM EST Personally spoken to Liza and she states for the last 20 minutes she has had facial numbness and tingling with a slight headache. Before this facial numbness and tingling she states she had sharp ear pain that didn't last for a long period of time. She denies facial droop, generalized weakness or slurred speech. She has not taking any abortive medications and has been on 75 mg of Topamax BID fora couple of weeks. Unfortunately this is a change in her presentation and I unable to assess her over the phone, so I have suggested that she go to her local ED for evaluation. She stated understanding and will call tomorrow with an update. * Telephone Encounter - Josh Daniels APRN - 10/28/2013 8:57 AM EST After further review documented in this encounter Plan of Treatment Not on file documented as of this encounter Visit Diagnoses Not on filedocumented in this encounter Care Teams Airborne Mission Systems Superintendent Relationship Specialty Start Date End Date Surinder Woodard MD [address] [place] [address] PCP - General 10/19/13 03/16/17 documented as of this encounter
--- OUTSIDE RECORDS SUMMARY | 2024-08-23 12:33 | XMS_ITS | Encounter Summary ---
Author Organization [facility] Ana [place] [place] [address] Care Team Providers Care Oil Dispatcher Name Role Phone Onel Castillo MD, Edmond Primary Care Provider [phone] Encounter Details Date Type Department Care Team (Late st Contact Info) Description 01/20/2013 [place] [address] Bishnu Wetzel MD [facility] [place] [address] Social History Tobacco Use Types Packs/Day Years Used Date Smoking Tobacco: Never Assessed Sex and Gender Information Value Date Recorded Sex Assigned at Not on file Gender Identity Not on file Sexual Orientation Not on file documented as of this encounter Plan of Treatment Not on file documented as of this encounter Visit Diagnoses Not on filedocumented in this encounter Care Teams Oil Dispatcher Relationship Specialty Start Date End Date Edmond Sykes MD [place], [place] [id number] PCP - General 09/04/10 08/17/13 documented as of this encounter
--- OUTSIDE RECORDS SUMMARY | 2024-08-23 12:33 | XMS_ITS | Encounter Summary ---
Author Organization [facility] Address [address] [place] [address] Care Team Providers Care Transplanter Name Role Phone Ron Valentine Stephen DOMONIQUE Primary Care Provider [phone] Encounter Details Date Type Department Care Team (Late st Contact Info) Description 08/27/2018 Results Only [facility] [phone] Liza Yu, [address] [place] [id number] Social History Tobacco Use Types Packs/Day Years Used Date Smoking Tobacco: Never Assessed Comments Unknown Sex and Gender Information Value Date Recorded Sex Assigned at Not on file Legal Sex Female 18:48 EST Gender Identity Not on file Sexual Orientation Not on file documented as of this encounter Plan of Treatment Not on file documented as of this encounter Procedures Procedure Name Priority Date/Time Associated Diagnosis Comments PAP TEST- RESULT ONLY Routine 08/27/2018 0:00 EST documented in this encounter Results * PAP TEST- RESULT ONLY (08/27/2018 0:00 EST) Pathology Report: CYTOPATHOLOGY REPORT Reports generated via electronic interface contain original data; however they are lacking the format of the original report. Caution should be taken when reading/interpreti ng unformatted reports. Name: ? LIZA RAUSCH ? Accession #: ? [id number] : ? 1995 (Age: 23) ??F ?Collect Date: ? 08/27/2018 Location: ? [facility] ? Receive Date: ? 08/28/2018 Provider: ?LIZA YU PLANNING AND ANALYSIS MANAGER Copy to: ?IRMA GUERRA PLANNING AND ANALYSIS MANAGER ? Specimen/Source: ?Pap Test, Cervix, ThinPrep Imaging System with manual evaluation Last Menstrual Period: ? 07/25/18 ? SPECIMEN ADEQUACY ? Satisfactory for Evaluation - transformation zone component present GENERAL CATEGORIZATION ? Negative for Intraepithelial Lesion or Malignancy ? Document reviewed and electronically signed by: ? YARELY Santos(ASCP) ? Report Date: ??09/09/2018 08:52 End of Report [facility] 08/27/2018 08/28/2018 us Liza Yu PLANNING AND ANALYSIS MANAGER PATHOLOGY ORDERABLES Final R esult [facility] [address] [place] [address] documented in this encounter Visit Diagnoses Not on filedocumented in this encounter Care Teams Transplanter Relationship Specialty Start Date End Date Valentine Velasquez APRN [address] [place] [address] PCP - General 02/10/15 07/26/21 documented as of this encounter
--- OUTSIDE RECORDS SUMMARY | 2024-08-23 12:33 | XMS_ITS | Encounter Summary ---
Author Organization [facility] Address [facility] [address] [place] [place] [address] Care Team Providers Care Blockers Skiver Name Role Phone Surinder Woodard MD Primary Care Provider Encounter Details Date Type Department Care Team (Latest Contact Info) Description 10/26/2013 3:18 PM EST - 10/26/2013 11:59 PM [facility] Hospital [place] [phone] CLINIC, DR SARINA Wetzel, Bishnu August MD [facility] [place] [address] Migraine Discharge Disposition: Home Social History Tobacco Use [...] Sig Dispensed Refills Start Date End Date hydrOXYzine (ATARAX) 25 mg tabletIndications:Migra ine without aura Take 1/2 to 1 tablet twice daily as needed. Caution sedation. 30 tablet 11 10/19/2013 11/30/2014 topiramate (TOPAMAX) 25 mg tabletIndications:Migra ine without aura Take one 25 mg tablet with the 50 mg tablet to equal 75 mg twice daily. 60 tablet 5 10/19/2013 12/30/2013 diaZEPam (VALIUM) 5 mg tabletIndications:Migra ine without aura Take 1 tablet by mouth as needed for Anxiety. For MRI 3 tablet 0 10/19/2013 11/10/2013 naproxen sodium (ANAPROX) 550 mg tabletIndications:Heada serina(784.0) Take 1 tablet by mouth 2 times daily as needed. 30 tablet 12 08/18/2013 11/30/2014 documented as of this encounter Progress Notes * Dina Abraham RN - 10/22/2013 5:39 PM EST VIR MRI PRE-SEDATION ASSESSMENT NOTE NAME: Liza Wilkinson AGE: 18 y.o. : 1995 Female [phone] (home) No relevant phone numbers on file. PCP HEARING STENOGRAPHER MD Ron GENTILE Kathryn H, APRN Allergies Allergen Reactions ??? Prednisone Rash Holes in finger nails. Rash on hands and feet. ??? Sudafed (Pseudoephedrine Hcl) Heart races Date/Time of call: October 22, 2013/5:39 PM/ PREVIOUS MRI SCAN? no HEIGHT: 5'3'' WEIGHT: 130# SCHEDULED SCAN: MRI brain SUBJECTIVE: I am very claustrophobic. ASSESSMENT: good candidate for po sedation PLAN: Valium 5-10 mg po per protocol. Confirmed that pt has a speedboat driver. PRIOR SCAN DATE/S SEDATION TYPE SUCCESSFUL 10/26/13 MRI brain Valium 5mg po yes PT WILL ARRIVE 1 HR. BEFORE SCHEDULED SCAN AND HAVE A MODELING TEACHER AVAILABLE. PT STATED TO SEED CLEANING MANAGER THAT THE SEDATION WAS EFFECTIVE FOR SCAN: Y N COMMENTS: This patient has been informed that they require a speedboat driver to drive them home after this procedure. In the absence of a speedboat driver, IR will not be able to perform this procedure and will need to reschedule. Pt verbalized understanding of these instructions during the pre-procedure education via phone. documented in this encounter Miscellaneous Notes * Miscellaneous - Provider, Scanning - 11/01/2013 8:35 AM EST documented in this encounter Plan of Treatment Not on file documented as of this encounter Procedures Procedure Name Priority Date/Time Associated Diagnosis Comments MRI BRAIN WWO CONTRAST (GENERIC) Routine 10/26/2013 4:59 PM EST Migraine documented in this encounter Results * MRI brain with/WO [...] in this encounter Visit Diagnoses Diagnosis Migraine Migraine, unspecified, without mention of intractable migraine without mention of status migrainosus documented in this encounter Administered Medications Inactive Administered Medications - up to 3 most recent administrations Medication Order MAR Action Action Date Dose Rate Site diaZEPam (VALIUM) tablet 5-10 mg 5-10 mg, Oral, ONCE, 1 dose, On Fri10/26/13 at 0915, Angio/IR (Day of Procedure), Routine Given 10/26/2013 9:15 AM EST 5 mg documented in this encounter Care Teams Blockers Skiver Relationship Specialty Start Date End Date Surinder Woodard MD [address] [place] [address] PCP - General 10/19/13 03/16/17 documented as of this encounter
--- OUTSIDE RECORDS SUMMARY | 2024-08-23 12:33 | XMS_ITS | Encounter Summary ---
Author Organization [facility] Address [facility] Ana [address] [place] [address] Care Team Providers Care Jacquard Plate Maker Name Role Phone ReneLynn rodriguez Collin YOUSSEF Primary Care Provider [phone] Encounter Details Date Type Department Care Team (Late st Contact Info) Description 10/10/2005 Orders Only Pediatric [place] [address] Mague Jacinto MD [facility] DR [place] [address] Social History Tobacco Use Types Packs/Day Years Used Date Smoking Tobacco: Never Assessed Sex and Gender Information Value Date Recorded Sex Assigned at Not on file Gender Identity Not on file Sexual Orientation Not on file documented as of this encounter Plan of Treatment Not on file documented as of this encounter Procedures Procedure Name Priority Date/Time Associated Diagnosis Comments MOLECULAR GENETICS REPORT Routine 10/10/2005 12:53 PM EST documented in this encounter Results * Molecular Genetics Report (10/10/2005 12:53 PM EST) Molecular Report [id number] ? Location: The signing pathologist has (i) examined the relevant preparation(s) for the specimen(s) and (ii) rendered or confirmed the diagnosis(es). . ? Pathology Molecular Genetics Report Results ? Cystic Fibrosis Mutation Analysis INDICATION FOR STUDY: ?? Carrier testing. Ethnicity: ??Not specified. ANALYSIS: ?? Examination of DNA extracted from peripheral blood leukocytes for 43 mutations in the Cystic Fibrosis transmembrane conductance regulator (CFTR) gene. Results: ??Negative for the 43 mutations tested. Interpretation: ??It is our understanding that this individual has a negative personal and family history for cystic fibrosis (CF). Using the CFTR InPlex assay, this individual is negative for the 43 mutations tested, including the 23 mutations recommended for screening by the [employer]. These results do not rule out the possibilty that this individual could be a carrier of a mutation not detected by this test. This interpretation is based on the clinical information provided and the current understanding of this disease. While DNA testing is very accurate, rare diagnostic errors due to various pre- and post-analytical variables do occur. Comments: ??A negative test result significantly reduces, but does not eliminate, the risk of being a carrier or having a child with CF. See table below. Ethnic Group ?--*1-- ?--2*-- ?--3*-- Ashkenazi Sikh ?11/05 to ?94% ? 1 in 36,600 ? 11/06 to ?89% ? 1 in 20,600 ?61 to 125 ?66% ? 1 in 42,000 Spanish ?? 58 to ?74% ? 1 in 47,200 Spanish ? to ?55% ? 1 in 68,600 * 1 = Carrier risk reduction with no family history, 2 = Detection Rate, 3 = Risk of having a child with CF if carrier test is negative for one partner Methods: ??Genomic DNA was extracted from the submitted peripheral blood specimen using the Qiagen EZ1 BioRobot. The CFTR gene was tested for the presence of the following mutations/polymorp hisms using the CFTR InPlex assay ([facility], [place], [place]):1717-1G>A, 1898+1G>A, 2184delA, 2789+5G>A, 3120+1G>A, 3659delC, 3849+10kbC>T, 621+1G>T, 711+1G>T, A455E, G542X, G551D, G85E, F6972I, J0564H, R117H, R334W, R347P, R553X, R560T, Q2018N, delta F508, qtpgpE624, 1078delT, I148T, 2183delAA>G, 3849+4A>G, 3876delA, 3905insT,394delTT, Q4284N, I4498E, E60X, Q493X, R347H,S549N, S549RA>C, S549RT>G, V520F, V3381SP>A, R5488KC>G, Y122X, and F508C. This test was developed and its performance determined by the Molecular Pathology Laboratory at the [facility]. It has not been cleared or approved by the U.S. Food and Drug Administration. This test is used for clinical purposes and should not be considered as investigational or for research purposes. The Molecular Pathology . Results Laboratory is certified by the Clinical Laboratory Improvement Act of 1988 and as such is allowed to perform high complexity clinical testing. References: 1. ACOG/ACMG. Preconception and carreir screening for cystic fibrosis. 2001, pp.1-31. 2. Alexandro MERCER et al., Genetics in Medicine 2002;4:379-391. Reviewed by: ??Martin Figueroa, PhD ? Director, Molecular Pathology Verified date: ??10/15/05 ??LST Verified by: ?Martin Figueroa, PhD ? (Electronic Signature) SHANNAN DIAZ 10/10/2005 12:5 3 PM EST Mague Jacinto MD PATHOLOGY/CYTOLOGY O CATHY SHANNAN DIAZ documented in this encounter Visit Diagnoses Not on filedocumented in this encounter Care Teams Jacquard Plate Maker Relationship Specialty Start Date End Date Lynn López, CRIMINAL LAWYER PCP - General Family Medicine 03/17/17 documented as of this encounter
--- OUTSIDE RECORDS SUMMARY | 2024-08-23 12:33 | XMS_ITS | Encounter Summary ---
Author Organization [facility] Address [facility] [address] [place] [place] [address] Care Team Providers Care Management Rep Name Role Phone Lynn López APRN Primary Care Provider [phone] Reason for Visit * Reason Comments Cyst PINEAL CYST.. pt did not get MRI... .. * Consultation (Routine) - Closed Specialty Diagnoses / Procedures Referred By Cate ruelas Referred To Contact Neurosurgery Diagnoses Pineal gland cyst Migraine without aura and without status migrainosus, not intractable Bhupendra Nicole APRN [facility] [place] [address] [facility] Neurosurgery [address] [place] [id number] Referral ID Status Reason Start Date Expiration Date V isits Requested Visits Authorized [id number] Closed Consult, Test & Treat 03/17/2017 03/17/2018 1 1 Encounter Details Date Type Department Care Team (Late st Contact Info) Description 03/31/2017 9:20 AM EDT [place] [address] [facility] [place] [address] Cyst of pineal gland (Primary Dx); Episodic cluster headache, not intractable; Pineal gland cyst Social History Tobacco Use Types Packs/Day Years [...] Sign Reading Time Taken Comments Blood Pressure 139/61 03/31/2017 9:23 AM EDT Pulse 78 03/31/2017 9:23 AM EDT Temperature - - Respiratory Rate - - Oxygen Saturation - - Inhaled Oxygen Concentration - - Weight 70.4 kg (155 lb 3.2 oz) 03/31/2017 9:23 A M EDT Height 160 cm (5' 3) 03/31/2017 9:23 AM EDT Body Mass Index 27.49 03/31/2017 9:23 AM EDT documented in this encounter Patient Instructions * Patient Instructions* Surinder Hammer MD - 03/31/2017 9:20 AM EDT The plan we agreed upon was to obtain a non-contrast Head CT for baseline as she has problems with the MRI. She will keep followup with Neurology for primary headache management and she will return in 6 months for followup. No plan for surgical intervention. documented in this encounter Progress Notes * Surinder Hammer MD - 03/31/2017 9:20 AM EDT [facility] Section of Neurosurgery Department of Surgery New Patient Subjective: 22 year old right handed female with at least 6 years of global headache symptoms occurring at least 2 to 3 times per week. She has been on several medications and is followed in the Neurology clinic. She was scheduled for a repeat MRI today but unable to tolerate. Past studies have shown a pineal region cyst. Previous Relevant Surgeries (Procedure / Date/ Surgeon/ Location of Records): None Objective: Exam: Neurological Exam: Mental Status: Alert and oriented to person, place, and time. Recent and remote memory are intact. Attention and concentration are normal. Language is fluent. Fund of knowledge is appropriate. Cranial Nerves: Pupils are equal, round, and reactive. Normal visual acuity. Normal fundoscopic exam. Normal visual jackman. Extraocular movements are full, without nystagmus. No facial weakness. No facial asymmetry. Facial sensation is normal. Hearing is normal. The palate elevates in the midline. There is no dysarthria. Shoulder shrug strength is normal. The tongue is midline. There is no atrophy of the tongue. Motor: Normal tone in all 4 extremities. No fasciculation. No atrophy. Motor Strength: Right Left Right Left Upper Extremity Lower Extremity Deltoid 5 5 Hip Flexion 5 5 Biceps 5 5 Hip Extension 5 5 Triceps 5 5 Knee Flexion 5 5 Wrist Flexion 5 5 Knee Extension 5 5 Wrist Extension 5 5 Ankle Dorsiflexion 5 5 Grasp 5 5 Ankle Plantar Flexion 5 5 Reflexes: Right Left Biceps 2 2 Triceps 2 2 Brachioradialis 2 2 Knee 2 2 Akle 2 2 Plantar flexor flexor Sensation: Sensation is intact to light touch, pin-prick, proprioception, temperature and vibration in all four extremities. Coordination: Skcris-dc-ikyv: normal Ddjs-te-amhn: normal Rapid alternating movements testing is normal. Gait: Steady at station. Gait is narrow based and steady. Heel, toe, and tandem walking are normal. 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 As noted unable to get study today. Assessment: This is most likely an incidental finding and not related to her headaches. We do generally recommend serial imaging as being done and I am happy to follow along in case this begins to enlarge. Plan: We agreed to get a non-contrast Head CT to see if we can use that to monitor the size of this lesion until an MRI was mandatory in which case we may need sedation. Routine return in 6 months and keepNeurology followup for actual headache management. I spent over 30 minutes in face to face contact with the patient and her accompanying indiduals. Over 50% of that time was spent in education and counseling. They indicated they had no further questions at this time and were pleased with the appointment. Surinder Hammer MD MS Professor and Chair Section of Neurosurgery Department of Surgery [facility] documented in this encounter Plan of Treatment Not on file documented as of this encounter Visit Diagnoses Diagnosis Cyst of pineal gland- Primary Other specified endocrine disorders Episodic cluster headache, not intractable Episodic cluster headache Pineal gland cyst Other specified endocrine disorders documented in this encounter Care Teams Management Rep Relationship Specialty Start Date End Date Lynn López, SPRAY BLENDER PCP - General Family Medicine 03/17/17 documented as of this encounter
--- OUTSIDE RECORDS SUMMARY | 2024-08-23 12:33 | XMS_ITS | Encounter Summary ---
Author Organization [facility] [place] [address] Care Team Providers Care Food And Drug Research Scientist Name Role Phone Surinder Woodard MD Primary Care Provider [phone] Reason for Visit * Reason Onset Date Comments Other 10/17/2014 Pt requesting ca ll back Encounter Details Date Type Department Care Team (Late st Contact Info) Description 10/17/2014 Telephone [place] [phone] Josh Daniels APRN [facility] [address] Other (Pt requesting call back) Social History Tobacco Use Types Packs/Day Years [...] encounter Miscellaneous Notes * Telephone Encounter - Henry Bill LPN - 10/31/2014 2:11 PM EST Please see telephone encounter from 10/17/14. * Telephone Encounter - Namrata Nowak - 10/17/2014 10:53 AM EST Patient thought she had October. Per Josh's last office note patient not due until December 2014. Patient is currently scheduled for 12/26/14 at 11:30 am. Patient would appreciate a call back at home # on file to discuss current symptoms. documented in this encounter Plan of Treatment Not on file documented as of this encounter Visit Diagnoses Not on filedocumented in this encounter Care Teams Food And Drug Research Scientist Relationship Specialty Start Date End Date Surinder Woodard MD [address] [place] [address] PCP - General 10/19/13 03/16/17 documented as of this encounter
--- OUTSIDE RECORDS SUMMARY | 2024-08-23 12:33 | XMS_ITS | Encounter Summary ---
Author Organization [facility] [address] [place] [place] [address] Care Team Providers Care Tax Services Intern Name Role Phone Surinder Woodard MD Primary Care Provider [phone] Reason for Visit * Reason Onset Date Comments Other 08/07/2015 Encounter Details Date Type Department Care Team (Late st Contact Info) Description 08/07/2015 [place] [phone] Bhupendra Nicole APRN [facility] [place] [address] Other Social History Tobacco Use Types Packs/Day [...] encounter Miscellaneous Notes * Telephone Encounter - Isabel Prieto RN - 08/22/2015 10:05 AM EST Called patient and left a message asking for a return phone call. Letter sent to patient's home address requesting she call if she has further questions. * Telephone Encounter - Mary Clayton RN - 08/15/2015 3:54 PM EST Message left requesting return call. * Telephone Encounter - Mary Clayton RN - 08/07/2015 12:50 PM EDT Message left requesting return call. * Telephone Encounter - Kanwal Krishnamurthy - 08/07/2015 11:15 AM EDT Patient states she last saw Josh in January and requested a follow up appointment. Scheduled follow up with Bhupendra Nicole for first available. Patient is asking for a call back from the nurse to discuss the cyst she was following up with Josh. Please advise further. documented in this encounter Plan of Treatment Not on file documented as of this encounter Visit Diagnoses Not on filedocumented in this encounter Care Teams Tax Services Intern Relationship Specialty Start Date End Date Surinder Woodard MD [address] [place] [address] PCP - General 10/19/13 03/16/17 documented as of this encounter
--- OUTSIDE RECORDS SUMMARY | 2024-08-23 12:33 | XMS_ITS | Encounter Summary ---
Author Organization [facility] [place] [address] Care Team Providers Care Parking Inspector Name Role Phone ReneLynn rodriguez APRN Primary Care Provider Encounter Details Date Type Department Care Team (Late st Contact Info) Description 09/30/2019 4:07 PM EST [place] [address] Beck Donis [facility] [place] [address] Beck Donis [facility] [place] [address] Anesthesia Record Procedure Summary Procedure Name Responsible Anesthesiologist Anesthesia Start Time Anesthesia Stop Time Labor Analgesia (proc) Events No events on file. Meds * Agents No agents on file. * Blood No blood administrations on file. Lines, Drains, and Airways Type Details Placement Removal (RETIRED By SPR20) Incision 10/31/19; 0430 10/13 07/02 043 by Zehra Mccracken RN documented in this encounter Social History [...] of this encounter OR Notes * Anesthesia Preprocedure Evaluation - Beck Donis William - 09/30/2019 4:08 PM EST Pre-Anesthesia Evaluation for: Liza Polanco Ivor a 24 y.o. female. * No procedures listed * Patient Active Problem List Diagnosis ??? Pineal gland cyst ??? Headache(784.0) ??? Migraine ??? Chronic hypertension affecting No past medical history on file. No past surgical history on file. Social History Tobacco Use ??? Smoking status: Never Smoker ??? Smokeless tobacco: Never Used Substance Use Topics ??? Alcohol use: Yes Comment: ON OCC Social History Substance and Sexual Activity Drug Use No Allergies Allergen Reactions ??? Polymyxin B Sulf-Trimethoprim Orbital edema ??? Prednisone Rash Holes in finger nails. Rash on hands and feet. ??? Sudafed [Pseudoephedrine Hcl] Heart races Medications: MAR and/or home medications have been reviewed. Physical Exam: Most Recent Vitals: 09/30/19 1329 BP: 137/76 Pulse: 82 Resp: Temp: SpO2: Body mass index is 32.42 kg/m??. Height: 160 cm (5' 3) Weight: 83 kg (183 lb) Airway Assessment: Mallampati: II TM distance: >3 FB Neck ROM: full Cardiovascular Assessment: Pulmonary Assessment: Dental Assessment: - normal exam Misc Assessment: Anesthesia Plan: ASA 2 Pt interviewed and examined. Pt is a 24 y.o. female who is and 33w1d here for pre-eclampsia superimposed on chronic HTN. Medical history, medications, allergies, and social history reviewed, significant for HTN. Labs reviewed and listed below. No contraindication to a neuraxial technique. Consent obtained. Risk, benefits discussed; questions answered. Allergies/ADR: -- Polymyxin B Sulf-Trimethoprim -- Orbital edema -- Prednisone -- Rash -- Holes in finger nails. Rash on hands and feet. -- Sudafed (Pseudoephedrine Hcl) -- Heart races\ Personal history of problems with anesthesia: denies Family history of anesthesia problems: denies Bleeding Disorder: denies Asthma: denies HTN: chronic Prior back surgeries/pathology: denies LE numbness/weakness: denies Lab Results Component Value Date/Time HGB 14.6 09/29/2019 08:16 PM PLATELET 232 09/29/2019 08:16 PM Type and Screen: Lab Results Component Value Date ABORH B Pos 09/29/2019 Discussed potential need for labor analgesia and/or anesthesia to possibly include epidural, spinal, CSE, and anesthesia for (which includes all of the above with the addition of general anesthesia.) Answered all questions, consent obtained and placed in patient's chart. Beck Donis DO Informed Consent: PAT Clinic Note documented in this encounter Plan of Treatment Not on file documented as of this encounter Visit Diagnoses Not on filedocumented in this encounter Care Teams Parking Inspector Relationship Specialty Start Date End Date Lynn López APRN PCP - General Family Medicine 03/17/17 documented as of this encounter
--- OUTSIDE RECORDS SUMMARY | 2024-08-23 12:33 | XMS_ITS | Encounter Summary ---
Author Organization [facility] Address [address] [place] [address] Care Team Providers Care Manufacturing Area Manager Name Role Phone Valentine Velasquez LVN HOME HEALTH Primary Care Provider [phone] Encounter Details Date Type Department Care Team (Latest Contact Info) Description 02/14/2015 8:45 EDT - 02/14/2015 23:59 EDT Hospital Encounter [facility] [address] [place] [address] Valentine Velasquez, LVN HOME HEALTH [address] [address] Discharge Disposition: Auto Discharge Social History Tobacco Use Types Packs/Day Years Used Date Smoking Tobacco: Never Assessed Comments Unknown Sex and Gender Information Value Date Recorded Sex Assigned at Not on file Legal Sex Female 18:48 EST Gender Identity Not on file Sexual Orientation Not on file documented as of this encounter Discharge Diagnoses Diagnosis 592.0 CALCULUS OF KIDNEY[ICD-9-CM] 789.00 ABDOMINAL PAIN UNSPEC SITE[ICD-9-CM] documented in this encounter Medications at Time of Discharge NORETHINDRONE (RASHAD-BE ORAL) Take by mouth daily pantoprazole (PROTONIX) 40 mg tablet Take 40 mg by mouth daily documented as of this encounter Discharge Disposition Disposition Code Departure Means Destination Auto Discharge Home documented in this encounter Plan of Treatment Not on file documented as of this encounter Visit Diagnoses Not on filedocumented in this encounter Care Teams Manufacturing Area Manager Relationship Specialty Start Date End Date Valentine Velasquez, DOMONIQUE [address] [place] [id number] PCP - General 02/10/15 07/26/21 documented as of this encounter
--- OUTSIDE RECORDS SUMMARY | 2024-08-23 12:33 | XMS_ITS | Encounter Summary ---
Author Organization [facility] [address] [place] [address] Care Team Providers Care Sail Finisher Hand Name Role Phone Surinder Woodard MD Primary Care Provider [phone] Encounter Details Date Type Department Care Team (Late st Contact Info) Description 12/30/2013 2:40 PM EDT [place] [address] Josh Daniels APRN [facility] [place] [address] Migraine (Primary Dx) Discharge Disposition: Home Social History [...] Sign Reading Time Taken Comments Blood Pressure 129/83 12/30/2013 2:49 PM EDT Pulse 94 12/30/2013 2:49 PM EDT Temperature - - Respiratory Rate - - Oxygen Saturation - - Inhaled Oxygen Concentration - - Weight 59 kg (130 lb) 12/30/2013 2:49 PM EDT Height 160 cm (5' 3) 12/30/2013 2:49 PM EDT Body Mass Index 23.03 12/30/2013 2:49 PM EDT documented in this encounter Progress Notes * Josh Daniels, CHIEF OF FIELD OPERATIONS - 12/30/2013 3:00 PM EDT CC:This is a 18 y.o. woman, who was initially seen by Dr. Wetzel and is clinic today for follow-up for chronic headaches. TAMMIE De Jesus has only had migraines for about two years. She is unaware of any triggers. There is no prodrome or aura. They had been intermittent at first and then they escalated in frequency possibly in the setting of using a lot of crsk-wcw-gfkkcjm lyt-edb-nwdfk medication, which only gave her a partial [...] quiet room. She is no longer taking jjfz-toc-pjqdypt medications. She has ended up in the [...] spray (increased nausea and didn't like the feeling), Topamax (SE's) Diagnostic work-up: MRI brain 10/2013: pineal cyst measuring 9 mm with mild compression of the tectum. No significant abnormalities. Consulted by Dr. Bazan (NS) recommended 6 month MRI- non surgical TSH 10/2013: nml PMH She has had a tonsillectomy and wisdom teeth out. 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 Missing work due to headaches: try to work through it with headache, so has not missed any days Sleeping: okay Snoring: none Nightmares: none Mood: okay Energy: low Contraception: none currently, was on Vestura Subjective: Liza is here today for follow-up of headaches. She has stopped taking topamax due to SE's. She did follow-up with Dr. Bazan in regards to 9mm pineal cyst, non-surgical but recommends arepeat MRI in 6 months. Since stopping the Topamax she has only had about 2 headaches and treated with Naproxen sodium with good relief. She has not had to use the imitrex. She is happy with her headache pattern, but nervous that it's seasonal. Review of systems:chronic head pain as above, anxiety, neck pain. Denies cognitive changes, eye pain or depression. All other systems were negative. Objective: Filed Vitals: 12/30/13 1449 BP: 129/83 Pulse: 94 Physical- Patient appears well, in no acute distress Psychologic- Normal mood and affect, Alert and oriented x 3 Neuro- not dysarthric or ataxic. Assessment: Episodic migraine without aura. Anixety Plan: 1. Continue Naproxen with hydroxyzine for mild to moderate headaches. Can also pair with Imitrex for severe headaches. 2. Encouraged to try Imitrex po again. Advised to take 1/2 to 1 tablet of hydroxyzine 15 minutes prior to help with SE's. 3. Repeat MRI of brain end of March to f/u with pineal cyst. 4. Encouraged a headache calendar for next appt 5 Consider Magnesium or Riboflavin 6. Encouraged to keep diary to track triggers 7. Educated on treatment of migraines: treating early, repeating a second dose if needed and monitoring triggers Follow up plan: The patient will follow up in Headache Clinic in 3 months and call as needed. At least 10 minutes of this 15 minute face to face visit was spent counseling and therapeutic planning discussing potential adverse effects of all medications were discussed in detail, future treatment options (Mg/riboflavin) We also discussed non-pharmacological approaches chronic headaches (relaxation) as well as coping strategies. I answered all of the patient's questions and she was comfortable with the plan. documented in this encounter Plan of Treatment Not on file documented as of this encounter Results * MRI brain with/WO contrast (04/25/2014 2:45 PM EDT) Anatomical Region Laterality Modality Head Magnetic Resonan ce 04/25/2014 2:45 PM EDT Narrative 04/25/2014 3:20 PM EDT Examination MR BRAIN W/WO CONTRAST Clinical History follow-up of pineal cyst Comparison MRI brain 10/26/2013 Technique MRI of the brain was performed before and after the administration of 12 milliliters Magnevist ?? Findings The cerebral parenchyma is normal in volume and morphology. ??There are scattered nonspecific foci of T2 prolongation within the bilateral frontal lobes, unchanged. ??Unchanged sharply marginated T2 hyperintense (slightly hypointense to CSF) cystic lesion within the pineal gland which measures 12 x 8 millimeter on thin-section sagittal T2 weighted sequences image 25, series 8. There is minimal mass effect on the superior tectum. ??The cerebral aqueduct appears patent. The sagittal midline structures are otherwise normal in appearance. There is a thin rim of peripheral enhancement without nodularity. No extra-axial collection or midline shift. The ventricles are within normal limits for size. ??Normal T2 flow voids in the major arteries at the base of the brain. ? Impression Stable appearance of cystic pineal gland without nodular enhancement. 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 ??No evidence for ventricular obstruction. Procedure Note Doris Abebe MD - 04/25/2014 Examination MR BRAIN W/WO CONTRAST Clinical History follow-up of pineal cyst Comparison MRI brain 10/26/2013 Technique MRI of the brain was performed before and after the administration of 12 milliliters Magnevist Findings The cerebral parenchyma is normal in volume and morphology. There are scattered nonspecific foci of T2 prolongation within the bilateral frontal lobes, unchanged. Unchanged sharply marginated T2 hyperintense (slightly hypointense to CSF) cystic lesion within the pineal gland which tnnsoxrt27 x 8 millimeter on thin-section sagittal T2 weighted sequences image 25, series8. There is minimal mass effect on the superior tectum. The cerebralaqueduct appears patent. The sagittal midline structures are otherwise normal in appearance. There is a thin rim of peripheral enhancement withoutnodularity. No extra-axial collection or midline shift. The ventricles are withinnormal limits for size. Normal T2 flow voids in the major arteries at the baseof the brain. Impression Stable appearance of cystic pineal gland without nodular enhancement. 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 No evidence for ventricular obstruction. Bishnu Wetzel MD IMG MRI ORDERABLES documented in this encounter Visit Diagnoses Diagnosis Migraine- Primary Migraine, unspecified, without mention of intractable migraine without mention of status migrainosus Migraine Migraine, unspecified, without mention of intractable migraine without mention of status migrainosus documented in this encounter Care Teams Sail Finisher Hand Relationship Specialty Start Date End Date Surinder Woodard MD [address] [place] [address] PCP - General 10/19/13 03/16/17 documented as of this encounter
--- OUTSIDE RECORDS SUMMARY | 2024-08-23 12:33 | XMS_ITS | Encounter Summary ---
Author Organization [facility] Address [address] [place] [address] Care Team Providers Care Manager Valuation Name Role Phone SusanIsabel ross Toya YOUSSEF Primary Care Provider [phone] Reason for Visit * Reason Comments New Patient Visit Encounter Details Date Type Department Care Team (Late st Contact Info) Description 07/27/2021 10:00 EDT Office Visit [facility] Surgical Oncology - [address] [address] Sarah Avendano, PAEdilC [address] [place] [address], [address] [place] [address] Family history of breast cancer (Primary Dx) Social History Tobacco Use Types Packs/Day Years Used Date Smoking Tobacco: Never Assessed Comments Unknown Sex and Gender Information Value Date Recorded Sex Assigned at Not on file Legal Sex Female 18:48 EST Gender Identity Not on file Sexual Orientation Not on file documented as of this encounter Last Filed Vital Signs Vital Sign Reading Time Taken Comments Blood Pressure 135/78 07/27/2021 1007 EDT Pulse 71 07/27/2021 1007 EDT Temperature - - Respiratory Rate - - Oxygen Saturation - - Inhaled Oxygen Concentration - - Weight 77.3 kg (170 lb 8 oz) 07/27/2021 1007 EDT Height 160 cm (5' 2.99) 07/27/2021 1007 EDT Body Mass Index 30.21 07/27/2021 1007 EDT documented in this encounter Progress Notes * Sarah Avendano PA-C - 07/27/2021 1000 EDT Subjective: Patient ID: Liza Wilkinson is an 26 y.o. y.o. female Chief Complaint: Chief Complaint Patient presents with ??? New Patient Visit HPI: Division of Surgical Oncology- [facility] CONSULTATION- 07/27/2021 PROBLEM: 1. Family history of breast cancer SUBJECTIVE: Liza Wilkinson is a 26 year old female who is being seen in consultation at the request of Carlos Alberto Cao APRN. Patient has been referred to our high-risk clinic due to her family history of breastcancer. Patient's mother was diagnosed with breast cancer at age.Patient's mother was initially diagnosed with breast cancer at age 48. She was then diagnosed with leukemia at age 58 and that same year. She did not have genetic testing prior to her passing. Patient does not have any concerns today with respect to her breasts. She denies any masses, skin changes or nipple discharge. She does not have a history of breast biopsies. Patient's significant other is here with her today. Patient's medical history includes hypertension and anxiety. She is working with her PCP. INSPECTION MACHINE TENDER HISTORY: Menarche at age [age]. . Age at first childbirth 25. Patient is having regular menstrual cycles. She denies any fertility drugs. She has taken OCPs intermittently for 10 years. SOCIAL HISTORY: Born in [place], [place]. Lives in [place], [place]. Has a significant other. Has a young daughter. Attended [employer]. 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 Lifetime nonsmoker. She does not drink alcohol. FAMILY HISTORY: Patient has one daughter, age 2, healthy. Patient has 1 full sister, 3 maternal half sisters, 3 paternal half sisters and a paternal half brother. None of her sisters have a history of malignancy. Patient's paternal half brother was diagnosed with pancreatic cancer at age 48 and that same year. He did not have genetic testing prior to his passing. Patient's father is currently 68, no history of malignancy. Patient is unsure of the health history of her paternal grandparents. Patient's father has one sister and two brothers, no history of malignancy. Patient is unsure of the healthhistory of her paternal first cousins. She is unsure of the ethnic background of this side of the [facility]. Patient's mother was initially diagnosed with breast cancer at age 48. She was then diagnosed with leukemia at age 58 and that same year. She did not have genetic testing prior to her passing. Patient's maternal grandmother at age 89, no history of malignancy. Patient is unsure of the health history of her maternal grandfather. Patient's mother had three sisters and two brothers. None of patient's maternal aunts have a history of malignancy. Patient is unsure of the health history of her maternal uncles. No history of malignancy with her maternal first cousins. Patientis unsure of the ethnic background of this side of the family. There is no problem list on file for this patient. No past medical history on file. Past Surgical History: Procedure Laterality Date ??? SECTION 2020 Family History Problem Relation Age of Onset ??? Breast Cancer Mother 48 ??? Leukemia Mother 58 ??? Pancreatic Cancer Half-Brother 48 Social History Tobacco Use ??? Smoking status: Not on file Substance Use Topics ??? Alcohol use: Not on file ??? Drug use: Not on file NORETHINDRONE (RASHAD-BE ORAL) pantoprazole (PROTONIX) 40 mg tablet No current facility-administered medications for this visit. Allergies Allergen Reactions ??? Prednisone Rash ??? Sudafed [Pseudoephedrine Hcl] Other (See Comments) Racing heart BP 135/78 Pulse 71 Ht 160 cm (62.99) Wt 77.3 kg (170 lb 8 oz) BMI 30.21 kg/m?? Review of Systems: Constitutional: Negative for chills, fever, malaise/fatigue and weight loss Eyes: Negative for pain Respiratory: Negative for hemoptysis, shortness of breath and wheezing Cardiovascular: Negative for chest pain, claudication and leg swelling Gastrointestinal: Negative for abdominal pain Musculoskeletal: Negative for myalgias Skin: Negative for rash Neurological: Positive for numbness/tingling hands (?carpal tunnel, has seen her PCP for this. [facility] doing PT) Negative for speech change, seizures and loss of consciousness Endo/Heme/Allergies: Does not bruise/bleed easily Psychiatric/Behavioral: Positive for anxiety (has seen her PCP for this, they offered to refer to atherapist which patient states she is not ready for). Negative for hallucinations, substance abuse and suicidal ideas - See HPI Physical Exam: Constitutional: She is oriented to person, place and time. Vital signs are normal. She appears well-developed and well-nourished. Tearful at times. Head: Normocephalic and atraumatic Eyes: No discharge. No scleral icterus. Cardiovascular: Normal rate and regular rhythm. Pulmonary/Chest: Effort normal and breath sounds normal. No respiratory distress. She has no wheezes,rhonchi or rales. Breast Exam: Breasts and axilla are examined in the seated and the supine position. There are no discrete or obvious palpable abnormalities in either breast. There is no skin puckering, dimpling, nipple inversion/change, or nipple discharge. There are no concerning skin changes. There are no axillary masses Abdominal: Soft, no tenderness Lymphadenopathy: She has no cervical, supraclavicular or axillary adenopathy. Neurological: She is alert and oriented x3, Coordination is normal Skin: Skin is warm and dry. No rash is present. No erythema or pallor is present. Psychiatric: Patient has normal mood and affect. Her behavior is normal. Vital signs have been reviewed. Assessment: Liza presents to the high-risk clinic today at to establish care due to her family history of breast cancer. She has 1 first-degree relative, her mother, who was diagnosed with breast cancer at age 48. We did discuss patient's family history at length today. Patient did have some questions regarding her family history and she was encouraged to try to get more information if possible. We did discuss how we base her risk on family history. With the information provided today, her risk is above average given her family history. We did discuss beginning with a screening mammogram 10 years prior to the youngest age at time of breast cancer diagnosis in her family. As her mother was diagnosed with breast cancer at age 48, we did discuss beginning with a screening mammogram at age 36. Of note, patient also has a family history of pancreatic cancer on the paternal side (paternal half brother).There has not been any genetic testing on either side of this family. I have offered patient a referral to [facility] for genetic counseling due to her family history. We did discuss different scenarios today that if one of our genetic counselors recommended genetic testing for patient and if a pathogenicmutation were found, then we may need to change our screening recommendations. Patient does understand this however is not interested in a referral to [facility] for genetic counseling at this time. She will give this more thought. She was encouraged to reach out to our office if she changes her mind regarding this. For now patient should have twice annual clinical breast exams and practice breast awareness. Again patient was encouraged to try to get more information regarding family history. I will plan on seeing her in 6 months at which point we can perform a clinical breast exam and review any additional family history that she was able to obtain. Plan: 1. Will hold off on a screening mammogram at this time 2. Offered FCP referral. Patient not interested at this time. She was encouraged to contact our office if she changes her mind 3. Return to clinic in 6 months for clinical breast exam. Patient can see her PCP or her INSPECTION MACHINE TENDER 6 months after that for an additional clinical breast exam. 4. Encouraged patient to practice breast awareness and report any changes or new concerns to our office. 5. Encouraged patient to try to get additional information regarding family history if possible Patient was seen for 45 minutes and 30 minutes were spent in face to face counseling regarding family history of breast cancer and risk of occurrence. Screening plan was discussed as above. I was directly supervised by our clinic physician, Dr. Maloney, who was in the suite and immediatelyavailable for the entire time for the above documented service was provided. Encounter Diagnoses Name Primary? Family history of breast cancer Yes Sarah Avendano PA-C No orders of the defined types were placed in this encounter. documented in this encounter Plan of Treatment Not on file documented as of this encounter Procedures Procedure Name Priority Date/Time Associated Diagnosis Comments ORDERS - SCANNED 08/06/2021 14:59 EDT documented in this encounter Results * ORDERS - SCANNED (08/06/2021 14:59 EDT) 08/06/2021 14:5 9 EDT us Scan 2 Telephoto Installer ADMISSION ORDERABLES Final Result documented in this encounter Visit Diagnoses Diagnosis Family history of breast cancer- Primary Family history of malignant neoplasm of breast documented in this encounter Care Teams Manager Valuation Relationship Specialty Start Date End Date Isabel Cao APRN [address] [place] [address] PCP - General Family Medicine - [facility] Medicine 07/27/21 documented as of this encounter
--- OUTSIDE RECORDS SUMMARY | 2024-08-23 12:33 | XMS_ITS | Encounter Summary ---
Author Organization [facility] Address [address] [place] [address] Care Team Providers Care Textile Artist Name Role Phone Valentine Velasquez APRN Primary Care Provider [phone] Isabel Cao APRN Primary Care Provider [phone] [phone] Encounter Details Date Type Department Care Team (Late st Contact Info) Description 08/04/[address] [facility] Pathology & Laboratory Medicine - [facility] [address] [place] [address] Liza Yu, [facility] [address] [place] [address] [place] [address] Encounter for other general examination Social History Tobacco Use Types Packs/Day Years [...] Name Priority Date/Time Associated Diagnosis Comments PAP TEST Today 08/01/2020 11:00 EDT Encounter for other general examination documented in this encounter Results * PAP TEST (08/01/2020 11:00 EDT) Specimens A. Cervix and/or Endocervix , ThinPrep Imaging System with Manual Evaluation 09/05/2020 12:05 [facility] Specimen Adequacy Satisfactory for Evaluation - transformation zone component present 09/05/2020 12:05 [facility] General Categorization Negative for intraepithelial lesion or malignancy 09/05/2020 12:05 [facility] Attestation . 09/05/2020 12:05 [facility] at 1205 Clinical History See below 09/05/20 12:05 [facility] Performing Lab [facility] 09/05/2020 12:05 [facility] Scanned Images 09/05/2020 12:05 [facility] Papanicolaou smear specimen (specimen) CERVIX UTERI STRUCTURE / Unknown 08/01/2020 11:00 EDT 08/04/2020 15:14 EDT us Liza Yu BRAKE MACHINE OPERATOR PATHOLOGY ORDERABLES Final R esult [facility] [address] [place] [address] documented in this encounter Visit Diagnoses Diagnosis Encounter for other general examination documented in this encounter Care Teams Textile Artist Relationship Specialty Start Date End Date Valentine Velaqsuez APRN [address] [facility] [address] [place] [address] PCP - General 02/10/15 07/26/21 Isabel Cao APRN [address] [place] [address] PCP - General Family Medicine - Hospital Medicine 07/27/21 documented as of this encounter
--- OUTSIDE RECORDS SUMMARY | 2024-08-23 12:33 | XMS_ITS | Encounter Summary ---
Author Organization [facility] [address] [place] [address] Care Team Providers Care Sand Slinger Operator Name Role Phone Surinder Woodard MD Primary Care Provider Reason for Visit * Reason Onset Date Comments Other 04/26/2014 Encounter Details Date Type Department Care Team (Late st Contact Info) Description 04/26/2014 [place] [phone] Josh Daniels APRN [facility] [place] [address] Other Social History Tobacco Use Types Packs/Day [...] Telephone Encounter - Thor Hansen RN - 04/26/2014 1:34 PM EDT Spoke with Liza read the results of her MRI she was satisfied with results. * Telephone Encounter - Thor Hansen RN - 04/26/2014 11:34 AM EDT Called and left message for patient to return call. * Telephone Encounter - Karol Nelsno - 04/26/2014 11:12 AM EDT Patient called in for the results of her recent MRI. Please call her back to discuss. documented in this encounter Plan of Treatment Not on file documented as of this encounter Visit Diagnoses Not on filedocumented in this encounter Care Teams Sand Slinger Operator Relationship Specialty Start Date End Date Surinder Woodard MD [address] [place] [address] PCP - General 10/19/13 03/16/17 documented as of this encounter
--- OUTSIDE RECORDS SUMMARY | 2024-08-23 12:33 | XMS_ITS | Encounter Summary ---
Author Organization [facility] Address [address] [place] [address] Care Team Providers Care Colors Custodian Name Role Phone OsielIsabel Cherry Toya YOUSSEF Primary Care Provider [phone] Encounter Details Date Type Department Care Team (Late st Contact Info) Description 05/01/[address] [facility] Pathology & Laboratory Medicine - [facility] [address] [place] [address] Outr Resulting Lab, Provider Social History Tobacco Use Types Packs/Day Years [...] Procedure Name Priority Date/Time Associated Diagnosis Comments CHLAMYDIA/N. GONORRHOEAE AMPLIFIED NUCLEIC ACID Routine 04/30/2023 14:30 EDT documented in this encounter Results * CHLAMYDIA/N. GONORRHOEAE AMPLIFIED RNA (04/30/2023 14:30 EDT) Neisseria gonorrhoeae Result Negative Negative 05/02/2023 14:05 EDT [facility] Chlamydia trachomatis Result Negative Negative 05/02/2023 14:05 EDT [facility] Urine URINE / Unknown 04/30/2023 1 4:30 EDT 05/01/2023 18:37 EDT Narrative [facility] - 05/02/2023 14:05 EDT A first catch urine specimen is acceptable for detection of Gonorrhea and Chlamydia, but might detect up to 10% fewer infections when compared with vaginal and endocervical swab samples. us Provider Outr Resulting Lab MICROBIOLOGY - GENER AL ORDERABLES Final Result Performing Organization Address City/State/[facility] Co de Phone Number [facility] [address] [place] [address] documented in this encounter Visit Diagnoses Not on filedocumented in this encounter Care Teams Colors Custodian Relationship Specialty Start Date End Date Isabel Cao APRN [address] [place] [address] PCP - General Family Medicine - Hospital Medicine 07/27/21 documented as of this encounter
--- OUTSIDE RECORDS SUMMARY | 2024-08-23 12:33 | XMS_ITS | Clinical Summary ---
Author Organization [facility] Address [address] [place] [address] Care Team Providers Care Tub Mender Name Role Phone Isabel Cao DOMONIQUE Primary Care Provider [phone] Allergies Active Allergy Reactions Criticality Noted Date Comments Prednisone Rash 02/14/2015 Pseudoephedrine Hcl Other (See Comments) 2014 Racing heart Medications pantoprazole (PROTONIX) 40 mg tablet Take 40 mg by mouth daily Active NORETHINDRONE (RASHAD-BE ORAL) Take by mouth daily Active Active Problems No known active problems Surgical History Surgery Date Site/Laterality Comments SECTION 10/13/2019 - 10/12/2020 Family History Medical History Relation Comments Pancreatic Cancer Half-Brother Breast Cancer Mother Leukemia Mother Relation Status Comments Half-Brother Mother Social History Tobacco Use Types Packs/Day Years Used Date Smoking Tobacco: Never Assessed Comments Unknown Sex and Gender Information Value Date Recorded Sex Assigned at Not on file Legal Sex Female 18:48 EST Gender Identity Not on file Sexual Orientation Not on file Obstetrics History Last Filed Vital Signs Vital Sign Reading Time Taken Comments Blood Pressure 135/78 07/27/2021 1007 EDT Pulse 71 07/27/2021 1007 EDT Temperature - - Respiratory Rate - - Oxygen Saturation - - Inhaled Oxygen Concentration - - Weight 77.3 kg (170 lb 8 oz) 07/27/2021 1007 EDT Height 160 cm (5' 2.99) 07/27/2021 1007 EDT Body Mass Index 30.21 07/27/2021 1007 EDT Plan of Treatment Health Maintenance Due Date Last Done Comments Hepatitis C Screen 1993 Hepatitis B Vaccine (1 of 3 - 19+ 3-dose series) 01/12 COVID-19 Vaccine (2022- season) 2023 Insurance [facility] Address: [place] [address] Care Teams Tub Mender Relationship Specialty Start Date End Date Isabel Cao APRN [address] [place] [id number] PCP - General Family Medicine - [facility] Medicine 07/27/21
--- OUTSIDE RECORDS SUMMARY | 2024-08-23 12:33 | XMS_ITS | Encounter Summary ---
Author Organization [facility] Address [facility] [address] [place] [address] Care Team Providers Care Stitch Bonding Machine Tender Helper Name Role Phone Surinder Woodard MD Primary Care Provider Encounter Details Date Type Department Care Team (Late st Contact Info) Description 09/12/2015 - 09/12/2015 11:59 PM EST Hospital Encounter Radiology Library at [facility] [place] [phone] [facility] Discharge Disposition: Home Social History Tobacco Use [...] Sig Dispensed Refills Start Date End Date naproxen sodium (ANAPROX) 550 mg TabletIndications:Headac he(784.0) Take 1 tablet by mouth 2 times daily as needed. 30 tablet 11 11/30/2014 10/01/2019 documented as of this encounter Plan of Treatment Not on file documented as of this encounter Procedures Procedure Name Priority Date/Time Associated Diagnosis Comments FILM LIBRARY STORAGE ONLY MR HEAD Routine 09/12/2015 12:00 AM EST Pain documented in this encounter Results * Film Library- Storage only MR Head (09/12/2015 12:00 AM EST) Narrative RAD - 09/22/2015 2:44 PM EST See PACS for result report. Dr Briseno [facility] IM FILM LIBRARY ORD ERABLES [place], [place] documented in this encounter Visit Diagnoses Diagnosis Pain Generalized pain documented in this encounter Care Teams Stitch Bonding Machine Tender Helper Relationship Specialty Start Date End Date Surinder Woodard MD [address] [place] [id number] PCP - General 10/19/13 03/16/17 documented as of this encounter
--- OUTSIDE RECORDS SUMMARY | 2024-08-23 12:33 | XMS_ITS | Referral Summary ---
Author Organization [facility] Address [address] [place] [address] Care Team Providers Care Precision Crop Manager Name Role Phone Isabel Cao DOMONIQUE Primary Care Provider [phone] Allergies Active Allergy Reactions Criticality Noted Date Comments Prednisone Rash 02/14/2015 Pseudoephedrine Hcl Other (See Comments) 2014 Racing heart Medications pantoprazole (PROTONIX) 40 mg tablet Take 40 mg by mouth daily Active NORETHINDRONE (RASHAD-BE ORAL) Take by mouth daily Active Active Problems No known active problems Social History Tobacco Use Types Packs/Day Years Used Date Smoking Tobacco: Never Assessed Comments Unknown Sex and Gender Information Value Date Recorded Sex Assigned at Not on file Legal Sex Female 18:48 EST Gender Identity Not on file Sexual Orientation Not on file Last Filed Vital Signs Vital Sign Reading Time Taken Comments Blood Pressure 135/78 07/27/2021 [facility] EDT Pulse 71 07/27/2021 1007 EDT Temperature - - Respiratory Rate - - Oxygen Saturation - - Inhaled Oxygen Concentration - - Weight 77.3 kg (170 lb 8 oz) 07/27/20211006 EDT Height 160 cm (5' 2.99) 07/27/20211006 EDT Body Mass Index 30.21 07/27/2021 1007 EDT Plan of Treatment Not on file Insurance MEDICAID [employer] [place] Care Teams Precision Crop Manager Relationship Specialty Start Date End Date Isabel Cao APRN [address] [place] [id number] PCP - General Family Medicine - [facility] Medicine 07/27/21
--- OUTSIDE RECORDS SUMMARY | 2024-08-23 12:33 | XMS_ITS | Encounter Summary ---
Author Organization [facility] Address [address] [place] [address] Care Team Providers Care Metal Fitters And Machinists Name Role Phone Valentine Velasquez APRN Primary Care Provider [phone] Reason for Visit * Reason Onset Date Comments Appointment Related 07/04/2021 Encounter Details Date Type Department Care Team (Late st Contact Info) Description 07/04/2021 Telephone [facility] Surgical Oncology - [facility] [address] [place], [place] [address] Isabel Cao, UPHOLSTERY SEWER [address] [place] [phone] Appointment Related Social History Tobacco Use Types Packs/Day Years Used Date Smoking Tobacco: Never Assessed Comments Unknown Sex and Gender Information Value Date Recorded Sex Assigned at Not on file Legal Sex Female 18:48 EST Gender Identity Not on file Sexual Orientation Not on file documented as of this encounter Miscellaneous Notes * Telephone Encounter - Jenny Espino - 07/04/2021 1031 EDT 1 X CALL TO PT TO SCHEDULE IN [facility]: LVM FOR PT TO RETURN CALL TO [facility] # PROVIDED Jenny Espino 07/04/21 1030 documented in this encounter Plan of Treatment Not on file documented as of this encounter Visit Diagnoses Not on filedocumented in this encounter Care Teams Metal Fitters And Machinists Relationship Specialty Start Date End Date Valentine Velasquez APRN [address] [place] [id number] PCP - General 02/10/15 07/26/21 documented as of this encounter
--- OUTSIDE RECORDS SUMMARY | 2024-08-23 12:33 | XMS_ITS | Encounter Summary ---
Author Organization [facility] [address] [place] [address] Care Team Providers Care Computing Services Director Name Role Phone Surinder Woodard MD Primary Care Provider Reason for Visit * Reason Onset Date Comments Other 02/23/2014 Encounter Details Date Type Department Care Team (Late st Contact Info) Description 02/23/2014 [place] [phone] Josh Daniels APRN [facility] [place] [address] Other Social History Tobacco Use Types Packs/Day [...] encounter Miscellaneous Notes * Telephone Encounter - Isabelle Baer RN - 02/23/2014 12:44 PM EDT I spoke again with Liza to discuss her symptoms. The two episodes of stabbing pain over her left eye described this morning are the only times she has experienced this ever , and these symptoms weredifferent from her typical pattern of headache. She denies visual or neurological changes or symptoms . I have advised her to take naproxen sodium 550 mg along with the hydroxyzine if these symptoms occur again and also to be seen by PCP or ED if these symptoms persist . Liza voiced understanding of these instructions. * Telephone Encounter - Josh Daniels APRN - 02/23/2014 12:09 PM EDT Are those the only two episodes and is this different from her typical pattern? Any visual or neurological changes? If it should occur again take the naproxen with the hydroxyzine to see if any relief. If persistent with other symptoms (visual changes/neurological changes) and not typical of her headache pattern should be evaluated by PCP or ER. * Telephone Encounter - Isabelle Baer RN - 02/23/2014 10:42 AM EDT Liza called today to report that she has two episodes of pain over her left eye and left side of head - first occurrence at 0300 AM and again at 0830 AM. She describes the pain as stabbing and lasting for 10-15 minutes . There was no headache associated with this pain. She is asking if she needs to be concerned about this . Liza is currently on no daily medications and has her rescue medications including hydroxyzine, naproxen and Imitrex. After the first episode at 0300 AM Liza informs me that she broke out in a sweat and then felt like she was going to pass out . This did not happen after the second episode at 0830. Next appt - 04/20/14 * Telephone Encounter - Isabelle Baer RN - 02/23/2014 10:26 AM EDT Message left asking for a call back. * Telephone Encounter - Karol Nelson - 02/23/2014 8:35 AM EDT Patient called in to report that she has had throbbing in her head since last night. She would likea call back to discuss. documented in this encounter Plan of Treatment Not on file documented as of this encounter Visit Diagnoses Not on filedocumented in this encounter Care Teams Computing Services Director Relationship Specialty Start Date End Date Surinder Woodard MD [address] [place] [id number] PCP - General 10/19/13 03/16/17 documented as of this encounter
--- OUTSIDE RECORDS SUMMARY | 2024-08-23 12:33 | XMS_ITS | Encounter Summary ---
Author Organization [facility] [address] [place] [address] Care Team Providers Care Dust Sampler Name Role Phone Surinder Woodard MD Primary Care Provider Reason for Referral * Physical Therapy (Routine) - Closed Specialty Diagnoses / Procedures Referred By Contignacio ruelas Referred To Contact Physical Therapy Diagnoses Headache(784.0) Josh Daniels WEBSITE PROJECT MANAGER [facility] [place] [address] Referral ID Status Reason Start Date Expiration Date V isits Requested Visits Authorized [id number] Closed Evaluate and Treat 11/30/2014 05/29/2015 1 1 Encounter Details Date Type Department Care Team (Late st Contact Info) Description 11/30/2014 8:10 AM EST [place] [address] Josh Daniels [facility] [place] [address] Headache(784.0); Migraine without aura and without status migrainosus, not intractable; Cervicalgia Discharge Disposition: Home Social History Tobacco Use [...] Sign Reading Time Taken Comments Blood Pressure 147/76 11/30/2014 7:55 AM EST Pulse 80 11/30/2014 7:55 AM EST Temperature - - Respiratory Rate - - Oxygen Saturation - - Inhaled Oxygen Concentration - - Weight 59 kg (130 lb) 11/30/2014 7:55 AM EST Height 160 cm (5' 3) 11/30/2014 7:55 AM EST Body Mass Index 23.03 11/30/2014 7:55 AM EST documented in this encounter Progress Notes * Josh Daniels APRN - 11/30/2014 8:33 AM EST CC:This is a 18 y.o. [...] the setting of using a lot of ndrz-iyi-kwzzxwd stm-xal-vcvis medication, which only gave her a partialresponse at best. When the headaches occur, they are bifrontal temporal, severe, with pounding. There is nausea but no vomiting. It is bad enough to lie down with in a dark, quiet room. She is no longer taking kubm-zng-sqmxjvl medications. 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 No evidence for ventricular obstruction MRI brain 10/2013: pineal cyst measuring 9 mm with mild compression of the tectum. No significant abnormalities. Consulted by Dr. Bazan (NS) recommended 6 month MRI- non surgical TSH 10/2013: nml PMH She has had a tonsillectomy and wisdom teeth out. 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 Missing work due to headaches: presenteeism Sleeping: okay Snoring: none Nightmares: none Mood: okay Energy: low Contraception: none currently, was on Vestura Subjective: Liza is here today for follow-up of headaches. Since August she has been having a increase in her headaches to 3-4 weekly. She is concerned that she is exposed to multiple fluroscent lights at work, which is a big trigger for her. She has requested to have them changed, but has been denied. She denies any changes in her headaches, except for the slight increase in frequency. She did retry the topamax in October, but did not like the side effects, such as the paresthesias. She does treat with naproxen and/or hydroxyzine and it helps her headaches. She has not had to use the imitrex in a couple of months. She has stopped taking topamax due to SE's. Denies headache in office today. She has not used the imitrex in a while. Triggers: Fluorescent lights, neck pain and anxiety Review of systems: head pain as above, anxiety, neck pain. All other systems were negative. Objective: Filed Vitals: 11/30/14 0755 BP: 147/76 Pulse: 80 Physical- Patient appears well, in no acute distress Psychologic- Normal mood and affect, Alert and oriented x 3 Neuro- not dysarthric or ataxic. Assessment: Migraine without aura. Anixety Plan: 1. Continue Naproxen with hydroxyzine for mild to moderate headaches. Can also pair with Imitrex for severe headaches. 2. Encouraged to try Imitrex po again. Advised to take 1/2 to 1 tablet of hydroxyzine 15 minutes prior to help with SE's. 3. Try Zonisamide 25 mg and in 2 weeks increase to 50 mg nightly. Labs with f/u CBC and CMP 4. [facility] calendars 5. PT for neck pain and headaches, which seems to be a trigger as while. 6. She is requesting a letter for work to eliminate triggers such as fluorescent lights. Follow up plan: The patient will follow up in [facility] in 6 weeks and call as needed. At least 15 minutes of this 25 minute face to face visit was spent counseling and therapeutic planning discussing potential adverse effects of all medications were discussed in detail (zonisamide), PT external. We also discussed non- pharmacological approaches chronic headaches (relaxation) as well as coping strategies. I answered all of the patient's questions and she was comfortable with the plan. documented in this encounter Plan of Treatment Scheduled Referrals Name Type Priority Associated Diagnoses Orde r Schedule Referral to Physical Therapy Outpatient Referral Routine Headache Ordered: 11/30/2014 documented as of this encounter Visit Diagnoses Diagnosis Headache(784.0) Headache Migraine without aura and without status migrainosus, not intractable Migraine without aura, without mention of intractable migraine without mention of status migrainosus Cervicalgia documented in this encounter Care Teams Dust Sampler Relationship Specialty Start Date End Date Surinder Woodard MD [address] [place] [address] PCP - General 10/19/13 03/16/17 documented as of this encounter
--- OUTSIDE RECORDS SUMMARY | 2024-08-23 12:33 | XMS_ITS | Encounter Summary ---
Author Organization [facility] Address [facility] Ana Mar[facility] [place] [address] Care Team Providers Care Pocket Flap Creasing Machine Operator Name Role Phone Surinder Woodard MD Primary Care Provider [phone] Encounter Details Date Type Department Care Team (Late st Contact Info) Description 09/14/2015 [place] [address] Sylvia Bergeron MD [facility] [place] [address] Social History Tobacco Use Types Packs/Day Years [...] encounter Miscellaneous Notes * Telephone Encounter - Sylvia Bergeron MD - 09/14/2015 6:11 PM EST 6:11 PM Patient called concerned she has numbness and tingling in her arms and legs. It is provoked by crossing arms or legs. Not sure what to make of this, instructed her to go to ED if concerned Also states she has black lines across the veins inside her elbow and inside her knee. Not painful, not raised, does not seem like DVT or thrombophlebitis, did not ask about IV drug use. Advised she got to [facility] ed if she is concerned as i would not be able to guarantee her any answers if she came here to [facility] documented in this encounter Plan of Treatment Not on file documented as of this encounter Visit Diagnoses Not on filedocumented in this encounter Care Teams Pocket Flap Creasing Machine Operator Relationship Specialty Start Date End Date Surinder Woodard MD [address] [place] [id number] PCP - General 10/19/13 03/16/17 documented as of this encounter
--- OUTSIDE RECORDS SUMMARY | 2024-08-23 12:33 | XMS_ITS | Encounter Summary ---
[place] [address] Care Team Providers Care Clerical Adviser Name Role Phone Lynn López APRN Primary Care Provider [phone] Encounter Details Date Type Department Care Team (Late st Contact Info) Description 03/17/2017 Orders [place] [address] Ady Reid Social History Tobacco Use Types Packs/Day Years [...] on filedocumented in this encounter Care Teams Clerical Adviser Relationship Specialty Start Date End Date Lynn López APRN PCP - General Family Medicine 03/17/17 documented as of this encounter
--- OUTSIDE RECORDS SUMMARY | 2024-08-23 12:33 | XMS_ITS | Encounter Summary ---
Author Organization [facility] Address [facility] [place] [address] Care Team Providers Care Viscera Washer Name Role Phone Surinder Woodard MD Primary Care Provider [phone] Encounter Details Date Type Department Care Team (Late st Contact Info) Description 11/18/2013 [place] [address] Ld Seo MD [facility] [place] [address] Social History Tobacco Use Types Packs/Day Years [...] encounter Miscellaneous Notes * Telephone Encounter - Ld Seo MD - 11/18/2013 6:00 PM EST Pt called to c/o that facial numbness and tingling is still persistent. She went to ED as recommendthis afternoon and she says they just checked a few things told her she had anxiety and sent her home. She is concerned because tingling is persistent. I clairfied with her that she has no eye pain, no tearing, no Blurry vision, no other symptoms currently. Recommend she try to get an appointment with PCP in the AM for further evaluation if the symptoms persist. Ld Seo MD Pager#: [phone] documented in this encounter Plan of Treatment Not on file documented as of this encounter Visit Diagnoses Not on filedocumented in this encounter Care Teams Viscera Washer Relationship Specialty Start Date End Date Surinder Woodard MD [address] [place] [id number] PCP - General 10/19/13 03/16/17 documented as of this encounter
--- OUTSIDE RECORDS SUMMARY | 2024-08-23 12:33 | XMS_ITS | Encounter Summary ---
Author Organization [facility] [place] [address] Care Team Providers Care Wheel Press Operator Name Role Phone Surinder Woodard MD Primary Care Provider Reason for Visit * Reason Comments Other pt here for pineal c yst.. Encounter Details Date Type Department Care Team (Late st Contact Info) Description 11/10/2013 9:00 AM EST [place] [phone] Robin Bazan MD Headache(784.0); Pineal gland cyst Discharge Disposition: Home Social History Tobacco Use [...] Sign Reading Time Taken Comments Blood Pressure 130/69 11/10/2013 8:47 AM EST Pulse 73 11/10/2013 8:47 AM EST Temperature - - Respiratory Rate - - Oxygen Saturation - - Inhaled Oxygen Concentration - - Weight 59 kg (130 lb) 11/10/2013 8:47 AM EST Height 160 cm (5' 3) 11/10/2013 8:47 AM EST Body Mass Index 23.03 11/10/2013 8:47 AM EST documented in this encounter Progress Notes * Robin Bazan - 11/10/2013 9:40 AM EST This 18-year-old right-handed woman is referred by Josh Daniels APRN, for further evaluation of findings on MRI in association with her headache complaint. Her medical records were reviewed in preparation for this appointment and her MRI personally reviewed. She is accompanied this morning by her mother. She relates a two-year history of headaches, which over time have only become worse, although in recent days they may be better. She describes these as variable in their distribution, severity, and extent, sometimes over the region of her right eye but sometimes posteriorly and sometimes more diffusely. Sometimes these will come on during the day, other times she will awake with them. She is unaware of precipitants. For her ongoing complaint, further evaluation by MRI was obtained, findings which are described bellow. She denies any symptoms associated with her headache and specifically is unaware of any difficulty with vision, strength, sensation, cognition, or other neurologic function. She relates her health has otherwise been very good. She denies any complaint referable to eyes, ears, nose, throat, lung, heart, stomach, GI, kidney, bladder, muscle, joint, bone, skin, or hormonal function. She does not smoke or use alcohol. 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 Family history is negative for either headache or other neurologic complaint. On exam, she is alert, attentive, appropriate, cooperative, and in no discomfort at this time. Her speech is fluent. She is fully oriented. There are no naming errors. Pupils are 2 mm, equal, and reactive. Funduscopy demonstrates sharp disc margins bilaterally. EOMs are full. There is no nystagmus. Upgaze and conversions are full. Trigeminal sensation is intact to light touch. Facial motor function is symmetric. Hearing is intact to finger rub bilaterally. Soft palate, sternocleidomastoid, and tongue motor function are symmetric. Motor exam demonstrates normal tone. There is no pronator drift. She has 5/5 strength throughout the upper and lower extremities. Sensation in the extremities is intact to light touch. Cerebellar exam shows good npsafp-ae-pnhv testing bilaterally. Deep tendon reflexes are 2+ symmetrically. Gait, including tandem gait, is within normal limits. I personally reviewed her MRI from October 26, 2013. This demonstrates findings consistent with a pineal cyst. This measures approximately 9 mm in greatest dimension. 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 It is unlikely that this is related to her current symptoms, and there are no surgical indications. Recommendation: The above was reviewed with Ms. Wilkinson and her mother. She notes that arrangements had been made for further evaluation by repeat MRI in three to six months, and she was advised that should her symptoms evolve or otherwise change that followup imaging is sometimes done for this condition to rule out the possibility of potentially other pathology. She is scheduled to be seen in followup in Neurosurgery on an as-needed basis. documented in this encounter Plan of Treatment Not on file documented as of this encounter Visit Diagnoses Diagnosis Headache(784.0) Headache Pineal gland cyst Other specified endocrine disorders documented in this encounter Care Teams Wheel Press Operator Relationship Specialty Start Date End Date Surinder Woodard MD [address] [place] [address] PCP - General 10/19/13 03/16/17 documented as of this encounter
--- OUTSIDE RECORDS SUMMARY | 2024-08-23 12:33 | XMS_ITS | Encounter Summary ---
Author Organization [facility] Address [address] [place] [address] Care Team Providers Care Chromosomal Disorders Counselor Name Role Phone Valentine Velasquez APRN Primary Care Provider [phone] Reason for Visit * Reason Comments Abdominal Pain ultrasound today to r/o kidney stone * Consult (Routine) - Closed Specialty Diagnoses / Procedures Referred By Cate ruelas Referred To Contact Urology Diagnoses Kidney stone Valentine Velasquez, DOMONIQUE [address] [facility] [address] [place] [address] Phone: tel: fax: [address] [address] Phone: tel: fax: Referral ID Status Reason Start Date Expiration Date Visits Re quested Visits Authorized [id number] Closed 1 1 Encounter Details Date Type Department Care Team (Late st Contact Info) Description 02/14/2015 13:45 EDT Office Visit [address] [id number] Fidencio Mendenhall MD [address] [place] [id number] Bladder pain (Primary Dx); Flank pain Social History Tobacco Use Types Packs/Day Years Used Date Smoking Tobacco: Never Assessed Comments Unknown Sex and Gender Information Value Date Recorded Sex Assigned at Not on file Legal Sex Female 18:48 EST Gender Identity Not on file Sexual Orientation Not on file documented as of this encounter Progress Notes * Fidencio Mendenhall - 02/14/2015 5425 EDT New Patient Consultation REQUESTING PHYSICIAN: Valentine Velasquez. REASON FOR CONSULTATION: Abdominal pain and possible nephrolithiasis. HISTORY OF PRESENT ILLNESS: This is a 20-year-old female, who presents with a 2- month history of abdominal and lower back pain. The pain seems migratory, and she mainly focuses on discomfort centrally in the abdomen in the upper portion of the abdomen. She will have bilateral lower back pain as well, which responds to heat and rest. Nothing seems to make the abdominal discomfort better or worse. She knows no instigating factors, including certain food or drink. Prior to this, she has never had similar symptoms, although she does report when she was age 10 having an episode of pancreatitis. She denies any urinary symptoms, including dysuria, frequency, urgency or gross hematuria. She was told she had microscopic blood in her urine. She has no known history of kidney stones. She did have anultrasound initially done on the outside, which I reviewed the report. This is a relatively normal ultrasound, except for question of a 6-mm, nonobstructing stone. Today, she, prior to seeing me, hada repeat ultrasound, and I reviewed this with her. On our report here, no stones are seen and thereis no evidence of hydronephrosis. REVIEW OF SYSTEMS: A comprehensive review was performed. Pertinent positives as per the HPI. All others are negative. PAST MEDICAL HISTORY: Otherwise negative, aside from migraines. ALLERGIES: PREDNISONE AND SUDAFED. MEDICATIONS: control and Protonix, which she was recently placed on for possible GERD symptoms. She is a nonsmoker. Denies alcohol or illicit drug use. Denies a family history of kidney disease or kidney stones. On physical examination today, she is alert and oriented x3, not in acute distress. Head is normocephalic. Eyes are anicteric. Neck is supple, no palpable adenopathy. Normal respiratory effort. No external skin lesions. Abdomen is soft. I do not elicit any tenderness on palpation and no costovertebral angle tenderness bilaterally. Lower extremities are soft. No calf tenderness or edema. Her urinalysis today has trace lysed blood, but is otherwise negative. IMAGING: As above. I do not think her symptoms are clinically secondary to kidney stone disease. Even if there was a stone in the right kidney, it is not causing any obstruction and should not be the source of her pain. Her location and quality of pain also are not consistent with renal colic. I have advised her to go back to her primary care physician, and I do not think this is requiring any more urologic workup.If for some reason further imaging is obtained and it does document the stone in the kidney, while I do not think it has any need for acute intervention, it may be worth following, and we will have her call for followup. documented in this encounter Plan of Treatment Not on file documented as of this encounter Procedures Procedure Name Priority Date/Time Associated Diagnosis Comments POCT URINE DIPSTICK, CLINITEK Routine 02/14/2015 13:35 EDT Bladder pain Flank pain documented in this encounter Results * (ABNORMAL) POCT URINE DIPSTICK (02/14/2015 13:35 EDT) Color YELLOW 02/14/2015 13:43 [facility] Clarity, UA Clear 02/14/2015 13:43 [facility] Glucose Neg Neg 02/14/2015 13:43 [facility] Bilirubin Neg Neg 02/14/2015 13:43 [facility] Ketones Neg Neg 02/14/2015 13:43 [facility] Specific [place] 1.010 1.001 - 1.035 02/14/2015 13:43 [facility] Blood Trace(A) Neg 02/14/2015 13:43 [facility] pH 7.0 4.6 - 8.0 02/14/2015 13:43 [facility] Protein Neg Neg 02/14/2015 13:43 [facility] Urobilinogen 0.2 0.2 - 1.0 E.U./dl 02/14/2015 13:43 EDT [facility] Nitrite Neg Neg 02/14/2015 13:43 EDT [facility] Leuk Esterase Neg Neg 02/14/2015 13:43 EDT [facility] drum handler ID [id number] 02/14/2015 13:43 EDT [facility] Comment:Test performed at [facility] Urine specimen (specimen) URINE / Unknown 02/14/2015 13:35 EDT 02/14/2015 13:43 EDT us Fidencio Mendenhall MD POINT OF CARE TEST ORDERABL ES Final Result [facility] [address] [place] [address] documented in this encounter Visit Diagnoses Diagnosis Bladder pain- Primary Other symptoms involving urinary system Flank pain Abdominal pain, unspecified site documented in this encounter Historical Medications * This list may reflect changes made after this encounter. NORETHINDRONE (RASHAD-BE ORAL) Take by mouth daily pantoprazole (PROTONIX) 40 mg tablet Take 40 mg by mouth daily added in this encounter Care Teams Chromosomal Disorders Counselor Relationship Specialty Start Date End Date Valentine Velasquez APRN [address] [facility] [address] [place] [address] PCP - General 02/10/15 07/26/21 documented as of this encounter
--- OUTSIDE RECORDS SUMMARY | 2024-08-23 12:33 | XMS_ITS | Encounter Summary ---
Author Organization [facility] Address [address] [place] [address] Care Team Providers Care Chocolate Dipper Name Role Phone Md TUNG Mathews Primary Care Provider Unavaila ble Encounter Details Date Type Department Care Team (Late st Contact Info) Description 04/07/2014 Results Only [facility] - [facility] [address] [place], [place] [address] Liza Yu, [facility] [address] [place] [address] [place] [phone] Social History Tobacco Use Types Packs/Day Years [...] Diagnosis Comments PAP TEST- RESULT ONLY Routine 04/07/2014 0:00 EDT documented in this encounter Results * PAP TEST- RESULT ONLY (04/07/2014 0:00 EDT) Pathology Report: CYTOPATHOLOGY REPORT Reports generated via electronic interface contain original data; however they are lacking the format of the original report. Caution should be taken when reading/interpreti ng unformatted reports. Name: ? LIZA RAUSCH ? Accession #: ? [id number] : ? 1995 (Age: 19) ??F ?Collect Date: ? 04/07/2014 Location: ? [facility] ? Receive Date: ? 04/08/2014 Provider: ?LIZA YU NEW GRAD RN Copy to: ?JENELLE DE JESUS MD ? Specimen/Source: ?Pap Test, Cervix/Endocervix, ThinPrep Imaging System with manual evaluation Last Menstrual Period: ? 03/22/2014 ? SPECIMEN ADEQUACY ? Satisfactory for Evaluation - transformation zone component present GENERAL CATEGORIZATION ? Negative for Intraepithelial Lesion or Malignancy ? Document reviewed and electronically signed by: ? Guevara Reynolds, WILMER(ASCP) ? Report Date: ??04/19/2014 11:21 End of Report [facility] 04/07/2014 04/08/2014 us Liza Yu NEW GRAD RN PATHOLOGY ORDERABLES Final R esult [facility] [address] [place] [address] documented in this encounter Visit Diagnoses Not on filedocumented in this encounter Care Teams Chocolate Dipper Relationship Specialty Start Date End Date Md Mathews MD PCP - General 02/14/10 02/09/15 documented as of this encounter
--- OUTSIDE RECORDS SUMMARY | 2024-08-23 12:33 | XMS_ITS | Encounter Summary ---
Author Organization [facility] Address [address] [place] [address] Care Team Providers Care Acquisition Editor Name Role Phone Valentine Velasquez APRN Primary Care Provider [phone] Reason for Visit * Reason Onset Date Comments Appointment Related 07/04/2021 Encounter Details Date Type Department Care Team (Late st Contact Info) Description 07/04/2021 Telephone [facility] Surgical Oncology - [facility] [address] [place], [place] [phone] Sarah Avendano PA-C [address] [place] [address], [address] [place] [address] Appointment Related Social History Tobacco Use Types Packs/Day Years Used Date Smoking Tobacco: Never Assessed Comments Unknown Sex and Gender Information Value Date Recorded Sex Assigned at Not on file Legal Sex Female 18:48 EST Gender Identity Not on file Sexual Orientation Not on file documented as of this encounter Miscellaneous Notes * Telephone Encounter - Jenny Espino - 07/04/2021 1045 EDT PT RETURNING CALL: PT SCHEDULED WITH BRET COLLAZO IN THE [facility] ON Tuesday, July 27, 2021 @ 10. Patient is aware to arrive early for parking and check in. A confirmation letter and New Patient Form's have been mailed to the patient. The patient was informed to bring forms to appointmentand hand them in at check in at [facility]. Jenny Espino 07/04/21 1044 documented in this encounter Plan of Treatment Not on file documented as of this encounter Visit Diagnoses Not on filedocumented in this encounter Care Teams Acquisition Editor Relationship Specialty Start Date End Date Valentine Velasquez APRN [address] [place] [phone] PCP - General 02/10/15 07/26/21 documented as of this encounter
--- OUTSIDE RECORDS SUMMARY | 2024-08-23 12:33 | XMS_ITS | Encounter Summary ---
Author Organization [facility] [address] [place] [address] Care Team Providers Care Manager Administrative Name Role Phone Surinder Woodard MD Primary Care Provider [phone] Reason for Visit * Reason Onset Date Comments Other 10/27/2013 Encounter Details Date Type Department Care Team (Late st Contact Info) Description 10/27/2013 Telephone [place] [address] Josh Daniels APRN [facility] [place] [address] Other Social History Tobacco Use Types Packs/Day [...] Telephone Encounter - Josh Daniels APRN - 10/27/2013 4:47 PM EST Notified Lia no significant abnormal findings on her MRI. 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 She is asymptomatic currently except for headaches. She stated understand and had no other questions. * Telephone Encounter - Karol Nelson - 10/27/2013 10:16 AM EST Patient called in to speak with a nurse regarding her recent MRI results. Please call her back to discuss. documented in this encounter Plan of Treatment Not on file documented as of this encounter Visit Diagnoses Not on filedocumented in this encounter Care Teams Manager Administrative Relationship Specialty Start Date End Date Surinder Woodard MD [address] [place] [address] PCP - General 10/19/13 03/16/17 documented as of this encounter
--- OUTSIDE RECORDS SUMMARY | 2024-08-23 12:33 | XMS_ITS | Encounter Summary ---
Author Organization [facility] [place] [address] Care Team Providers Care Director Instructional Material Name Role Phone Lynn López APRN Primary Care Provider [phone] Reason for Referral * Diagnostic Test (Routine) - Specialty Diagnoses / Procedures Referred By Contac t Referred To Contact Radiology Diagnoses Pineal gland cyst Migraine without aura and without status migrainosus, not intractable Procedures MRI Brain wwo Contrast (Generic) Bhupendra Nicole APRN [facility] [address] [place] [address] Referral ID Status Reason Start Date Expiration Date Visits Requested Visits Authorized [id number] Specialty Service Requested 03/27/2017 05/25/2017 1 1 * Consultation (Routine) - Closed Specialty Diagnoses / Procedures Referred By Cate t Referred To Contact Neurosurgery Diagnoses Pineal gland cyst Migraine without aura and without status migrainosus, not intractable Bhupendra Nicole APRN [facility] [address] [facility] [place] Neuro[facility] [address] [place] [id number] Referral ID Status Reason Start Date Expiration Date V isits Requested Visits Authorized [id number] Closed Consult, Test & Treat 03/17/2017 03/17/2018 1 1 Encounter Details Date Type Department Care Team (Late st Contact Info) Description 03/17/2017 8:30 AM EDT [place] [address] Bhupendra Nicole APRN [facility] [place] [address] Pineal gland cyst; Migraine without aura and without status migrainosus, not intractable Social History Tobacco Use Types Packs/Day Years [...] Sign Reading Time Taken Comments Blood Pressure 140/78 03/17/2017 8:15 AM EDT Pulse 87 03/17/2017 8:15 AM EDT Temperature - - Respiratory Rate - - Oxygen Saturation - - Inhaled Oxygen Concentration - - Weight 69.4 kg (153 lb) 03/17/2017 8:15 AM EDT Height 160 cm (5' 3) 03/17/2017 8:15 AM EDT Body Mass Index 27.1 03/17/2017 8:15 AM EDT documented in this encounter Progress Notes * Bhupendra Nicole APRN - 03/17/2017 8:30 AM EDT CC:This is a 22 y.o. woman, who was initially seen by Dr. Wetzel and Josh Davison and is clinic today for follow-up for chronic headaches. HPI Migraines began approx age 16 years. There is a prodrome of feeling light headed but no aura. Triggers: Fluorescent lights, neck pain and anxiety/stress. They had been intermittent at first andthen they escalated in frequency possibly in the setting of using a lot of [id number] qwy-fle-ibyft medication, which only gave her a partial response at best. When the headaches occur, they are bifrontal temporal, severe, with pounding. There is nausea but no vomiting. It is bad enough to lie down with in a dark, quiet room. She has ended up in the Emergency Room in the past. The exacerbations can last up to two days. She has a history of motion sickness but not of fainting. She has a tendency for cold extremities without color change on exposure to cold. No history of head or neck injury. Medications Tried: OTC, sumitriptan nasal spray (increased nausea and didn't like the feeling), Topamax (SE's) Diagnostic work-up: MRI brain 04/2014: Stable appearance of cystic pineal gland without nodular enhancement. 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 No evidence for ventricular obstruction MRI brain 10/2013: pineal cyst measuring 12 mm with mild compression of the tectum. No significant abnormalities. 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 Missing work due to headaches: presenteeism Sleeping: diff staying asleep (waking frequently, feels tired all day) Snoring: none Nightmares: none Mood: No depression. Energy: low Contraception: OCP's jolessa. S: She is having more allergy issues. She is taking Genet. She continues being stuffy and only started her Genet 2 weeks ago- her allergies started last fall. She is having some neck tension and right occipital pressure x 3 weeks. She is having it a few days per week. It develops over the day. She is treating with motrin 3-4 days per week. She has a lot of anxiety about her pineal cyst. She takes Hydroxyzine and Naproxen for severe COFFMAN with good effect. ROS: GERD- treating with diet. Objective: A/O x 3 in NAD; BP is normal at PCP office per patient. Slightly elevated today. 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 Anxiety Plan: 1. Recheck: MRI brain with and without OSKAR- pineal cyst 2. Check: BUN/Creat, LFT 3. Refer to neurosurgery for consult regarding Pineal Cyst. 4. Follow up in 6-8 weeks, sooner prn if sx increase or new sx. documented in this encounter Plan of Treatment Scheduled Orders Name Type Priority Associated Diagnoses Orde r Schedule MRI Brain wwo Contrast (Generic) Imaging Routine Pineal gland cyst Migraine without aura and without status migrainosus, not intractable Expected: 03/17/2017, Expires: 09/16/2017 Scheduled Referrals Name Type Priority Associated Diagnoses Orde r Schedule Referral to Neurosurgery Outpatient Referral Routine Pineal gland cyst Migraine without aura and without status migrainosus, not intractable Ordered: 03/17/2017 documented as of this encounter Visit Diagnoses Diagnosis Pineal gland cyst Other specified endocrine disorders Migraine without aura and without status migrainosus, not intractable Migraine without aura, without mention of intractable migraine without mention of status migrainosus documented in this encounter Care Teams Director Instructional Material Relationship Specialty Start Date End Date Lynn López APRN PCP - General Family Medicine 03/17/17 documented as of this encounter
--- OUTSIDE RECORDS SUMMARY | 2024-08-23 12:33 | XMS_ITS | Encounter Summary ---
Author Organization [facility] Address [facility] [address] [place] [address] Care Team Providers Care Manager Heavy Duty Name Role Phone ReneKassie rodriguezdavid Polanco APRN Primary Care Provider [phone] Reason for Visit * Auth/Cert Specialty Diagnoses / Procedures Referred By Cate ruelas Referred To Contact Diagnoses Chronic hypertension affecting Preeclampsia Procedures EMERGENCY OBSVO Referral ID Status Reason Start Date Expiration Date Visits Re quested Visits Authorized [id number] 1 1 Encounter Details Date Type Department Care Team (Latest Contact Info) Description 09/29/2019 7:09 PM EST - 10/01/2019 12:16 PM [facility] [place] [address] Collin Shrestha MD [facility] [place] [address] Giuliana White [place] [address] Elevated glucose tolerance test; Chronic hypertension affecting Discharge Disposition: Home Social History Tobacco Use [...] Sign Reading Time Taken Comments Blood Pressure 136/84 10/01/2019 9:04 AM EST Pulse 85 10/01/2019 9:04 AM EST Temperature 36.5 ??C (97.7 ??F) 10/01/2019 9:04 AM ES T Respiratory Rate 16 10/01/2019 9:04 AM EST Oxygen Saturation 99% 10/01/2019 9:08 AM EST Inhaled Oxygen Concentration - - Weight 83 kg (183 lb) 09/29/2019 8:20 PM EST Height 160 cm (5' 3) 09/29/2019 8:20 PM EST Body Mass Index 32.42 09/29/2019 8:20 PM EST documented in this encounter Discharge Summaries * Devora Fernando MD - 10/01/2019 11:39 AM EST Discharge Summary Patient Name: René Rausch Patient Age: 24 y.o. Language: Cook Islander Race: White Ethnicity: Not nor Admit date: 09/29/2019 Discharge date and time: 10/01/19 Attending Physician: Collin Shrestha MD Discharge Physician: Dr. 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 Schwarz Discharge Diagnoses (Hospital Problems) and Secondary Diagnoses (Chronic Problems): Active Hospital Problems Diagnosis ??? Chronic hypertension affecting Resolved Hospital Problems No resolved problems to display. Active Non-Hospital Problems Diagnosis ??? Pineal gland cyst ??? Headache(784.0) ??? Migraine Operations/Major Procedures: none Admission History: (per admit note cut and paste) Chief Complaint: René Rausch was admitted today secondary to Worsening HTN and new onset proteinuria in the setting of known chronic HTN. ?? René Rausch is a 24 y.o. at 33w0d weeks gestation. ?? She reports that yesterday she was switched from 100mg PO Labetalol to Nifedipine. She took her first dose of Nifedipine today. Throughout the day, she felt unwell with facial warmth and flushing. She also noticed a decreased appetite and a mild headache. She called her providers and was told to have her blood pressure taken at a [facility]. She reports that this SBP was in the 160s, so she was instructed to present to [facility] for evaluation. ?? Per review of OSH records, on presentation to clinic patient complained of flushing, headache and racing heart. Records note increasing BPs over the last week and an initial BP in clinic of 178/122 followed by 166/103 on presentation to labor and delivery. This was treated with 10mg IV hydralazine with good response per documentation. She was started on Mg and transfer initiated. ?? On presentation to [facility], she is normotensive though feels very nauseated. She reports that she getscarsick easily and felt very unwell in the back of the ambulance. She also reports a mild headache,but otherwise feels okay. She has been having intermittent abdominal cramping that correlates with CTX on TOCO, but also reports she has had little to eat or drink today. Following IV hydration, thissubsided. ?? Her has been complicated by the following: -- Chronic HTN - elevated BP to 151/102 at 7wga; started on Labetalol 200 mg BID in March, dose reduced to 100 BID, then once daily following dizziness with BID dosing; 24 hr urine catecholamines ordered in April -- Hx migraines -- Hx anxiety, depression not on medications ?? Review of Systems- Negative to complete review except as noted in the HPI. ?? Obstetric Review of Systems Total Weight Gain this Not found. Movement: normal Contractions: irregular, every 3-5 minutes on presentation Leaking: None Bleeding; none now Preeclampsia signs and symptoms: None Hospital Course: She required no emergent anti-hypertensive treatment on admission and was continued on her Labetalol 100mg daily. Magnesium sulfate was not restarted given low suspicion for preeclampsia with severe features. Initial HELLP labs remarkable for P/C ratio 0.8, however subsequent 24h Urine Protein resulted as within normal limits, ruling out the diagnosis of preeclampsia. She received a full course of betamethasone for lung maturity. Her blood pressures remained stable and non-severe and she required no further treatment. She had a growth scan on 09/30 that showed a normally grown fetus in the cephalic presentation with a posterior placenta and normal fluid. Given reassuring maternal and status, she was deemed stable for discharge to home on HD#3. She will follow up with the [facility] Service in 1 week as per her request. She will also undergo a 3h GTT once outside of betamethasone window given abnormal 1h GTT at outside hospital. Discharge instructions reviewed, including preec lampsia precautions. Tocolytics Received if applicable: none Date Steroid Complete: 10/01/19 GBS status: collected on admission and pending. Cervix at discharge: not indicated Vital signs at Discharge: BP: 136/84, Heart Rate: 85, Temp: 36.5 ??C (97.7 ??F), Resp: 16, BMI (Calculated): 32.41 Height: 160 cm (5' 3) (09/29/192019) Weight: 83 kg (183 lb) (09/29/192019) Functional and Cognitive status: Alert, intact Important Studies and Lab Data: Labs: Results for orders placed or performed during the hospital encounter of 09/29/19 Aspartate Aminotransferase Result Value Ref Range AST 26 0 - 30 unit/L Creatinine Result Value Ref Range Creatinine 0.57 (L) 0.70 - 1.20 mg/dL eGFR 128 >=60 mL/min/1.73 m?? eGFR 148 >=60 mL/min/1.73 m?? Protein/Creatinine Ratio, urine Result Value Ref Range U Creatinine 128 mg/dL U Protein Ran 97 (H) 0 - 12 mg/dL Prot/Cre Ratio 0.8 ratio Hemogram Result Value Ref Range WBC 14.2 (H) 4.0 - 9.5 x10(3)/mcL RBC 4.97 4.00 - 5.21 x10(6)/mcL Hemoglobin 14.6 11.7 - 15.5 gm/dL Hematocrit 42.8 35.7 - 45.8 % MCV 86.1 82.6 - 94.4 fL MCH 29.4 27.1 - 32.0 pg MCHC 34.1 31.7 - 35.0 gm/dL Platelets 232 145 - 357 x10(3)/mcL RDWSD 37.2 37.0 - 46.0 fL RDWCV 11.9 11.5 - 14.1 % MPV 11.7 7.6 - 12.9 fL nRBC % Auto 0.0 % nRBC Abs Auto 0.000 0.000 - 0.000 x10(3)/mcL Differential, Automated Result Value Ref Range Neutrophils % 91.8 % Neutr Abs (ANC) 13.06 (H) 1.70 - 6.10 x10(3)/mcL Lymphocytes % 6.3 % Lymphocytes Abs 0.9 0.9 - 3.2 x10(3)/mcL Monocytes % 1.1 % Monocyte Abs 0.2 (L) 0.3 - 0.9 x10(3)/mcL Eosinophils % 0.1 % Eosinophils Abs 0.0 0.0 - 0.4 x10(3)/mcL Basophils % 0.1 % Basophils Abs 0.0 0.0 - 0.1 x10(3)/mcL Immature Gran % 0.60 % Nohelia Gran Abs 0.08 (H) 0.00 - 0.04 x10(3)/mcL ABO/Rh Typing Result Value Ref Range ABORh Type B Pos Antibody screen Result Value Ref Range Ab Screen Interp Negative Expires at 2359 on: 10/02/2019 Protein, urine, 24 hour Result Value Ref Range U24 Prot Conc 14 <=80 mg/dL U24 Prot Calc 0.28 (H) <=0.15 gm/24hr U24 Hrs and Volume Result Value Ref Range Hours Collected 24 hour(s) Urine TV (ml) 2,000 mL ABORH Recheck Status Result Value Ref Range ABORH Recheck Order Order Placed ABORH Type Recheck Complete Studies: none Pending Studies and Lab Data: GBS Discharge Conditions/Prognosis: stable Discharge to: home Updated Allergies/ADRs: Allergies Allergen Reactions ??? Polymyxin B Sulf-Trimethoprim Orbital edema ??? Prednisone Rash Holes in finger nails. Rash on hands and feet. ??? Sudafed [Pseudoephedrine Hcl] Heart races Immunizations Given this Hospitalization: There is no immunization history on file for this patient. Discharge Medications: Your Medications New Medications Dose Details labetalol 100 mg Tab Commonly known as: Normodyne Take 1 tablet by mouth daily. Start taking on: October 02, 2019 100 mg Quantity: 60 tablet Refills: 3 Continued medications, unchanged Dose Details baclofen 10 mg Tab Commonly known as: Lioresal Take 1 tablet by mouth nightly. 10 mg Quantity: 30 tablet Refills: 1 hydrOXYzine 25 mg Tab Commonly known as: Atarax Take 25 mg by mouth as needed for Itching. 25 mg Refills: 0 STOPPED Medications levonorgestrel-ethinyl estradiol 0.15 mg-30 mcg (91) , 91 tablet dose pack, 3 months Commonly known as: ALANE;MAXX naproxen sodium 550 mg Tab Commonly known as: ANAPROX Smoking Status at Discharge: Social History Tobacco Use Smoking Status Never Smoker Smokeless Tobacco Never Used Ordered for After Discharge: Follow-up Order Comments: - gestational diabetic counseling with rn concurrent review at thetime of the visit if there is a diagnosis of gestational diabetes. Instructions Given to Patient at Discharge: Patient Instructions Patient Instructions Follow-up: You will receive a phone call in the next 1-2 days to schedule a follow up appointment with the [facility]aternal Medicine service in 1 week. Medications: --Please continue your home Labetalol 100 mg daily --Please call if you have worsening headache, vision changes, chest pain/palpitations, shortness ofbreath, right upper quadrant abdominal pain, worsening swelling of hands and legs. Future laboratory testing: Your glucola testing was abnormal (>135). We are recommending that you proceed to have a 3 hour glucose tolerance test. This can be done at your local hospital. An orderhas been placed. Please be fasting for this test and plan to have this performed no sooner than 1 week following your last betamethasone injection. Please call your OB provider for the following: Fever more than 100.5 degrees Heavy bleeding that saturates a pad an hour Increased abdominal pain, nausea , shaking chills Redness, increased pain, discharge at incision if you had a delivery. Increased pain in the area of stitches outside your vagina. Hot, hard, tender areas on the breast and feeling generally unwell. Depression Contact Numbers: If you see an coagulating operator call: [phone] 9 am - 5 pm, after 5 pm If you see a division sergeant call: [phone] all hours If you see a family practitioner call: [phone] all hours If you were transferred to our institution for delivery and cannot reach your local OB provider, call the coagulating operator numbers. General Instructions None Future Appointments and Orders Future Orders Complete By Expires Glucose Tolerance, 3 Hr, Gestational [[id number] CPT(R)] 10/08/2019 11/01/2019 Process Instructions: Scheduling Instructions: Comments: Questions: Oral Glucose Dose Gestational: 100 gm Patient is currently : Yes Follow-up [[id number] Custom] As directed Process Instructions: Scheduling Instructions: Comments: - gestational diabetic counseling with rn concurrent review at the time of the visit if there is a diagnosis of gestational diabetes. Questions: Discharge References/Attachments None Referrals: none Cc: Dr. Schwarz documented in this encounter Discharge Instructions * Discharge Instructions* Belle Baig RN - 10/01/2019 12:06 PM EST [address] René Polanco Glide 10/01/19 12:02 PM Following your visit to [facility] Triage Call your doctor or division sergeant for: ??? Seizure (call 911) ??? Chest pain ??? Shortness of breath ??? Headache which isn't relieved with Tylenol ??? Headache with visual changes ??? Abdominal pain ??? Swelling to hands and face ??? A temperature at or above 100.4F ??? Nausea or vomiting Gestation - under 37 weeks ??? Call your doctor or division sergeant if: o You experience any menstrual like cramping more than 6 an hour that does not go away with rest and fluids. o You are leaking fluid - may be a small leak - may be a large gush - note the time fluid started leaking, amount, and color (clear, yellow, green, pink, red) o You notice vaginal bleeding - spotting is normal following a vaginal exam in your doctor's or division sergeant's office - you should not bleed as much as a period o You have noticed a marked decrease in your baby's movement ??? refer to your kick count instructions in the Your and Childbirth Month to Month(6th edition) - Your baby should move at least 10 times in 2 hours o You have had any direct trauma to your abdomen such as a car accident, fall, or impact Term Gestation - over 37 weeks ??? Call your doctor or division sergeant if: o You are having painful contractions/abdominal cramps less than 5 minutes apart for 1 hour - walking, resting, or any kind of activity does not make them less painful or go away o You are leaking fluid - may be a small leak - may be a large gush - note the time fluid started leaking, amount, and color (clear, yellow, green, pink, red) o You notice vaginal bleeding - spotting is normal following a vaginal exam in your doctor's or division sergeant's office - you should not bleed as much as a period o You have noticed a marked decrease in your baby's movement - refer to your kick count instructions in the Your and Childbirth Month to Month (6th edition) - your baby should move at least 10 times in 2 hours o You have had any direct trauma to your abdomen such as a car accident, fall, or impact General Instructions Drink plenty of non-caffeinated fluids throughout the day to prevent dehydration. Keep your regularly scheduled doctor or division sergeant appointment. Vaccination If you received the Measles, Mumps, and Rubella (MMR) vaccine, varicella vaccine, or Hepatitis A vaccine during your hospitalization make sure to discuss this with your OB provider or your PCP at your next visit. You may need a second dose of the vaccine to receive effective vaccine protection. Your [facility] Provider can be reached during office hours at ??? Midwives ??? Obstetricians AFTER OFFICE HOURS: Call and ask for the coagulating operator or division sergeant licensed tax consultant * Patient Instructions* Devora Fernando MD - 10/01/2019 11:35 AM EST Patient Instructions Follow-up: You will receive a phone call in the next 1-2 days to schedule a follow up appointment with the [facility] Maternal Medicine service in 1 week. Medications: --Please continue your home Labetalol 100 mg daily --Please call if you have worsening headache, vision changes, chest pain/palpitations, shortness ofbreath, right upper quadrant abdominal pain, worsening swelling of hands and legs. Future laboratory testing: Your glucola testing was abnormal (>135). We are recommending that you proceed to have a 3 hour glucose tolerance test. This can be done at your local hospital. An orderhas been placed. Please be fasting for this test and plan to have this performed no sooner than 1 week following your last betamethasone injection. Please call your OB provider for the following: Fever more than 100.5 degrees Heavy bleeding that saturates a pad an hour Increased abdominal pain, nausea , shaking chills Redness, increased pain, discharge at incision if you had a delivery. Increased pain in the area of stitches outside your vagina. Hot, hard, tender areas on the breast and feeling generally unwell. Depression Contact Numbers: If you see an coagulating operator call: [phone] 9 am - 5 pm, after 5 pm If you see a division sergeant call: [phone] all hours If you see a family practitioner call: [phone] all hours If you were transferred to our institution for delivery and cannot reach your local OB provider, call the coagulating operator numbers. documented in this encounter Medications at Time of Discharge Medication Sig Dispensed Refills Start Date End Date labetalol (NORMODYNE) 100 mg Tablet Take 1 tablet by mouth daily. 60 tablet 3 10/02/2019 11/03/2019 hydrOXYzine (ATARAX) 25 mg Tablet Take 25 mg by mouth as needed for Itching. 10/07/2019 baclofen (LIORESAL) 10 mg TabletIndications:Migrai ne without aura and without status migrainosus, not intractable Take 1 tablet by mouth nightly. 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 Record reviewed and patient discussed with multidisciplinary team. No discharge needs identified atthis time. Jackelyn Santana RN Case Manager Birthfernando Cheng [phone] Pager [phone] * Tonya Dixon RN - 10/01/2019 12:16 PM EST Pt ready for discharge per MD Fernando. VSS, assessment as documented. Reviewed discharge instructions with pt, including s/s to watch for worsening hypertension/preeclampsia. Pt verbalizes understanding, states she will call with questions/concerns. Ready for discharge. * Amor Carbajal MD - 10/01/2019 11:26 AM EST NST Fetus A 10/01/2019 HR (Beats/Min) 130 HR Variability moderate (amplitude range 6 to 25 bpm) HR Accelerations present HR Decelerations none Contraction Frequency (Minutes) none Nonstress Test Interpretation Reactive, >32 weeks: two 15 bpm accelerations lasting 15 seconds Overall Impression Reassuring for gestational age Amor Carbajal MD, PGY3 10/01/2019 Associated attestation - Aayush Dawson MD - 10/01/2019 11:35 AM EST Attending Note: I was the attending physician supervising the resident in the above care and I personally reviewed and interpreted the NST. I agree with the resident's interpretation as noted above. Indication:[id number], Chronic hypertension. Assessment:reactive NST. Aayush Dawson MD 10/01/19 11:35 AM * Sarah Aldana MD - 10/01/2019 7:07 AM EST Obstetrical Antepartum Progress Note ID: René Rausch is a 24 y.o. at 33w2d admitted for worsening cHTN and new onset proteinuria with concern for superimposed pre-eclampsia. This is HD#3. Patient Active Problem List Diagnosis Code ??? Headache(784.0) R51 ??? Migraine G43.909 ??? Pineal gland cyst E34.8 ??? Chronic hypertension affecting O10.919 24 Hour Events - s/p 2nd dose of beta - normal detailed morph on 09/30 - completed 24 hour urine this AM- <0.3mg Subjective: Pt feeling well this morning, denies new complaints. Reports +FM, denies LOF/VB/regularcontractions. She denies COFFMAN, vision change, CP/palpitations, RUQ pain, worsening edema. She is looking forward to going home today and would prefer to transition the remainder of her care to [facility]> Objective: Vitals: BP 136/84 (BP Location (NBP): Left arm, Patient Position: Sitting) Pulse 85 Temp 36.5 ??C (97.7 ??F) (Oral) Resp 16 Ht 160 cm (5' 3) Wt 83 kg (183 lb) SpO2 99% BMI 32.42 kg/m?? Physical Exam: Gen: AAO, no acute distress Cardio: nl rhythm, S1, S2, no M/C/R/G Pulm: CTA BL, no W/C/R Abd: +BS, soft, NT, ND, gravid Ext: warm, well-perfused, no MATTHEW or calf tenderness Neuro: grossly intact Uterine Size: S=D Presentations: Cephalic by BSUS Heart Rate Interpretation: Please see daily NST note Recent Labs 09/29/192015 WBC 14.2* HGB 14.6 HCT 42.8 PLATELET 232 Recent Labs 09/29/192015 CREATININE 0.57* Lab Results Component Value Date AST 26 09/29/2019 Most Recent Ultrasound 33w1d on 09/30/19 Cephalic presentation Posterior placenta NEO 16.86 MVP 6.19 EFW 2167 71%ile No structural abnormalities seen Assessment/Plan: René Rausch is a 24 y.o. at 33w2d admitted for worsening HTN and new onset proteinuria in setting of known chronic hypertension. Given that blood pressures have remained non-severe and stable on home Labetalol and 24h urine protein within normal limits, René likely present ed with poorly controlled chronic hypertension, now well controlled. Remainder of HELLP labs unremarkable to rule out superimposed preeclampsia. ?? 1. Chronic hypertension: poorly controlled on admission, now well controlled on home Labetalol 100mg daily. She is clinically stable for discharge to home. Will establish care @ [facility] with M serviceper patient preference. - New onset proteinuria with UPC 0.8 on presentation, 24h UPr < 0.3mg. She does not meet criteria for preeclampsia at this time. - Plt, AST, Cr wnl on admission - Continue home Labetalol 100mg daily given likely side effects with Nifedipine. - Mg deferred at this time given nml BPs and no other severe features ?? 2. Status - Daily NST - Last Growth US: 09/30 with nl NEO and EFW 71%tile - Presentation: cephalic as of 09/30 - Delivery Indications: NRFHT, maternal deterioration, progressive labor - Delivery Plan: - Steroid status: Complete on 10/01/19 - Magnesium for neuroprotection: Not indicated - Tocolysis Received: n/a - Consults obtained: Neonatology, Anesthesiology ?? 3. care - GBS status: GBS Pending as of 09/29 - 1hr GTT: Completed on 08/24 = 140 (upper limit 140 at [facility] provider). Will plan to follow up with 3hr GTT once patient is outside of betamethasone window (in 1 week) at OSH per patient preference. - TDaP: Given 08/24/19 - Contraception Plan: TBD - Consents obtained: none ?? The patient will be using SCDs for DVT prophylaxis. The patient is at low risk for hemorrhage. Dispo: discharge to home today. Patient seen and discussed with Dr. Aldana, [facility] Attending. Devora Fernando MD, PGY4 10/01/2019 I have seen and examined the patient, providing alves components as outlined below. I have reviewed the resident???s above note; my evaluation of the patient is below: ?? 24 yo G1 33 2/7 weeks transferred with preeclampsia with severe HTN superimposed on CHTN. FM felt, no LOF, no bleeding or luis. No preeclampsia symptoms. BP 136/84 (BP Location (NBP): Left arm, Patient Position: Sitting) Pulse 85 Temp 36.5 ??C (97.7??F) (Oral) Resp 16 Ht 160 cm (5' 3) Wt 83 kg (183 lb) SpO2 99% BMI 32.42 kg/m?? Abdomen soft, NT Uterus NT Ext NT ?? I/R CHTN with severe range BP status reassuring QD NST BMZ x2 NICU consult US normal growth and fluid 24 hour urine < 300mg, normla labs, stable BP on current antihypertensive, likely CHTN not definite preeclampsia Will d/c and manage as outpatient Prefers care at [facility], will arrange transfer to [facility] SARAH ALDANA MD ?? * Sarah Aldana MD - 09/30/2019 11:18 AM EST NST Fetus A 10/01/2019 HR (Beats/Min) 130 HR Variability moderate (amplitude range 6 to 25 bpm) HR Accelerations present HR Decelerations none Contraction Frequency (Minutes) none Nonstress Test Interpretation Reactive, >32 weeks: two 15 bpm accelerations lasting 15 seconds Overall Impression Reassuring for gestational age Amor Carbajal MD, PGY3 10/01/2019 I was the attending physician supervising the resident in the above care and I was present with theresident for the entire procedure. SARAH ALDANA MD * Anjali Valenzuela RN - 09/30/2019 9:58 AM EST Pt declined PO vitamin, states she has chewable vitamins at home and would preferto bring them in and take them. I explained our protocol her stating we have to have our Pharmacy inspect and place a label on them, she agreed with this plan * Sarah Aldana MD - 09/30/2019 6:18 AM EST Obstetrical Antepartum Progress Note ID: René Rausch is a 24 y.o. at 33w1d admitted for worsening cHTN and new onset proteinuria with concern for superimposed pre-eclampsia. This is HD2. Patient Active Problem List Diagnosis Code ??? Headache(784.0) R51 ??? Migraine G43.909 ??? Pineal gland cyst E34.8 ??? Chronic hypertension affecting O10.919 24 Hour Events - s/p beta x1 and mag bolus at OSH prior to transfer. Mag not continued on arrival Subjective: René reports that she is doing well this AM. Had a COFFMAN last night which resolved with Compazine and Benadryl. Denies vision changes or RUQ pain. Denies a family hx of thyroid cancer, pancreatic cancer or adrenal growths. Prior to yesterday, she had never had episodes of rapid HR and high BP. No leakage of fluid, VB, or contractions. Baby is moving normally. Objective: Vitals: Blood Pressure 122/83 Pulse 90 Temperature 36.9 ??C (98.4 ??F) (Oral) Respiration 16 Height 160 cm (5' 3) Weight 83 kg (183 lb) Oxygen Saturation 99% Body Mass Index32.42 kg/m?? Physical Exam: Gen: AAO, no acute distress Cardio: nl rhythm, S1, S2, no M/C/R/G Pulm: CTA BL, no W/C/R Abd: +BS, soft, NT, ND, gravid Ext: warm, well-perfused, no MATTHEW or calf tenderness Neuro: grossly intact Uterine Size: S=D Presentations: Cephalic by BSUS Heart Rate Interpretation: Please see daily NST note Record Review Labs Lab Results Component Value Date ABORH B Pos 09/29/2019 HCT 42.8 09/29/2019 HGB 14.6 09/29/2019 MCV 86.1 09/29/2019 AST 26 09/29/2019 Most Recent Ultrasound- no US report available, will follow up with provider this AM. Assessment/Plan: René Rausch is a 24 y.o. at 33w1d admitted for worsening HTN and new onset proteinuria. Unclear if uncontrolled cHTN vs cHTN with superimposed pre-eclampsia. Currently normotensive and asymptomatic. ?? 1. Pre-eclampsia superimposed on chronic HTN - New onset proteinuria with UPC 0.8 on presentation, though no baseline UPC or 24 hr urine ever collected - Plt, AST, Cr wnl on admission - 24 hour urine being collected as of 09/29 - Home Labetalol 100 BID restarted given likely side effects with Nifedipine. - Hold Mg at this time given nml BPs and no other severe features ?? 2. Status - Daily NST - Last Growth US: 2 wks ago per pt, but no records available; detailed morphology US ordered for this AM. - Presentation: cephalic by BSUS - Delivery Indications: NRFHT, maternal deterioration, progressive labor - Delivery Plan: - Steroid status: Complete on 10/01/19; dose #2 ordered for 09/30 - Magnesium for neuroprotection: Not indicated - Tocolysis Received: n/a - Consults obtained: Neonatology, Anesthesiology ?? 3. care - GBS status: GBS Pending - 1hr GTT: Completed on 08/24 = 140 (upper limit 140 at PNC provider). Will likely follow up with 3hr GTT once patient is outside of betamethasone window. - TDaP: Given 08/24/19 - Contraception Plan: TBD - Consents obtained: none ?? The patient will be using SCDs for DVT prophylaxis. The patient is at low risk for hemorrhage. Patient seen and discussed with Dr. Aldana, SHANNON Attending. Amor Carbajal MD, PGY3 09/30/2019 I have seen and examined the patient, providing alves components as outlined below. I have reviewed the resident???s above note; my evaluation of the patient is below: 24 yo G1 33 1/7 weeks transferred with preeclampsia with severe HTN superimposed on CHTN. FM felt, no LOF, no bleeding or luis. No preeclampsia symptoms. BP 137/76 Pulse 82 Temp 36.8 ??C (98.2 ??F) Resp 16 Ht 160 cm (5' 3) Wt 83 kg (183 lb) SpO2 99% BMI 32.42 kg/m?? Abdomen soft, NT Uterus NT Ext NT I/R preeclampsia with severe HTN superimposed on CHTN status reassuring QD NST BMZ x2 NICU consult US today Preeclampsia with stable BP, cont outpatient labetalol. Labs normal. 24hr urine in process. SARAH ALDANA MD documented in this encounter H&P Notes * Yanira Bowman MD - 09/29/2019 7:21 PM EST Obstetrical Admission Note Referring Hospital: [facility] Referring Provider: Chong Initial Care Provider (if early referral or co-managed by [facility]): [facility] Chief Complaint: René Rausch was admitted today secondary to Worsening HTN and new onset proteinuria in the setting of known chronic HTN. René Rausch is a 24 y.o. at 33w0d weeks gestation. She reports that yesterday she was switched from 100mg PO Labetalol to Nifedipine. She took her first dose of Nifedipine today. Throughout the day, she felt unwell with facial warmth and flushing. She also noticed a decreased appetite and a mild headache. She called her providers and was told to have her blood pressure taken at a [facility]. She reports that this SBP was in the 160s, so she was instructed to present to [facility] for evaluation. Per review of OSH records, on presentation to clinic patient complained of flushing, headache and racing heart. Records note increasing BPs over the last week and an initial BP in clinic of 178/122 followed by 166/103 on presentation to labor and delivery. This was treated with 10mg IV hydralazine with good response per documentation. She was started on Mg and transfer initiated. [place] [facility] she is normotensive though feels very nauseated. She reports that she getscarsick easily and felt very unwell in the back of the ambulance. She also reports a mild headache,but otherwise feels okay. She has been having intermittent abdominal cramping that correlates with CTX on TOCO, but also reports she has had little to eat or drink today. Following IV hydration, thissubsided. Her has been complicated by the following: -- Chronic HTN - elevated BP to 151/102 at 7wga; started on Labetalol 200 mg BID in March, dose reduced to 100 BID, then once daily following dizziness with BID dosing; 24 hr urine catecholamines ordered in April -- Hx migraines -- Hx anxiety, depression not on medications Review of Systems- Negative to complete review except as noted in the HPI. Obstetric Review of Systems Total Weight Gain this Not found. Movement: normal Contractions: irregular, every 3-5 minutes on presentation Leaking: None Bleeding; none now Preeclampsia signs and symptoms: None Active Hospital Problems Diagnosis ??? Chronic hypertension affecting Resolved Hospital Problems No resolved problems to display. Active Non-Hospital Problems Diagnosis ??? Pineal gland cyst ??? Headache(784.0) ??? Migraine No past medical history on file. No past surgical history on file. OB History 1 Para Term AB Living SAB TAB Ectopic Multiple Live Births # Outc Date GA Lbr Osmany/2nd Wgt Sex Del Anes PTL Lv 1 Current Medications Prior to Admission Medication Sig Dispense Refill Last Dose ??? levonorgestrel-ethinyl estradiol (SEASONALE;JOLESSA) 0.15 mg-30 mcg , 91 tablet dose pack, 3 months Take 1 tablet by mouth daily. Taking at Unknown time ??? hydrOXYzine (ATARAX) 25 mg Tablet Take 25 mg by mouth as needed for Itching. Taking at Unknown time ??? baclofen (LIORESAL) 10 mg Tablet Take 1 tablet by mouth nightly. (Patient not taking: Reported on 03/31/2017) 30 tablet 1 Not Taking at Unknown time ??? naproxen sodium (ANAPROX) 550 mg Tablet Take 1 tablet by mouth 2 times daily as needed. 30 tablet 11 Taking at Unknown time Allergies Allergen Reactions ??? Prednisone Rash Holes in finger nails. Rash on hands and feet. ??? Sudafed [Pseudoephedrine Hcl] Heart races No family history on file. Social History Occupational History ??? Not on file Tobacco Use ??? Smoking status: Never Smoker ??? Smokeless tobacco: Never Used Substance and Sexual Activity ??? Alcohol use: Yes Comment: ON OCC ??? Drug use: No ??? Sexual activity: Not on file Comment: question deferred Immunization History There is no immunization history on file for this patient. Last Set of Vitals: BP 130/85 Pulse 94 Temp 36.9 ??C (98.4 ??F) (Oral) Resp 16 Ht 160 cm (5' 3) Wt 83 kg (183 lb) SpO2 99% BMI 32.42 kg/m?? Physical Exam: Gen: AAO, NAD Cardio: nl rhythm, S1, S2, no M/C/R/G Pulm: CTA BL, no W/C/R Abd: +BS, soft, NT, ND, gravid Ext: warm, well-perfused, no MATTHEW or calf tenderness Neuro: grossly intact Uterine Size: S=D Clinical EFW: 4 lbs Presentations: Cephalic by BSUS Heart Rate Interpretation: Baseline: 135, Variability: moderate, Accels: yes, Decels: none, [place]: CTX Q 4- 15 min Category: I Record Review Labs Lab Results Component Value Date HCT 42.8 09/29/2019 HGB 14.6 09/29/2019 MCV 86.1 09/29/2019 AST 26 09/29/2019 ABO/RH Hgb/Hct 15.5 Platelets 240 Rubella immune Syphillis GC/Chlam Urine Culture HepBsAg neg HIV neg 1 hr GTT 140 3 hr GTT GBS Most Recent Ultrasound No US results available Assessment & Plan René Rausch is a 24 y.o. at 33w0d gestation being admitted for worsening HTN and new onsetproteinuria in the setting of known chronic HTN. Suspect that elevated blood pressures represent worsening chronic HTN at 33 wga rather than severe pre-eclampsia. Further suspect that flushing and headache may represent nifedipine side effects. Will admit for close BP monitoring and titration of PO antihypertensives. 1. Pre-eclampsia superimposed on chronic HTN - New onset proteinuria with UPC 0.8 on presentation, though no baseline UPC or 24 hr urine ever collected - Plt, AST, Cr wnl on admission - Discussed straight cath UPC or 24 hr urine to clarify pre-eclampsia dose and patient would [id number] hour urine - BP since admission: BP: (130-142)/(79-85) - Restart Labetalol 100 BID given likely side effects with Nifedipine. - Hold Mg at this time given nml BPs and no other severe features 2. Status - Daily NST - Last Growth US: 2 wks ago per pt, but no records available; detailed morphology US ordered - Presentation: cephalic by BSUS - Delivery Indications: NRFHT, maternal deterioration, progressive labor - Delivery Plan: - Steroid status: Complete on 10/01/19; dose #2 ordered for 09/30 - Magnesium for neuroprotection: Not indicated - Tocolysis Received: n/a - Consults obtained: Neonatology, Anesthesiology 3. care - GBS status: GBS Pending - 1hr GTT: Completed on 08/24 = 140 (upper limit 140 at PNC provider) - TDaP: Given 08/24/19 - Contraception Plan: TBD - Consents obtained: none This patient was seen and discussed with Dr. White, Attending [employer]. Yanira Bowman MD PGY4 09/29/2019 Associated attestation - Giuliana White DO - 10/01/2019 9:33 AM EST Attending Attestation: Patient seen and examined with resident. Above history, physical exam & labs reviewed as documented above. Assessment and plan: 24yo G1 @ 33 wk with IUP and known CHTN transferred for ? PEC- severe, now with normalized blood pressures and without severe features but new finding elevated urine protein:creatinine ratio. Will hold on magnesium sulfate at this time. Repeat labs in the am. Offeredstraight cath urine for repeat p:c (given no urinalysis sent) or 24 hour urine - patient prefers 24hour urine collection- d/w patient likely to be elevated but agree with confirmation given gold standard. testing reassuring -will have formal ultrasound in am with MFM. Restart labetalol 100 mg now BID, will not give nifedipine given likely symptoms related to side effect of this medication.Cephalic by bedside rtus. Discussed with patient and her no indication for delivery at thistime, they understand what would be indications and understand & agree with plan of care. All questions solicited and answered. Giuliana White DO 10/01/2019 documented in this encounter Miscellaneous Notes * Plan of Care - Anjali Valenzuela RN - 09/30/2019 6:40 PM EST Problem: Patient Care Overview Goal: Plan of Care Review Outcome: Ongoing (Interventions Implemented as Appropriate) 09/30/19 0521 09/30/19 1000 Plan of Care Review Progress progress towards functional goals is fair -- Coping/Psychosocial Plan Of Care Reviewed With -- patient;spouse OUTCOME EVALUATION NOTE: OUTCOME SUMMARY: VSS. Pt independent with care, ambulating and voiding independently, managing 24 hour urine. Pt remains calm but admits to becoming stir crazy. PLAN MOVING FORWARD: Continue to monitor. INDIVIDUALIZED FALL PREVENTION INTERVENTIONS: Patient-specific fall risk factors per assessment: [current deficits]: NA Assistance [level of assistance required for transfers and ambulation]: Indendent Supervision [direct monitoring required during toileting and ADLs]: NA Surveillance [continuous indirect monitoring]: VS and rounding per protocol Patient-specific fall prevention interventions for sensory deficits provided, if applicable: NA CPG GOAL OUTCOME EVALUATION: Goal: Fall Prevention-Safe Patient Handling Outcome: Ongoing (Interventions Implemented as Appropriate) 09/30/19 1000 Mari Fall Risk History of Falling 0 Secondary Diagnosis 0 Ambulatory Aids 0 Intravenous Therapy/Heparin/Saline Lock 20 Gait/Transferring 0 Mental Status 0 Score 20 OTHER Mari Fall Risk Low Restraint Interventions Safety Promotion/Fall Prevention safety round/check completed Positioning Body Position independent Activity Activity Type up ad ole Activity Assistance Provided independent Goal: Infection Control 09/30/191836 Safety Interventions Isolation Precautions standard precautions maintained Goal: Discharge Needs Assessment Outcome: Ongoing (Interventions Implemented as Appropriate) 09/30/19517 Discharge Needs Assessment Concerns To Be Addressed no discharge needs identified Equipment Needed After Discharge none Discharge Disposition still a patient Current Health Anticipated Changes Related to Illness none;inability to work Activity/Self Care Review of Systems Equipment Currently Used at Home none Living Environment Transportation Available car;family or friend will provide Goal: Interdisciplinary Rounds/Family Conf Outcome: Ongoing (Interventions Implemented as Appropriate) 09/30/19517 Interdisciplinary Rounds/Family Conf Participants patient;family;nursing;physician Problem: High-Risk/Critically Ill Patient (Obstetrics) Intervention: Monitor/Manage Maternal Fluid Electrolyte Balance 09/30/191836 Nutrition Interventions Fluid/Electrolyte Management fluids provided Intervention: Promote/Monitor Maternal/ Well-being 09/29/19 2100 09/30/19 1000 09/30/19 1014 Assessment HR Assessment Method -- -- external HR (Beats/Min) -- -- 135 HR Baseline -- -- normal range (110-160 bpm) HR Variability -- -- moderate (amplitude range 6 to 25 bpm) HR Accelerations -- -- present;greater than/equal to 15 bpm;lasting at least 15 seconds HR Decelerations -- -- absent Positioning Body Position -- independent -- Uterine Activity Assessment Method -- -- TOCO (external toco transducer) Contraction Frequency (Minutes) 3-5 -- -- Contraction Intensity -- -- no contractions Uterine Resting Tone soft by palpation -- -- Intervention: Maximize Oxygenation/Ventilation/Perfusion 09/30/19 1000 09/30/19 183 Incentive Spirometer Administration (Incentive Spirometer) -- done independently per patient Activity Activity Type up ad ole -- Intervention: Support/Optimize Psychosocial Response to Acute Illness During 09/30/19 1000 Coping Strategies Supportive Measures active listening utilized;decision-making supported Family/Support System Care support provided Intervention: Encourage Rest in Side/Lateral Position as Tolerated 09/30/19 1000 Positioning Body Position independent Intervention: Prevent/Manage DVT/VTE Risk 09/30/19 1837 Support Surgical/Anesthesia Recovery VTE Prevention/Management SCD's on intermittently * Consult Note - BernardaDevora villasenor Mecca - 09/30/2019 10:31 AM EST Requested by OB team to provide a consult to René and discuss the anticipated evaluation and management of an born at 33 weeks gestation. René is a 24 y/o with chronic hypertension at 33 weeks plus 1 day gestation transferred from [facility] and admitted to the [facility] for evaluation of pre-eclampsia . She has received magnesium, one dose of betamethasone and will be betamethasone complete on 09/30/19 at 2 p.m. has been complicated by worsening chronic hypertension. She recently switched from Labetalol to Nifedipine and immediately felt a flushed face which prompted her to go to her [facility]. BP's persisted in the 160s and she was treated with Hydralazine with good response. Maternal Labs: Blood type: B+/negative HepBsAg: negative GBS: in-process Rubella: immune GC: unknown Chlamydia: unknown HIV: negative Syphylis: unknown Lyme: negative I met with René. She is anticipating the of a daughter named Kristi. She is not sure of her feeding plan yet- is open to both formula and breast milk. She was told of the donor breast milk program and wants to think about it more. We discussed the general care and management of an infant born at 33 weeks gestation, including stabilization, CPAP support, growth, nutrition and thermoregulation. We also discussed the potential need for procedures including intubation and umbilical catheter placement. She had no further questions, and I reassured them that a member of the ICN team would be availableto come back and address any further questions regarding the care of their son/daughter 25 minutes of this 30 minute [facility] with the and/or parents as detailed in the note above. Devora Franklin MD ICN Fellow Pager [phone] * Plan of Care - Nancy Redmond RN - 09/30/2019 5:24 AM EST Problem: Patient Care Overview Goal: Plan of Care Review Outcome: Ongoing (Interventions Implemented as Appropriate) 09/29/19201909/30/19 0521 Plan of Care Review Progress -- progress towards functional goals is fair Coping/Psychosocial Plan Of Care Reviewed With patient;significant other -- OUTCOME EVALUATION NOTE: OUTCOME SUMMARY: VSS. Pt denies LOF, or VB, and endorses +FM. Reactive NST. Contractions on monitor spaced out through night, pt able to sleep through. C/o COFFMAN in evening which responded to IV benadryl/compazine. Planwas reviewed with pt, she verbalizes an understanding and is in agreement. PLAN MOVING FORWARD: Start 24hour urine, betamethasone #2 today, ICN & anesthesia consult needed INDIVIDUALIZED FALL PREVENTION INTERVENTIONS: Patient-specific fall risk factors per assessment: [current deficits]: As documented Assistance [level of assistance required for transfers and ambulation]: Independent Supervision [direct monitoring required during toileting and ADLs]: Independent Surveillance [continuous indirect monitoring]: Purposeful rounding, call machado in reach Patient-specific fall prevention interventions for sensory deficits provided, if applicable: [X] N/A CPG GOAL OUTCOME EVALUATION: documented in this encounter Plan of Treatment Not on file documented as of this encounter Procedures Procedure Name Priority Date/Time Associated Diagnosis Comments U24 HRS AND VOLUME Routine 10/01/2019 6: 00 AM EST HC PROTEIN, QUANTITATIVE, URINE Routine 10/01/2019 6:00 AM EST US OB DETAILED MORPHOLOGY Routine 09/30/2019 2:28 PM EST GROUP B STREPTOCOCCUS SCREEN Routine 09/30/2019 6:17 AM EST HC GROUP B STREP SCREEN Routine 09/30/20 6:17 AM EST ABORH RECHECK STATUS Routine 09/29/2019 8:16 PM EST HEMOGRAM Routine 09/29/2019 8:16 PM EST DIFFERENTIAL, AUTOMATED Routine 09/29/20 8:16 PM EST HC CREATININE Routine 09/29/2019 8:16 PM EST ABO/RH TYPING Routine 09/29/2019 8:16 PM EST HC CBC,PLT & AUTO DIFF Routine 9 8:16 PM EST ANTIBODY SCREEN Routine 09/29/2019 8:16 PM EST HC ABO-MICROTITER Routine 09/29/2019 8:1 6 PM EST HC ASPARTATE AMINOTRANSFERASE (AST) Routine 09/29/2019 8:16 PM EST HC PROTEIN, QUANTITATIVE, URINE Routine 09/29/2019 7:40 PM EST documented in this encounter Results * U24 Hrs and Volume (10/01/2019 6:00 AM EST) Hours Collected 24 hour(s) [facility] Total Volume 2,000 mL [facility] Urine specimen (specimen) 10/01/2019 6:00 AM EST 10/01/2019 7:23 AM EST Narrative Resulting Agency Comment Spec In Lab Yanira Bowman MD CHEMISTRY ORDERABL ES [facility] [place] [address] * (ABNORMAL) Protein, urine, 24 hour (10/01/2019 6:00 AM EST) Protein Concentration, U24 14 <=80 mg/dL [facility] Protein, 24 Hour Urine 0.28(H) <=0.15 gm/24hr [facility] Urine specimen (specimen) 10/01/2019 6:00 AM EST 10/01/2019 7:23 AM EST Narrative Resulting Agency Comment Spec In Lab E Dena Shrestha MD URINE ORDERABLES [facility] [place] [address] * US OB Detailed Morphology (09/30/2019 2:28 PM EST) Anatomical Region Laterality Modality Pelvis, Abdomen Ultrasound 09/30/2019 2:23 PM EST Impressions 09/30/2019 2:34 PM EST 3rd Trimester - Detailed Morphology - Summary Single intrauterine with a gestational age of 33w 1d based on Clinical BEV. Composite age based on the current ultrasound alone is 33w 0d. Estimated weight corresponds to the 71th percentile for 33w 1d. Current growth parameters are consistent with prior dating indicating normal growth. Amniotic fluid volume is Normal. Detailed anatomic evaluation was performed and no structural abnormalities are noted. Anatomical survey is limited due to the late gestational age. ?Teressa Hahn, Cytotechnologist Supervisor Electronically Signed Final Report ?? 09/30/2019 02:34 pm Narrative 09/30/2019 2:34 PM EST OBSTETRICS REPORT ?(Signed Final 09/30/2019 02:34 pm) PATIENT INFO: ID #: ? [id number] ?: ??[birth year] (24 yrs) Name: ? RENÉ Polanco FELLOWS ?Visit Date: 09/30/2019 02:23 pm PERFORMED BY: Performed By: ? Magalys YOUNG, ??Rita Attending: ?Selma RUBY, Teressa Ho Referred By: ?Collin SHRESTHA Location: ? [place] SERVICE(S) PROVIDED: ??[facility] - Detailed Morphology - [id number] ? [id number] INDICATIONS: ??33 weeks gestation of ?Z3A.33 ??worsening HTN, known chronic HTN, ??transport EVALUATION: Num Of Fetuses: ?1 Heart Rate(bpm): ?? 138 Cardiac Activity: ?Observed, normal rhythm Presentation: ?Cephalic Placenta: ?Posterior P. Cord Insertion: ? Not able to evaluate Amniotic Fluid NEO FV: ?Normal NEO Sum(cm) ? Largest Pocket(cm) 16.86 ? 6.19 RUQ(cm) ? RLQ(cm) ? LUQ(cm) ?LLQ(cm) 6.2 ? 4.1 ? 1.8 ?4.7 --------- BIOMETRY: --------- BPD: ?81.8 ??mm ? G.Age: ?? 32w 6d ?36 ??% OFD: ? 103.5 ??mm HC: ?294.0 ??mm ? G.Age: ?? 32w 4d ? 7 ??% AC: ?302.4 ??mm ? G.Age: ?? 34w 2d ?79 ??% FL: ? 62.0 ??mm ? G.Age: ?? 32w 1d ?16 ??% HUM: ?54.7 ??mm ? G.Age: ?? 31w 6d ?32 ??% CER: ?42.4 ??mm ? G.Age: ?? 36w 3d ?87 ??% LV: ?5.3 ??mm CM: ?7.6 ??mm CI: ?79.0 ??% ? 70 - 86 FL/HC: ? 21.1 ??% ? 19.9 - 21.5 HC/AC: ? 0.97 ?0.96 - 1.11 FL/BPD: ?75.8 ??% ? 71 - 87 FL/AC: ? 20.5 ??% ? 20 - 24 Est. FW: ?2167 ?? gm ?? 4 lb 12 oz ? 71 ??% OB HISTORY: : ?1 GESTATIONAL AGE: Clinical BEV: ??33w 1d ?BEV: ?? 11/17/19 U/S Today: ? 33w 0d ?BEV: ?? 11/18/19 Best: ?33w 1d ?? Det. By: ??Clinical BEV ? BEV: ?? 11/17/19 TARGETED ANATOMY: Central Nervous System Calvarium/Cranial V.: ??Visualized Intracranial Joann: ? Visualized Cavum: ? Visualized Parenchyma: ?Visualized Lateral Ventricles: ?Limited Views Choroid Plexus: ?Limited Views Cereb./Vermis: ? Limited Views Cisterna Magna: ?Limited Views Midline Falx: ?Visualized Spine Cervical: ?Visualized Thoracic: ?Visualized Lumbar: ?Visualized Sacral: ?Visualized Shape/Curvature: ? Visualized Head/Neck Face: ?Visualized Lips: ?Limited Views Ear Position/Size: ? Visualized Neck: ?Visualized Nuchal Fold: ? Not evaluated at this Profile: ? Not well seen due to Orbits/Eyes: ? Not well seen due to Mandible: ?Not Visualized Maxilla: ? Not Visualized Thorax Thoracic Contour: ?Visualized Lungs: ? Visualized 4 Chamber View: ?Within Normal Limits Cardiac Motion: ?Normal Rhythm Rt Outflow Tract: ?Visualized Lt Outflow Tract: ?Visualized Aortic Arch: ? Visualized Ductal Arch: ? Visualized SVC: ? Visualized Cardiac Sidon: ?Visualized Diaphragm: ? Visualized 3 Vessel View: ? Visualized IVC: ? Visualized Abdomen Ventral Wall: ?Not visualized due to Cord Insertion: ?Not visualized at this Situs: ? Normal Stomach: ? Visualized Liver: ? Visualized Lt Kidney: ? Visualized Rt Kidney: ? Visualized Bladder: ? Visualized Bowel: ? Visualized Extremities Lt Humerus: ?Visualized Rt Humerus: ?Visualized Lt Forearm: ?Visualized Rt Forearm: ?Visualized Lt Hand: ? Limited Views Rt Hand: ? Limited Views Lt Femur: ?Visualized Rt Femur: ?Visualized Lt Lower Leg: ?Limited Views Rt Lower Leg: ?Limited Views Lt Foot: ? Limited Views Rt Foot: ? Limited Views Other Umbilical Cord: ?3 vessel cord Genitalia: ? Female CERVIX UTERUS ADNEXA: Left Ovary Not visualized Right Ovary Not visualized Procedure Note Teressa Hahn MD - 09/30/2019 OBSTETRICS REPORT (Signed Final 09/30/2019 02:34 pm) PATIENT INFO: ID #: [id number] : [birth year] (24 yrs) Name: RENÉ RAUSCH Visit Date: 09/30/2019 02:23 pm PERFORMED BY: Performed By: Rita Dowell RDMS Attending: Teressa Hahn MD Referred By: Collin SHRESTHA Location: [place] SERVICE(S) PROVIDED: [facility] - Detailed Morphology - [id number] INDICATIONS: 33 weeks gestation of Z3A.33 worsening HTN, known chronic HTN, transport EVALUATION: Num Of Fetuses: 1 Heart Rate(bpm): 138 Cardiac Activity: Observed, normal rhythm Presentation: Cephalic Placenta: Posterior P. Cord Insertion: Not able to evaluate Amniotic Fluid NEO FV: Normal NEO Sum(cm) Largest Pocket(cm) 16.86 6.19 RUQ(cm) RLQ(cm) LUQ(cm) LLQ(cm) 6.2 4.1 1.8 4.7 --------- BIOMETRY: --------- BPD: 81.8 mm G.Age: 32w 6d 36 % OFD: 103.5 mm HC: 294.0 mm G.Age: 32w 4d 7 % AC: 302.4 mm G.Age: 34w 2d 79 % FL: 62.0 mm G.Age: 32w 1d 16 % HUM: 54.7 mm G.Age: 31w 6d 32 % CER: 42.4 mm G.Age: 36w 3d 87 % LV: 5.3 mm CM: 7.6 mm CI: 79.0 % 70 - 86 FL/HC: 21.1 % 19.9 - 21.5 HC/AC: 0.97 0.96 - 1.11 FL/BPD: 75.8 % 71 - 87 FL/AC: 20.5 % 20 - 24 Est. FW: 2167 gm 4 lb 12 oz 71 % OB HISTORY: : 1 GESTATIONAL AGE: Clinical BEV: 33w 1d BEV: 11/17/19 U/S Today: 33w 0d BEV: 11/18/19 Best: 33w 1d Det. By: Clinical BEV BEV: 11/17/19 TARGETED ANATOMY: Central Nervous System Calvarium/Cranial V.: Visualized Intracranial Joann: Visualized Cavum: Visualized Parenchyma: Visualized Lateral Ventricles: Limited Views Choroid Plexus: Limited Views Cereb./Vermis: Limited Views Cisterna Magna: Limited Views Midline Falx: Visualized Spine Cervical: Visualized Thoracic: Visualized Lumbar: Visualized Sacral: Visualized Shape/Curvature: Visualized Head/Neck Face: Visualized Lips: Limited Views Ear Position/Size: Visualized Neck: Visualized Nuchal Fold: Not evaluated at this Profile: Not well seen due to Orbits/Eyes: Not well seen due to Mandible: Not Visualized Maxilla: Not Visualized Thorax Thoracic Contour: Visualized Lungs: Visualized 4 Chamber View: Within Normal Limits Cardiac Motion: Normal Rhythm Rt Outflow Tract: Visualized Lt Outflow Tract: Visualized Aortic Arch: Visualized Ductal Arch: Visualized SVC: Visualized Cardiac Sidon: Visualized Diaphragm: Visualized 3 Vessel View: Visualized IVC: Visualized Abdomen Ventral Wall: Not visualized due to Cord Insertion: Not visualized at this Situs: Normal Stomach: Visualized Liver: Visualized Lt Kidney: Visualized Rt Kidney: Visualized Bladder: Visualized Bowel: Visualized Extremities Lt Humerus: Visualized Rt Humerus: Visualized Lt Forearm: Visualized Rt Forearm: Visualized Lt Hand: Limited Views Rt Hand: Limited Views Lt Femur: Visualized Rt Femur: Visualized Lt Lower Leg: Limited Views Rt Lower Leg: Limited Views Lt Foot: Limited Views Rt Foot: Limited Views Other Umbilical Cord: 3 vessel cord Genitalia: Female CERVIX UTERUS ADNEXA: Left Ovary Not visualized Right Ovary Not visualized IMPRESSION 3rd Trimester - Detailed Morphology - Summary Single intrauterine with a gestational age of 33w 1d based on Clinical BEV. Composite age based on the current ultrasound alone is 33w 0d. Estimated weight corresponds to the 71th percentile for 33w 1d. Current growth parameters are consistent with prior dating indicating normal growth. Amniotic fluid volume is Normal. Detailed anatomic evaluation was performed and no structural abnormalities are noted. Anatomical survey is limited due to the late gestational age. Teressa Hahn, Cytotechnologist Supervisor Electronically Signed Final Report 09/30/2019 02:34 pm E Dena Pschirrer MD IMG US OB ORDERAB LES * Group B Streptococcus Screen (09/30/2019 6:17 AM EST) GBS Screen Neg [facility] Pooled specimen from vaginal introitus and rectal swab (specimen) 09/30/2019 6:17 AM EST 10/01/2019 10:41 AM EST Comment:Penicillin Allergy?- >No Narrative Resulting Agency Comment Spec In Lab Yanira Bowman MD MICROBIOLOGY - GEN ERAL ORDERABLES [facility] [place] [address] * Group B Strep Culture Screen (09/30/2019 6:17 AM EST) Group B Streptococcus Culture No Group B Streptococci isolated [facility] Pooled specimen from vaginal introitus and rectal swab (specimen) 09/30/2019 6:17 AM EST 10/01/2019 10:41 AM EST Comment:PENICILLIN ALLERGY?- >NO Narrative Resulting Agency Comment Spec In Lab E Dena Shrestha MD MICROBIOLOGY - GE NERAL ORDERABLES Performing Organization Address City/[facility]/ZIP Co de Phone Number [facility] [place] [address] * ABORH Recheck Status (09/29/2019 8:16 PM EST) ABORH Recheck Order Order Placed [facility] ABORH Type Recheck Complete [facility] Blood specimen (specimen) 09/29/2019 8:16 PM EST 09/29/2019 8:43 PM EST Narrative Resulting Agency Comment Spec In Lab Yanira Bowman MD BLOOD BANK LAB ORD ERABLES [facility] [place] [address] * Antibody screen (09/29/2019 8:16 PM EST) Pathologist [facility] Ab Screen Interp Negative [facility] Expires at [id number] on: 10/02/2019 [facility] Blood specimen (specimen) 09/29/2019 8:16 PM EST 09/29/2019 8:43 PM EST Narrative Resulting Agency Comment Spec In Lab Yanira Bowman MD BLOOD BANK LAB ORD ERABLES Performing Organization Address City/[facility]/ZIP Co de Phone Number [facility] [place] [address] * ABO/Rh Typing (09/29/2019 8:16 PM EST) [facility] ABORH Type B Pos [facility] Blood specimen (specimen) 09/29/2019 8:16 PM EST 09/29/2019 8:43 PM EST Narrative Resulting Agency Comment Spec In Lab Yanira Bowman MD BLOOD BANK LAB ORD ERABLES Performing Organization Address City/[facility] Co de Phone Number [facility] [place] [address] * (ABNORMAL) Differential, Automated (09/29/2019 8:16 PM EST) [facility] Neutrophil % 91.8 % [facility] Neutrophil Absolute 13.06(H) 1.70 - 6.10 x10(3)/mc L [facility] Lymph % 6.3 % [facility] Lymphocytes Abs 0.9 0.9 - 3.2 x10(3)/mc L [facility] Monocyte % 1.1 % [facility] Monocyte Abs 0.2(L) 0.3 - 0.9 x10(3)/mc L [facility] Eos % 0.1 % [facility] Eosinophils Abs 0.0 0.0 - 0.4 x10(3)/mc L [facility] Basophil % 0.1 % [facility] Baso Absolute 0.0 0.0 - 0.1 x10(3)/ L [facility] Immature Gran % 0.60 % [facility] Comment: Immature granulocytes(IG's)percentage and absolute count will include metamyelocytes, myelocytes, and promyelocytes. Blood smears from CBCs yielding IG's will be scanned manually for concordance. If this scan disagrees with the automated IG or if promyelocytes are noted, a manual differential will be performed. Immature Gran Absolute 0.08(H) 0.00 - 0.04 x10(3)/ L [facility] Blood specimen (specimen) 09/29/2019 8:16 PM EST 09/29/2019 8:32 PM EST Narrative Resulting Agency Comment Spec In Lab Yanira Bowman MD HEMATOLOGY ORDERAB LES Performing Organization Address City/State/[facility] Co de Phone Number [facility] [place] [address] * (ABNORMAL) Hemogram (09/29/2019 8:16 PM EST) White Blood Cell 14.2(H) 4.0 - 9.5 x10(3)/ L [facility] Red Blood Cell 4.97 4.00 - 5.21 x10(6)/ L [facility] Hemoglobin 14.6 11.7 - 15.5 gm/dL [facility] Hematocrit 42.8 35.7 - 45.8 % [facility] Mean Cell Volume 86.1 82.6 - 94.4 fL [facility] Mean Cell Hemoglobin 29.4 27.1 - 32.0 pg [facility] Mean Cell Hemoglobin Concentration 34.1 31.7 - 35.0 gm/dL [facility] Platelet 232 145 - 357 x10(3)/ L [facility] RDW Standard Deviation 37.2 37.0 - 46.0 fL [facility] RDW coefficient of variation 11.9 11.5 - 14.1 % [facility] Mean Platelet Volume 11.7 7.6 - 12.9 fL [facility] NRBC% auto 0.0 % [facility] NRBC Absolute 0.000 0.000 - 0.000 x10(3)/mc L [facility] Blood specimen (specimen) 09/29/2019 8:16 PM EST 09/29/2019 8:32 PM EST Narrative Resulting Agency Comment Spec In Lab Yanira Bowman MD HEMATOLOGY ORDERAB LES Performing Organization Address City/[facility]/ZIP [place] [address] * (ABNORMAL) Creatinine (09/29/2019 8:16 PM EST) Creatinine 0.57(L) 0.70 - 1.20 mg/dL [facility] Est Glomerular Filtration Rate 128 >=60 mL/min/1.7 3 m?? [facility] Comment: The eGFR was calculated using the CKD-EPI equation. As with all creatinine based estimates of kidney function, eGFR values calculated with the CKD-EPI equation are not accurate in patients with acute kidney failure, extremes of body mass or the acutely ill. http://Elepago/DHnkf eGFR 148 >=60 mL/min/1.7 3 m?? [facility] Comment: The eGFR was calculated using the CKD-EPI equation. As with all creatinine based estimates of kidney function, eGFR values calculated with the CKD-EPI equation are not accurate in patients with acute kidney failure, extremes of body mass or the acutely ill. [email or web address]/DHnkf Blood specimen (specimen) 09/29/2019 8:16 PM EST 09/29/2019 8:32 PM EST Narrative Resulting Agency Comment Spec In Lab E Dena Shrestha MD CHEMISTRY ORDERAB LES [facility] [place] [address] * Aspartate Aminotransferase (09/29/2019 8:16 PM EST) Aspartate Aminotransferase 26 0 - 30 unit/L [facility] Blood specimen (specimen) 09/29/2019 8:16 PM EST 09/29/2019 8:32 PM EST Narrative Resulting Agency Comment Spec In Lab E Dena Shrestha MD CHEMISTRY ORDERAB LES [facility] [place] [address] * (ABNORMAL) Protein/Creatinine Ratio, urine (09/29/2019 7:40 PM EST) Creatinine, Urine 128 mg/dL [facility] Protein, Urine 97(H) 0 - 12 mg/dL [facility] Protein / Creatinine Ratio, Urine 0.8 ratio [facility] Urine specimen (specimen) 09/29/2019 7:40 PM EST 09/29/2019 8:11 PM EST Narrative Resulting Agency Comment Spec In Lab E eDna Shrestha MD URINE ORDERABLES Performing Organization Address [facility]/State/ZIP Co de Phone Number [facility] [place] [address] documented in this encounter Visit Diagnoses Diagnosis Elevated glucose tolerance test Impaired glucose tolerance test Chronic hypertension affecting Chronic hypertension affecting documented in this encounter Admitting Diagnoses Diagnosis Chronic hypertension affecting documented in this encounter Administered Medications Inactive Administered Medications - up to 3 most recent administrations Medication Order MAR Action Action Date Dose Rate Site acetaminophen (Tylenol) tablet 650 mg 650 mg, Oral, EVERY 4 HOURS PRN, Starting on Fri09/29/19 at 1933, Until Fri10/01/19 at 1416, Pain, mild pain (1-3), Not exceed 4 grams per 24 hours, Routine Given 09/29/2019 10:12 PM EST 650 mg betamethasone acetate-betamethasone sodium phosphate (CELESTONE) injection 12 mg 12 mg, Intramuscular, ONCE, 1 dose, On Shasha 12/19/19 at 1400, Routine Given 09/30/2019 3:44 PM EST 12 mg Left Quadriceps calcium carbonate (Tums) chewable tablet 1,000 mg 1,000 mg (2 tablet), Oral, EVERY 4 HOURS PRN, Starting on Fri09/29/19 at 1933, Until Fri10/01/19 at 1416, Heartburn, If both calcium carbonate (TUMS) and alum-mag hydroxide-simeth (MAALOX) ordered, administer calcium carbonate (TUMS) first, if ineffective administer alum-mag hydroxide-simeth (MAALOX)., Routine Given 09/29/2019 10:38 PM EST 1,000 mg diphenhydrAMINE (Benadryl) capsule 25 mg 25 mg, Oral, NIGHTLY PRN, Starting on Fri09/29/19 at 1933, Until Fri10/01/19 at 1416, Itching, to promote drowsiness, Routine Given 09/30/2019 10:28 PM EST 25 mg diphenhydrAMINE (BENADRYL) injection 50 mg 50 mg, Intravenous, ONCE, 1 dose, On Fri09/29/19 at 2345, Routine Given 09/29/2019 11:34 PM EST 50 mg famotidine (Pepcid) tablet 40 mg 40 mg, Oral, DAILY, First dose on Fri09/29/19 at 2345, Until Discontinued, Routine Given 10/01/2019 9:13 AM EST 40 mg Given 09/30/2019 8:30 PM EST 40 mg Given 09/29/2019 11:33 PM EST 40 mg labetalol (Normodyne) tablet 100 mg 100 mg, Oral, DAILY, First dose on Fri09/30/19 at 0915, Until Discontinued, Routine Given 10/01/2019 9:0 9 AM EST 100 mg Given 09/30/2019 9:35 AM EST 100 mg lactated Ringers 500 mL IV bolus Intravenous, ONCE, 1 dose, On Fri09/29/19 at 2100 New Bag 09/29/2019 8:23 PM EST 500 mL/hr prochlorperazine (COMPAZINE) injection 10 mg 10 mg, Intravenous, ONCE, 1 dose, On Fri09/29/19 at 2345, Routine Given 09/29/2019 11:34 PM EST 10 mg sodium chloride 0.9 % (flush) flush 5 mL 5 mL, Intravenous, 2 TIMES DAILY, First dose on Fri09/29/19 at 2100, Until Discontinued, Routine Given 10/01/2019 9:14 AM EST 5 mLs documented in this encounter Active and Recently Administered Medications Times are shown in EST. Scheduled Medication Order 09/29/2019 09/30/2019 10/01/2019 betamethasone acetate-betamethasone sodium phosphate (CELESTONE) injection 12 mg (COMPLETED) 12 mg, Intramuscular, ONCE, 1 dose, On Shasha 09/30/19 at 1400, Routine 1544 (Given - Provider: Anjali Valenzuela RN - Comment: pt was off the unit for US) diphenhydrAMINE (BENADRYL) injection 50 mg (COMPLETED) 50 mg, Intravenous, ONCE, 1 dose, On Fri09/29/19 at 2345, Routine 2334 (Given - Provider: Nancy Redmond RN) famotidine (Pepcid) tablet 40 mg 40 mg, Oral, DAILY, First dose on Fri09/29/19 at 2345, Until Discontinued, Routine 2333 (Given - Provider: Nancy Redmond RN) 2030 (Given - Provider: Cookie Rapp RN) 0913 (Given - Provider: Tonya Dixon RN) labetalol (Normodyne) tablet 100 mg 100 mg, Oral, DAILY, First dose on Shasha 09/30/19 at 0915, Until Discontinued, Routine 0935 (Given - Provider: Anjali Valenzuela RN) 0909 (Given - Provider: Tonya Dixon RN) lactated Ringers 500 mL IV bolus (COMPLETED) Intravenous, ONCE, 1 dose, On Fri09/29/19 at 2100 2022 (New Bag - Provider: Nancy Redmond RN)2122 (Stopped - Provider: Nancy Redmond RN) vitamin 27 & [id number] 60 mg iron-1 mg per tablet Tab 1 tablet 1 tablet, Oral, DAILY, First dose on Fri09/29/19 at 2000, Until Discontinued, Routine 1999 (Not Given - Provider: Nancy Redmond RN - Reason: Patient/family refused) 0900 (Not Given - Provider: Anjali Valenzuela RN - Reason: Patient/family refused) 0910 (Not Given - Provider: Tonya Dixon RN - Reason: Patient/family refused - Comment: Pt taking own d/t upset stomach) prochlorperazine (COMPAZINE) injection 10 mg (COMPLETED) 10 mg, Intravenous, ONCE, 1 dose, On Fri09/29/19 at 2345, Routine 2334 (Given - Provider: Nancy Redmond RN) sodium chloride 0.9 % (flush) flush 5 mL 5 mL, Intravenous, 2 TIMES DAILY, First dose on Fri09/29/19 at 2100, Until Discontinued, Routine 2100 (Due) 0900 (Due)2100 (Due) 0914 (Given - Provider: Tonya Dixon RN) PRN Medication Order 09/29/2019 09/30/2019 10/01/2019 acetaminophen (Tylenol) tablet 650 mg 650 mg, Oral, EVERY 4 HOURS PRN, Starting on Fri09/29/19 at 1933, Until Fri10/01/19 at 1416, Pain, mild pain (1-3), Not exceed 4 grams per 24 hours, Routine 2211 (Given - Provider: Nancy Redmond RN) calcium carbonate (Tums) chewable tablet 1,000 mg 1,000 mg (2 tablet), Oral, EVERY 4 HOURS PRN, Starting on Fri09/29/19 at 1933, Until Fri10/01/19 at 1416, Heartburn, If both calcium carbonate (TUMS) and alum-mag hydroxide-simeth (MAALOX) ordered, administer calcium carbonate (TUMS) first, if ineffective administer alum-mag hydroxide-simeth (MAALOX)., Routine 2237 (Given - Provider: Nancy Redmond RN) diphenhydrAMINE (Benadryl) capsule 25 mg 25 mg, Oral, NIGHTLY PRN, Starting on Fri09/29/19 at 1933, Until Fri10/01/19 at 1416, Itching, to promote drowsiness, Routine 2227 (Given - Provider: Cookie Rapp RN) lidocaine (PF) (XYLOCAINE) 10 mg/mL (1 %) injection 300 mg 300 mg, Subcutaneous, ONCE PRN, 1 dose, Starting on Fri09/29/19 at 1933, Until Fri10/01/19 at 1416, Repair of laceration following delivery., Routine lidocaine (XYLOCAINE) 10 mg/mL (1 %) injection 3 mg 3 mg (0.3 mL), Subcutaneous, ONCE PRN, 1 dose, Starting on Fri09/29/19 at 193, Until Fri10/01/19 at 1416, for discomfort with PIV insertion, Routine mineral oil topical liquid 25 mL 25 mL, Topical (Top), ONCE PRN, 1 dose, Starting on Fri09/29/19 at 193, Until Fri10/01/19 at 1416, Constipation, For perineal stretching during pushing., Routine oxytocin (PITOCIN) 30 units in sodium chloride 0.9% 500 mL infusion 30 Units (500 mL), Intravenous, Administer over 1 Hours, ONCE PRN, 1 dose, Starting on Fri09/29/19 at 193, Until Fri10/01/19 at 1416, At the discretion of the provider following delivery., Piggyback into Lactated Ringers; Start at 2 [...] last minute misoprostol dose is given, Routine sodium chloride 0.9 % (flush) flush 5-20 mL 5-20 mL, Intravenous, EVERY 1 MIN PRN, Starting on Fri09/29/19 at 1932, Until Fri10/01/19 at 1416, flush, Flush pertains to all indwelling lines. Flush per protocol found in the job aid using the link provided on this medication record., Routine documented in this encounter Care Teams Manager Heavy Duty Relationship Specialty Start Date End Date Lynn López, ALL SOURCE INTELLIGENCE TECHNICIAN PCP - General Family Medicine 03/17/17 documented as of this encounter
--- OUTSIDE RECORDS SUMMARY | 2024-08-23 12:33 | XMS_ITS | Encounter Summary ---
Author Organization [facility] [address] [place] [address] Care Team Providers Care Lien Searcher Name Role Phone Surinder Woodard MD Primary Care Provider [phone] Encounter Details Date Type Department Care Team (Late st Contact Info) Description 04/25/2014 2:40 PM EDT [place] [address] Josh Daniels APRN [facility] [place] [address] Migraine (Primary Dx) Discharge Disposition: Home Social [...] Sign Reading Time Taken Comments Blood Pressure 130/85 04/25/2014 2:52 PM EDT Pulse 68 04/25/2014 2:52 PM EDT Temperature - - Respiratory Rate - - Oxygen Saturation - - Inhaled Oxygen Concentration - - Weight 59 kg (130 lb) 04/25/2014 2:52 PM EDT Height 160 cm (5' 3) 04/25/2014 2:52 PM EDT Body Mass Index 23.03 04/25/2014 2:52 PM EDT documented in this encounter Progress Notes * Josh Daniels, GUITAR MAKER - 04/25/2014 3:09 PM EDT CC:This is a 18 y.o. [...] the setting of using a lot of eonc-qnv-uvzpueb rmk-yjb-[id number] medication, which only gave her a partial [...] quiet room. She is no longer taking vwfb-tpx-rqpipih medications. 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 Missing work due to headaches: presenteeism Sleeping: okay Snoring: none Nightmares: none Mood: okay Energy: low Contraception: none currently, was on Vestura Subjective: Liza is here today for follow-up of headaches and MRI accompanied with her friend. Sheis having sporadic migraines 1-2 weekly she does treat with naproxen and/or hydroxyzine and it helps her headaches. She has not had to use the imitrex in a couple of months. She has stopped taking topamax due to SE's. Denies headache in office today. She is happy with her headache pattern, but nervous that it's seasonal. Review of systems: head pain as above, anxiety, neck pain. All other systems were negative. Objective: Filed Vitals: 04/25/14 1452 BP: 130/85 Pulse: 68 Physical- Patient appears well, in no acute [...] minutes prior to help with SE's. 3. 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 Consider Magnesium or Riboflavin 5 Encouraged to keep diary to track triggers Follow up plan: The patient will follow up in [facility] in 8-12 months and call as needed. At least 10 minutes of this 15 minute face to face visit was spent counseling and therapeutic planning discussing potential adverse effects of all medications were discussed in detail, will call withMRI results, future treatment options (Mg/riboflavin) We also discussed non-pharmacological approaches chronic headaches (relaxation) as well as coping strategies. I answered all of the patient's questions and she was comfortable with the plan. documented in this encounter Plan of Treatment Not on file documented as of this encounter Visit Diagnoses Diagnosis Migraine- Primary Migraine, unspecified, without mention of intractable migraine without mention of status migrainosus documented in this encounter Care Teams Lien Searcher Relationship Specialty Start Date End Date Surinder Woodard MD [address] [place] [address] PCP - General 10/19/13 03/16/17 documented as of this encounter
--- OUTSIDE RECORDS SUMMARY | 2024-08-23 12:33 | XMS_ITS | Encounter Summary ---
Author Organization [facility] [address] [facility] [place] [address] Care Team Providers Care Doctor Podiatric Medicine Name Role Phone Surinder Woodard MD Primary Care Provider [phone] Encounter Details Date Type Department Care Team (Late st Contact Info) Description 10/17/2014 [place] [address] Josh Daniels APRN [facility] [address] Social History Tobacco Use Types Packs/Day Years [...] Telephone Encounter - Isabelle Baer RN - 10/18/2014 8:26 AM EST Detailed phone message left on pt vm with provider directions and input. Message also noted that ptis to call back with an update in 1-2 weeks, sooner if there are additional questions or concerns. * Telephone Encounter - Josh Daniels APRN - 10/17/2014 4:25 PM EST She was titrated to as high as 75 mg BID of Topamax, per note she didn't like the cognitive effect of the medication. Since it is a while before a next appt and she did tolerate the medication somewhat. We can retry topamax at 25 mg BID and titrate to 50 mg BID in 3 weeks #120, 1 refill. At the next appt will consider new medication if needed, but will not start new medication over the phone. * Telephone Encounter - Isabelle Baer RN - 10/17/2014 3:33 PM EST Liza called to schedule appt with Josh Freeman and was told next available appt was 12/26/14. I spoke with Liza about her desire to go back on topamax . She ststes she had been taking topamax daily and then stopped it because her headaches had gotten so much better. She is asking now to be started back up on topamax , pharmacy is [facility] in [place] . documented in this encounter Plan of Treatment Not on file documented as of this encounter Visit Diagnoses Not on filedocumented in this encounter Care Teams Doctor Podiatric Medicine Relationship Specialty Start Date End Date Surinder Woodard MD [address] [place] [address] PCP - General 10/19/13 03/16/17 documented as of this encounter
--- OUTSIDE RECORDS SUMMARY | 2024-08-23 12:33 | XMS_ITS | Encounter Summary ---
Author Organization [facility] Address [facility] [address] Care Team Providers Care Rehabilitation Inspector Name Role Phone Surinder Woodard MD Primary Care Provider [phone] Encounter Details Date Type Department Care Team (Late st Contact Info) Description 09/22/2015 8:30 AM EST [place] [address] Will Keith MD [facility] [place] [address] Paresthesias Social History Tobacco Use Types Packs/Day Years [...] Sign Reading Time Taken Comments Blood Pressure 135/90 09/22/2015 8:11 AM EST Pulse 85 09/22/2015 8:11 AM EST Temperature - - Respiratory Rate - - Oxygen Saturation - - Inhaled Oxygen Concentration - - Weight 69 kg (152 lb 3.2 oz) 09/22/2015 8:11 AM EST Height 160 cm (5' 3) 09/22/2015 8:11 AM EST Body Mass Index 26.96 09/22/2015 8:11 AM EST documented in this encounter Progress Notes * Will Keith MD - 09/22/2015 8:45 AM EST [facility] Department of Neurology [place] [id number] Patient - Liza Wilkinson Date of - 1995 PCP - SURINDER WOODARD MD [facility] internal medicine Dr. johan Sterling New Patient Evaluation I saw Liza Miles today at the [facility] for an urgent visit, referred from Dr. Green for evaluation of paresthesias. Liza is a 20-year-old woman. She comes to the office by herself. The patient reports that starting approximately two weeks ago, she has been experiencing episodes of numbness and tingling. She reports this sometimes to be in her left upper extremity, sometimes on the right, and sometimes in her legs. She says that occasionally she wakes up in the morning and feels this, and then it gets better throughout the day. Other times, the onset is in the middle of the day and the paresthesias last for several hours. She also describes some difficulty moving associated with this, and weakness. She denies any problems with walking, problems with her bladder, balance difficulties, or weakness in her legs. She denies any change in her headache symptoms. She denies any visual disturbances, swallowing problems, or other neurological complaints. The patient has been seen at the [facility] for many years. She is diagnosed with episodic migraine. She takes a variety of treatments for this including Imitrex, naproxen, and Atarax. She denies any other medical problems. Present medications include headache treatment and omeprazole. The omeprazole is for heartburn. The patient is also on an oral contraceptive agent. She lives north of [facility]. She works at a [employer]. She drives. She does not smoke. She drinks occasionally. On examination, blood pressure is 135/90, pulse is 85, height is 5 feet 3 inches, weight is 152 pounds. On general examination, the patient appears comfortable and provides a good history. She does not appear anxious or depressed. She has regular cardiac rhythm. She has no dysmorphic features. Mental status examination reveals the patient to be alert, oriented, and attentive. Her language is fluent. Her general fund of knowledge is normal. Sensory motor examination reveals narrow-based gait. She is steady in the Romberg position. Cranial nerve examination reveals normal eye movements. Pupils are 2 mm and reactive. Fundus is clear. The disc margins are sharp. Face is symmetric. Facial sensation is normal with pin and cotton touch. Tongue and palate are midline. The patient has full strength in upper and lower extremities. Her fine finger movements, rapid alternating movements, and foot taps are symmetric. Mpctmh-mv-ttjf and zrhy-jp-xwxs are normal. Reflexes are 2+ in the upper and lower extremities. Ankle jerks are present. There is no clonus. Toes are downgoing. Sensory examination in the feet with a tuning fork and proprioception is normal. The patient has had several MRIs, one in October 2013 and a second one in April 2014. 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 There was no hydrocephalus or any mass effect. The cyst was stable between the first and the second scan. The patient reports that she had an MRI scan done a week ago; she does not know the results. This was done at [facility]. My overall impression is that Liza has paresthesias of unclear cause. She has no abnormal findings on neurological examination. I am curious to see the most recent MRI to see if the cyst has enlarged. If it has not, then there are no clear explanations for these symptoms. I urged her to keep monitoring them and establish in what situations they occur. I spent 48 minutes with Liza; 25 minutes of that time were spent in discussion of her pineal gland cyst, showing her the MRI, discussion of what can happen when this enlarges, and discussion of differential diagnosis for the paresthesias. documented in this encounter Plan of Treatment Not on file documented as of this encounter Visit Diagnoses Diagnosis Paresthesias Disturbance of skin sensation documented in this encounter Care Teams Rehabilitation Inspector Relationship Specialty Start Date End Date Surinder Woodard MD [address] [place] [address] PCP - General 10/19/13 03/16/17 documented as of this encounter
--- OUTSIDE RECORDS SUMMARY | 2024-08-23 12:33 | XMS_ITS | Encounter Summary ---
Author Organization [facility] Address [address] [place] [address] Care Team Providers Care Orthotic Technician Name Role Phone Evangelista Velasquez APRN Primary Care Provider [phone] Encounter Details Date Type Department Care Team (Late st Contact Info) Description 02/13/2015 Results Only Imaging [facility]- [facility] [phone] Evangelista Velasquez, REGISTRAR ASSISTANT [address] [facility] [address] [place] [address] Social History Tobacco Use Types Packs/Day Years [...] Procedure Name Priority Date/Time Associated Diagnosis Comments RAD US ABDOMEN COMPLETE 02/14/2015 9:28 EDT documented in this encounter Results * RAD US ABDOMEN COMPLETE (02/14/2015 9:28 EDT) Anatomical Region Laterality Modality Other 02/14/2015 9:28 EDT 02/14/2015 13:09 EDT Narrative 02/14/2015 13:09 EDT RAD US ABDOMEN COMPLETE ??02/14/2015 9:28 AM Signs and Symptoms/Comments: ?? worsening abdominal pain, kidney stone Comparison: None available. Technique: Static and cinematic grayscale and color Doppler ultrasound of the complete abdomen was performed. Findings: The visualized portions of the pancreas are unremarkable. The liver measures 14.6 cm and is normal in size and echogenicity. ??No focal lesions are present in the liver. ?? The gallbladder is unremarkable, and there is no evidence of biliary ductal dilatation. The common bile duct measures 4 mm at the debora hepatis. The spleen is normal in size. ?? Both kidneys demonstrate no evidence of hydronephrosis or focal lesions. The proximal IVC is unremarkable. ??The abdominal aorta to the level of the bifurcation demonstrates no evidence of aneurysm. There is no evidence of free fluid. ??The urinary bladder is unremarkable. Incidentally noted during the exam is a well-circumscribed anechoic cystic structure in the region of the right adnexa that exhibits posterior acoustic shadowing. Impression: 1. No evidence of nephrolithiasis, hydronephrosis, other renal abnormality, or significant findings in the abdomen and pelvis. 2. Simple appearing 3 cm anechoic cyst in the region of the right adnexa. Dr. David Fajardo discussed these findings with EVANGELISTA VELASQUEZ APRN on 02/14/2015 9:54 AM. I have personally reviewed the images and the above interpretation and agree with the findings. Procedure Note Christopher Valle MD - 02/14/2015 RAD US ABDOMEN COMPLETE 02/14/2015 9:28 AM Signs and Symptoms/Comments: worsening abdominal pain, kidney stone Comparison: None available. Technique: Static and cinematic grayscale and color Doppler ultrasound of the complete abdomen was performed. Findings: The visualized portions of the pancreas are unremarkable. The liver measures 14.6 cm and is normal in size and echogenicity. No focal lesions are present in the liver. The gallbladder is unremarkable, and there is no evidence of biliary ductal dilatation. The common bile duct measures 4 mm at the debora hepatis. The spleen is normal in size. Both kidneys demonstrate no evidence of hydronephrosis or focal lesions. The proximal IVC is unremarkable. The abdominal aorta to the level of the bifurcation demonstrates no evidence of aneurysm. There is no evidence of free fluid. The urinary bladder is unremarkable. Incidentally noted during the exam is a well-circumscribed anechoic cystic structure in the region of the right adnexa that exhibits posterior acoustic shadowing. Impression: 1. No evidence of nephrolithiasis, hydronephrosis, other renal abnormality, or significant findings in the abdomen and pelvis. 2. Simple appearing 3 cm anechoic cyst in the region of the right adnexa. Dr. David Fajardo discussed these findings with EVANGELISTA VELASQUEZ APRN on 02/14/2015 9:54 AM. I have personally reviewed the images and the above interpretation and agree with the findings. us Evangelista Velasquez APRN IMG US ORDERABLES Final R esult documented in this encounter Visit Diagnoses Not on filedocumented in this encounter Care Teams Orthotic Technician Relationship Specialty Start Date End Date Evangelista Velasquez APRN [address] [place] [address] PCP - General 02/10/15 07/26/21 documented as of this encounter
--- OUTSIDE RECORDS SUMMARY | 2024-08-23 12:33 | XMS_ITS | Encounter Summary ---
Author Organization [facility] [address] [place] [address] Care Team Providers Care Campus Security Director Name Role Phone Surinder Woodard MD Primary Care Provider [phone] Encounter Details Date Type Department Care Team (Late st Contact Info) Description 11/25/2013 Telephone [place] [address] Josh Daniels DIRECTOR OF PEOPLE [facility] [place] [address] Social History Tobacco Use Types Packs/Day Years [...] Telephone Encounter - Josh Daniels APRN - 11/25/2013 3:56 PM EST Patient would like to titrate off the Topamax as she doesn't like the cognitive SE's. She also feels that the medication is not helping her headaches, even though she states she only had 12 headachesin Oct and so far 3 headaches in Nov. Instructed that she can titrate by 50 mg every 2 weeks and will follow-up in 4 weeks. She stated understanding and had no other questions. documented in this encounter Plan of Treatment Not on file documented as of this encounter Visit Diagnoses Not on filedocumented in this encounter Care Teams Campus Security Director Relationship Specialty Start Date End Date Surinder Woodard MD [address] [place] [address] PCP - General 10/19/13 03/16/17 documented as of this encounter
--- OUTSIDE RECORDS SUMMARY | 2024-08-23 12:33 | XMS_ITS | Encounter Summary ---
Author Organization [facility] Address [address] [place] [address] Care Team Providers Care Call Center Director Name Role Phone Ron Valentine Stephen DOMONIQUE Primary Care Provider [phone] Encounter Details Date Type Department Care Team (Late st Contact Info) Description 05/11/2015 Results Only [facility]- [facility] [phone] Liza Yu, [address] [place] [phone] Social History Tobacco Use Types Packs/Day Years [...] Diagnosis Comments PAP TEST- RESULT ONLY Routine 05/11/2015 0:00 EDT documented in this encounter Results * PAP TEST- RESULT ONLY (05/11/2015 0:00 EDT) Pathology Report: CYTOPATHOLOGY REPORT Reports generated via electronic interface contain original data; however they are lacking the format of the original report. Caution should be taken when reading/interpreti ng unformatted reports. Name: ? LIZA RAUSCH ? Accession #: ? [id number] : ? 1995 (Age: 20) ??F ?Collect Date: ? 05/11/2015 Location: ? [facility] ? Receive Date: ? 05/12/2015 Provider: ?LIZA YU SANDFILL OPERATOR Copy to: ? Specimen/Source: ?Pap Test, Cervix/Endocervix, ThinPrep Imaging System with manual evaluation Last Menstrual Period: ? 04/21/15 ? SPECIMEN ADEQUACY ? Satisfactory for Evaluation - transformation zone component present GENERAL CATEGORIZATION ? Negative for Intraepithelial Lesion or Malignancy INTERPRETATION ? Fungal organisms present morphologically consistent with Melodie species. ? Document reviewed and electronically signed by: ? WILMER Trivedi(ASCP) ? Report Date: ??05/17/2015 15:58 End of Report [facility] 05/11/2015 05/12/2015 us Liza Yu SANDFILL OPERATOR PATHOLOGY ORDERABLES Final R esult [facility] [address] [place] [address] documented in this encounter Visit Diagnoses Not on filedocumented in this encounter Care Teams Call Center Director Relationship Specialty Start Date End Date Valentine Velasquez APRN [address] [place] [address] PCP - General 02/10/15 07/26/21 documented as of this encounter
--- OUTSIDE RECORDS SUMMARY | 2024-08-23 12:33 | XMS_ITS | Encounter Summary ---
Author Organization [facility] Address [address] [place] [address] Care Team Providers Care Tape Maker Name Role Phone Valentine Velasquez APRN Primary Care Provider [phone] Reason for Visit * Reason Onset Date Comments Appointment Related 07/03/2021 Encounter Details Date Type Department Care Team (Late st Contact Info) Description 07/03/2021 Telephone [facility] - [facility] [address] [place], [place] [address] Gil Martinez MD [address] [place] [address]. [address] [place], [place] [address] Appointment Related Social History Tobacco Use Types Packs/Day Years Used Date Smoking Tobacco: Never Assessed Comments Unknown Sex and Gender Information Value Date Recorded Sex Assigned at Not on file Legal Sex Female 18:48 EST Gender Identity Not on file Sexual Orientation Not on file documented as of this encounter Miscellaneous Notes * Telephone Encounter - Jenny Espino - 07/03/2021 1403 EDT Pt referral had been sent to Plastics after speaking with Triage and the patient. Heike from Plastics called to report pt did not want a Breast Reduction and did not know why the referral was sent to Plastics. I called the patient right away to confirm pt needs. There was a misunderstanding that thereferral was being transferred to Plastics. Pt does not want a breast reduction at 26, and would like to be follow in the [facility] based on Family history in 1st degree relative. Patient has been scheduled. Jenny Espino 07/05/2021 9:52 documented in this encounter Plan of Treatment Not on file documented as of this encounter Visit Diagnoses Not on filedocumented in this encounter Care Teams Tape Maker Relationship Specialty Start Date End Date Valentine Velasquez APRN [address] [place] [phone] PCP - General 02/10/15 07/26/21 documented as of this encounter
--- OUTSIDE RECORDS SUMMARY | 2024-08-23 12:33 | XMS_ITS | Encounter Summary ---
Author Organization Health system Address [address] [place] [address] Care Team Providers Care Fraud Investigator Name Role Phone Isabel Cao DOMONIQUE Primary Care Provider [phone] Encounter Details Date Type Department Care Team (Late st Contact Info) Description 01/28/2022 Lab Requisition [facility] Pathology & Laboratory Medicine - [facility] [address] [place] [address] Liza Yu, [facility] [address] [place] [address] [place] [address] Encounter for other general examination [...] Date/Time Associated Diagnosis Comments PAP TEST Today 01/25/2022 8:30 EDT Encounter for other general examination documented in this encounter Results * PAP TEST (01/25/2022 8:30 EDT) Specimens A. Cervix and/or Endocervix , ThinPrep Imaging System with Manual Evaluation 01/29/2022 14:32 EDT [facility] Specimen Adequacy Satisfactory for Evaluation - transformation zone component present 01/29/2022 14:32 EDT [facility] General Categorization Negative for intraepithelial lesion or malignancy 01/29/2022 14:32 EDT [facility] Attestation . 01/29/2022 14:32 EDT [facility] at 1432 Clinical History SEE BELOW 01/30/20 14:32 EDT [facility] Performing Lab [facility] 01/29/2022 14:32 EDT [facility] Scanned Images 01/29/2022 14:32 EDT [facility] Papanicolaou smear specimen (specimen) CERVIX UTERI STRUCTURE / Unknown 01/25/2022 8:30 EDT 01/28/2022 10:35 EDT us Liza Yu MIDDLEWARE ADMINISTRATOR PATHOLOGY ORDERABLES Final R esult [facility] [address] [place] [address] documented in this encounter Visit Diagnoses Diagnosis Encounter for other general examination documented in this encounter Care Teams Fraud Investigator Relationship Specialty Start Date End Date Isabel Cao, BACK SHOE WORKER [address] [place] [address] PCP - General Family Medicine - Hospital Medicine 07/27/21 documented as of this encounter
--- OUTSIDE RECORDS SUMMARY | 2024-08-23 12:33 | XMS_ITS | Encounter Summary ---
Author Organization [facility] [address] [place] [address] Care Team Providers Care Mill Tender Name Role Phone Surinder Woodard MD Primary Care Provider [phone] Reason for Visit * Reason Onset Date Comments Other 12/08/2014 Encounter Details Date Type Department Care Team (Late st Contact Info) Description 12/08/2014 Telephone [place] [phone] Josh Daniels APRN [facility] [address] Other Social History Tobacco Use Types Packs/Day [...] Telephone Encounter - Isabelle Baer RN - 12/12/2014 1:22 PM EST I spoke with Liza , she is asking for the hydroxyzine to be reordered in capsule form . Also asking if the zonisamide taken along with BCP's causes her to have an increased risk for stroke. Liza states she will ask her CROSSING GUARD provider this question . I informed Liza that the letter written by INDER has been sent out in the mail. * Telephone Encounter - Isabelle Baer RN - 12/12/2014 11:21 AM EST Left voice message requesting pt to call back * Telephone Encounter - Isabelle Baer RN - 12/09/2014 4:08 PM EST Left voice message requesting pt to call back * Telephone Encounter - Tiana Anand - 12/08/2014 4:30 PM EST Liza is calling regarding the fact that her [employer] SYSTEMS ADMINISTRATOR placed her on Valarie B. She is wondering if the zonisamide that she was prescribed will counteract with the new medication. Hydroxyzine should also be capsules not the tablets. She also needs a letter for her work to be sent, Josh stated that she would send at her last appointment. Please call and advise. documented in this encounter Plan of Treatment Not on file documented as of this encounter Visit Diagnoses Not on filedocumented in this encounter Care Teams Mill Tender Relationship Specialty Start Date End Date Surinder Woodard MD [address] [place] [address] PCP - General 10/19/13 03/16/17 documented as of this encounter
--- OUTSIDE RECORDS SUMMARY | 2024-08-23 12:33 | XMS_ITS | Encounter Summary ---
Author Organization [facility] Ana Mar[facility] [place] [address] Care Team Providers Care Bunch Maker Hand Name Role Phone Surinder Woodard MD Primary Care Provider Encounter Details Date Type Department Care Team (Late st Contact Info) Description 09/14/2015 [place] [address] Bhupendra Nicole APRN [facility] [place] [address] Social History Tobacco Use Types Packs/Day Years [...] Telephone Encounter - Isabel Prieto RN - 09/15/2015 2:10 PM EST Patient called back and we discussed her need to get in to general neurology for an appointment to evaluate her new symptoms. Connected her with press secretary to schedule soonest available appointment. * Telephone Encounter - Isabel Prieto RN - 09/15/2015 12:03 PM EST Patient called and left a message on the triage line asking for a return phone call. * Telephone Encounter - Isabel Prieto RN - 09/15/2015 9:42 AM EST Called patient and left a message asking for a return phone call. * Telephone Encounter - Isabel Prieto RN - 09/15/2015 9:41 AM EST Patient called and left a message on the triage line asking for a return phone call. * Telephone Encounter - Isabel Prieto RN - 09/15/2015 8:02 AM EST Called patient and left a message asking for a return phone call. * Telephone Encounter - Bhupendra Nicole APRN - 09/14/2015 3:52 PM EST I am not familiar with this patient. She should continue to follow up with her PcP or she can schedule with a general neurologist to discuss further. This is not a headache issue and should not be handled in the headache clinic. * Telephone Encounter - Isabel Prieto RN - 09/14/2015 3:11 PM EST Called patient back and she states she had some numbness and tingling in her arms and legs and was seen at her PCP office ([facility]) who ordered an MRI. She states they did a Toothpick test on her R and L side and stated the L side was more responsive. She states they reported there was no change in her MRI and therefore it did not explain her arms and legs going numb. She states after sitting for one hour she has numbness in her legs and her feet fall asleep and within five minutes of crossing her legs her feet fall asleep. She states these symptoms started last week and in addition to the numbness, she also has tingling & itching. She states they are blowing me offand just throwing meds at me. She states they gave her Celexa & hydroxyzine to hide the numbness. She wants to know what Bhupendra Nicole APRN thinks she should do. * Telephone Encounter - Isabel Prieto RN - 09/14/2015 3:02 PM EST Patient called and left a message on the triage line asking for a return call to discuss her MRI results. Patient states her PCP office is not giving her the information she is looking for. documented in this encounter Plan of Treatment Not on file documented as of this encounter Visit Diagnoses Not on filedocumented in this encounter Care Teams Bunch Maker Hand Relationship Specialty Start Date End Date Surinder Woodard MD [address] [place] [address] PCP - General 10/19/13 03/16/17 documented as of this encounter
--- OUTSIDE RECORDS SUMMARY | 2024-08-23 12:33 | XMS_ITS | Encounter Summary ---
Author Organization [facility] Ana [place]ía [place] [address] Care Team Providers Care Burlapper Name Role Phone Surinder Woodard MD Primary Care Provider [phone] Reason for Visit * Reason Onset Date Comments Other 02/11/2017 Encounter Details Date Type Department Care Team (Late st Contact Info) Description 02/11/2017 [place] [phone] Bhupendra Nicole APRN [facility] [place] [address] Other Social History Tobacco Use Types Packs/Day [...] encounter Miscellaneous Notes * Telephone Encounter - Jackelyn Sheppard RN - 02/12/2017 9:19 AM EDT Call made to patient. Informed patient that Bhupendra Nicole is unable to treat over the phone as she has never seen her in an appointment. Recommended that she contact her PCP to discuss. Also suggested that she make a sooner appointment with Bhupendra Nicole. Patient agreeable. Call transferred to escrow secretary for scheduling. * Telephone Encounter - Irene Sheffield - 02/11/2017 3:43 PM EDT Caller: self If not Pt / Relation to pt: Best time to reach caller: any After 230 pm (if not red arrow message) - Informed caller that if the nurse does not call back by the end of the day they will be called tomorrow AM Best number to reach caller:[phone] Reason for call: Pt states that a few weeks ago she began noticing fatigue and pain in the back of her head. She is scheduled for a 60 minute FU with JALiam in March documented in this encounter Plan of Treatment Not on file documented as of this encounter Visit Diagnoses Not on filedocumented in this encounter Care Teams Burlapper Relationship Specialty Start Date End Date Surinder Woodard MD [address] [place] [address] PCP - General 10/19/13 03/16/17 documented as of this encounter
--- OUTSIDE RECORDS SUMMARY | 2024-08-23 12:33 | XMS_ITS | Encounter Summary ---
Author Organization [facility] Address [address] [place] [address] Care Team Providers Care Acupuncturist Name Role Phone Ron Valentine Stephen DOMONIQUE Primary Care Provider [phone] Encounter Details Date Type Department Care Team (Late st Contact Info) Description 06/10/2017 Results Only [facility] [phone] Liza Yu, [address] [place] [phone] Social History Tobacco Use Types Packs/Day Years [...] Diagnosis Comments PAP TEST- RESULT ONLY Routine 06/10/2017 0:00 EDT documented in this encounter Results * PAP TEST- RESULT ONLY (06/10/2017 0:00 EDT) Pathology Report: CYTOPATHOLOGY REPORT Reports generated via electronic interface contain original data; however they are lacking the format of the original report. Caution should be taken when reading/interpreti ng unformatted reports. Name: ? LIZA RAUSCH ? Accession #: ? [id number] : ? 1995 (Age: 22) ??F ?Collect Date: ? 06/10/2017 Location: ? [facility] ? Receive Date: ? 06/11/2017 Provider: ?LIZA YU WIRE GALVANIZER Copy to: ?IRMA GUERRA WIRE GALVANIZER ? Specimen/Source: ?Pap Test, Cervix, ThinPrep Imaging System with manual evaluation Last Menstrual Period: ? 03/27/17 ? SPECIMEN ADEQUACY ? Satisfactory for Evaluation - transformation zone component present GENERAL CATEGORIZATION ? Negative for Intraepithelial Lesion or Malignancy ? Document reviewed and electronically signed by: ? WILMER Chacko(ASCP) ? Report Date: ??06/20/2017 11:05 End of Report [facility] 06/10/2017 06/11/2017 us Liza Yu WIRE GALVANIZER PATHOLOGY ORDERABLES Final R esult [facility] [address] [place] [address] documented in this encounter Visit Diagnoses Not on filedocumented in this encounter Care Teams Acupuncturist Relationship Specialty Start Date End Date Valentine Velasquez APRN [address] [place] [address] PCP - General 02/10/15 07/26/21 documented as of this encounter
--- OUTSIDE RECORDS SUMMARY | 2024-08-23 12:33 | XMS_ITS | Encounter Summary ---
Author Organization [facility] Address [address] [place] [address] Care Team Providers Care Underwear Trimmer Name Role Phone Md TUNG Mathews Primary Care Provider Josianea ble Encounter Details Date Type Department Care Team (Late st Contact Info) Description 11/05/2012 Results Only [facility] - [facility] ([facility] [address] [place], [place] [address] Elliott Gavin MD [address] [place] [id number] Social History Tobacco Use Types Packs/Day Years [...] Procedure Name Priority Date/Time Associated Diagnosis Comments SURGICAL PATHOLOGY Routine 11/05/2012 20 :43 EST documented in this encounter Results * SURGICAL PATHOLOGY (11/05/2012 20:43 EST) Pathology Report: SURGICAL PATHOLOGY REPORT Reports generated via electronic interface contain original data; however they are lacking the format of the original report. Caution should be taken when reading/interpreti ng unformatted reports. Name: ? MIRACLELIZA ? Accession #: ? [id number] ? : ? 1995 (Age: 17) ??F ? Collect Date: ? 11/05/2012 ? Location: ? [facility] ? Receive Date: ? 11/05/2012 ? Provider: ELLIOTT GAVIN MD Copy to: ? Final Pathologic Diagnosis: A. ?Tonsil, right, tonsillectomy: 1. ?Tonsillar tissue with acute and chronic inflammation and reactive lymphoid follicular hyperplasia. B. ?Tonsil and adenoid, left, tonsillectomy and adenoidectomy: 1. ?Tonsillar and adenoid tissue with reactive lymphoid follicular hyperplasia. Document reviewed and electronically signed by: Miguelangel No MD Report ??Date: 11/09/2012 15:47 By the signature above, the attending physician certifies that he/she has personally conducted a gross and/or microscopic examination of the described specimens and rendered or confirmed the above diagnosis. Specimen(s) Received: A. ?Right tonsil B. ? Left tonsil and adenoid Clinical History: ? Chronic tonsillitis and adenoiditis; hypertrophy of tonsils and adenoids Gross Description: ? Received in formalin labelled [place], Liza and right tonsil is a 3.0 x 2.5 x 2.0 cm nodular tissue, grossly consistent with a palatine tonsil. ??The specimen is partially surfaced by pink-bangura, smooth, and cryptic, focally slightly granular mucosa. ??The cut surface is pink-bangura and lobulated, without discrete masses. ??A single financial service representative section is submitted as (A1). Received in formalin labelled [place], Liza and left tonsil and adenoid is a 3.0 x 2.5 x 2.0 cm nodular tissue, grossly consistent with a palatine tonsil. The specimen is partially surfaced by pink-bangura, smooth, and cryptic mucosa. ??The cut surface is pink-bangura and lobulated, without discrete masses. ??Also received in the specimen container is a 2.5 x 2.0 x 1.3 cm partially fragmented, pink-bangura, lobulated soft tissue with a lobulated, pink-bangura cut surface, consistent with adenoid tissue. ??A single financial service representative section of the tonsil is submitted as (B1) and adenoid tissue as (B2). ??(Shanon Zelaya)/cy End of Report [facility] 11/05/2012 20:4 3 EST 11/05/2012 20:43 EST us Elliott Gavin MD PATHOLOGY ORDERABLES Final Resul t Performing Organization Address City/State/[facility] Co de Phone Number [facility] [address] [place] [address] documented in this encounter Visit Diagnoses Not on filedocumented in this encounter Care Teams Underwear Trimmer Relationship Specialty Start Date End Date Md Mathews MD PCP - General 02/14/10 02/09/15 documented as of this encounter
--- OUTSIDE RECORDS SUMMARY | 2024-08-23 12:33 | XMS_ITS | Encounter Summary ---
Author Organization [facility] [place] [address] Care Team Providers Care Transformation Analyst Name Role Phone Surinder Woodard MD Primary Care Provider [phone] Reason for Visit * Reason Comments Medication Refill Encounter Details Date Type Department Care Team (Late st Contact Info) Description 01/09/2016 [place] [phone] Josh Daniels APRN [facility] [address] Social History Tobacco Use Types Packs/Day Years [...] on filedocumented in this encounter Care Teams Transformation Analyst Relationship Specialty Start Date End Date Surinder Wooadrd MD [address] [place], [place] [address] PCP - General 10/19/13 03/16/17 documented as of this encounter
--- OUTSIDE RECORDS SUMMARY | 2024-08-23 12:33 | XMS_ITS | Encounter Summary ---
Author Organization [facility] [place] [address] Care Team Providers Care Lead Manufacturing Engineer Name Role Phone Surinder Woodard MD Primary Care Provider Encounter Details Date Type Department Care Team (Late st Contact Info) Description 04/25/2014 1:28 PM EDT - 04/25/2014 11:59 PM EDT Hospital En[place] [phone] CLINIC, DR BRANCH Migraine Social History Tobacco Use Types Packs/Day Years [...] Caution sedation. 30 tablet 11 10/19/2013 11/30/2014 naproxen sodium (ANAPROX) 550 mg tabletIndications:Heada serina(784.0) Take 1 tablet by mouth 2 times daily as needed. 30 tablet 12 08/18/2013 11/30/2014 documented as of this encounter Miscellaneous Notes * Miscellaneous - Provider, Scanning - 05/18/2014 4:10 PM EDT documented in this encounter Plan of Treatment Not on file documented as of this encounter Procedures Procedure Name Priority Date/Time Associated Diagnosis Comments MRI BRAIN WWO CONTRAST (GENERIC) Routine 04/25/2014 2:45 PM EDT Migraine documented in this encounter Results * [...] cystic lesion within the pineal gland which [id number] x 8 millimeter on thin-section sagittal T2 [...] MAR Action Action Date Dose Rate Site gadopentetate dimeglumine (MAGNEVIST) injection 12 mL 12 mL (0.2 mL/kg/dose ? 61.2 kg Order-specific weight), Intravenous, ONCE PRN, Per Protocol, Starting on Fri04/25/14 at 1406, 1 dose, Until Fri04/25/14 at 1433 Given 04/25/2014 2:33 PM EDT 12 mLs documented in this encounter Care Teams Lead Manufacturing Engineer Relationship Specialty Start Date End Date Surinder Woodard MD [address] [place] [address] PCP - General 10/19/13 03/16/17 documented as of this encounter
--- OUTSIDE RECORDS SUMMARY | 2024-08-23 12:34 | XMS_ITS | Encounter Summary ---
Author Organization [facility] Address [address] [place] [address] Care Team Providers Care Legal Specialist Name Role Phone Md TUNG Mathews Primary Care Provider Unavaila ble Encounter Details Date Type Department Care Team (Late st Contact Info) Description 02/18/2011 Results Only [facility] - [facility] ([facility]) [address] [place], [place] [address] Liza Yu, [facility] [address] [place] [address] [place] [phone] Social History Tobacco Use Types Packs/Day Years [...] Diagnosis Comments PAP TEST- RESULT ONLY Routine 02/18/2011 0:00 EDT documented in this encounter Results * PAP TEST- RESULT ONLY (02/18/2011 0:00 EDT) Pathology Report: CYTOPATHOLOGY REPORT ? Reports generated via electronic interface contain original data; ? however they are lacking the format of the original report. ? Caution should be taken when reading/interpreti ng unformatted reports. ? Name: ? FELLOWS, LIZA ? Accession #: ? [id number] ? : ? 1995 (Age: 16) ??F ?Collect Date: ? 02/18/2011 ? Location: ? [facility] ? Receive Date: ? 02/19/2011 ? Provider: ?LIZA SELVIN TOURIST CAMP ATTENDANT ? Copy to: ? Specimen/Source: ?Pap Test, Cervix/Endocervix, ThinPrep Imaging System ? with manual evaluation ? Last Menstrual Period: ? 042/5/11 ? Hormonal/Contracep tive Status: ? Oral contraceptives ? SPECIMEN ADEQUACY ? Satisfactory for Evaluation ? - transformation zone component present ? GENERAL CATEGORIZATION ? Negative for Intraepithelial Lesion or Malignancy ? INTERPRETATION ? Reactive cellular changes associated with inflammation present (includes ?? repair). ? Document reviewed and electronically signed by: ? SHAMEKA B AMBAYE MD ? Report Date: ??02/22/2011 16:12 ? End of Report ? [facility] 02/18/2011 02/19/2011 us Liza Yu TOURIST CAMP ATTENDANT PATHOLOGY ORDERABLES Final R esult [facility] [address] [place] [address] documented in this encounter Visit Diagnoses Not on filedocumented in this encounter Care Teams Legal Specialist Relationship Specialty Start Date End Date Md Mathews MD PCP - General 02/14/10 02/09/15 documented as of this encounter
--- OUTSIDE RECORDS SUMMARY | 2024-08-23 12:34 | XMS_ITS | Encounter Summary ---
Author Organization [facility] Address [address] [place] [address] Care Team Providers Care Clinical Lab Assistant Name Role Phone Md TUNG Mathews Primary Care Provider Unavaila ble Encounter Details Date Type Department Care Team (Late st Contact Info) Description 02/13/2010 Results Only [facility] Laboratory Services - [facility] ([facility]) [address] [place], [place] [address] Liza Yu, [facility] [address] [place] [address] [place] [phone] Social History Tobacco Use Types Packs/Day Years [...] Procedure Name Priority Date/Time Associated Diagnosis Comments CYTOPATHOLOGY Routine 02/13/2010 0:00 EDT documented in this encounter Results * CYTOPATHOLOGY (02/13/2010 0:00 EDT) Pathology Report: CYTOPATHOLOGY REPORT ? Reports generated via electronic interface contain original data; ? however they are lacking the format of the original report. ? Caution should be taken when reading/interpreti ng unformatted reports. ? Name: ? FELLOWS, LIZA ? Accession #: ? [id number] ? : ? 1995 (Age: 15) ??F ?Collect Date: ? 02/13/2010 ? Location: ? [facility] ? Receive Date: ? 02/14/2010 ? Provider: ?LIZA SELVIN AIR MOVING TECHNICIAN ? Copy to: ? Specimen/Source: ?Pap Test, Cervix/Endocervix, ThinPrep Imaging System ? with manual evaluation ? Last Menstrual Period: ? 04/27/10 ? Hormonal/Contracep tive Status: ? Oral contraceptives ? SPECIMEN ADEQUACY ? Satisfactory for Evaluation ? - transformation zone component present ? GENERAL CATEGORIZATION ? Negative for Intraepithelial Lesion or Malignancy ? Document reviewed and electronically signed by: ? Gloria Cricket, [place](ASCP) ? Report Date: ??02/21/2010 14:18 ? End of Report ? [facility] 02/13/2010 02/14/2010 us Liza Yu AIR MOVING TECHNICIAN PATHOLOGY ORDERABLES Final R esult [facility] [address] [place] [address] documented in this encounter Visit Diagnoses Not on filedocumented in this encounter Care Teams Clinical Lab Assistant Relationship Specialty Start Date End Date Md Mathews MD PCP - General 02/14/10 02/09/15 documented as of this encounter
[2024-08-23] MEDS: ACETAMINOPHEN 1,000 MG/100 ML BAG 400 MG IVPB (12:44)
[2024-08-23] MEDS: Ketorolac 15 MG/ML VIAL IVP (12:46)
[2024-08-23] MEDS: Metoclopramide 10 MG/2 ML VIAL 5 MG IVP (12:46)
[2024-08-23] MEDS: diphenhydrAMINE 50 MG/ML VIAL 25 MG IVP (12:46)
[2024-08-23 12:48] LABS: Abs Immature Grans 0.04 10^3/uL (0.0-0.06); Absolute Basophil Count 0.03 10^3/uL (0.0-0.2); Absolute Eosinophil Count 0.08 10^3/uL (0.0-0.7); Absolute Lymphocyte Count 1.86 10^3/uL (1.2-3.4); Absolute Monocyte Count 0.65 10^3/uL (0.1-0.8); Basophils % 0.3 %; Eosinophils % 0.7 %; HCT 42.7 % (36.0-46.0); HGB 14.7 g/dL (11.2-15.7); Immature Grans % 0.4 %; MCH 29.5 pg (27.0-33.0); MCHC 34.4 % (32.0-36.0); MCV 86 fL (80-95); MPV 10.5 fL (8.0-11.0); Monocytes % 5.9 %; Neutrophils % 75.7 %; Platelet Count 278 10^3/uL (130-400); RBC 4.99 10^6/uL (3.93-5.22); RDW 11.6 % (11.7-14.6); RDW-SD 35.6 fL; WBC 10.97 10^3/uL (4.4-10.8)
[2024-08-23 13:22] LABS: ALT 41 U/L (14-59); AST 27 U/L (15-37); Albumin 4.1 g/dL (3.4-5.0); Alkaline Phosphatase 58 U/L (46-116); Anion Gap 8.3 mmol/L (3-11); BUN 9 mg/dL (7-18); Bilirubin, Total 0.52 mg/dL (0.2-1.0); CO2 28.7 mmol/L (21.0-32.0); Calcium 9.4 mg/dL (8.5-10.1); Chloride 105 mmol/L (98-107); Estimated GFR 77.24 (mL/min/1.73m2); Glucose 101 mg/dL (74-106); Potassium 3.7 mmol/L (3.5-5.1); Sodium 142 mmol/L (136-145); Total Protein 7.8 g/dL (6.4-8.2)
[2024-08-23 13:47] VITALS: BP 133/88; PULSE 64; RESP 12; O2SAT 97
== END 2024-08-23 13:49 | disposition home or self-care (01) ==
PROVIDERS: Emergency Provider Physician Assistant; PCP Nurse Practitioner Adult Health
DX: G43.909 Migraine, unspecified, not intractable, without status migrainosus (principal); I10 Essential (primary) hypertension
CPT/HCPCS: 80053; 81025; 96365; 96375; 99284; 70450; 85025; J0131; J1200; J1885; J2765

== ENCOUNTER 2024-09-24 10:20 | Outpatient (REF) | payer MEDICAID, SELFPAY ==
--- NOTE | 2024-09-24 08:45 | PAPFT_PTH ---
PATIENT: Liza Wilkinson LOC: [facility] U#:[id number] AGE/SX: 29/F ROOM: RE09/24/[address]: Darling Richards MD : 1995 BED: DIS: 09/24/2024 SPEC #: [id number] RECD: 09/24/24 13:31 STATUS: LUANNE RESteven #: [id number] ALISHA: 09/24/24 08:[address]: Darling Richards DEPT: [facility] Cytology RECD BY: Mariel Michelle ENTERED: 09/24/24 13:31 SP TYPE: PAPFT MALINI DR: Isabel Cao APRN Tissues: 1 - CX/ENDOCX FOR PAP SMEARS Procedures: PAP THIN PREP/UVM Screening HPV DNA PROBE Comments: [id number] (HPV 16 & 18/45)
== END 2024-09-24 10:21 | disposition home or self-care (01) ==
LOC: LBN 10:20
PROVIDERS: PCP Nurse Practitioner Adult Health; Visit Provider Obstetrics & Gynecology
DX: Z12.4 Encounter for screening for malignant neoplasm of cervix (principal)
CPT/HCPCS: 88142; 87624

== ENCOUNTER 2024-11-29 03:35 | Emergency (ER) | payer MEDICAID, SELFPAY ==
[2024-11-29 03:38] VITALS: BP 175/104; PULSE 97; RESP 16; O2SAT 96
--- NOTE | 2024-11-29 03:38 | ED.GENADUL_ITS ---
Discharge Plan Disposition Patient Disposition: Home Condition: Good Discharge Details Clinical Impression: URI (upper respiratory infection), RAD (reactive airway disease) Primary Care Provider: Isabel Cao ED Provider: Jose Luis Caraballo and New Rx's Prescriptions: New albuterol sulfate [Ventolin HFA] 90 mcg/actuation Hfa Aerosol Inhaler 2 puff inhalation Q6H PRN (Reason: Shortness Of Breath Or Wheezing) Qty: 0 0RF Inhaler, Assist Devices [Pocket Chamber] 1 ea miscellaneous DIRECTED Qty: 0 0RF Continued labetalol 100 mg tablet 100 mg PO BID Qty: 180 2RF Rx Instructions: Blood pressure goal <140/90 fluoxetine [Prozac] 10 mg capsule 10 mg PO DAILY MDD 20mg/24h Qty: 90 3RF ibuprofen 800 mg tablet 800 mg PO TID PRN (Reason: pain) Qty: 40 0RF Rx Instructions: Take at onset of migraine sumatriptan succinate 50 mg tablet See Rx Instructions PO .COMPLEX Qty: 12 3RF Rx Instructions: take 1 tab at onset of headache; if no relief may repeat 1 tab after at least 2 hrs; max = 4 tabs/24 hr PO Gummies 400 mcg-35 mg- 25 mg-5 mg tablet,chewable 1 tab PO DAILY Discharge Instructions Instructions: Upper Respiratory Infection ED Additional Instructions: You were seen for URI type symptoms with nasal congestion, cough, shortness of breath. Your exam overall is reassuring. You had some improvement with neb treatment suggesting mild component of reactive airway. May use albuterol inhaler every 6 hours over the next few days to see if this helps. Rest and stay hydrated. Follow-up with primary care this coming week if no improvement. Return to ED for worsening shortness of breath, chest pain or pressure, mental status change, other concerns. Referrals: Isabel Cao, WORKSHOP MANAGER [Primary Care Provider] - HPI General Mode of arrival: ambulatory . Date/Time Provider Initiated Documentation: 11/29/24 03:36 . Limitations to Documentation: no limitations . Information obtained by: patient, RN notes reviewed and old records reviewed . HPI Narrative: Patient presents to ED with complaint of URI symptoms including cough, nasal congestion, difficulty breathing and chest tightness, fever at initial onset. Reports being placed on antibiotic couple weeks ago for sinusitis. Did seem improved. Over the last 3 days has recurrent symptoms with a lot of congestion and cough. Does report fever initially but none lately. No GI symptoms. Feels like her chest is tight and she cannot get a complete deep breath. Seems to feel more short of breath with exertion. No chest pain. Related Data Home Medications ?Medication ?Instructions ?Recorded ?Confirmed PNV 153-FA 400 mcg-om3 35 mg-dha 1 tab PO DAILY 09/24/24 11/29/24 25 mg-epa 5 mg-fish oil chew tablet ( Gummies) fluoxetine 10 mg capsule (Prozac) 10 mg PO DAILY #90 caps 10/20/24 11/29/24 ibuprofen 800 mg tablet 800 mg PO TID PRN pain #40 tabs 10/20/24 11/29/24 labetalol 100 mg tablet 100 mg PO BID #180 tabs 10/20/24 11/29/24 sumatriptan succinate 50 mg tablet See Rx Instructions PO .COMPLEX 10/20/24 11/29/24 #12 tabs Inhaler, Assist Devices [Pocket 1 ea miscellaneous DIRECTED ##0 11/29/24 Chamber] albuterol sulfate 90 mcg/actuation 2 puff inhalation Q6H PRN 11/29/24 aerosol inhaler (Ventolin HFA) Shortness Of Breath Or Wheezing #0 inhalations Previous Rx's ?Medication ?Instructions ?Recorded fluoxetine 10 mg capsule (Prozac) 10 mg PO DAILY #90 caps 10/20/24 ibuprofen 800 mg tablet 800 mg PO TID PRN pain #40 tabs 10/20/24 labetalol 100 mg tablet 100 mg PO BID #180 tabs 10/20/24 sumatriptan succinate 50 mg tablet See Rx Instructions PO .COMPLEX 10/20/24 #12 tabs Inhaler, Assist Devices [Pocket 1 ea miscellaneous DIRECTED ##0 11/29/24 Chamber] albuterol sulfate 90 mcg/actuation 2 puff inhalation Q6H PRN 11/29/24 aerosol inhaler (Ventolin HFA) Shortness Of Breath Or Wheezing #0 inhalations Allergies Allergy/AdvReac Type Severity Reaction Status Date / Time polymyxin B sulfate (From Allergy Unknown unable to Verified 11/29/24 03:45 Polytrim) eval trimethoprim (From Polytrim) Allergy Unknown unable to Verified 11/29/24 03:45 eval nifedipine Allergy High Verified 11/29/24 03:45 BP--RX at [facility] prednisone Allergy Skin Rash Verified 11/29/24 03:45 bupropion (From Wellbutrin) AdvReac Mild Made Verified 11/29/24 03:45 anxiety worse citalopram AdvReac Mild Hyperhidrosis; Verified 11/29/24 03:45 paresthesias(?) pseudoephedrine HCl (From AdvReac tachycardia Verified 11/29/24 03:45 Sudafed) sertraline AdvReac hyperhidros Verified 11/29/24 03:45 is General JORDAN: 3 Review of Systems Narrative: Per HPI Exam Narrative Exam Narrative: Const: WDWN female in NAD. VS per triage. HEENT: NC/AT. Normal facial exam. Neck: Supple. Trachea midline. Lungs: Normal respiratory effort. Lungs with few scattered rhonchi. Cor: RRR without murmur. Neuro: A+O x 3. Normal speech, mentation, gait. Cranial nerves II - XII grossly intact. No gross motor or sensory deficit. Ext: No C/C/E. Medical Decision Making Patient presenting with influenza-like symptoms. Declined Fluvid by nursing which is reasonable as she is young and healthy and diagnosis would not change treatment as she is not really candidate for Tamiflu or Paxlovid. She does sound bronchitic with her cough. There is no wheezing but she complains of tightness. Tried a DuoNeb with some improvement. Complains of a lot of nasal congestion and facial pressure but cannot take pseudoephedrine. She just recently came off antibiotics. I would not repeat antibiotics as this is likely viral in nature and and acute. Will discharge home with albuterol inhaler as there does seem to be some component of reactive airway. Otherwise rest, hydrate, acetaminophen or ibuprofen for pain and discomfort. Follow-up with primary care if not improving. Return precautions provided. PFSH All Active Problems (Updated 11/29/24 @ 04:20 by Jose Luis Caraballo MD) RAD (reactive airway disease) (Acute) URI (upper respiratory infection) (Acute) Paresthesia of hand, bilateral (Acute) wrist brace; OT Family history of pancreatic cancer (Acute) Brother dx'ed 48yo Family history of breast cancer (Acute 07/30/15) Mother Dx'ed 48yo; start mammography 38yo --[facility] twice per [facility], but at least annually --mammograms at 33yo Family history of leukemia (Chronic) CBC Migraine (Chronic ~2013) Pineal gland cyst (Chronic 2013) [facility] Neuro 2013 [facility] MRI, last 2021 (stable) Pelvic floor dysfunction in female (Acute) Medical History Essential (primary) hypertension (~2019) Losartan 2019; goal BP <130/80 Anxiety (~2019) Intolerance Wellbutrin 2019; Sertraline hyperhidrosis 2019; Citalopram 10mg 07/2020; Venlafxine effective, discontinued 03/2023, restarted 04/2023; referral 10/2020; Prozac effective 1585-2223 Episodic cluster headache, not intractable [facility] Neurology History of severe pre-eclampsia 2019 with CS delivery at [facility] Surgical History S/P section (10/29/19) [facility] admit 10/29/19-11/03/19 extension of incision with hemorrhage & transfusion Rudolph tooth extraction Tonsillectomy and adenoidectomy 10/2012 [facility] Family History Mother , Leukemia at age 58. Essential hypertension Personal history of malignant neoplasm Leukemia (AML) Breast cancer 40s Father Essential hypertension Hyperlipidemia Brother Personal history of malignant neoplasm Pancreatic cancer, dx'ed 48yo Social History Smoking/Tobacco Use Status: Never Smoking risk assessment performed?: Yes Alcohol Intake: current Alcohol Intake frequency: a few times a month Drug use: Never Substance use type: does not use Housing: house Number of Children: 1 current occupation: [employer] use: always Do you feel safe at home: Yes Do you feel safe in your relationship?: Yes Female Reproductive History Menstrual Age of Menarche: 12 control method: pills History History 1 Para 1 Hx # Term Pregnancies 1 Multiple births 0 Hx # Pregnancies 0 Ectopic pregnancies 0 AB induced 0 Hx Number of Living Children 1 AB spontaneous 0 Past Pregnancies Del. Date GA/Weeks # Preg Succ Route Wgt Sex Labor Lgth Anesth esia Location Prov Complic 10/31/19 37 No 2803.768 g Female re gisharla local [facility] hemorrhag e transfusion Delivery Date: 10/31/19 Last Updated by: Darling Richards MD Severe HTN with transfer to [facility] at 33wks, then readmission @37.4 with s evere BPs, induction of labor to fully dilated with CS s/p 3hrs of pushing, PPH with extension of hysterotomy: 4300ml with transfusions and bakri balloon.
[2024-11-29 03:47] VITALS: RESP 16
[2024-11-29] MEDS: Albuterol/Ipratropium 3 ML UPD VIAL UPD (03:59)
[2024-11-29] MEDS: Inhaler, Assist Device 1 EACH MC (04:26)
[2024-11-29] MEDS: Albuterol HFA 8 GM 60 PUFF INH IH (04:26)
== END 2024-11-29 04:31 | disposition home or self-care (01) ==
PROVIDERS: Emergency Provider Emergency Medicine; PCP Nurse Practitioner Adult Health
DX: J06.9 Acute upper respiratory infection, unspecified (principal); J45.909 Unspecified asthma, uncomplicated; I10 Essential (primary) hypertension
CPT/HCPCS: 94640; 99283; J7620

== ENCOUNTER 2025-07-25 11:29 | Outpatient (REF) | payer MEDICAID, SELFPAY ==
[2025-07-25 17:20] LABS: HCT 42.6 % (36.0-46.0); HGB 14.3 g/dL (11.2-15.7); MCH 29.0 pg (27.0-33.0); MCHC 33.6 % (32.0-36.0); MCV 86 fL (80-95); MPV 12.2 fL (8.0-11.0); Platelet Count 240 10^3/uL (130-400); RBC 4.93 10^6/uL (3.93-5.22); RDW 11.6 % (11.7-14.6); RDW-SD 36.5 fL; WBC 5.28 10^3/uL (4.4-10.8)
[2025-07-25 18:17] LABS: ALT 27 U/L (14-59); AST 25 U/L (15-37); Albumin 4.1 g/dL (3.4-5.0); Alkaline Phosphatase 59 U/L (46-116); Anion Gap 8.8 mmol/L (3-11); BUN 15 mg/dL (7-18); Bilirubin, Total 0.4 mg/dL (0.2-1.0); CO2 26.2 mmol/L (21.0-32.0); Calcium 9.4 mg/dL (8.5-10.1); Calculated LDL 125 mg/dL (<100); Chloride 104 mmol/L (98-107); Cholesterol 196 mg/dL (<200); Estimated GFR 87.11 (mL/min/1.73m2); Glucose 79 mg/dL (74-106); HDL Cholesterol 48 mg/dL (>or=50); Potassium 4.5 mmol/L (3.5-5.1); Sodium 139 mmol/L (136-145); TSH (W/Ref FT4) 1.36 uIU/mL (0.36-3.74); Total Protein 7.7 g/dL (6.4-8.2); Triglyceride 116 mg/dL (<150); Vitamin B12 482 pg/mL (193-986)
[2025-07-25 18:18] LABS: Folate > 20.0 ng/mL (8.6-20.0)
== END 2025-07-25 11:30 | disposition home or self-care (01) ==
LOC: LBN 11:29
PROVIDERS: PCP Nurse Practitioner Adult Health; Visit Provider Nurse Practitioner Adult Health
DX: Z13.1 Encounter for screening for diabetes mellitus (principal); Z13.220 Encounter for screening for lipoid disorders; Z31.41 Encounter for fertility testing; Z87.59 Personal history of other complications of pregnancy, childbirth and the puerperium; G43.909 Migraine, unspecified, not intractable, without status migrainosus; I10 Essential (primary) hypertension; F41.9 Anxiety disorder, unspecified; Z80.3 Family history of malignant neoplasm of breast; Z80.0 Family history of malignant neoplasm of digestive organs; Z80.6 Family history of leukemia; L30.9 Dermatitis, unspecified
CPT/HCPCS: 80053; 80061; 85027; 82607; 82746; 84443